=== PATIENT | male | born 1975 | race Caucasian/White ===

== ENCOUNTER → 2019-09-04 14:30 | Outpatient (BNVA) | payer SELFPAY | PROVIDERS: Family Provider Family Medicine; PCP Family Medicine; Visit Provider Family Medicine | DX: I10 Essential (primary) hypertension (principal); E78.2 Mixed hyperlipidemia; G43.009 Migraine without aura, not intractable, without status migrainosus; J30.2 Other seasonal allergic rhinitis; F17.229 Nicotine dependence, chewing tobacco, with unspecified nicotine-induced disorders | CPT/HCPCS: 80053 ==

== ENCOUNTER → 2019-09-17 14:55 | Outpatient (BNVA) | payer MEDICAID, SELFPAY | PROVIDERS: Family Provider Family Medicine; PCP Family Medicine; Visit Provider Nurse Practitioner Psychiatric/Mental Health | DX: F15.21 Other stimulant dependence, in remission (principal); F10.21 Alcohol dependence, in remission; F60.2 Antisocial personality disorder; F39 Unspecified mood [affective] disorder | CPT/HCPCS: 99214 ==

== ENCOUNTER 2019-12-05 17:17 | Inpatient (IN) | payer MEDICAID, SELFPAY ==
[2019-12-05 17:27] VITALS: BP 102/71; PULSE 120; RESP 19; TEMP 36.9; O2SAT 97; BMI 27.3
--- NOTE | 2019-12-05 17:31 | CTR_ITS ---
PROCEDURE INFORMATION: Exam: CT Head Without Contrast Exam date and time: 12/05/2019 5:43 PM Age: 44 years old Clinical indication: Other: Seizure TECHNIQUE: Imaging protocol: Computed tomography of the head without contrast. Axial, coronal and sagittal reformatted images were created and reviewed. Total DLP: 865.66 mGy-cm Radiation optimization: All CT scans at this facility use at least one of these dose optimization techniques: automated exposure control; mA and/or kV adjustment per patient size (includes targeted exams where dose is matched to clinical indication); or iterative reconstruction. COMPARISON: No relevant prior studies available. FINDINGS: Brain: No CT evidence of acute intracranial hemorrhage or acute territorial infarction. No significant mass effect or midline shift. Basal cisterns patent. Ventricles: Prominence of the cortical sulci, cisterns and ventricular system, consistent with cerebral and cerebellar volume loss. Bones/joints: No acute osseous abnormality. Sinuses: Minimal ethmoid mucosal thickening. Mastoid air cells: Grossly unremarkable. Soft tissues: Grossly unremarkable. CT/CT head wo con* [id number] IMPRESSION: 1[address] No CT evidence of acute intracranial pathology. 2. Additional findings, as above. Radiation Dose CTDIVOL = (mGy): DLP = 865.66 (mGy-cm)
--- NOTE | 2019-12-05 17:32 | W.ED.PSYCH ---
HPI - Psych General: Chief Complaint: Psychiatric Symptoms Stated Complaint: mhe Time Seen by Provider: 12/05/19 17:28 Source: patient Mode of arrival: ambulatory History of Present Illness: HPI Narrative: 44-year-old male who has a history of bipolar and schizophrenia also history of substance abuse. Patient states that he recently relapsed on methamphetamine and has been very paranoid. He also thinks he may have had a seizure recently. Patient is under a 96-hour hold and brought here by police. complaint: suicidal ideation Associated symptoms: Reports depression Review of Systems Const: Denies: fever, chills, body aches or change in appetite Eyes: Denies: blurry vision or eye discomfort ENMT: Denies: throat pain or dental pain Card: Denies: chest pain Resp: Denies: shortness of breath GI: Denies: abdominal pain, nausea, vomiting or diarrhea : Denies: painful urination Musc: Denies: neck pain or back pain Skin/Breast: Denies: rash Neuro: Denies: headache Psych: Reports: depression Michael/Lymph: Denies: easy bruising All/Imm: Denies: hives PFSH ED PFSH: Medical History Benign essential HTN Bipolar disorder Hyperlipidemia Schizophrenia Seasonal allergies Surgical History No pertinent past surgical history Family History Other Diabetes Stroke Social History Smoking and tobacco status: never smoked Quit status (tobacco): not considering quitting Second hand smoke exposure: No Alcohol intake: former Physical Exam Const: COMMON NORMALS: no apparent distress, oriented x3 and healthy appearing HENMT: COMMON NORMALS: normocephalic and head/scalp atraumatic HEAD & SCALP: normocephalic and atraumatic Eye: COMMON NORMALS: PERRL and EOMs intact bilaterally PUPIL: Yes PERRL Neck/C-Spine: COMMON NORMALS: full ROM and supple Chest: COMMONS NORMALS: inspection of chest normal and palpation of chest normal Resp: COMMON NORMALS: normal respiratory effort, no retractions, no use of accessory muscles and clear to auscultation bilaterally AUSCULTATION: clear to auscultation bilaterally Cardio: COMMON NORMALS: regular rate, regular rhythm and no murmurs RATE: regular rate RHYTHM: regular rhythm GI: COMMON NORMALS: normal to inspection, nondistended, normoactive bowel sounds, soft to palpation, non-tender and no masses PALPATION: Yes soft Extremity: COMMON NORMALS: normal to inspection and full ROM Neuro: COMMON NORMALS: oriented x3, moves all extremities and no focal motor deficits Psych: COMMON NORMALS: cooperative ATTITUDE: Yes paranoid ACTIVITY/MOTOR BEHAVIOR: Yes fidgeting THOUGHT PROCESS: disorganized Skin: COMMON NORMALS: no rashes or lesions noted and no wounds GENERAL SKIN EXAM: no rashes or lesions noted MDM - Psych MDM Narrative: Medical decision making narrative: Patient presents here with suicidal ideation along with methamphetamine abuse. I spoke to Dr. Pugh and patient is medically cleared will admit to the psychiatric unit. Lab Data: Labs: Lab Results 12/05/19 12/05/19 Range/Units 17:44 17:44 WBC 11.7 H (4.0-10.0) 10^3/ uL RBC 5.43 H (4.1-5.3) 10^6/u L Hgb 16.9 H (11.7-16.6) g/dL Hct 51.1 (42.0-52.0) % MCV 94.1 H (80-94) fL MCH 31.1 (28.0-34.0) pg MCHC 33.1 (30.0-36.0) g/dL RDW 11.9 L (12.1-15.1) % Plt Count 567 H (130-400) 10^3/c mm MPV 9.7 (7.4-10.4) fL Neut % (Auto) 71.6 % Lymph % (Auto) 14.6 % [place] % (Auto) 12.5 % Eos % (Auto) 0.6 % Baso % (Auto) 0.3 % Neut # (Auto) 8.4 H (1.8-7.7) 10^3/u L Lymph # (Auto) 1.7 (0.8-4.8) 10^3/u L [place] # (Auto) 1.5 H (0.2-0.9) 10^3/u L Eos # (Auto) 0.1 (0.0-0.8) 10^3/u L Baso # (Auto) 0.0 (0.0-0.1) 10^3/u L Nucleated RBC % (a uto) 0 % Nucleated RBCs # 0.0 /100WBC Sodium 135 L (136-145) mmol/L Potassium 4.0 (3.5-5.1) mmol/L Chloride 93 L (98-107) mmol/L Carbon Dioxide 27 (22-29) mmol/L Anion Gap 19.0 (5-19) BUN 27 H (6-20) mg/dL Creatinine 1.6 H (0.7-1.2) mg/dL GFR Calculation 47.0 L (90-130) mL/min Glucose 102 (65-115) mg/dL Calculated Osmolal ity 277 L (285-295) mOsm/k g Calcium 10.0 (8.5-10.5) mg/dL Total Bilirubin 0.4 (0.15-1.2) mg/dL AST 18 (0-40) U/L ALT 13 (0-41) U/L Alkaline Phosphata se 85 (40-130) IU/L Total Protein 7.8 (6.6-8.7) g/dL Albumin 4.9 (3.5-5.2) g/dL Globulin 2.9 (1.3-4.6) g/dL Salicylates < 0.3 L (3-10) mg/dL Acetaminophen < 5.0 L (10-30) ug/mL Valproic Acid 2.8 L (50-100) mcg/mL Ethyl Alcohol < 10 (0-10) mg/dL Discharge Plan Discharge Prescriptions: No Action lisinopril 20 mg tablet 20 mg PO DAILY RF: 0 divalproex [Depakote] 500 mg tablet,delayed release (DR/EC) 2,000 mg PO .at bedtime RF: 0 amlodipine 2.5 mg tablet 2.5 mg PO DAILY RF: 0 atorvastatin 20 mg tablet 20 mg PO DAILY RF: 0 Tylenol 325 mg Tablet 325 mg PO QID PRN (Reason: Pain) RF: 0 Coding Level of Care Code ED Nuclear Instructor for Chg Fwd Exam Comprehensive
[2019-12-05 17:56] LABS: Basophils % 0.3 %; Eosinophils # 0.1 10^3/uL (0.0-0.8); Eosinophils % 0.6 %; Hematocrit 51.1 % (42.0-52.0); Hemoglobin 16.9 g/dL (11.7-16.6); Lymphocytes # 1.7 10^3/uL (0.8-4.8); Lymphocytes % 14.6 %; Mean Corpuscular HGB Conc 33.1 g/dL (30.0-36.0); Mean Corpuscular Hemoglobin 31.1 pg (28.0-34.0); Mean Corpuscular Volume 94.1 fL (80-94); Mean Platelet Volume 9.7 fL (7.4-10.4); Monocytes # 1.5 10^3/uL (0.2-0.9); Monocytes % 12.5 %; Neutrophils # 8.4 10^3/uL (1.8-7.7); Neutrophils % 71.6 %; Nucleated Red Blood Cells % 0 %; Platelet Count 567 10^3/cmm (130-400); Red Blood Count 5.43 10^6/uL (4.1-5.3); Red Cell Distribution Width 11.9 % (12.1-15.1); White Blood Count 11.7 10^3/uL (4.0-10.0)
[2019-12-05 18:11] LABS: Acetaminophen < 5.0 ug/mL (10-30); Alanine Aminotransferase 13 U/L (0-41); Albumin Level 4.9 g/dL (3.5-5.2); Alcohol Level < 10 mg/dL (0-10); Alkaline Phosphatase 85 IU/L (40-130); Aspartate Amino Transferase 18 U/L (0-40); Blood Urea Nitrogen 27 mg/dL (6-20); Carbon Dioxide 27 mmol/L (22-29); Chloride 93 mmol/L (98-107); Globulin 2.9 g/dL (1.3-4.6); Glucose 102 mg/dL (65-115); Osmolality Calculated 277 mOsm/kg (285-295); Salicylate < 0.3 mg/dL (3-10); Sodium 135 mmol/L (136-145); Total Bilirubin 0.4 mg/dL (0.15-1.2); Total Protein 7.8 g/dL (6.6-8.7); Valproic Acid Level 2.8 mcg/mL (50-100)
[2019-12-05 20:03] VITALS: BP 100/64; PULSE 101; RESP 16; O2SAT 99
[2019-12-05 20:34] VITALS: BP 109/76; PULSE 107; RESP 18; TEMP 36.5; O2SAT 100
[2019-12-05] MEDS: atorvastatin 40 mg Tablet 20 MG PO (21:17)
[2019-12-05] MEDS: trazodone 50 mg Tablet PO (21:18)
[2019-12-05] MEDS: divalproex DR 500 mg Tablet 2000 MG PO (21:18)
[2019-12-05 22:00] VITALS: BP 109/76; PULSE 107; RESP 18; TEMP 36.5; O2SAT 100
[2019-12-05 22:07] LABS: Amphetamines Screen Urine Positive (Negative); Barbiturates Screen Urine Negative (Negative); Benzodiazepines Screen Urine Negative (Negative); Cocaine Screen Urine Negative (Negative); Opiate Screen Urine Negative (Negative); PCP Screen Urine Negative (Negative); THC Screen Urine Negative (Negative)
--- NOTE | 2019-12-06 01:03 | PC.NURSE ---
PRN Trazodone given to pt per pt request
[2019-12-06 06:00] VITALS: BP 100/65; PULSE 96; RESP 16; TEMP 36.8; O2SAT 98
[2019-12-06] MEDS: hydroCHLOROthiazide 25 mg Tablet PO (09:08)
[2019-12-06] MEDS: amlodipine 5 mg Tablet 2.5 MG PO (09:08)
[2019-12-06] MEDS: lisinopril 20 mg Tablet PO (09:08)
[2019-12-06 13:19] VITALS: BP 84/45; PULSE 93; RESP 18; TEMP 37.2; O2SAT 96
--- NOTE | 2019-12-06 13:21 | P.HP_ITS ---
Providers/Chief Complaint Admitting Physician: Christos Pugh MD Primary Care Provider: Paula Rolon DO Chief Complaint: mhe HPI NPU History of Present Illness Walt Madsen is a 44 year old male who presents today reporting it has been a crazy few months. He got out of custodial last April 2019, and he got himself connected with [facility]. He reports that he was doing fairly well and then about three months ago he started having some slip ups. His doctor at [facility] told him that if he tested positive for methamphetamine that they would stop gi ving him his medication, so he started going to [facility]. He reports that he was doing well taking his medication but he has had maybe three slip ups, of three or four days, in the past three months, and he started really getting out of sorts with suicidal thoughts and things of that nature, recently. He reports that he was last here in 2013, and shortly after that is when he went to custodial for five years for burglary and other assorted issues. In that visit he had been to replaced by [facility] right before he came to the neuropsychiatric unit and was afraid to go back to penitentiary, so he ended up taking an overdose of pills. That was his last suicide attempt and he has had two in his life. He reports since he got out, in April 2019, he has been staying at a friends. He has had his SSI returned, and he had been getting things back on track, but then recently he has had some issues with relapse. He reports that he has been having passive wish, auditory hallucinations, and paranoia. He reports he was arrested about a week ago. And also there was some possible seizure or stoke, which is unclear. He reports that he has done best over the past years when he was on Invega injection. He also mentioned the possibility of Adderall as he had been on it when he was younger. We discussed the risks, benefits, and alternatives of restarting the Invega oral, followed by the Invega injection, and getting things stabilized, and he understood and agreed to proceed as is documented in this note. PSYCHIATRIC HISTORY: As above. He reports he has had about six psychiatric hospitalizations, or maybe several more, maybe as many as ten to twelve since he was 17 or 18 years old. He has been on different medications, but over the twenty plus years he has been in several times. SUBSTANCE ABUSE HISTORY: He reports he chews about a can of tobacco a day but does not smoke, he reports he last drank alcohol about six years ago, he does not use marijuana or cocaine, he does use methamphetamine and has used opiates. He reports he has had two to three drug rehabilitations. He has had a couple of DUIs, the last one may have been in 2004. FAMILY HISTORY: He denies any history of mental health issues, addiction, or lethality in his family. DEVELOPMENTAL HISTORY: He denies any issues with his mom?s or delivery of him. He reports he learned how to walk and talk and met all developmental milestones on time. He reports when he went to school, there was no speech therapy, learning support, emotional support, or special education classes. PSYCHOSOCIAL HISTORY: He reports that his mother and father were together when he was born and when he was about 15 years old. They had him and a younger brother together. His mom had no other children; his dad had a couple step kids, a couple of adopted kids, and then a half-sister. He reports that his childhood was tough at times, because he was poor, be he denies any emotional, physical, or sexual abuse. He reports the highest grade he went to was the ninth grade, and he got his GED in 1991. He endorses being a heterosexual, with his longest relationship being a couple of years. He was once, not sure if he is , but he has not seen the person for many, many, many years. He reports he has a 20 year old daughter that he sees a little bit, but he was never to her mother. He denies any history. He endorses being a [employer]. The longest job he has had, he said, was ninety days. He reports he lives in a trailer on a friend?s property. LEGAL HISTORY: He reports that he has been to penitentiary multiple times, not actually sure how many. The longest time he was behind bars was the five years he spent in custodial that ended in April 2019. Per his last [facility] IP eval: History of Present Illness Date of Service: May 03, 2014 Reason for Consultation: Suicide attempt by overdose Consulting Service and Doctor: Jacinto Gunn DO HPI: Patient was admitted to the ICU following an overdose on 60 pills of tramadol. He stated that he had to present himself to the replaced by [facility] around 11 AM today, but was afraid to go back to custodial, so he decided to overdose on pills. States he has been charged with stealing. He has history of schizophrenia, and has been hearing voices for a long time. States he mostly heard his grandmother's voice talking to him. Sometimes the voices are mumbled. He has a history of meth use since age 15. He uses drugs intravenously and last used about 3 days ago. Currently endorses depressed mood, anhedonia, psychomotor retardation. Review of Psychiatric Systems: Negative, except as above. Allergies: Coded Allergies: AMOXICILLIN (Verified Allergy, Mild, 06/27/08) PENICILLINS (Verified Allergy, Unknown, 05/03/14) Active Meds: Current Hospital Medications: Medications (Trade) Dose Ordered Sig/Mendoza Route PRN Reason Start Time Stop Time Status Last Admin Dose Admin Ondansetron HCl (Zofran Inj) 4 mg Q6H PRN IV FOR NAUSEA AND VOMITING 05/02/14 23:45 Promethazine HCl (Phenergan Inj) 12.5 mg Q6H PRN IV FOR NAUSEA 05/02/14 23:45 Naloxone HCl (Narcan) 0.4 mg Q1-2H PRN IV 05/02/14 23:45 Pneumococcal Polyvalent Vaccine (Pneumovax Vaccine) 0.5 ml O ONCE IM 05/03/14 10:00 05/03/14 10:01 Home Meds: Per outpatient records: Valium 2 mg at bedtime when necessary, inVega Sustenna 156 mg IM every 3 weeks, Vistaril 25 mg twice a day, doxepin 25 mg at bedtime. Past Medical History Past Medical/Social History: PAST PSYCHIATRIC HISTORY:Previous psychiatric admissions: Yes, here. Previous suicide attempts: Try to kill himself with a gun about 20 years ago. Follows up at [facility] for outpatient care. SUBSTANCE ABUSE HISTORY: Illicit drug use, as mentioned above. SOCIAL HISTORY: Employed: No. Is reapplying for disability. Marital status: D ivorced. Has a 19-year-old daughter. DEVELOPMENTAL HISTORY: History of Physical, Emotional and Sexual abuse: No. LEGAL HISTORY: Charges for stealing. FAMILY PSYCHIATRIC HISTORY: None reported. PAST MEDICAL HISTORY: Hypertension, GERD. Meds NPU Home Medications Medication Instructions Recorded Confirmed Last Taken Type divalproex 500 mg tablet,delayed 2,000 mg PO .at bedtime tab 09/04/19 12/05/19 12/04/19 History release acetaminophen [Tylenol] 325 mg PO QID PRN 12/05/19 12/05/19 12/03/19 History amlodipine 2.5 mg PO DAILY 12/05/19 12/05/19 12/05/19 History atorvastatin 20 mg PO DAILY 12/05/19 12/05/19 12/04/19 History lisinopril-hydrochlorothiazide 1 tab PO DAILY 12/05/19 12/05/19 12/05/19 History Allergies Allergy/AdvReac Type Severity Reaction Status Date / Time Penicillins Allergy unknown Verified 09/04/19 14:08 PFS NPU PFSH: Medical History Benign essential HTN Bipolar disorder Hyperlipidemia Schizophrenia Seasonal allergies Surgical History No pertinent past surgical history Family History Other Diabetes Stroke Social History Smoking and tobacco status: never smoked Quit status (tobacco): not considering quitting Second hand smoke exposure: No Alcohol intake: former Mental Status Exam MSE Comments: This is an overweight, white male, with adequate dress, grooming, and eye contact. No abnormal movements. Cooperative with exam in no acute distress. Speech was decreased rate and volume with kind of a stutter. Mood described as pretty good; affect odd. Thought process, organized. Thought content: patient denied any suicidal or homicidal ideation, there were no delus ions noted, but he endorsed paranoia and some auditory hallucinations. Attention and concentration appeared intact, and memory was mostly reliable, but none were formally tested. He is alert and oriented times three. Insight and judgment are fair. Vitals/I&O/Wt Last Vital Signs Temp 99.0 F 12/06/19 13:19 Pulse 93 12/06/19 13:19 Resp 18 12/06/19 13:19 BP 84/45 12/06/19 13:19 Pulse Ox 96 12/06/19 13:19 Weight last 48 hrs Weight 79.379 kg Data NPU : 12/05/19 17:44 12/05/19 17:44 A&P Assessment and plan (1) Bipolar 1 disorder: This is a 44 year old, white male, with a history of methamphetamine addiction, depression, anxiety, and psychosis, and a question of schizophrenia, who presents with some suicidal thoughts and wanting to restart his medication. Restart Invega 6 mg po q daily. In the next twenty four to forty eight hours we will get him the first injection and consider discharge after we have him stable in a place for him to receive his next shot. Continue individual and milieu therapy. Continue q-15 minute checks for safety. Will work with social work to find a possible sober living facility at the highest level of treatment to which he is willing to commit. Status: Acute (2) Methamphetamine dependence: Status: Acute Involuntary Hold Information 96 Hour Hold: 96 Hour Involuntary Admission: Yes 96 Hour Hold Ending Date: 12/05/19 96 Hour Hold Ending Time: 21:13 Attestations NPU Medical Necessity Statement*: Inpatient hospitalization is medically necessary and the clinically appropriate intervention at this time. Patient will be in the hospital for over two midnights. We will monitor medications and adjust as indicated. Likely length of stay is three to five days. Coding Level of Care Code Acute Security Site Supervisor for Mimi Gastelum Diagnoses Bipolar 1 disorder F31.9 Methamphetamine dependence F15.20
[2019-12-06] MEDS: divalproex DR 500 mg Tablet 2000 MG PO (21:02)
[2019-12-06] MEDS: trazodone 50 mg Tablet PO (21:02)
[2019-12-06] MEDS: nicotine 2 mg Gum BUCCAL (21:03)
[2019-12-06] MEDS: paliperidone ER 6 mg Tablet PO (21:03)
[2019-12-06] MEDS: atorvastatin 40 mg Tablet 20 MG PO (21:03)
[2019-12-06 21:15] VITALS: BP 98/60; PULSE 88; RESP 17; TEMP 36.7; O2SAT 95
[2019-12-07 06:00] VITALS: BP 97/58; PULSE 87; RESP 16; TEMP 36.6; O2SAT 96
[2019-12-07] MEDS: amlodipine 5 mg Tablet 2.5 MG PO (09:18)
[2019-12-07] MEDS: hydroCHLOROthiazide 25 mg Tablet PO (09:18)
[2019-12-07] MEDS: paliperidone ER 6 mg Tablet PO (09:18)
[2019-12-07] MEDS: lisinopril 20 mg Tablet PO (09:18)
[2019-12-07] MEDS: nicotine 21 mg Patch 1 PATCH TRANSDERMA (13:06)
[2019-12-07 13:15] VITALS: BP 110/65; PULSE 105; RESP 18; TEMP 36.9; O2SAT 98
[2019-12-07] MEDS: acetaminophen 325 mg Tablet 650 MG PO (14:39)
--- NOTE | 2019-12-07 18:19 | PM.NPN ---
Subjective NPU Subjective: Interval history: Walt presented today reporting that he is feeling a slight bit better but is not sure what his next move is. During the day we did get news that he is accepted in [facility] and they are going to be able to take him on Tuesday. He was very excited about that news and the opportunity to really re-establish his sobriety and work on some things he needs to work on. He is tolerating the Invega well and we talked about the possibility of giving him his injection this weekend. Otherwise he denied any issues. Mental Status Exam MSE Comments: This is an overweight, white male, with adequate dress, grooming, and eye contact. No abnormal movements except for psychomotor retardation. Cooperative with exam in no acute distress. Speech was decreased rate and volume. Mood described as okay; affect slightly subdued. Thought process, organized. Thought content: patient denied any suicidal or homicidal ideation, there were no delusions reported or noted, patient denied any auditory or visual hallucinations. Attention, concentration, and memory appeared intact but were not formally tested. Alert and oriented times three. Insight and judgment are limited. Impulse control limited but improving. Vitals/I&O/Wt Last Vital Signs Temp 97.7 F 12/07/19 21:45 Pulse 109 H 12/07/19 21:45 Resp 17 12/07/19 21:45 BP 126/77 12/07/19 21:45 Pulse Ox 100 12/07/19 21:45 Data NPU : 12/05/19 17:44 12/05/19 17:44 A&P Additional A&P Information (1) Bipolar 1 disorder: This is a 44 year old, white male, with a history of methamphetamine addiction, depression, anxiety, and psychosis, and a question of schizophrenia, who presents with some suicidal thoughts and wanting to restart his medication. Continue current medication. Will give invega injection this weekend Continue individual and milieu therapy. Continue q-15 minute checks for safety. (2) Methamphetamine dependence: Involuntary Hold Information 96 Hour Hold: 96 Hour Involuntary Admission: Yes 96 Hour Hold Ending Date: 12/05/19 96 Hour Hold Ending Time: 21:13 Attestations NPU Medical Necessity Statement*: Inpatient hospitalization is medically necessary and the clinically appropriate intervention at this time. We will monitor medications and adjust as indicated. Likely length of stay is 2-4 days.Tentative discharge to [facility] on Tuesday. Coding Level of Care Code Acute Digital Archivist for Mimi Gastelum
[2019-12-07] MEDS: trazodone 50 mg Tablet PO (20:52)
[2019-12-07] MEDS: atorvastatin 40 mg Tablet 20 MG PO (20:52)
[2019-12-07] MEDS: divalproex DR 500 mg Tablet 2000 MG PO (20:52)
[2019-12-07 21:45] VITALS: BP 126/77; PULSE 109; RESP 17; TEMP 36.5; O2SAT 100
[2019-12-08 06:00] VITALS: BP 93/58; PULSE 76; RESP 18; TEMP 36.6; O2SAT 97
[2019-12-08] MEDS: lisinopril 20 mg Tablet PO (09:12)
[2019-12-08] MEDS: amlodipine 5 mg Tablet 2.5 MG PO (09:12)
[2019-12-08] MEDS: hydroCHLOROthiazide 25 mg Tablet PO (09:12)
[2019-12-08] MEDS: paliperidone ER 6 mg Tablet PO (09:12)
[2019-12-08 13:34] VITALS: BP 128/67; PULSE 105; RESP 19; TEMP 36.9; O2SAT 98
--- NOTE | 2019-12-08 20:33 | P.PN_ITS ---
Subjective NPU Subjective: Interval history: The patient presented today reporting that he is doing okay. He is excited about the prospect of being accepted most likely by the [facility]. Our understanding is that he will go there Tuesday. He reports he feels that the medication is helping. We discussed the risks, benefits and alternatives of initiating the injection, as he had success on it before, and he understood and agreed to proceed as is documented in this note. We discussed him having the injection prior to leaving and asked if he had a preference and his preference was to go ahead and get it over with today. We understood and we agreed to proceed as is documented in this note. Mental Status Exam MSE Comments: This is a well-nourished, well-developed, white male, with adequate dress, limited grooming, and eye contact. No abnormal movements except for psychomotor retardation. Cooperative with exam in no acute distress. Speech was decreased rate and volume. Mood described as a little better; affect still odd. Thought process, organized. Thought content: patient denied any suicidal or homicidal ideation, there were no delusions reported or noted, patient denied any auditory or visual hallucinations. Attention, concentration, and memory appeared intact but were not formally tested. Alert and oriented times three. Insight and judgment are limited but improving. Vitals/I&O/Wt Last Vital Signs Temp 98.4 F 12/08/19 13:34 Pulse 105 H 12/08/19 13:34 Resp 19 H 12/08/19 13:34 BP 128/67 12/08/19 13:34 Pulse Ox 98 12/08/19 13:34 Data NPU : 12/05/19 17:44 12/05/19 17:44 A&P Additional A&P Information (1) Bipolar 1 disorder: This is a 44 year old, white male, with a history of methamphetamine addic tion, depression, anxiety, and psychosis, and a question of schizophrenia, who presents with some suicidal thoughts and wanting to restart his medication. Continue current medication. Will give invega injection today Continue individual and milieu therapy. Continue q-15 minute checks for safety. (2) Methamphetamine dependence: Involuntary Hold Information 96 Hour Hold: 96 Hour Involuntary Admission: Yes 96 Hour Hold Ending Date: 12/05/19 96 Hour Hold Ending Time: 21:13 Attestations NPU Medical Necessity Statement*: Inpatient hospitalization is medically necessary and the clinically appropriate intervention at this time. We will monitor medications and adjust as indicated. Likely length of stay is 1-3 days.Tentative discharge to [facility] on Tuesday. Coding Level of Care Code Acute Import/Export Analyst for Mimi Gastelum
[2019-12-08] MEDS: atorvastatin 40 mg Tablet 20 MG PO (20:39)
[2019-12-08] MEDS: divalproex DR 500 mg Tablet 2000 MG PO (20:39)
[2019-12-08] MEDS: paliperidone palmitate 234 mg Syringe IM (20:39)
[2019-12-08] MEDS: trazodone 50 mg Tablet PO (20:40)
--- NOTE | 2019-12-08 21:15 | PC.NURSE ---
PRN Trazadone given to patient per request. Patient currently resting quietly in bed.
[2019-12-08 22:00] VITALS: BP 116/82; PULSE 100; RESP 22; TEMP 36.6; O2SAT 95
[2019-12-09 06:00] VITALS: BP 112/71; PULSE 71; RESP 20; TEMP 36.8; O2SAT 96
[2019-12-09] MEDS: hydroCHLOROthiazide 25 mg Tablet PO (08:38)
[2019-12-09] MEDS: lisinopril 20 mg Tablet PO (08:38)
[2019-12-09] MEDS: paliperidone ER 6 mg Tablet PO (08:38)
[2019-12-09] MEDS: amlodipine 5 mg Tablet 2.5 MG PO (08:38)
[2019-12-09 12:45] VITALS: BP 106/63; PULSE 80; RESP 17; TEMP 36.7; O2SAT 98
--- NOTE | 2019-12-09 13:39 | P.PN_ITS ---
Subjective NPU Subjective: Interval history: Walt presents today reporting that he is doing okay, that he received his injection without incident yesterday, and he is optimistic about going to the [facility] tomorrow. He denies any issues right now and is optimistic about the opportunity to get the assistance that he will get from the [facility] and to get his recovery effectively on track. Mental Status Exam MSE Comments: This is a well-nourished, well-developed, white male, with adequ ate dress, limited grooming, and adequate eye contact. No abnormal movements except for improving psychomotor retardation. Cooperative with exam in no acute distress. Speech was improved rate and volume. Mood described as better; affect congruent and less subdued. Thought process, organized. Thought content: patient denied any suicidal or homicidal ideation, there were no delusions reported or noted, patient denied any auditory or visual hallucinations. Attention, concentration, and memory appeared intact but were not formally tested. Alert and oriented times three. Insight and judgment are limited but improving. Vitals/I&O/Wt Last Vital Signs Temp 98.2 F 12/09/19 06:00 Pulse 71 12/09/19 06:00 Resp 20 H 12/09/19 06:00 BP 112/71 12/09/19 06:00 Pulse Ox 96 12/09/19 06:00 Weight last 48 hrs Weight 73.573 kg Data NPU : 12/05/19 17:44 12/05/19 17:44 A&P Additional A&P Information (1) Bipolar 1 disorder: This is a 44 year old, white male, with a history of methamphetamine add iction, depression, anxiety, and psychosis, and a question of schizophrenia, who presents with some suicidal thoughts and wanting to restart his medication. Continue current medication. Will give invega injection today Continue individual and milieu therapy. Continue q-15 minute checks for safety. (2) Methamphetamine dependence: Involuntary Hold Information 96 Hour Hold: 96 Hour Involuntary Admission: Yes 96 Hour Hold Ending Date: 12/05/19 96 Hour Hold Ending Time: 21:13 Attestations NPU Medical Necessity Statement*: Inpatient hospitalization is medically necessary and the clinically appropriate intervention at this time. We will monitor medications and adjust as indicated. Likely length of stay is 1-2 days.[facility]. Coding Level of Care Code Acute Building Pressure Washer for Chg Fwd
[2019-12-09] MEDS: divalproex DR 500 mg Tablet 2000 MG PO (21:13)
[2019-12-09] MEDS: atorvastatin 40 mg Tablet 20 MG PO (21:13)
[2019-12-09] MEDS: trazodone 50 mg Tablet PO (21:13)
[2019-12-09 21:30] VITALS: BP 102/64; PULSE 100; RESP 20; TEMP 37.2
--- NOTE | 2019-12-09 23:15 | PC.NURSE ---
Pt given scheduled lipitor, depakote and PRN trazodone at 2112.
[2019-12-10 06:00] VITALS: BP 99/64; PULSE 68; RESP 20; TEMP 37; O2SAT 96
[2019-12-10] MEDS: lisinopril 20 mg Tablet PO (08:56)
[2019-12-10] MEDS: amlodipine 5 mg Tablet 2.5 MG PO (08:56)
[2019-12-10] MEDS: hydroCHLOROthiazide 25 mg Tablet PO (08:56)
[2019-12-10] MEDS: paliperidone ER 6 mg Tablet PO (08:56)
[2019-12-10] MEDS: nicotine 2 mg Gum BUCCAL (11:54)
--- NOTE | 2019-12-10 12:09 | PM.NDC ---
Diagnoses at Discharge Discharge Diagnosis (1) Bipolar 1 disorder: Status: Acute (2) Methamphetamine dependence: Status: Acute Reason for Visit Reason for Visit: Reason For Visit: mhe Brief History: History of Present Illness Walt Madsen is a 44 year old male who presents today reporting it has been a crazy few months. He got out of [facility] last April 2019, and he got himself connected with [facility]. He reports that he was doing fairly well and then about three months ago he started having some slip ups. His doctor at [facility] told him that if he tested positive for methamphetamine that they would stop giving him his medication, so he started going to [facility]. He reports that he was doing well taking his medication but he has had maybe three slip ups, of three or four days, in the past three months, and he started really getting out of sorts with suicidal thoughts and things of that nature, recently. He reports that he was last here in 2013, and shortly after that is when he [facility] and other assorted issues. In that visit he had been to on [facility] right before he came to the neuropsychiatric unit and was afraid to go back to [facility], so he ended up taking an overdose of pills. That was his last suicide attempt and he has had two in his life. He reports since he got out, in April 2019, he has been staying at a friends. He has had his SSI returned, and he had been getting things back on track, but then recently he has had some issues with relapse. He reports that he has been having passive wish, auditory hallucinations, and paranoia. He reports he was arrested about a week ago. And also there was some possible seizure or stoke, which is unclear. He reports that he has done best over the past years when he was on Invega injection. He also mentioned the possibility of Adderall as he had been on it when he was younger. We discussed the risks, benefits, and alternatives of restarting the Invega oral, followed by the Invega injection, and getting things stabilized, and he understood and agreed to proceed as is documented in this note. PSYCHIATRIC HISTORY: As above. He reports he has had about six psychiatric hospitalizations, or maybe several more, maybe as many as ten to twelve since he was 17 or 18 years old. He has been on different medications, but over the twenty plus years he has been in several times. SUBSTANCE ABUSE HISTORY: He reports he chews about a can of tobacco a day but does not smoke, he reports he last drank alcohol about six years ago, he does not use marijuana or cocaine, he does use methamphetamine and has used opiates. He reports he has had two to three drug rehabilitations. He has had a couple of DUIs, the last one may have been in 2004. FAMILY HISTORY: He denies any history of mental health issues, addiction, or lethality in his family. DEVELOPMENTAL HISTORY: He denies any issues with his mom?s or delivery of him. He reports he learned how to walk and talk and met all developmental milestones on time. He reports when he went to school, there was no speech therapy, learning support, emotional support, or special education classes. PSYCHOSOCIAL HISTORY: He reports that his mother and father were together when he was born and when he was about 15 years old. They had him and a younger brother together. His mom had no other children; his dad had a couple step kids, a couple of adopted kids, and then a half-sister. He reports that his childhood was tough at times, because he was poor, be he denies any emotional, physical, or sexual abuse. He reports the highest grade he went to was the ninth grade, and he got his GED in 1991. He endorses being a heterosexual, with his longest relationship being a couple of years. He was once, not sure if he is , but he has not seen the person for many, many, many years. He reports he has a 20 year old daughter that he sees a little bit, but he was never to her mother. He denies any history. He endorses being a Gnosticism. The longest job he has had, he said, was ninety days. He reports he lives in a trailer on a friend?s property. LEGAL HISTORY: He reports that he has been to [facility] multiple times, not actually sure how many. The longest time he was behind bars was the five years he spent in [facility] that ended in April 2019. Per his last [facility] IP eval: History of Present Illness Date of Service: May 03, 2014 Reason for Consultation: Suicide attempt by overdose Consulting Service and Doctor: Jacnito Gunn DO HPI: Patient was admitted to the ICU following an overdose on 60 pills of tramadol. He stated that he had to present himself to the on [facility] around 11 AM today, but was afraid to go back to [facility], so he decided to overdose on pills. States he has been charged with stealing. He has history of schizophrenia, and has been hearing voices for a long time. States he mostly heard his grandmother's voice talking to him. Sometimes the voices are mumbled. He has a history of meth use since age 15. He uses drugs intravenously and last used about 3 days ago. Currently endorses depressed mood, anhedonia, psychomotor retardation. Review of Psychiatric Systems: Negative, except as above. Allergies: Coded Allergies: AMOXICILLIN (Verified Allergy, Mild, 06/27/08) PENICILLINS (Verified Allergy, Unknown, 05/03/14) Active Meds: Current Hospital Medications: Medications (Trade) Dose Ordered Sig/Mendoza Route PRN Reason Start Time Stop Time Status Last Admin Dose Admin Ondansetron HCl (Zofran Inj) 4 mg Q6H PRN IV FOR NAUSEA AND VOMITING 05/02/14 23:45 Promethazine HCl (Phenergan Inj) 12.5 mg Q6H PRN IV FOR NAUSEA 05/02/14 23:45 Naloxone HCl (Narcan) 0.4 mg Q1-2H PRN IV 05/02/14 23:45 Pneumococcal Polyvalent Vaccine (Pneumovax Vaccine) 0.5 ml O ONCE IM 05/03/14 10:00 05/03/14 10:01 Home Meds: Per outpatient records: Valium 2 mg at bedtime when necessary, inVega Sustenna 156 mg IM every 3 weeks, Vistaril 25 mg twice a day, doxepin 25 mg at bedtime. Past Medical History Past Medical/Social History: PAST PSYCHIATRIC HISTORY:Previous psychiatric admissions: Yes, here. Previous suicide attempts: Try to kill himself with a gun about 20 years ago. Follows up at [facility] for outpatient care. SUBSTANCE ABUSE HISTORY: Illicit drug use, as mentioned above. SOCIAL HISTORY: Employed: No. Is reapplying for disability. Marital status: . Has a 19-year-old daughter. DEVELOPMENTAL HISTORY: History of Physical, Emotional and Sexual abuse: No. LEGAL HISTORY: Charges for stealing. FAMILY PSYCHIATRIC HISTORY: None reported. PAST MEDICAL HISTORY: Hypertension, GERD. Hospital Course Hospital Course Walt presented to the emergency room on a 96-hour hold after recent relapse on methamphetamine and suicidal thoughts. He was admitted to the neuropsychiatric unit for definitive care for those concerns. Upon admission he identified that he had been off of his medication for several months and has been struggling to avoid a full on full-blown relapse on methamphetamine. He identified that Invega had been an effective medication and was restarted on that with a significant response. He was given the Invega Sustenna injection on 12/08/2019 without issue. He benefited greatly from the resources on the unit and was able to identify the [facility] as a resource for ongoing improvement. During the hospitalization, he had routine laboratory studies which were within normal limits except for a few outliers. Additionally he had general medical evaluation which was also within normal limits and revealed no new acute processes outside of intoxication and withdrawal. Discharge Summary At the time of discharge, he denied any lethality and was absent psychosis. Mood and anxiety were well managed and he endorsed a plan to avoid all drugs of abuse, and follow-up with the recommended post hospital services, including placement in the programming at [facility]. He was evaluated and deemed to be absent credible lethality and had received the maximum benefit from an inpatient hospitalization, so was discharged. Involuntary Hold Information 96 Hour Hold: 96 Hour Involuntary Admission: Yes 96 Hour Hold Ending Date: 12/05/19 96 Hour Hold Ending Time: 21:13 Mental Status Exam MSE Comments: This is a well-nourished, well-developed, white male, with adequate dress, limited grooming, and adequate eye contact. No abnormal movements except for improving psychomotor retardation. Cooperative with exam in no acute distress. Speech was improved rate and volume. Mood described as much better; affect congruent and less subdued. Thought process, organized. Thought content: patient denied any suicidal or homicidal ideation, there were no delusions reported or noted, patient denied any auditory or visual hallucinations. Attention, concentration, and memory appeared intact but were not formally tested. Alert and oriented times three. Insight and judgment are improving. Discharge Data Data Completed and Pending: Completed Studies During Hospitalization Category Date Time Status CT head wo con* [id number] Urgent Cat Scan 12/05/19 17:31 Completed Vitals: Last Vital Signs Temp 98.6 F 12/10/19 06:00 Pulse 68 12/10/19 06:00 Resp 20 H 12/10/19 06:00 BP 99/64 12/10/19 06:00 Pulse Ox 96 12/10/19 06:00 Discharge Plan Discharge Patient Disposition: Home, Self-Care Condition: Stable Prescriptions: New trazodone 50 mg Tablet 50 mg PO BEDTIME PRN (Reason: Sleep) 30 Days Qty: 30 RF: 1 lisinopril 20 mg Tablet 20 mg PO DAILY 30 Days Qty: 30 RF: 1 hydrochlorothiazide 25 mg Tablet 25 mg PO DAILY 30 Days Qty: 30 RF: 1 Invega Sustenna 156 mg/mL syringe 156 mg IM Q30D Qty: 1 RF: 1 Continued Tylenol 325 mg Tablet 325 mg PO QID PRN (Reason: Pain) RF: 0 atorvastatin 20 mg tablet 20 mg PO DAILY 30 Days Qty: 30 RF: 1 amlodipine 2.5 mg tablet 2.5 mg PO DAILY 30 Days Qty: 30 RF: 1 Depakote 500 mg tablet,delayed release (DR/EC) 2,000 mg PO .at bedtime 30 Days Qty: 120 RF: 1 Discontinued lisinopril-hydrochlorothiazide 20-25 mg Tablet 1 tab PO DAILY RF: 0 Discharge Orders: Discharge Order (Routine); Ordered 12/10/19 Ordered By: Christos Pugh Referrals: Winnie Pa APRN [Nurse Practitioner] - 12/17/19 8:30 am Discharge Diet: Regular Discharge Activity: Resume usual activity Patient Instructions: Lisinopril (By mouth), Hydrochlorothiazide (By mouth), Trazodone (By mouth), Paliperidone (Injection) Activity Restrictions/Additional Instructions: you will be going to the [facility] today at [address] [place] [address]. Discharge Date/Time: 12/10/19 13:06 Discharge Attestations NPU Time Spent in Discharge Care*: less than 30 min Specific Discharge Activities: Specific discharge activities: educating patient, discussing with case therapist/social workers/dc planners, documenting/other paperwork and evaluating patient/reviewing data Coding Level of Care Code Acute Atmospheric Drier Tender for [facility] Fwd Diagnoses Bipolar 1 disorder F31.9 Methamphetamine dependence F15.20
[2019-12-10 12:13] VITALS: BP 99/64; PULSE 68; RESP 20; TEMP 37; O2SAT 96
== END 2019-12-10 13:06 | disposition home or self-care (01) | DRG 885 ==
LOC: ER 17:28 → NP 18:59
PROVIDERS: Admitting Provider Psychiatry & Neurology Psychiatry; Emergency Provider Emergency Medicine; Family Provider Family Medicine; PCP Family Medicine; Visit Provider Psychiatry & Neurology Psychiatry
DX: F31.9 Bipolar disorder, unspecified (principal); F15.20 Other stimulant dependence, uncomplicated; F17.220 Nicotine dependence, chewing tobacco, uncomplicated
CPT/HCPCS: 12345; 36415; 70450; 80053; 80164; 80306; 80307; 85025; 96372; 99284

== ENCOUNTER 2019-12-05 17:17 | Emergency (ER) | payer MEDICAID, SELFPAY | END 2019-12-05 20:19 | disposition admitted as inpatient to this hospital (09) | LOC: ER 12-07 06:30 | PROVIDERS: Emergency Provider Emergency Medicine; Family Provider Family Medicine; PCP Family Medicine | DX: F31.9 Bipolar disorder, unspecified (principal); F20.9 Schizophrenia, unspecified; I10 Essential (primary) hypertension; E78.5 Hyperlipidemia, unspecified | CPT/HCPCS: 12345; 36415; 70450; 80053; 80164; 80307; 85025; 99284; 99285 ==

== ENCOUNTER → 2019-12-17 07:45 | Outpatient (BNVA) | payer MEDICAID, SELFPAY | PROVIDERS: Family Provider Family Medicine; PCP Family Medicine; Visit Provider Nurse Practitioner Psychiatric/Mental Health | DX: F31.9 Bipolar disorder, unspecified (principal); F15.21 Other stimulant dependence, in remission | CPT/HCPCS: 99213 ==

== ENCOUNTER 2019-12-27 09:36 | Outpatient (CLI) | payer MEDICAID, SELFPAY ==
--- NOTE | 2019-12-27 09:42 | CT_ITS ---
WS: [id number] CT HEAD TECHNIQUE: Noncontrast CT of the head obtained from the skullbase to the vertex. CLINICAL INFORMATION: LEFT SIDE WEAKNESS COMPARISON: December 05, 2019 DLP: 925.[address] scans at [facility] use at least one of these dose optimization techniques: automat ed exposure control; mA and/or kV adjustment per patient size (includes targeted exams where dose is matched to clinical indication); or iterative reconstruction. FINDINGS: No evidence of intracranial hemorrhage or mass effect. Ventricular system and basal cisterns are botello nt. No extra-axial fluid collections. No evidence of mass or mass effect. Normal mae-white different iation. Paranasal sinuses and mastoid air cells are well aerated. .Normal visualized soft tissues. CT/CT head wo con* [id number] IMPRESSION: 1. No evidence of intracranial hemorrhage or mass effect. 2. Normal mae-white differentiation. 3. No acute intracranial findings.
--- NOTE | 2019-12-27 09:42 | CT_ITS ---
WS: [id number] CTA NECK TECHNIQUE: Contrast enhanced CTA of the neck with coronal and sagittal reformatted images and maximum intensity projection (MIP) images. NASCET criteria utilized. CLINICAL INFORMATION: LEFT SIDE WEAKNESS COMPARISON: None. DLP: 895.[address] scans at [facility] use at least one of these dose optimization techniques: automat ed exposure control; mA and/or kV adjustment per patient size (includes targeted exams where dose is matched to clinical indication); or iterative reconstruction. FINDINGS: RIGHT: Right common carotid artery is patent. No significant right ICA stenosis. ICA is patent to the skull base. LEFT: Left common carotid artery is patent. No significant left ICA stenosis. Left ICA is patent to t he skull base. Codominant and patent vertebral arteries bilaterally. Proximal basilar artery is patent. Normal visua lized proximal platinum of Erickson. Mastoid air cells and paranasal sinuses are well aerated. Lung apices are well aerated. Multinodular left thyroid gland with dense calcified nodules measuring up to 1.3 x 1.2 CCM. This can be followed u p with ultrasound. No cervical lymphadenopathy. CT/CT angio neck [id number] IMPRESSION: 1. No significant ICA stenosis bilaterally. Both ICAs are patent to the skull base. 2. Codominant and patent vertebral arteries bilaterally. 3. Normal proximal intracranial platinum of Erickson 4. Multinodular left thyroid lobe with calcified nodules. This can be further evaluated with ultrasound. 5. Visualized paranasal sinuses and mastoid air cells are well aerated.
[2019-12-27] MEDS: iohexol 350 mg/mL 100 mL Btl IV (10:01)
== END 2019-12-27 09:37 | disposition home or self-care (01) ==
LOC: RADWPI 09:40
PROVIDERS: Family Provider Family Medicine; PCP Nurse Practitioner Family; Visit Provider Nurse Practitioner Family
DX: R53.1 Weakness (principal); E04.2 Nontoxic multinodular goiter
CPT/HCPCS: 70450; 70498; Q9967

== ENCOUNTER 2019-12-28 14:13 | Emergency (ER) | payer MEDICAID, SELFPAY ==
[2019-12-28 14:14] VITALS: BP 130/83; PULSE 101; RESP 18; TEMP 36.5; O2SAT 98; BMI 27.3
--- NOTE | 2019-12-28 14:22 | XRR_ITS ---
PROCEDURE INFORMATION: Exam: XR Chest, 1 View Exam date and time: 12/28/2019 3:24 PM Age: 44 years old Clinical indication: Chest pain; Type not specified TECHNIQUE: Imaging protocol: XR of the chest Views: 1 view. COMPARISON: CR Chest 1 [place] [id number] 05/02/2014 11:26 PM FINDINGS: Lungs: Probable small calcified granulomata are unchanged from the prior x-ray. No consolidation. Pleural space: Unremarkable. No pleural effusion. No pneumothorax. Heart/Mediastinum: Unremarkable. No cardiomegaly. Bones/joints: Unremarkable. XR/XR chest 1V portable [id number] IMPRESSION: No acute findings and no change from prior x-ray.
[2019-12-28 15:03] LABS: Basophils % 0.9 %; Eosinophils # 0.2 10^3/uL (0.0-0.8); Eosinophils % 5.2 %; Hematocrit 42.4 % (42.0-52.0); Hemoglobin 13.5 g/dL (11.7-16.6); Lymphocytes % 22.4 %; Mean Corpuscular HGB Conc 31.8 g/dL (30.0-36.0); Mean Corpuscular Hemoglobin 31.3 pg (28.0-34.0); Mean Corpuscular Volume 98.4 fL (80-94); Mean Platelet Volume 10.3 fL (7.4-10.4); Monocytes # 0.6 10^3/uL (0.2-0.9); Monocytes % 13.9 %; Neutrophils # 2.6 10^3/uL (1.8-7.7); Neutrophils % 56.5 %; Nucleated Red Blood Cells % 0 %; Platelet Count 170 10^3/cmm (130-400); Red Blood Count 4.31 10^6/uL (4.1-5.3); Red Cell Distribution Width 12.2 % (12.1-15.1); White Blood Count 4.6 10^3/uL (4.0-10.0)
[2019-12-28 15:13] VITALS: O2SAT 99
--- NOTE | 2019-12-28 15:16 | W.ED.CHESTPA ---
HPI - Chest Pain General: Chief Complaint: Chest Pain Stated Complaint: chest pain Time Seen by Provider: 12/28/19 14:58 History of Present Illness: HPI narrative: 44-year-old male presents to the emergency room with complaint of left-sided facial numbness that began today said left neck and left arm pain for the last several days. 6 weeks ago he had a seizure he had a work-up including CT that was done within the last couple of days he had still not heard the results on. He does note that he can make the L neck pain worse by turning his head to the right. He also reported some mild associated shortness of breath. He has noted a slightly worsens with exertion. Associated symptoms: Deny abdominal pain, dyspnea, fever(s), nausea or vomiting Review of Systems Const: Denies: fever(s), chills, body aches, change in appetite, fatigue or malaise ENMT: Denies: throat pain, ear or mastoid pain, nasal discharge or nasal congestion Card: Reports: chest pain and dyspnea on exertion; Denies: edema or orthopnea Resp: Denies: dyspnea, productive cough or non-productive cough GI: Denies: abdominal pain, nausea, vomiting, hematemesis, coffee ground emesis, diarrhea, constipation, bloating, hematochezia or melena : Denies: flank pain, dysuria, urinary frequency or urinary urgency Skin/Breast: Denies: rash or pruritus PFSH ED PFSH: Medical History Benign essential HTN Bipolar disorder Hyperlipidemia Methamphetamine use disorder, moderate, in early remission, dependence He denies methamphetamine cravings at this time. He is taking medications as noted below. He is currently residing in a [facility] house ([facility]) and reports a supportive environment/staff there. The salesperson household appliances dispenses his medications as directed. He does not want case management at this time. He sees a therapist at [facility] and is encouraged to follow-up with her as directed. Schizophrenia Seasonal allergies Surgical History No pertinent past surgical history Family History Other Diabetes Stroke Social History Smoking and tobacco status: never smoked Quit status (tobacco): not considering quitting Second hand smoke exposure: No Alcohol intake: former Physical Exam Const: COMMON NORMALS: no acute distress GENERAL APPEARANCE: cooperative and comfortable ORIENTATION/CONSCIOUSNESS: Yes awake, Yes oriented to person, Yes oriented to place and Yes oriented to time HENMT: COMMON NORMALS: normocephalic, atraumatic, hearing grossly normal bilaterally, external ears normal, EAC's normal, Normal nasal mucous membranes and turbinates present, moist oral mucous membranes and oropharynx normal; TM's not normal bilaterally HEAD & SCALP: normocephalic and atraumatic NOSE: Normal nasal mucous membranes and turbinates present EXTERNAL EAR: Yes external ears normal EXTERNAL AUDITORY CANAL: EAC's normal TYMPANIC MEMBRANE: TM(s) not normal bilaterally Eye: COMMON NORMALS: Equal, round and reactive pupils present, EOMs intact bilaterally, conjunctivae normal and no scleral icterus CONJUNCTIVA: Yes conjunctivae normal PUPIL: Yes Equal, round and reactive pupils present Neck/C-Spine: COMMON NORMALS: full ROM, no lymphadenopathy, supple and no JVD Lymph: LYMPHATIC: no lymphadenopathy noted and no lymphedema noted Resp: COMMON NORMALS: normal respiratory effort, No retractions, No use of accessory muscles and clear to auscultation bilaterally AUSCULTATION: clear to auscultation bilaterally Cardio: COMMON NORMALS: no JVD, regular rate, regular rhythm and No murmurs present (Cardio) RATE: regular rate RHYTHM: regular rhythm GI: COMMON NORMALS: Soft to palpation and No hepatosplenomegaly present AUSCULTATION: Yes normoactive bowel sounds PALPATION: Yes Soft to palpation, No Tenderness to palpation present (GI), No Guarding due to palpation present (GI) and Yes No hepatosplenomegaly present Extremity: COMMON NORMALS: normal to inspection, capillary refill normal, no clubbing, cyanosis or edema, no calf tenderness and no pedal edema Neuro: SENSORIUM/ORIENTATION: Yes oriented to person, Yes oriented to place and Yes oriented to time Skin: COMMON NORMALS: no rashes or lesions noted GENERAL SKIN EXAM: no rashes or lesions noted Course Vital Signs: Vital signs: Vital Signs Temperature 97.7 F 12/28/19 14:14 Pulse Rate 90 12/28/19 17:52 Respiratory Rate 15 12/28/19 17:52 Blood Pressure 129/90 12/28/19 17:52 Pulse Oximetry 97 12/28/19 17:52 MDM - Chest Pain MDM Narrative: Medical decision making narrative: Opponent is negative pain is reproducible with palpation and movement of the head. We will go ahead and discharge him home put him on diclofenac and cyclobenzaprine we will set him up for an outpatient stress test Lab Data: Labs: Lab Results 12/28/19 12/28/19 12/28/19 Range/Units 14:33 14:33 14:33 WBC 4.6 (4.0-10.0) 10^3/ uL RBC 4.31 (4.1-5.3) 10^6/u L Hgb 13.5 (11.7-16.6) g/dL Hct 42.4 (42.0-52.0) % MCV 98.4 H (80-94) fL MCH 31.3 (28.0-34.0) pg MCHC 31.8 (30.0-36.0) g/dL RDW 12.2 (12.1-15.1) % Plt Count 170 (130-400) 10^3/c mm MPV 10.3 (7.4-10.4) fL Neut % (Auto) 56.5 % Lymph % (Auto) 22.4 % Curry % (Auto) 13.9 % Eos % (Auto) 5.2 % Baso % (Auto) 0.9 % Neut # (Auto) 2.6 (1.8-7.7) 10^3/u L Lymph # (Auto) 1.0 (0.8-4.8) 10^3/u L Curry # (Auto) 0.6 (0.2-0.9) 10^3/u L Eos # (Auto) 0.2 (0.0-0.8) 10^3/u L Baso # (Auto) 0.0 (0.0-0.1) 10^3/u L Nucleated RBC % (a uto) 0 % Nucleated RBCs # 0.0 /100WBC Sodium 136 (136-145) mmol/L Potassium 4.1 (3.5-5.1) mmol/L Chloride 97 L (98-107) mmol/L Carbon Dioxide 29 (22-29) mmol/L Anion Gap 14.1 (5-19) BUN 6 (6-20) mg/dL Creatinine 0.8 (0.7-1.2) mg/dL GFR Calculation 104.5 (90-130) mL/min Glucose 88 (65-115) mg/dL Calculated Osmolal ity 277 L (285-295) mOsm/k g Calcium 9.7 (8.5-10.5) mg/dL Total Bilirubin 0.2 (0.15-1.2) mg/dL AST 19 (0-40) U/L ALT 19 (0-41) U/L Alkaline Phosphata se 42 (40-130) IU/L Troponin T Baselin e 6 (0-15) ng/mL Troponin T 120 Min [place] (0-15) ng/mL Delta Troponin T (0-10) ABS# Total Protein 6.3 L (6.6-8.7) g/dL Albumin 4.1 (3.5-5.2) g/dL Globulin 2.2 (1.3-4.6) g/dL // Range/Units 16:27 WBC (4.0-10.0) 10^3/ uL RBC (4.1-5.3) 10^6/u L Hgb (11.7-16.6) g/dL Hct (42.0-52.0) % MCV (80-94) fL MCH (28.0-34.0) pg MCHC (30.0-36.0) g/dL RDW (12.1-15.1) % Plt Count (130-400) 10^3/c mm MPV (7.4-10.4) fL Neut % (Auto) % Lymph % (Auto) % Curry % (Auto) % Eos % (Auto) % Baso % (Auto) % Neut # (Auto) (1.8-7.7) 10^3/u L Lymph # (Auto) (0.8-4.8) 10^3/u L Curry # (Auto) (0.2-0.9) 10^3/u L Eos # (Auto) (0.0-0.8) 10^3/u L Baso # (Auto) (0.0-0.1) 10^3/u L Nucleated RBC % (a uto) % Nucleated RBCs # /100WBC Sodium (136-145) mmol/L Potassium (3.5-5.1) mmol/L Chloride (98-107) mmol/L Carbon Dioxide (22-29) mmol/L Anion Gap (5-19) BUN (6-20) mg/dL Creatinine (0.7-1.2) mg/dL GFR Calculation (90-130) mL/min Glucose (65-115) mg/dL Calculated Osmolal ity (285-295) mOsm/k g Calcium (8.5-10.5) mg/dL Total Bilirubin (0.15-1.2) mg/dL AST (0-40) U/L ALT (0-41) U/L Alkaline Phosphata se (40-130) IU/L Troponin T Baselin e (0-15) ng/mL Troponin T 120 Min [place] 6.00 (0-15) ng/mL Delta Troponin T 0 (0-10) ABS# Total Protein (6.6-8.7) g/dL Albumin (3.5-5.2) g/dL Globulin (1.3-4.6) g/dL Discharge Plan Discharge Patient Disposition: Home, Self-Care Clinical Impression: Atypical chest pain, Cervicalgia Condition: Stable Prescriptions: New diclofenac sodium 75 mg tablet,delayed release (DR/EC) 75 mg PO Q12H PRN (Reason: pain) Qty: 20 RF: 0 cyclobenzaprine 5 mg tablet 5 mg PO TID PRN (Reason: muscle spasm) Qty: 30 RF: 0 No Action Depakote 500 mg tablet,delayed release (DR/EC) 2,000 mg PO .at bedtime 30 Days Qty: 120 RF: 1 mirtazapine [Remeron] 15 mg tablet 15 mg PO .qhs Qty: 30 RF: 0 Tylenol 325 mg Tablet 325 mg PO QID PRN (Reason: Pain) RF: 0 lisinopril 20 mg Tablet 20 mg PO DAILY 30 Days Qty: 30 RF: 1 hydrochlorothiazide 25 mg Tablet 25 mg PO DAILY 30 Days Qty: 30 RF: 1 atorvastatin 20 mg tablet 20 mg PO DAILY 30 Days Qty: 30 RF: 1 amlodipine 2.5 mg tablet 2.5 mg PO DAILY 30 Days Qty: 30 RF: 1 Invega Sustenna 156 mg/mL syringe 156 mg IM Q30D Qty: 1 RF: 1 Discharge Orders: Discharge Order (Routine); Ordered 12/28/19 Ordered By: Arpan Nair Referrals: Azalia Huddleston [Primary Care Provider] - Discharge Diet: Advance as tolerated Discharge Activity: Increase activity as tolerated Activity Restrictions/Additional Instructions: Case management will call with an appointment for a stress test. Discharge Date/Time: 12/28/19 17:52 Coding Level of Care Code ED Director Of Billing for Chg Fwd Exam Comprehensive NIH stroke score NIHSS Level Of Consciousness - 1a: 0 Level Of Consciousness Questions - 1b: Both Correct Level Of Consciousness Commands - 1c: Both Correct Best Gaze - 2: Normal Visual Mendiola - 3: No Visual Loss Facial Palsy - 4: Normal Motor Arm Right - 5: No Drift Motor Arm Left - 5: No Drift Motor Leg Right - 6: No Drift Motor Leg Left - 6: No Drift Limb Ataxia - 7: Absent Sensory - 8: Normal Best Language - 9: No Aphasia Dysarthia - 10: Normal Extinction And Inattention - 11: 0 Score Total Score: 0
[2019-12-28 15:24] LABS: Alanine Aminotransferase 19 U/L (0-41); Albumin Level 4.1 g/dL (3.5-5.2); Alkaline Phosphatase 42 IU/L (40-130); Anion Gap 14.1 (5-19); Aspartate Amino Transferase 19 U/L (0-40); Blood Urea Nitrogen 6 mg/dL (6-20); Calcium 9.7 mg/dL (8.5-10.5); Carbon Dioxide 29 mmol/L (22-29); Chloride 97 mmol/L (98-107); Globulin 2.2 g/dL (1.3-4.6); Glomerular Filtration Rate 104.5 mL/min (90-130); Glucose 88 mg/dL (65-115); Osmolality Calculated 277 mOsm/kg (285-295); Potassium 4.1 mmol/L (3.5-5.1); Sodium 136 mmol/L (136-145); Total Bilirubin 0.2 mg/dL (0.15-1.2); Total Protein 6.3 g/dL (6.6-8.7)
[2019-12-28 15:28] LABS: Troponin(5th) Baseline 6 ng/mL (0-15)
--- NOTE | 2019-12-28 16:12 | CTR_ITS ---
PROCEDURE INFORMATION: Exam: CT Angiography Chest With Contrast Exam date and time: 12/28/2019 5:35 PM Age: 44 years old Clinical indication: Left-sided chest pain; Patient HX: C/O L sided cp w L sided numbness; Additional info: Tachycardia, chest pain, dyspnea TECHNIQUE: Imaging protocol: Computed tomographic angiography of the chest with intravenous contrast. 3D rendering: MIP and/or 3D reconstructed images were created by the technologist. Radiation optimization: All CT scans at this facility use at least one of these dose optimization techniques: automated exposure control; mA and/or kV adjustment per patient size (includes targeted exams where dose is matched to clinical indication); or iterative reconstruction. Contrast material: OMNI 350; Contrast volume: 95 ml; Contrast route: 20G; COMPARISON: CR XR chest 1V portable [id number] 12/28/2019 3:33 PM RADIATION DOSE METRICS: Total DLP: 524.58 mGy-cm FINDINGS: Pulmonary arteries: No evidence of pulmonary emboli. Aorta: No evidence of thoracic aortic aneurysm or dissection. Thyroid: There are calcified nodules in the left lobe of the thyroid. Largest measures 11 mm. Lungs: There is a calcified granuloma in the right lower lobe. No consolidation. No ground-glass opacities. Pleural space: There are minimal bilateral pleural effusions. Heart: Unremarkable. No cardiomegaly. No pericardial effusion. Lymph nodes: There are several small subcentimeter mediastinal lymph nodes. No grossly enlarged lymph nodes. Spleen: There is borderline splenomegaly, 13 cm. Bones/joints: There are mild degenerative changes of the thoracic spine. No acute fracture. Soft tissues: Unremarkable. CT/CT angio chest PE protcl [id number] IMPRESSION: 1. No pulmonary emboli. 2. Minimal bilateral pleural effusions. 3. Old granulomatous disease. No acute pulmonary disease. COMMENTS: Consistent with the [employer] [employer]'s Incidental Findings Committee white paper (J Am Tong Radiol 2015): In patients aged 35 years and older with an incidental thyroid nodule equal to or greater than 1.[address], MRI or extrathyroidal US, further evaluation with dedicated thyroid US is recommended for patients with normal life expectancy and without comorbidities. For smaller nodules without suspicious features, no further evaluation or follow up is recommended. Radiation Dose CTDIVOL = (mGy): DLP = 524.58 (mGy-cm)
[2019-12-28 16:29] VITALS: BP 121/69; PULSE 89; RESP 20; O2SAT 99
[2019-12-28 17:19] LABS: Troponin 5 2HR Delta 0 ABS# (0-10)
--- NOTE | 2019-12-28 17:36 | PC.NURSE ---
pt to CT by stretcher with tech
[2019-12-28] MEDS: iohexol 350 mg/mL 100 mL Btl IV (17:41)
[2019-12-28 17:45] VITALS: BP 129/90; PULSE 91; RESP 15; O2SAT 100
[2019-12-28 17:52] VITALS: BP 129/90; PULSE 90; RESP 15; O2SAT 97
--- NOTE | 2019-12-28 20:22 | ECG_ITS ---
Measurements Intervals [place] Rate: 86 P: 145 ND: 113 QRS: 134 QRSD: 94 T: 115 QT: 339 QTc: 406 SINUS RHYTHM WITH SHORT ND INTERVAL LIMB LEAD REVERSAL No previous ECG available for comparison Electronically Signed On 12-30-2019 9:53:02 CDT by Shari Espinoza M.D. [email or web address]
--- NOTE | 2019-12-31 14:30 | DCPLANNER ---
beverage manager had message to schedule an out patient stress test for patient. beverage manager called and spoke with patient to confirm that patient still wanted to have test ordered and who patient sees for primary care. Patient stated that he does want to have the test ordered and that he sees [employer] [facility] MANAGER CONSULTANT, Azalia Huddleston. Case bre had ordered signed and faxed to centralized scheduling. beverage manager will call for appointment information.
--- NOTE | 2020-01-11 13:36 | DCPLANNER ---
Patient has a follow up appointment for a stress test scheduled for Wednesday, January 22, 2020 at 12:15.
--- NOTE | 2020-01-11 13:38 | DCPLANNER ---
Patient has a follow up appointment scheduled for Wednesday, January 22, 2020 at 12:15 for a stress test.
--- NOTE | 2020-02-08 13:49 | DCPLANNER ---
Patient had a stress test scheduled for 01.22.20, patient did not attend the appointment.
== END 2019-12-28 17:52 | disposition home or self-care (01) ==
PROVIDERS: Physician Assistant; Emergency Provider Family Medicine; PCP Nurse Practitioner Family
DX: R07.89 Other chest pain (principal); M54.2 Cervicalgia; I10 Essential (primary) hypertension; E78.5 Hyperlipidemia, unspecified
CPT/HCPCS: 12345; 36415; 71045; 71275; 80053; 84484; 85025; 93005; 99283; 99284; Q9967

== ENCOUNTER → 2020-01-14 08:32 | Outpatient (BNVA) | payer MEDICAID, SELFPAY | PROVIDERS: PCP Nurse Practitioner Family; Visit Provider Nurse Practitioner Psychiatric/Mental Health | DX: Z51.81 Encounter for therapeutic drug level monitoring (principal); Z79.899 Other long term (current) drug therapy | CPT/HCPCS: 99212 ==

== ENCOUNTER → 2020-01-15 08:40 | Outpatient (BNVA) | payer MEDICAID, SELFPAY | PROVIDERS: PCP Nurse Practitioner Family; Visit Provider Nurse Practitioner Psychiatric/Mental Health | DX: Z51.81 Encounter for therapeutic drug level monitoring (principal) | CPT/HCPCS: 80164 ==

== ENCOUNTER 2020-01-21 14:19 | Emergency (ER) | payer MEDICAID, SELFPAY | END 2020-01-21 16:30 | disposition admitted as inpatient to this hospital (09) | LOC: ER 01-24 00:45 | PROVIDERS: Emergency Provider Physician Assistant; PCP Nurse Practitioner Family | DX: R45.851 Suicidal ideations (principal); F19.10 Other psychoactive substance abuse, uncomplicated; I10 Essential (primary) hypertension; E78.5 Hyperlipidemia, unspecified; F17.210 Nicotine dependence, cigarettes, uncomplicated | CPT/HCPCS: 12345; 36415; 80053; 80164; 80306; 80307; 85025; 99284; 99285 ==

== ENCOUNTER 2020-01-21 14:19 | Inpatient (IN) | payer MEDICAID, SELFPAY ==
[2020-01-21 14:23] VITALS: BP 120/77; PULSE 123; RESP 16; TEMP 36.5; O2SAT 95; BMI 27.3
--- NOTE | 2020-01-21 14:42 | W.ED.PSYCH ---
HPI - Psych General: Chief Complaint: Psychiatric Symptoms Stated Complaint: SI Time Seen by Provider: 01/21/20 14:33 Source: patient Mode of arrival: ambulatory Limitations: no limitations History of Present Illness: HPI Narrative: Patient is a 44-year-old male with a history of schizophrenia and bipolar here for complaints of suicidal ideations. Patient tells me he has chronically suffered from polysubstance abuse. He tells me he recently had approximately 2 months of sobriety but recently relapsed on methamphetamines, marijuana, and alcohol. He states his recent relapse has made him feel worthless and suicidal. He does not have a specific plan. He does have a previous attempt in 2014 via medication overdose. He reports auditory hallucinations that are chronic with his schizophrenia although states they are fairly controlled with Invega injections. Patient is not homicidal. MD complaint: suicidal ideation Onset (ago): day(s) Duration: constant History of same: Yes Relieving factors: none Exacerbating factors: none Context: recent alcohol abuse and recent drug abuse Associated symptoms: Reports auditory hallucinations, depression and suicidal ideation Treatments prior to arrival: none Review of Systems Const: Denies: fever(s) or chills Card: Denies: chest pain, palpitations, lightheadedness or syncope Resp: Denies: dyspnea GI: Denies: abdominal pain, nausea, vomiting or diarrhea Skin/Breast: Denies: rash Neuro: Denies: headache(s) Psych: Reports: depression, auditory hallucinations and suicidal ideation [facility] PFSH: Medical History (Updated 01/21/20 @ 15:35 by LOVE Ellis) Benign essential HTN Bipolar disorder Hyperlipidemia Methamphetamine use disorder, moderate, in early remission, dependence He denies methamphetamine cravings at this time. He is taking medications as noted below. He is currently residing in a senior living house ([facility]) and reports a supportive environment/staff there. The [facility]keeper hospital dispenses his medications as directed. He does not want case management at this time. He sees a therapist at [facility] and is encouraged to follow-up with her as directed. Schizophrenia Seasonal allergies Surgical History No pertinent past surgical history Family History Other Diabetes Stroke Social History (Updated 01/14/20 @ 15:02 by Yulia Burdick LPN) Smoking and tobacco status: light tobacco smoker smokeless tobacco Smokeless tobacco user: chewing tobacco Smokeless tobacco details: 1 can per day Quit status (tobacco): not considering quitting Second hand smoke exposure: No Alcohol intake: former Physical Exam Const: COMMON NORMALS: no acute distress, patient oriented x3, alert and well nourished GENERAL APPEARANCE: cooperative and well kempt Resp: COMMON NORMALS: normal respiratory effort and clear to auscultation bilaterally AUSCULTATION: clear to auscultation bilaterally Cardio: COMMON NORMALS: regular rate and regular rhythm RATE: regular rate RHYTHM: regular rhythm Neuro: COMMON NORMALS: patient oriented x3 SENSORIUM/ORIENTATION: Yes alert Psych: COMMON NORMALS: mental status grossly normal, Normal thought process present, cooperative, normal affect, speech normal, activity/motor behavior normal and denies homicidal ideation APPEARANCE: Yes grossly normal and Yes well kempt ATTITUDE: Yes calm ACTIVITY/MOTOR BEHAVIOR: Yes appropriate eye contact and No psychomotor agitation SPEECH: Yes normal speech MOOD & AFFECT: Yes euthymic mood THOUGHT PROCESS: Normal thought process present THOUGHT CONTENT: Yes Suicidality present ATTENTION/CONCENTRATION: Yes attention grossly intact and Yes concentration grossly intact MEMORY/COGNITION: Yes memory grossly intact and Yes cognition grossly intact INSIGHT: Good insight present (Psych) JUDGEMENT: Good judgement present (Psych) MDM - Psych Lab Data: Labs: Lab Results 01/21/20 01/21/20 01/21/20 Range/Units 14:33 14:50 14:50 WBC 6.2 (4.0-10.0) 10^3/ uL RBC 4.74 (4.1-5.3) 10^6/u L Hgb 14.9 (11.7-16.6) g/dL Hct 45.5 (42.0-52.0) % MCV 96.0 H (80-94) fL MCH 31.4 (28.0-34.0) pg MCHC 32.7 (30.0-36.0) g/dL RDW 12.2 (12.1-15.1) % Plt Count 248 (130-400) 10^3/c mm MPV 9.8 (7.4-10.4) fL Neut % (Auto) 72.2 % Lymph % (Auto) 15.2 % [place] % (Auto) 9.7 % Eos % (Auto) 2.1 % Baso % (Auto) 0.5 % Neut # (Auto) 4.5 (1.8-7.7) 10^3/u L Lymph # (Auto) 0.9 (0.8-4.8) 10^3/u L [place] # (Auto) 0.6 (0.2-0.9) 10^3/u L Eos # (Auto) 0.1 (0.0-0.8) 10^3/u L Baso # (Auto) 0.0 (0.0-0.1) 10^3/u L Nucleated RBC % (a uto) 0 % Nucleated RBCs # 0.0 /100WBC Sodium 135 L (136-145) mmol/L Potassium 4.1 (3.5-5.1) mmol/L Chloride 99 (98-107) mmol/L Carbon Dioxide 27 (22-29) mmol/L Anion Gap 13.1 (5-19) BUN 12 (6-20) mg/dL Creatinine 1.0 (0.7-1.2) mg/dL GFR Calculation 80.8 L (90-130) mL/min Glucose 111 (65-115) mg/dL Calculated Osmolal ity 277 L (285-295) mOsm/k g Calcium 9.0 (8.5-10.5) mg/dL Total Bilirubin 0.5 (0.15-1.2) mg/dL AST 19 (0-40) U/L ALT 16 (0-41) U/L Alkaline Phosphata se 63 (40-130) IU/L Total Protein 6.7 (6.6-8.7) g/dL Albumin 4.6 (3.5-5.2) g/dL Globulin 2.1 (1.3-4.6) g/dL Salicylates < 0.3 L (3-10) mg/dL Urine Opiates Scre en Negative (Negative) ng/mL Acetaminophen < 5.0 L (10-30) ug/mL Ur Barbiturates Sc reen Negative (Negative) ng/mL Valproic Acid 14.0 L (50-100) mcg/mL Ur Phencyclidine S crn Negative (Negative) ng/mL Ur Amphetamines Sc reen Positive H (Negative) ng/mL U Benzodiazepines Scrn Negative (Negative) ng/mL Urine Cocaine Scre en Negative (Negative) ng/mL U Marijuana (THC) Screen Positive H (Negative) ng/mL Ethyl Alcohol < 10 (0-10) mg/dL Discharge Plan Discharge Patient Disposition: Admitted As Inpatient Clinical Impression: Suicidal ideation, Polysubstance abuse Condition: Stable Referrals: Azalia Huddleston FNP [Primary Care Provider] - Coding Level of Care Code ED Database Administrator for Chg Fwd Exam Expanded Problem Focused
[2020-01-21 15:00] LABS: Basophils % 0.5 %; Eosinophils # 0.1 10^3/uL (0.0-0.8); Eosinophils % 2.1 %; Hematocrit 45.5 % (42.0-52.0); Hemoglobin 14.9 g/dL (11.7-16.6); Lymphocytes # 0.9 10^3/uL (0.8-4.8); Lymphocytes % 15.2 %; Mean Corpuscular HGB Conc 32.7 g/dL (30.0-36.0); Mean Corpuscular Hemoglobin 31.4 pg (28.0-34.0); Mean Platelet Volume 9.8 fL (7.4-10.4); Monocytes # 0.6 10^3/uL (0.2-0.9); Monocytes % 9.7 %; Neutrophils # 4.5 10^3/uL (1.8-7.7); Neutrophils % 72.2 %; Nucleated Red Blood Cells % 0 %; Platelet Count 248 10^3/cmm (130-400); Red Blood Count 4.74 10^6/uL (4.1-5.3); Red Cell Distribution Width 12.2 % (12.1-15.1); White Blood Count 6.2 10^3/uL (4.0-10.0)
[2020-01-21 15:14] LABS: Alanine Aminotransferase 16 U/L (0-41); Albumin Level 4.6 g/dL (3.5-5.2); Alkaline Phosphatase 63 IU/L (40-130); Anion Gap 13.1 (5-19); Aspartate Amino Transferase 19 U/L (0-40); Blood Urea Nitrogen 12 mg/dL (6-20); Carbon Dioxide 27 mmol/L (22-29); Chloride 99 mmol/L (98-107); Globulin 2.1 g/dL (1.3-4.6); Glomerular Filtration Rate 80.8 mL/min (90-130); Glucose 111 mg/dL (65-115); Osmolality Calculated 277 mOsm/kg (285-295); Potassium 4.1 mmol/L (3.5-5.1); Sodium 135 mmol/L (136-145); Total Bilirubin 0.5 mg/dL (0.15-1.2); Total Protein 6.7 g/dL (6.6-8.7)
[2020-01-21 15:15] LABS: Acetaminophen < 5.0 ug/mL (10-30); Alcohol Level < 10 mg/dL (0-10); Salicylate < 0.3 mg/dL (3-10)
[2020-01-21 15:52] LABS: Amphetamines Screen Urine Positive (Negative); Barbiturates Screen Urine Negative (Negative); Benzodiazepines Screen Urine Negative (Negative); Cocaine Screen Urine Negative (Negative); Opiate Screen Urine Negative (Negative); PCP Screen Urine Negative (Negative); THC Screen Urine Positive (Negative)
[2020-01-21 16:25] VITALS: BP 120/77; PULSE 96; RESP 16; O2SAT 98
[2020-01-21 16:30] VITALS: BP 124/85; PULSE 107; RESP 20; TEMP 36.9; O2SAT 100
[2020-01-21 21:21] VITALS: BP 111/66; PULSE 83; RESP 17; TEMP 36.5; O2SAT 97
[2020-01-21] MEDS: trazodone 50 mg Tablet PO (21:50)
[2020-01-21] MEDS: divalproex DR 500 mg Tablet 2000 MG PO (21:50)
[2020-01-21] MEDS: mirtazapine 15 mg Tablet PO (21:50)
[2020-01-22 06:00] VITALS: BP 113/78; PULSE 78; RESP 16; TEMP 36.5; O2SAT 95
[2020-01-22] MEDS: hydroCHLOROthiazide 25 mg Tablet PO (09:43)
[2020-01-22] MEDS: amlodipine 5 mg Tablet 2.5 MG PO (09:44)
[2020-01-22] MEDS: atorvastatin 40 mg Tablet 20 MG PO (09:44)
[2020-01-22] MEDS: lisinopril 20 mg Tablet PO (09:44)
[2020-01-22 14:00] VITALS: BP 91/57; PULSE 98; RESP 20; TEMP 36.6; O2SAT 95
--- NOTE | 2020-01-22 14:14 | P.HP_ITS ---
Providers/Chief Complaint Admitting Physician: Cesario Gomez MD Primary Care Provider: TIFFANY Almanza Chief Complaint: SI HPI NPU History of Present Illness Chief complaint: I have tried everything. I just cannot stay clean. I need to get out of this area. Walt Madsen is a 44 year old male with a long history of polysubstance abuse who was just released from this unit 6 weeks ago. He has been living in a [facility]p house where he has much of his life supervised. He had done well up until about 3 days ago when he again began using marijuana and methamphetamine. At the same time, he had stopped his Depakote. He realized again that he was heading down a path of destruction. He decided to come to the emergency room for early intervention. At the time of interview, he is free of suicidal and homicidal ideation. He is free of auditory and visual hallucinations. He is receiving Invega Sustenna injections on the first of every month. He has been compliant with that. He reports no side effects. He is requesting assistance in relocating. He states that he is not interested in going to rehab. He has been to at least 6 different rehab programs and they were of no benefit. However he also admits that he has not been to rehab in over 6 years. Emergency room physician note: HPI Narrative: Patient is a 44-year-old male with a history of schizophrenia and bipolar here for complaints of suicidal ideations. Patient tells me he has chronically suffered from polysubstance abuse. He tells me he recently had approximately 2 months of sobriety but recently relapsed on methamphetamines, marijuana, and alcohol. He states his recent relapse has made him feel worthless and suicidal. He does not have a specific plan. He does have a previous attempt in 2014 via medication overdose. He reports auditory hallucinations that are chronic with his schizophrenia although states they are fairly controlled with Invega injections. Patient is not homicidal. He denies methamphetamine cravings at this time. He is taking medications as noted below. He is currently residing in a [facility]p house ([facility]) and reports a supportive environment/staff there. The warehouse shift supervisor dispenses his medications as directed. He does not want case management at this time. He sees a therapist at [facility] and is encouraged to follow-up with her as directed. Laboratory Tests 01/15/20 01/21/20 01/21/20 08:50 14:33 14:50 Urine Opiates Screen Negative Ur Barbiturates Screen Negative Valproic Acid 109.3 H 14.0 L Ur Phencyclidine Scrn Negative Ur Amphetamines Screen Positive H U Benzodiazepines Scrn Negative Urine Cocaine Screen Negative Ethyl Alcohol < 10 Prior psychiatric history. Historic notes from his admission on 05 December 2019: History of Present Illness Walt Madsen is a 44 year old male who presents today reporting it has been a crazy few months. He got out of detention last April 2019, and he got himself connected with [facility]. He reports that he was doing fairly well and then about three months ago he started having some slip ups. His doctor at [facility] told him that if he tested positive for methamphetamine that they would stop giving him his medication, so he started going to [facility]. He reports that he was doing well taking his medication but he has had maybe three slip ups, of three or four days, in the past three months, and he started really getting out of sorts with suicidal thoughts and things of that nature, recently. He reports that he was last here in 2013, and shortly after that is when he went to detention for five years for burglary and other assorted issues. In that visit he had been to [facility] senior living right before he came to the neuropsychiatric unit and was afraid to go back to senior living, so he ended up taking an overdose of pills. That was his last suicide attempt and he has had two in his life. He reports since he got out, in April 2019, he has been staying at a friends. He has had his SSI returned, and he had been getting things back on track, but then recently he has had some issues with relapse. He reports that he has been having passive wish, auditory hallucinations, and paranoia. He reports he was arrested about a week ago. And also there was some possible seizure or stoke, which is unclear. He reports that he has done best over the past years when he was on Invega injection. He also mentioned the possibility of Adderall as he had been on it when he was younger. We discussed the risks, benefits, and alternatives of restarting the Invega oral, followed by the Invega injection, and getting things stabilized, and he understood and agreed to proceed as is documented in this note. PSYCHIATRIC HISTORY: As above. He reports he has had about six psychiatric hospitalizations, or maybe several more, maybe as many as ten to twelve since he was 17 or 18 years old. He has been on different medications, but over the twenty plus years he has been in several times. Walt presented to the emergency room on a 96-hour hold after recent relapse on methamphetamine and suicidal thoughts. He was admitted to the neuropsychiatric unit for definitive care for those concerns. Upon admission he identified that he had been off of his medication for several months and has been struggling to avoid a full on full-blown relapse on methamphetamine. He identified that Invega had been an effective medication and was restarted on that with a significant response. He was given the Invega Sustenna injection on 12/08/2019 without issue. He benefited greatly from the resources on the unit and [facility]. During the hospitalization, he had routine laboratory studies which were within normal limits except for a few outliers. Additionally he had general medical evaluation which was also within normal limits and revealed no new acute processes outside of intoxication and withdrawal. Discharge Summary At the time of discharge, he denied any lethality and was absent psychosis. Mood and anxiety were well managed and he endorsed a plan to avoid all drugs of abuse, and follow-up with the recommended post hospital services, including placement in the programming at [facility]. He was evaluated and deemed to be absent credible lethality and had received the maximum benefit from an inpatient hospitalization, so was discharged. trazodone 50 mg Tablet 50 mg PO BEDTIME PRN (Reason: Sleep) 30 Days Qty: 30 RF: 1 lisinopril 20 mg Tablet 20 mg PO DAILY 30 Days Qty: 30 RF: 1 hydrochlorothiazide 25 mg Tablet 25 mg PO DAILY 30 Days Qty: 30 RF: 1 Invega Sustenna 156 mg/mL syringe 156 mg IM Q30D Qty: 1 RF: 1 Tylenol 325 mg Tablet 325 mg PO QID PRN (Reason: Pain) RF: 0 atorvastatin 20 mg tablet 20 mg PO DAILY 30 Days Qty: 30 RF: 1 amlodipine 2.5 mg tablet 2.5 mg PO DAILY 30 Days Qty: 30 RF: 1 Depakote 500 mg tablet,delayed release (DR/EC) 2,000 mg PO .at bedtime 30 Days Qty: 120 RF: 1 Meds NPU Home Medications Medication Instructions Recorded Confirmed Last Taken Type acetaminophen [Tylenol] 325 mg PO QID PRN 12/05/19 01/21/20 01/21/20 History amlodipine 2.5 mg PO DAILY 30 Days #30 tab 12/10/19 01/21/20 01/21/20 Rx atorvastatin 20 mg PO DAILY 30 Days #30 tab 12/10/19 01/21/20 01/21/20 Rx hydrochlorothiazide 25 mg PO DAILY 30 Days #30 tab 12/10/19 01/21/20 01/21/20 Rx lisinopril 20 mg PO DAILY 30 Days #30 tab 12/10/19 01/21/20 01/21/20 Rx divalproex 500 mg tablet,delayed 2,000 mg PO .at bedtime 30 Days 12/18/19 01/21/20 01/20/20 Rx release #120 tab cyclobenzaprine 5 mg PO TID PRN #30 tab 12/28/19 01/21/20 Unknown Rx diclofenac sodium 75 mg PO Q12H PRN #20 tab 12/28/19 01/21/20 Unknown Rx mirtazapine 15 mg tablet 15 mg PO .qhs #30 tab 01/14/20 01/21/20 01/20/20 Rx paliperidone palmitate 156 mg/mL 156 mg IM Q30D #1 ml 01/14/20 01/21/20 01/14/20 Rx intramuscular syringe aspirin 325 mg PO PRN PRN 01/21/20 01/21/20 01/21/20 History multivitamin [Multiple Vitamins] 1 tab PO DAILY 01/21/20 01/21/20 01/19/20 History Allergies Allergy/AdvReac Type Severity Reaction Status Date / Time Penicillins Allergy unknown Verified 01/21/20 14:28 PFS NPU PFS: Medical History (Updated 01/21/20 @ 15:35 by LOVE Ellis) Benign essential HTN Bipolar disorder Hyperlipidemia Methamphetamine use disorder, moderate, in early remission, dependence He denies methamphetamine cravings at this time. He is taking medications as noted below. He is currently residing in a [facility]p house ([facility]) and reports a supportive environment/staff there. The warehouse shift supervisor dispenses his medications as directed. He does not want case management at this time. He sees a therapist at [facility] and is encouraged to follow- up with her as directed. Schizophrenia Seasonal allergies Surgical History No pertinent past surgical history Family History Other Diabetes Stroke Social History (Updated 01/22/20 @ 14:28 by Cesario Gomez MD) Smoking and tobacco status: light tobacco smoker smokeless tobacco Smokeless tobacco user: chewing tobacco Smokeless tobacco details: 1 can per day Quit status (tobacco): not considering quitting Second hand smoke exposure: No Alcohol intake: former Additional social history: SUBSTANCE ABUSE HISTORY: He reports he chews about a can of tobacco a day but does not smoke, he reports he last drank alcohol about six years ago, he does not use marijuana or cocaine, he does use methamphetamine and has used opiates. He reports he has had two to three drug rehabilitations. He has had a couple of DUIs, the last one may have been in 2004. FAMILY HISTORY: He denies any history of mental health issues, addiction, or lethality in his family. DEVELOPMENTAL HISTORY: He denies any issues with his mom?s or delivery of him. He reports he learned how to walk and talk and met all developmental milestones on time. He reports when he went to school, there was no speech therapy, learning support, emotional support, or special education classes. PSYCHOSOCIAL HISTORY: He reports that his mother and father were together when he was born and when he was about 15 years old. They had him and a younger brother together. His mom had no other children; his dad had a couple step kids, a couple of adopted kids, and then a half-sister. He reports that his childhood was tough at times, because he was poor, be he denies any emotional, physical, or sexual abuse. He reports the highest grade he went to was the ninth grade, and he got his GED in 1991. He endorses being a heterosexual, with his longest relationship being a couple of years. He was once, not sure if he is , but he has not seen the person for many, many, many years. He reports he has a 20 year old daughter that he sees a little bit, but he was never to her mother. He denies any history. He endorses being a [employer]. The longest job he has had, he said, was ninety days. He reports he lives in a trailer on a friend?s property. LEGAL HISTORY: He reports that he has been to senior living multiple times, not actually sure how many. The longest time he was behind bars was the five years he spent in detention that ended in April 2019. Mental Status Exam MSE Comments: Mental Status Exam: The patient is an alert interpersonally engaged male appearing approximately his stated age. Eye contact is good. He confirms that his mentation is slightly slow owing to the fact that he has a resolving amphetamine intoxication. He is believed to be a reliable informant to the best of his ability as information provided is internally consistent and consistent with that in the chart. Appearance: hygiene is fair; no gross neurological deficits., gait is unremarkable; AIMS=0 Speech: Speech is of normal rate and rhythm and easily understood. Thought processes: Thought processes are abstract. Judgment is adequate for safety. Associations: intact Psychotic processes: There is no indication of guarding or paranoia. There is no attention to the internal stimuli. Auditory and visual hallucinations are denied. Judgment: Insight is fair. Problem solving skills are adequate for safety. Orientation: The patient is oriented to person, place time and situation. Memory: no deficits noted in immediate, intermediate, or remote spheres. Attention: The patient is alert and interpersonally engaged. Language: Verbalizations are coherent. Fund of knowledge: Fund of knowledge is adequate. Affect/Mood: Affect is consistent with a depressed mood. He denies suicidal ideation Affective range is appropriate. Psychosis: perception unimpaired except through cognitive distortion; reality testing intact. Vitals/I&O/Wt Last Vital Signs Temp 98 F 01/22/20 14:00 Pulse 98 01/22/20 14:00 Resp 20 H 01/22/20 14:00 BP 91/57 01/22/20 14:00 Pulse Ox 95 01/22/20 14:00 Weight last 48 hrs Weight 79.379 kg Data NPU : 01/21/20 14:50 01/21/20 14:50 A&P Assessment and plan (1) Polysubstance abuse: Status: Acute (2) Methamphetamine dependence: Status: Acute Additional A&P Information Assessment: The plan at this point is to stabilize from his amphetamine intoxication. We will continue the medications which he was taking and with which she had been compliant at the time of his last discharge. Opportunities for rehab or changes in geographic location will be explored. Treatment plan: Due to the psychiatric conditions and treatment listed in the Assessment and Plan - the patient requires continued hospitalization. Will provide a safe and therapeutic environment for patient.. Will continue inpatient treatment to allow for medication adjustment and monitoring. Will continue q15 min safety checks. Hospital day #2 :The plan at this point is to stabilize from his amphetamine intoxication. We will continue the medications which he was taking and with which she had been compliant at the time of his last discharge. Opportunities for rehab or changes in geographic location will be explored. Continue: trazodone 50 mg Tablet PO BEDTIME PRN (Reason: Sleep) lisinopril 20 mg Tablet PO DAILY hydrochlorothiazide 25 mg PO DAILY Invega Sustenna 156 mg IM Q30D atorvastatin 20 mg tablet DAILY amlodipine 2.5 mg PO DAILY Depakote 500 mg tablet,delayed release (DR/EC) 1500 mg PO .at bedtime Will continue current medications and monitor for medication side effects. Monitor patient's mood, sleep, appetite, and behavior closely. Encourage patient to participate in individual and group therapeutic sessions on the maloney. Estimated length of stay 5 days The expected benefits and potential side effects of patient's psychiatric medications were discussed with the patient. The patient understands and consents to treatment.CRITERIA FOR DISCHARGE: stable on medications and no longer an im Involuntary Hold Information 96 Hour Hold: 96 Hour Involuntary Admission: No 96 Hour Hold Ending Date: 12/05/19 96 Hour Hold Ending Time: 21:13 Attestations NPU Medical Necessity Statement*: Patient will remain in the hospital another 2-4 nights for assessment of medication efficacy and tolerability. Coding Level of Care Code Acute Fiber Worker for Mimi Gastelum Diagnoses Polysubstance abuse F19.10 Methamphetamine dependence F15.20
[2020-01-22] MEDS: nicotine 2 mg Gum BUCCAL (16:09)
[2020-01-22 20:57] VITALS: BP 133/86; PULSE 108; RESP 18; TEMP 36.9; O2SAT 94
[2020-01-22] MEDS: mirtazapine 15 mg Tablet PO (21:14)
[2020-01-22] MEDS: divalproex DR 500 mg Tablet 2000 MG PO (21:14)
[2020-01-23 06:00] VITALS: BP 116/76; PULSE 74; RESP 16; TEMP 37.1; O2SAT 96
[2020-01-23] MEDS: atorvastatin 40 mg Tablet 20 MG PO (09:04)
[2020-01-23] MEDS: amlodipine 5 mg Tablet 2.5 MG PO (09:05)
[2020-01-23] MEDS: hydroCHLOROthiazide 25 mg Tablet PO (09:05)
[2020-01-23] MEDS: lisinopril 20 mg Tablet PO (09:05)
[2020-01-23 14:00] VITALS: BP 125/68; PULSE 90; RESP 18; TEMP 37.1; O2SAT 95
[2020-01-23] MEDS: acetaminophen 325 mg Tablet 650 MG PO (15:18)
[2020-01-23] MEDS: hyDROXYzine 25 mg Capsule 50 MG PO (15:18)
--- NOTE | 2020-01-23 15:19 | PC.NURSE ---
PRN VISTARIL 50 MG GIVEN PO PER PT C/O STATED ANXIETY. WILL CONT TO MONITOR
--- NOTE | 2020-01-23 16:31 | PC.RESP ---
SMOKING CESSATION INFORMATION SENT TO PATIENT.
[2020-01-23] MEDS: naltrexone hcl 50 mg Tablet PO (16:52)
[2020-01-23] MEDS: nicotine 2 mg Gum BUCCAL (16:52)
--- NOTE | 2020-01-23 18:29 | P.PN_ITS ---
Subjective NPU Subjective: Interval history: Patient reports that he has established a follow-up plan where he is going to go live with a relative and will engage in rehabilitation services through [facility]. Though this contradicts his report that he felt that he needs to leave the area in order to remain clean and sober, he has full confidence in his ability to do this at this time. He c ontinues to complain of some signs of methamphetamine withdrawal but is much better and hopes to leave tomorrow. Mental Status Exam MSE Comments: Mental Status Exam: The patient is an alert interpersonally engaged male appearing approximately his stated age. Eye contact is good. He is believed to be a reliable informant to the best of his ability as information provided is internally consistent and consistent with that in the chart. Appearance: hygiene is fair; no gross neurological deficits., gait is unremarkable; AIMS=0 Speech: Speech is of normal rate and rhythm and easily understood. Thought processes: Thought processes are abstract. Judgment is adequate for safety. Associations: intact Psychotic processes: There is no indication of guarding or paranoia. There is no attention to the internal stimuli. Auditory and visual hallucinations are denied. Judgment: Insight is fair. Problem solving skills are adequate for safety. Orientation: The patient is oriented to person, place time and situation. Memory: no deficits noted in immediate, intermediate, or remote spheres. Attention: The patient is alert and interpersonally engaged. Language: Verbalizations are coherent. Fund of knowledge: Fund of knowledge is adequate. Affect/Mood: Affect is consistent with a euthymic mood. He denies suicidal ideation Affective range is appropriate. Psychosis: perception unimpaired except through cognitive distortion; reality testing intact. Cognition: Patient Appearance: Appropriate Level of Consciousness: Awake, Alert, Appropriate and Follows Commands Patient Cognition Impaired: No Ability to Follow Directions: Excellent Patient Orientation (long list): Person, Place, Name and Birthday Comprehension Ability: No Impairment Hallucination Type: None Delusion Description: Not Present and Paranoid Ideation Thought Process: Appropriate Affect: Affect Description: Calm Depressive Symptoms: Increased Anxiety Behavior: Patient Behavior: Appropriate Speech Pattern: Clear Vitals/I&O/Wt Last Vital Signs Temp 98.8 F 01/23/20 14:00 Pulse 90 01/23/20 14:00 Resp 18 01/23/20 14:00 BP 125/68 01/23/20 14:00 Pulse Ox 95 01/23/20 14:00 Data NPU : 01/21/20 14:50 01/21/20 14:50 A&P Assessment and plan (1) Polysubstance abuse: Status: Chronic (2) Methamphetamine dependence: Patient in the process of completing his methamphetamine withdrawal protocol Status: Acute Additional A&P Information Assessment: The plan at this point is to stabilize from his amphetamine intoxication. We will continue the medications which he was taking and with which she had been compliant at the time of his last discharge. Opportunities for rehab or changes in geographic location will be explored. Treatment plan: Due to the psychiatric conditions and treatment listed in the Assessment and Plan - the patient requires continued hospitalization. Will provide a safe and therapeutic environment for patient.. Will continue inpatient treatment to allow for medication adjustment and monitoring. Will continue q15 min safety checks. Hospital day #2 :The plan at this point is to stabilize from his amphetamine intoxication. We will continue the medications which he was taking and with which she had been compliant at the time of his last discharge. Opportunities for rehab or changes in geographic location will be explored. Continue: trazodone 50 mg Tablet PO BEDTIME PRN (Reason: Sleep) lisinopril 20 mg Tablet PO DAILY hydrochlorothiazide 25 mg PO DAILY Invega Sustenna 156 mg IM Q30D atorvastatin 20 mg tablet DAILY amlodipine 2.5 mg PO DAILY Depakote 500 mg tablet,delayed release (DR/EC) 1500 mg PO .at bedtime Hospital day #3: As stated above, the patient has established his own follow-up plan and even though it contradicts his intent to leave this area, he feels that he will have a great chance of regaining his state of being sober and clean while living with family and attending [facility] services. He states that he usually does not have a problem over the first month but that it is as the 30-da y point where he has a tendency to relapse. We discussed potential interventions. He has never had a trial on naltrexone. He agreed to a trial and it was initiated today. Will continue current medications and monitor for medication side effects. Monitor patient's mood, sleep, appetite, and behavior closely. Encourage patient to participate in individual and group therapeutic sessions on the maloney. Estimated length of stay 5 days The expected benefits and potential side effects of patient's psychiatric medications were discussed with the patient. The patient understands and consents to treatment.CRITERIA FOR DISCHARGE: stable on medications and no longer an im Involuntary Hold Information 96 Hour Hold: 96 Hour Involuntary Admission: No 96 Hour Hold Ending Date: 12/05/19 96 Hour Hold Ending Time: 21:13 Attestations NPU Medical Necessity Statement*: Patient will remain in the hospital another 2-4 nights for assessment of medication efficacy and tolerability. Coding Level of Care Code Acute Electronics Research Engineer for Mimi Gastelum Diagnoses Polysubstance abuse F19.10 Methamphetamine dependence F15.20
[2020-01-23] MEDS: divalproex DR 500 mg Tablet 1500 MG PO (21:55)
[2020-01-23] MEDS: mirtazapine 15 mg Tablet PO (21:55)
[2020-01-23 22:00] VITALS: BP 105/66; PULSE 81; RESP 14; TEMP 37; O2SAT 97
[2020-01-24 06:00] VITALS: BP 139/81; PULSE 90; RESP 17; TEMP 36.6; O2SAT 99
[2020-01-24] MEDS: lisinopril 20 mg Tablet PO (08:04)
[2020-01-24] MEDS: naltrexone hcl 50 mg Tablet PO (08:04)
[2020-01-24] MEDS: nicotine 2 mg Gum BUCCAL ×2 (08:05→09:28)
[2020-01-24] MEDS: amlodipine 5 mg Tablet 2.5 MG PO (08:05)
[2020-01-24] MEDS: atorvastatin 40 mg Tablet 20 MG PO (08:05)
[2020-01-24] MEDS: hydroCHLOROthiazide 25 mg Tablet PO (08:05)
[2020-01-24] MEDS: cyclobenzaprine 10 mg Tablet 5 MG PO (08:06)
--- NOTE | 2020-01-24 08:07 | PC.NURSE ---
PRN FLEXERIL GIVEN PO PER PT C/O SPASMS WILL CONT TO MONITOR
--- NOTE | 2020-01-24 08:22 | P.DS_ITS ---
Diagnoses at Discharge Discharge Diagnosis (1) Polysubstance abuse: Status: Chronic (2) Methamphetamine dependence: Status: Resolved Reason for Visit Reason for Visit: SI Brief History: f complaint: I have tried everything. I just cannot stay clean. I need to get out of this area. Walt Madsen is a 44 year old male with a long history of polysubstance abuse who was just released from this unit 6 weeks ago. He has been living in a long term house where he has much of his life supervised. He had done well up until about 3 days ago when he again began using marijuana and methamphetamine. At the same time, he had stopped his Depakote. He realized again that he was heading down a path of destruction. He decided to come to the emergency room for early intervention. At the time of interview, he is free of suicidal and homicidal ideation. He is free of auditory and visual hallucinations. He is receiving Invega Sustenna injections on the first of every month. He has been compliant with that. He reports no side effects. He is requesting assistance in relocating. He states that he is not interested in going to rehab. He has been to at least 6 different rehab programs and they were of no benefit. However he also admits that he has not been to rehab in over 6 years. Emergency room physician note: HPI Narrative: Patient is a 44-year-old male with a history of schizophrenia and bipolar here for complaints of suicidal ideations. Patient tells me he has chronically suffered from polysubstance abuse. He tells me he recently had approximately 2 months of sobriety but recently relapsed on methamphetamines, marijuana, and alcohol. He states his recent relapse has made him feel worthless and suicidal. He does not have a specific plan. He does have a previous attempt in 2014 via medication overdose. He reports auditory hallucinations that are chronic with his schizophrenia although states they are fairly controlled with Invega injections. Patient is not homicidal. He denies methamphetamine cravings at this time. He is taking medications as noted below. He is currently residing in a long term house ([facility]) and reports a supportive environment/staff there. The warehouse puller dispenses his medications as directed. He does not want case management at this time. He sees a therapist at [facility] and is encouraged to follow-up with her as directed. Hospital Course Hospital Course The patient was admitted to the adult psychiatric unit and sidra provided individual and group therapies as part of the adult psychiatric unit protocol. He had access to 24-hour nursing care from trained nursing staff. He was provided a social work assessment. His psychiatric evaluation produced the following treatment plan. Assessment: The plan at this point is to stabilize from his amphetamine intoxication. We will continue the medications which he was taking and with which she had been compliant at the time of his last discharge. Opportunities for rehab or changes in geographic location will be explored. Treatment plan: Due to the psychiatric conditions and treatment listed in the Assessment and Plan - the patient requires continued hospitalization. Will provide a safe and therapeutic environment for patient.. Will continue inpatient treatment to allow for medication adjustment and monitoring. Will continue q15 min safety checks. Hospital day #2 :The plan at this point is to stabilize from his amphetamine intoxication. We will continue the medications which he was taking and with which she had been compliant at the time of his last discharge. Opportunities for rehab or changes in geographic location will be explored. Continue: trazodone 50 mg Tablet PO BEDTIME PRN (Reason: Sleep) lisinopril 20 mg Tablet PO DAILY hydrochlorothiazide 25 mg PO DAILY Invega Sustenna 156 mg IM Q30D atorvastatin 20 mg tablet DAILY amlodipine 2.5 mg PO DAILY Depakote 500 mg tablet,delayed release (DR/EC) 1500 mg PO .at bedtime By hospital day #3, he had established a different discharge plan where he would be returning to live with family members participate in the [facility] rehabilitation program. He was free of signs and symptoms of methamphetamine withdrawal. He did well overnight and was discharged on hospital day #4. Involuntary Hold Information 96 Hour Hold: 96 Hour Involuntary Admission: No 96 Hour Hold Ending Date: 12/05/19 96 Hour Hold Ending Time: 21:13 Mental Status Exam MSE Comments: Mental Status Exam: The patient is an alert interpersonally engaged male appearing approximately his stated age. Eye contact is good. He is believed to be a reliable informant to the best of his ability as information provided is internally consistent and consistent with that in the chart. Appearance: hygiene is fair; no gross neurological deficits., gait is unremarkable; AIMS=0 Speech: Speech is of normal rate and rhythm and easily understood. Thought processes: Thought processes are abstract. Judgment is adequate for safety. Associations: intact Psychotic processes: There is no indication of guarding or paranoia. There is no attention to the internal stimuli. Auditory and visual hallucinations are denied. Judgment: Insight is fair. Problem solving skills are adequate for safety. Orientation: The patient is oriented to person, place time and situation. Memory: no deficits noted in immediate, intermediate, or remote spheres. Attention: The patient is alert and interpersonally engaged. Language: Verbalizations are coherent. Fund of knowledge: Fund of knowledge is adequate. Affect/Mood: Affect is consistent with a euthymic mood. He denies suicidal ideation Affective range is appropriate. Psychosis: perception unimpaired except through cognitive distortion; reality testing intact. Cognition: Patient Appearance: Appropriate Level of Consciousness: Awake, Alert, Appropriate and Follows Commands Patient Cognition Impaired: No Ability to Follow Directions: Excellent Patient Orientation (long list): Person, Place, Name and Birthday Comprehension Ability: No Impairment Hallucination Type: None Delusion Description: Not Present and Paranoid Ideation Thought Process: Appropriate Affect: Affect Description: Calm Depressive Symptoms: Increased Anxiety Behavior: Patient Behavior: Appropriate Speech Pattern: Clear Discharge Data Vitals: Last Vital Signs Temp 97.8 F 01/24/20 06:00 Pulse 90 01/24/20 06:00 Resp 17 01/24/20 06:00 BP 139/81 01/24/20 06:00 Pulse Ox 99 01/24/20 06:00 Discharge Plan Discharge Patient Disposition: Home, Self-Care Condition: Stable Prescriptions: Continued mirtazapine [Remeron] 15 mg tablet 15 mg PO .qhs Qty: 30 RF: 1 Invega Sustenna 156 mg/mL syringe 156 mg IM Q30D Qty: 1 RF: 5 Depakote 500 mg tablet,delayed release (DR/EC) 2,000 mg PO .at bedtime 30 Days Qty: 120 RF: 1 acetaminophen [Tylenol] 325 mg Tablet 325 mg PO QID PRN (Reason: Pain) RF: 0 lisinopril 20 mg Tablet 20 mg PO DAILY 30 Days Qty: 30 RF: 1 hydrochlorothiazide 25 mg Tablet 25 mg PO DAILY 30 Days Qty: 30 RF: 1 atorvastatin 20 mg tablet 20 mg PO DAILY 30 Days Qty: 30 RF: 1 amlodipine 2.5 mg tablet 2.5 mg PO DAILY 30 Days Qty: 30 RF: 1 diclofenac sodium 75 mg tablet,delayed release (DR/EC) 75 mg PO Q12H PRN (Reason: pain) Qty: 20 RF: 0 cyclobenzaprine 5 mg tablet 5 mg PO TID PRN (Reason: muscle spasm) Qty: 30 RF: 0 Discontinued multivitamin [Multiple Vitamins] Tablet 1 tab PO DAILY RF: 0 aspirin 325 mg Tablet 325 mg PO PRN PRN (Reason: Pain) RF: 0 Discharge Orders: Discharge Order (Routine); Ordered 01/24/20 Ordered By: Cesario Gomez Referrals: Azalia Huddleston FNP [Primary Care Provider] - Discharge Attestations NPU Time Spent in Discharge Care*: greater than 30 min Coding Level of Care Code Acute Hemodialysis Patient Care Specialist for g Fwd Diagnoses Polysubstance abuse F19.10 Methamphetamine dependence F15.20
[2020-01-24 08:41] VITALS: BP 139/81; PULSE 90; RESP 17; TEMP 36.6; O2SAT 99
--- NOTE | 2020-01-24 09:42 | PC.NURSE ---
PT. NOTE: PHYSICIAN WROTE SEPERATE RX FOR NALTRAXONE 50MG TO BE TAKEN PO DAILY, #30, W/5 REFILLS. SCRIPT GIVEN TO PATIENT AT DISCHARGE.
== END 2020-01-24 10:05 | disposition home or self-care (01) | DRG 897 ==
LOC: ER 15:35 → NP 16:13
PROVIDERS: Physician Assistant; Admitting Provider Psychiatry & Neurology Psychiatry; PCP Nurse Practitioner Family; Visit Provider Psychiatry & Neurology Psychiatry
DX: F15.229 Other stimulant dependence with intoxication, unspecified (principal); F12.10 Cannabis abuse, uncomplicated; F25.0 Schizoaffective disorder, bipolar type; F10.21 Alcohol dependence, in remission; I10 Essential (primary) hypertension; F17.220 Nicotine dependence, chewing tobacco, uncomplicated
CPT/HCPCS: 12345; 36415; 80053; 80164; 80306; 80307; 85025; 99284

== ENCOUNTER → 2020-02-11 07:51 | Outpatient (BNVA) | payer MEDICAID, SELFPAY | PROVIDERS: PCP Nurse Practitioner Family; Visit Provider Nurse Practitioner Psychiatric/Mental Health | DX: F31.9 Bipolar disorder, unspecified (principal); F19.10 Other psychoactive substance abuse, uncomplicated | CPT/HCPCS: 80164; 99213 ==

== ENCOUNTER → 2020-03-10 07:48 | Outpatient (BNVA) | payer MEDICAID, SELFPAY | PROVIDERS: PCP Nurse Practitioner Family; Visit Provider Nurse Practitioner Psychiatric/Mental Health | DX: F31.9 Bipolar disorder, unspecified (principal); F19.10 Other psychoactive substance abuse, uncomplicated | CPT/HCPCS: 96372; 99213 ==

== ENCOUNTER 2020-03-25 14:43 | Emergency (ER) | payer MEDICAID, SELFPAY ==
[2020-03-25] VITALS (7 sets, daily range): BP systolic 96–134; BP diastolic 67–92; PULSE 88–99; RESP 15–18; TEMP 36.4; O2SAT 98–100; BMI 29.7
--- NOTE | 2020-03-25 15:08 | W.ED.ABDPA2 ---
Documented by User: LOVE Sequeira 03/26/20 10:54 HPI - Abdominal Pain General: Chief Complaint: Abdominal Pain Stated Complaint: abd pain, diarrhea Time Seen by Provider: 03/25/20 15:04 History of Present Illness: HPI narrative: Patient is a 45-year-old male comes to the ED with right lower quadrant abdominal pain. Patient says pain started this morning. He endorses having decreased appetite and a little diarrhea. Denies fever, nausea, vomiting, shortness of breath, constipation, blood in the stool, dysuria or hematuria. Denies any previous surgical history, such as cholecystectomy or appendectomy. Associated Symptoms: Denies chills, constipation, diarrhea, dysuria, fever(s), hematochezia, hematuria, nausea and vomiting Review of Systems Const: Reports: change in appetite (decreased appetite); Denies: fever(s), chills or fatigue Eyes: Denies: change in vision or eye discomfort ENMT: Denies: throat pain, odynophagia, nasal discharge or nasal congestion Card: Denies: chest pain, palpitations, edema, swelling of feet/ankles, dyspnea on exertion or orthopnea Resp: Denies: dyspnea, productive cough or non-productive cough GI: Reports: abdominal pain (RLQ); Denies: nausea, vomiting, diarrhea, constipation or hematochezia : Denies: flank pain, difficulty urinating, dysuria or hematuria Musc: Denies: neck pain, back pain or extremity swelling Skin/Breast: Denies: rash or new lesions Neuro: Denies: headache(s), numbness in extremities or weakness in extremities PFSH ED PFSH: Medical History Benign essential HTN Bipolar disorder Hyperlipidemia Methamphetamine use disorder, moderate, in early remission, dependence He denies methamphetamine cravings at this time. He is taking medications as noted below. He is currently residing in a jail house ([facility]) and reports a supportive environment/staff there. The warehouse processor dispenses his medications as directed. He does not want case management at this time. He sees a therapist at [facility] and is encouraged to follow-up with her as directed. Schizophrenia Seasonal allergies Surgical History No pertinent past surgical history Family History Other Diabetes Stroke Social History Smoking and tobacco status: current every day smoker smokeless tobacco Smokeless tobacco user: chewing tobacco Smokeless tobacco details: 1 can per day Quit status (tobacco): not considering quitting Second hand smoke exposure: Yes Alcohol intake: former Substance/Drug Use: current Substance/Drug use frequency: Special occassions/opportunity only Substance/Drug use type: Amphetamines and Methamphetamine Additional social history: SUBSTANCE ABUSE HISTORY: He reports he chews about a can of tobacco a day but does not smoke, he reports he last drank alcohol about six years ago, he does not use marijuana or cocaine, he does use methamphetamine and has used opiates. He reports he has had two to three drug rehabilitations. He has had a couple of DUIs, the last one may have been in 2004. FAMILY HISTORY: He denies any history of mental health issues, addiction, or lethality in his family. DEVELOPMENTAL HISTORY: He denies any issues with his mom?s or delivery of him. He reports he learned how to walk and talk and met all developmental milestones on time. He reports when he went to school, there was no speech therapy, learning support, emotional support, or special education classes. PSYCHOSOCIAL HISTORY: He reports that his mother and father were together when he was born and when he was about 15 years old. They had him and a younger brother together. His mom had no other children; his dad had a couple step kids, a couple of adopted kids, and then a half-sister. He reports that his childhood was tough at times, because he was poor, be he denies any emotional, physical, or sexual abuse. He reports the highest grade he went to was the ninth grade, and he got his GED in 1991. He endorses being a heterosexual, with his longest relationship being a couple of years. He was once, not sure if he is , but he has not seen the person for many, many, many years. He reports he has a 20 year old daughter that he sees a little bit, but he was never to her mother. He denies any history. He endorses being a [employer]. The longest job he has had, he said, was ninety days. He reports he lives in a trailer on a friend?s property. LEGAL HISTORY: He reports that he has been to custodial multiple times, not actually sure how many. The longest time he was behind bars was the five years he spent in [facility] that ended in April 2019. Physical Exam Const: COMMON NORMALS: no acute distress, patient oriented x3, healthy appearing and alert GENERAL APPEARANCE: cooperative and comfortable HENMT: COMMON NORMALS: normocephalic HEAD & SCALP: normocephalic MOUTH: Normal oral and palatal mucosa present THROAT: posterior oropharynx normal and uvula midline Eye: COMMON NORMALS: Equal, round and reactive pupils present PUPIL: Yes Equal, round and reactive pupils present Neck/C-Spine: COMMON NORMALS: supple GENERAL: Yes normal visual inspection Resp: COMMON NORMALS: normal respiratory effort, No retractions, No use of accessory muscles and clear to auscultation bilaterally AUSCULTATION: clear to auscultation bilaterally Cardio: COMMON NORMALS: regular rate, regular rhythm, S1 normal heart sound present, S2 normal heart sound present, No gallops present (Cardio), No clicks present (Cardio), No murmurs present (Cardio) and Peripheral pulses 2+ throughout RATE: regular rate RHYTHM: regular rhythm HEART SOUNDS: S1 normal heart sound present and S2 normal heart sound present PERIPHERAL PULSES: Peripheral pulses 2+ throughout GI: COMMON NORMALS: Normal to inspection, nondistended, normoactive bowel sounds present, Soft to palpation and no masses PALPATION: Yes Soft to palpation and Yes Tenderness to palpation present (GI) Details: RLQ (positive mcburney's point. ) : COMMON NORMALS: Yes no CVA tenderness BLADDER/KIDNEY EXAM: Yes no CVA tenderness Back/Pelvis: COMMON NORMALS: no CVA tenderness Extremity: COMMON NORMALS: normal to inspection and no pedal edema Neuro: COMMON NORMALS: patient oriented x3 SENSORIUM/ORIENTATION: Yes alert GAIT: Yes Normal gait present Skin: COMMON NORMALS: no rashes or lesions noted GENERAL SKIN EXAM: no rashes or lesions noted and dry skin Course Vital Signs: Vital signs: Vital Signs Temperature 97.5 F L 03/25/20 14:55 Pulse Rate 88 03/25/20 18:42 Respiratory Rate 18 03/25/20 18:42 Blood Pressure 106/67 03/25/20 18:42 Pulse Oximetry 98 03/25/20 18:42 MDM - Abdominal Pain Lab Data: Attestation: I reviewed the patient's lab results. Labs: Lab Results 03/25/20 03/25/20 03/25/20 Range/Units 15:16 15:16 18:00 WBC 7.6 (4.0-10.0) 10^3/ uL RBC 4.57 (4.1-5.3) 10^6/u L Hgb 14.8 (11.7-16.6) g/dL Hct 44.5 (42.0-52.0) % MCV 97.4 H (80-94) fL MCH 32.4 (28.0-34.0) pg MCHC 33.3 (30.0-36.0) g/dL RDW 11.8 L (12.1-15.1) % Plt Count 276 (130-400) 10^3/c mm MPV 9.5 (7.4-10.4) fL Neut % (Auto) 82.0 % Lymph % (Auto) 9.8 % [place] % (Auto) 6.6 % Eos % (Auto) 0.9 % Baso % (Auto) 0.3 % Neut # (Auto) 6.25 (1.8-7.7) 10^3/u L Lymph # (Auto) 0.8 (0.8-4.8) 10^3/u L [place] # (Auto) 0.5 (0.2-0.9) 10^3/u L Eos # (Auto) 0.1 (0.0-0.8) 10^3/u L Baso # (Auto) 0.0 (0.0-0.1) 10^3/u L Nucleated RBC % (a uto) 0 % Nucleated RBCs # 0.0 /100WBC Sodium 142 (136-145) mmol/L Potassium 3.9 (3.5-5.1) mmol/L Chloride 104 (98-107) mmol/L Carbon Dioxide 26 (22-29) mmol/L Anion Gap 15.9 (5-19) BUN 8 (6-20) mg/dL Creatinine 1.1 (0.7-1.2) mg/dL GFR Calculation 72.1 L (90-130) mL/min Glucose 118 H (65-115) mg/dL Calculated Osmolal ity 291 (285-295) mOsm/k g Calcium 9.6 (8.5-10.5) mg/dL Total Bilirubin 0.3 (0.15-1.2) mg/dL AST 15 (0-40) U/L ALT 10 (0-41) U/L Alkaline Phosphata se 86 (40-130) IU/L Total Protein 6.8 (6.6-8.7) g/dL Albumin 4.6 (3.5-5.2) g/dL Globulin 2.2 (1.3-4.6) g/dL Lipase 22 (13-60) U/L Urine Color Yellow (Yellow) Urine Appearance Clear (CLEAR) Urine pH 6 (5-7) Ur Specific Gravit y 1.020 (1.005-1.030) Urine Protein Neg (Negative) Urine Glucose (UA) Norm (Normal) Urine Ketones 1+ H (Negative) Urine Blood Neg (Negative) Urine Nitrate Negative (Negative) Urine Bilirubin Neg (NEGATIVE) Urine Urobilinogen Norm (Negative) mg/dL Ur Leukocyte Nara ase Trace H (Negative) Urine RBC 0-4 H (0-2) /hpf Urine WBC 25-40 H (0-5) /hpf Ur Squamous Epith Cells 0-4 H (0-5) Amorphous Sediment Not Reportable Urine Bacteria 2+ H (NONE) Urine Mucus 1+ Urine Sperm 2+ Discharge Plan Discharge Patient Disposition: Home Clinical Impression: Colitis Condition: Stable Prescriptions: New Flagyl 500 mg tablet 500 mg PO BID 7 Days Qty: 14 RF: 0 Tylenol-Codeine #3 300-30 mg tablet 1 tab PO Q6H PRN (Reason: pain) Qty: 10 RF: 0 Cipro 500 mg tablet 500 mg PO Q12H Qty: 14 RF: 0 No Action Invega Sustenna 156 mg/mL syringe 156 mg IM Q30D Qty: 1 RF: 5 mirtazapine [Remeron] 15 mg tablet 15 mg PO .qhs Qty: 30 RF: 2 divalproex [Depakote ER] 500 mg tablet extended release 24 hr 1,500 mg PO DAILY Qty: 90 RF: 2 lisinopril-hydrochlorothiazide 20-25 mg tablet 1 tab PO DAILY RF: 0 atorvastatin 20 mg tablet 20 mg PO DAILY 30 Days Qty: 30 RF: 1 amlodipine 2.5 mg tablet 2.5 mg PO DAILY 30 Days Qty: 30 RF: 1 diclofenac sodium 75 mg tablet,delayed release (DR/EC) 75 mg PO Q12H PRN (Reason: pain) Qty: 20 RF: 0 cyclobenzaprine 5 mg tablet 5 mg PO TID PRN (Reason: muscle spasm) Qty: 30 RF: 0 Discharge Orders: Discharge Order (Routine); Ordered 03/25/20 Ordered By: Trinity Hankins Referrals: Azalia Huddleston FNP [Primary Care Provider] - Patient Instructions: Infectious Colitis (ED) Activity Restrictions/Additional Instructions: Please followup with primary care in 3-5 days for re-evaluation. You may return to the emergency department sooner for worsening abdominal pain, repetitive episodes of vomiting, not being able to hold down your medications, fevers greater than 100.4, or any other concerns you may have. Discharge Date/Time: 03/25/20 18:44 Sign Out Sign Out Data: Patient Sign Out occurred on 03/25/20 at 17:09. Patient's care was discussed, and care was transferred from to LOEV Ellis. Coding Level of Care Code ED Handbell Choir Director for Chg Fwd Exam Comprehensive Documented by User: LOVE Ellis 03/25/20 18:49 HPI - Abdominal Pain General: Chief Complaint: Abdominal Pain Stated Complaint: abd pain, diarrhea Time Seen by Provider: 03/25/20 15:04 [facility] ED PFS: Medical History Benign essential HTN Bipolar disorder Hyperlipidemia Methamphetamine use disorder, moderate, in early remission, dependence He denies methamphetamine cravings at this time. He is taking medications as noted below. He is currently residing in a jail house ([facility]) and reports a supportive environment/staff there. The warehouse processor dispenses his medications as directed. He does not want case management at this time. He sees a therapist at [facility] and is encouraged to follow-up with her as directed. Schizophrenia Seasonal allergies Surgical History No pertinent past surgical history Family History Other Diabetes Stroke Social History Smoking and tobacco status: current every day smoker smokeless tobacco Smokeless tobacco user: chewing tobacco Smokeless tobacco details: 1 can per day Quit status (tobacco): not considering quitting Second hand smoke exposure: Yes Alcohol intake: former Substance/Drug Use: current Substance/Drug use frequency: Special occassions/opportunity only Substance/Drug use type: Amphetamines and Methamphetamine Additional social history: SUBSTANCE ABUSE HISTORY: He reports he chews about a can of tobacco a day but does not smoke, he reports he last drank alcohol about six years ago, he does not use marijuana or cocaine, he does use methamphetamine and has used opiates. He reports he has had two to three drug rehabilitations. He has had a couple of DUIs, the last one may have been in 2004. FAMILY HISTORY: He denies any history of mental health issues, addiction, or lethality in his family. DEVELOPMENTAL HISTORY: He denies any issues with his mom?s or delivery of him. He reports he learned how to walk and talk and met all developmental milestones on time. He reports when he went to school, there was no speech therapy, learning support, emotional support, or special education classes. PSYCHOSOCIAL HISTORY: He reports that his mother and father were together when he was born and when he was about 15 years old. They had him and a younger brother together. His mom had no other children; his dad had a couple step kids, a couple of adopted kids, and then a half-sister. He reports that his childhood was tough at times, because he was poor, be he denies any emotional, physical, or sexual abuse. He reports the highest grade he went to was the ninth grade, and he got his GED in 1991. He endorses being a heterosexual, with his longest relationship being a couple of years. He was once, not sure if he is , but he has not seen the person for many, many, many years. He reports he has a 20 year old daughter that he sees a little bit, but he was never to her mother. He denies any history. He endorses being a [employer]. The longest job he has had, he said, was ninety days. He reports he lives in a trailer on a friend?s property. LEGAL HISTORY: He reports that he has been to custodial multiple times, not actually sure how many. The longest time he was behind bars was the five [facility] he spent in [facility] that ended in April 2019. Course Vital Signs: Vital signs: Vital Signs Temperature 97.5 F L 03/25/20 14:55 Pulse Rate 88 03/25/20 18:42 Respiratory Rate 18 03/25/20 18:42 Blood Pressure 106/67 03/25/20 18:42 Pulse Oximetry 98 03/25/20 18:42 MDM - Abdominal Pain MDM Narrative: Medical decision making narrative: Patient is a 45-year-old male who presents to ED today with complaints of right lower abdominal pain that began today. He is not having any nausea, vomiting, changes in bowel movements. He has not been running fevers. Patient's labs at this time are non-concerning. Urine does show some WBCs and bacteria. He is not complaining of dysuria, itching, or penile discharge. Reports no concern for STDs. CT scan showing colitis of his ascending, transverse, and descending colon. Vitals stable. He will be placed on Cipro and Flagyl and recommend he follow-up with his PCP in 3 to 5 days for re-evaluation. Return to ED precautions given. Lab Data: Labs: Lab Results 03/25/20 03/25/20 03/25/20 Range/Units 15:16 15:16 18:00 WBC 7.6 (4.0-10.0) 10^3/ uL RBC 4.57 (4.1-5.3) 10^6/u L Hgb 14.8 (11.7-16.6) g/dL Hct 44.5 (42.0-52.0) % MCV 97.4 H (80-94) fL MCH 32.4 (28.0-34.0) pg MCHC 33.3 (30.0-36.0) g/dL RDW 11.8 L (12.1-15.1) % Plt Count 276 (130-400) 10^3/c mm MPV 9.5 (7.4-10.4) fL Neut % (Auto) 82.0 % Lymph % (Auto) 9.8 % [place] % (Auto) 6.6 % Eos % (Auto) 0.9 % Baso % (Auto) 0.3 % Neut # (Auto) 6.25 (1.8-7.7) 10^3/u L Lymph # (Auto) 0.8 (0.8-4.8) 10^3/u L [place] # (Auto) 0.5 (0.2-0.9) 10^3/u L Eos # (Auto) 0.1 (0.0-0.8) 10^3/u L Baso # (Auto) 0.0 (0.0-0.1) 10^3/u L Nucleated RBC % (a uto) 0 % Nucleated RBCs # 0.0 /100WBC Sodium 142 (136-145) mmol/L Potassium 3.9 (3.5-5.1) mmol/L Chloride 104 (98-107) mmol/L Carbon Dioxide 26 (22-29) mmol/L Anion Gap 15.9 (5-19) BUN 8 (6-20) mg/dL Creatinine 1.1 (0.7-1.2) mg/dL GFR Calculation 72.1 L (90-130) mL/min Glucose 118 H (65-115) mg/dL Calculated Osmolal ity 291 (285-295) mOsm/k g Calcium 9.6 (8.5-10.5) mg/dL Total Bilirubin 0.3 (0.15-1.2) mg/dL AST 15 (0-40) U/L ALT 10 (0-41) U/L Alkaline Phosphata se 86 (40-130) IU/L Total Protein 6.8 (6.6-8.7) g/dL Albumin 4.6 (3.5-5.2) g/dL Globulin 2.2 (1.3-4.6) g/dL Lipase 22 (13-60) U/L Urine Color Yellow (Yellow) Urine Appearance Clear (CLEAR) Urine pH 6 (5-7) Ur Specific Gravit y 1.020 (1.005-1.030) Urine Protein Neg (Negative) Urine Glucose (UA) Norm (Normal) Urine Ketones 1+ H (Negative) Urine Blood Neg (Negative) Urine Nitrate Negative (Negative) Urine Bilirubin Neg (NEGATIVE) Urine Urobilinogen Norm (Negative) mg/dL Ur Leukocyte Nara ase Trace H (Negative) Urine RBC 0-4 H (0-2) /hpf Urine WBC 25-40 H (0-5) /hpf Ur Squamous Epith Cells 0-4 H (0-5) Amorphous Sediment Not Reportable Urine Bacteria 2+ H (NONE) Urine Mucus 1+ Urine Sperm 2+ Imaging Data ^: CT Abd/Pel: Radiologist's impression: [address] [address] [address] Scan Report Signed Patient: Walt Madsen Unit #: [id number] : [id number] Age/Sex: 45 / M ADM Date: 03/25/20 Loc: ER Room/Bed: Attending Dr: Ordering Provider/Ordering MD: Eris Cuellar Date of Service: 03/25/20 Procedure(s): CT abdomen pelvis w con* [id number] Accession Number(s): [id number] Report Number: [id number] PROCEDURE INFORMATION: Exam: CT Abdomen And Pelvis With Contrast Exam date and time: 03/25/2020 5:36 PM Age: 45 years old Clinical indication: Nausea; Abdominal pain; Additional info: Rlq pain TECHNIQUE: Imaging protocol: Computed tomography of the abdomen and pelvis with intravenous contrast. Radiation optimization: All CT scans at this facility use at least one of these dose optimization techniques: automated exposure control; mA and/or kV adjustment per patient size (includes targeted exams where dose is matched to clinical indication); or iterative reconstruction. Contrast material: OMNI 300; Contrast volume: 95 ml; Contrast route: INTRAVENOUS (IV); COMPARISON: CT abdomen pelvis w con* [id number] 12/19/2013 3:18 PM RADIATION DOSE METRICS: Total DLP (mGy-cm): 871.41 FINDINGS: Lungs: There is subpleural atelectasis of the dependent portions of the lungs. Calcified granulomas are noted in the lung bases. Mediastinal space: A small hiatal hernia is present. Liver: There is a diffuse decrease in hepatic parenchymal density, consistent with fatty infiltration. Gallbladder and bile ducts: Normal. No calcified stones. No ductal dilation. Pancreas: Normal. No ductal dilation. Spleen: Normal. No splenomegaly. Adrenals: Normal. No mass. Kidneys and ureters: There is no evidence of hydronephrosis. There is no evidence of renal calcifications. Stomach and bowel: Moderate diverticulosis is present in the distal colon. There is wall thickening with haziness of the fat involving the ascending, transverse and descending colon compatible with colitis. Less prominent changes are noted in the sigmoid colon. There is no evidence of intestinal perforation or obstruction. Appendix: A normal appendix is identified. Intraperitoneal space: Unremarkable. No free air. No significant fluid collection. Vasculature: There are numerous benign phleboliths in the pelvis. Lymph nodes: Unremarkable.No enlarged lymph nodes. Bladder: There is nonspecific bladder wall thickening. This may be related to incomplete distention. Reproductive: The prostate demonstrates mild nonspecific enlargement. The seminal vesicles are normal. Bones/joints: Unremarkable. No acute fracture. Soft tissues: There is a fat-containing umbilical hernia. CT/CT abdomen pelvis w con* [id number] IMPRESSION: There is wall thickening with haziness of the fat involving the ascending, transverse and descending colon compatible with colitis. Less prominent changes are noted in the sigmoid colon. No abscess or free air. Radiation Dose CTDIVOL = (mGy): DLP = 871.41 (mGy-cm) Dictated By: Joy Harvey Signed By: Joy Harvey Signed Date/Time: 03/25/201820 DD/ 19 Discharge Plan Discharge Patient Disposition: Home Clinical Impression: Colitis Condition: Stable Prescriptions: New Flagyl 500 mg tablet 500 mg PO BID 7 Days Qty: 14 RF: 0 Tylenol-Codeine #3 300-30 mg tablet 1 tab PO Q6H PRN (Reason: pain) Qty: 10 RF: 0 Cipro 500 mg tablet 500 mg PO Q12H Qty: 14 RF: 0 No Action Invega Sustenna 156 mg/mL syringe 156 mg IM Q30D Qty: 1 RF: 5 mirtazapine [Remeron] 15 mg tablet 15 mg PO .qhs Qty: 30 RF: 2 divalproex [Depakote ER] 500 mg tablet extended release 24 hr 1,500 mg PO DAILY Qty: 90 RF: 2 lisinopril-hydrochlorothiazide 20-25 mg tablet 1 tab PO DAILY RF: 0 atorvastatin 20 mg tablet 20 mg PO DAILY 30 Days Qty: 30 RF: 1 amlodipine 2.5 mg tablet 2.5 mg PO DAILY 30 Days Qty: 30 RF: 1 diclofenac sodium 75 mg tablet,delayed release (DR/EC) 75 mg PO Q12H PRN (Reason: pain) Qty: 20 RF: 0 cyclobenzaprine 5 mg tablet 5 mg PO TID PRN (Reason: muscle spasm) Qty: 30 RF: 0 Discharge Orders: Discharge Order (Routine); Ordered 03/25/20 Ordered By: Trinity Hankins Referrals: Azalia Huddleston FNP [Primary Care Provider] - Patient Instructions: Infectious Colitis (ED) Activity Restrictions/Additional Instructions: Please followup with primary care in 3-5 days for re-evaluation. You may return to the emergency department sooner for worsening abdominal pain, repetitive episodes of vomiting, not being able to hold down your medications, fevers greater than 100.4, or any other concerns you may have. Discharge Date/Time: 03/25/20 18:44 Sign Out Sign Out Data: Patient Sign Out occurred on 03/25/20 at 17:09. Patient's care was discussed, and care was transferred from to LOVE Ellis. Coding Level of Care Code ED Handbell Choir Director for Mimi Fwd Exam Comprehensive
[2020-03-25] MEDS: sodium chloride 0.9% 1,000 ML 999 ML IV (15:22)
[2020-03-25 15:23] LABS: Basophils % 0.3 %; Eosinophils # 0.1 10^3/uL (0.0-0.8); Eosinophils % 0.9 %; Hematocrit 44.5 % (42.0-52.0); Hemoglobin 14.8 g/dL (11.7-16.6); Lymphocytes # 0.8 10^3/uL (0.8-4.8); Lymphocytes % 9.8 %; Mean Corpuscular HGB Conc 33.3 g/dL (30.0-36.0); Mean Corpuscular Hemoglobin 32.4 pg (28.0-34.0); Mean Corpuscular Volume 97.4 fL (80-94); Mean Platelet Volume 9.5 fL (7.4-10.4); Monocytes # 0.5 10^3/uL (0.2-0.9); Monocytes % 6.6 %; Neutrophils # 6.25 10^3/uL (1.8-7.7); Nucleated Red Blood Cells % 0 %; Platelet Count 276 10^3/cmm (130-400); Red Blood Count 4.57 10^6/uL (4.1-5.3); Red Cell Distribution Width 11.8 % (12.1-15.1); White Blood Count 7.6 10^3/uL (4.0-10.0)
--- NOTE | 2020-03-25 15:36 | CTR_ITS ---
PROCEDURE INFORMATION: Exam: CT Abdomen And Pelvis With Contrast Exam date and time: 03/25/2020 5:36 PM Age: 45 years old Clinical indication: Nausea; Abdominal pain; Additional info: Rlq pain TECHNIQUE: Imaging protocol: Computed tomography of the abdomen and pelvis with intravenous contrast. Radiation optimization: All CT scans at this facility use at least one of these dose optimization techniques: automated exposure control; mA and/or kV adjustment per patient size (includes targeted exams where dose is matched to clinical indication); or iterative reconstruction. Contrast material: OMNI 300; Contrast volume: 95 ml; Contrast route: INTRAVENOUS (IV); COMPARISON: CT abdomen pelvis w con* [id number] 12/19/2013 3:18 PM RADIATION DOSE METRICS: Total DLP (mGy-cm): 871.41 FINDINGS: Lungs: There is subpleural atelectasis of the dependent portions of the lungs. Calcified granulomas are noted in the lung bases. Mediastinal space: A small hiatal hernia is present. Liver: There is a diffuse decrease in hepatic parenchymal density, consistent with fatty infiltration. Gallbladder and bile ducts: Normal. No calcified stones. No ductal dilation. Pancreas: Normal. No ductal dilation. Spleen: Normal. No splenomegaly. Adrenals: Normal. No mass. Kidneys and ureters: There is no evidence of hydronephrosis. There is no evidence of renal calcifications. Stomach and bowel: Moderate diverticulosis is present in the distal colon. There is wall thickening with haziness of the fat involving the ascending, transverse and descending colon compatible with colitis. Less prominent changes are noted in the sigmoid colon. There is no evidence of intestinal perforation or obstruction. Appendix: A normal appendix is identified. Intraperitoneal space: Unremarkable. No free air. No significant fluid collection. Vasculature: There are numerous benign phleboliths in the pelvis. Lymph nodes: Unremarkable.No enlarged lymph nodes. Bladder: There is nonspecific bladder wall thickening. This may be related to incomplete distention. Reproductive: The prostate demonstrates mild nonspecific enlargement. The seminal vesicles are normal. Bones/joints: Unremarkable. No acute fracture. Soft tissues: There is a fat-containing umbilical hernia. CT/CT abdomen pelvis w con* [id number] IMPRESSION: There is wall thickening with haziness of the fat involving the ascending, transverse and descending colon compatible with colitis. Less prominent changes are noted in the sigmoid colon. No abscess or free air. Radiation Dose CTDIVOL = (mGy): DLP = 871.41 (mGy-cm)
[2020-03-25 15:44] LABS: Alanine Aminotransferase 10 U/L (0-41); Albumin Level 4.6 g/dL (3.5-5.2); Alkaline Phosphatase 86 IU/L (40-130); Chloride 104 mmol/L (98-107); Potassium 3.9 mmol/L (3.5-5.1); Sodium 142 mmol/L (136-145)
[2020-03-25 15:58] LABS: Anion Gap 15.9 (5-19); Aspartate Amino Transferase 15 U/L (0-40); Blood Urea Nitrogen 8 mg/dL (6-20); Calcium 9.6 mg/dL (8.5-10.5); Carbon Dioxide 26 mmol/L (22-29); Globulin 2.2 g/dL (1.3-4.6); Glomerular Filtration Rate 72.1 mL/min (90-130); Glucose 118 mg/dL (65-115); Lipase 22 U/L (13-60); Osmolality Calculated 291 mOsm/kg (285-295); Total Bilirubin 0.3 mg/dL (0.15-1.2); Total Protein 6.8 g/dL (6.6-8.7)
[2020-03-25] MEDS: ondansetron 2 mg/ML SDV 2 mL 4 MG IVP (16:17)
[2020-03-25] MEDS: morphine 4 mg/mL SDV 1 mL 2 MG IVP (16:18)
[2020-03-25] MEDS: iohexol 300 mg/mL 100 mL Btl IV (17:42)
[2020-03-25 18:18] LABS: Bilirubin Urine Neg (NEGATIVE); Blood Urine Neg (Negative); Glucose Urine UA Norm (Normal); Ketones Urine 1+ (Negative); Leukocyte Esterase Urine Trace (Negative); Nitrate Urine Negative (Negative); Protein Urine Neg (Negative); Urine Appearance Clear (CLEAR); Urine Color Yellow (Yellow); Urobilinogen Urine Norm (Negative); pH Urine 6 (5-7)
[2020-03-25 18:23] LABS: Bacteria Urine 2+; Mucus Urine 1+; RBC Urine 0-4 /hpf (0-2); Sperm Urine 2+; Squamous Epithelial Cell Urine 0-4 (0-5); WBC Urine 25-40 /hpf (0-5)
[2020-03-25 18:24] LABS: Add Urine Culture? Yes
== END 2020-03-25 18:44 | disposition home or self-care (01) ==
PROVIDERS: Physician Assistant; Emergency Provider Physician Assistant; PCP Nurse Practitioner Family
DX: K52.9 Noninfective gastroenteritis and colitis, unspecified (principal); I10 Essential (primary) hypertension; E78.5 Hyperlipidemia, unspecified; F17.220 Nicotine dependence, chewing tobacco, uncomplicated
CPT/HCPCS: 12345; 36415; 74177; 80053; 81001; 83690; 85025; 87040; 87086; 96361; 96374; 96375; 99283; 99284; J2270; J2405; J7030; Q9967

== ENCOUNTER → 2020-04-07 08:06 | Outpatient (BNVA) | payer MEDICAID, SELFPAY | PROVIDERS: PCP Nurse Practitioner Family; Visit Provider Nurse Practitioner Psychiatric/Mental Health | DX: F31.9 Bipolar disorder, unspecified (principal); F15.21 Other stimulant dependence, in remission | CPT/HCPCS: 96372; 99212 ==

== ENCOUNTER 2020-05-03 11:35 | Emergency (ER) | payer MEDICAID, SELFPAY ==
[2020-05-03 11:43] VITALS: BP 128/95; PULSE 103; RESP 18; TEMP 36.4; O2SAT 98; BMI 29.0
--- NOTE | 2020-05-03 11:51 | CTR_ITS ---
PROCEDURE INFORMATION: Exam: CT Abdomen And Pelvis With Contrast Exam date and time: 05/03/2020 12:33 PM Age: 45 years old Clinical indication: Abdominal pain; Generalized; Patient HX: C/O abd pain TECHNIQUE: Imaging protocol: Computed tomography of the abdomen and pelvis with intravenous contrast. Radiation optimization: All CT scans at this facility use at least one of these dose optimization techniques: automated exposure control; mA and/or kV adjustment per patient size (includes targeted exams where dose is matched to clinical indication); or iterative reconstruction. Contrast material: OMNI 300; Contrast volume: 95 ml; Contrast route: INTRAVENOUS (IV); COMPARISON: CT abdomen pelvis w con* [id number] 03/25/2020 5:36 PM RADIATION DOSE METRICS: Total DLP (mGy-cm): 770.43 FINDINGS: Lungs: Interstitial prominence and chronic granulomatous disease. Liver: No focal hepatic mass. Gallbladder and bile ducts: Cholelithiasis. No biliary ductal dilatation. Pancreas: No pancreatic mass or ductal dilatation. Spleen: Spleen upper limits of normal in size. Adrenals: Unremarkable adrenals. Kidneys and ureters: Normal renal morphology. No hydronephrosis. Stomach and bowel: Questionable wall thickening in the nondistended stomach. Mild small bowel dilatation without a transition zone. Copious stool in the dilated colon, in a pattern of constipation. Diverticula, without pericolonic inflammation. Appendix: No acute appendicitis. Intraperitonal space: No significant free fluid. Vasculature: Normal caliber of the abdominal aorta. Lymph nodes: No pathologically enlarged lymph nodes. Bladder: Anterior bladder wall thickening. Reproductive: Unremarkable as visualized. Bones/joints: Schmorl's nodes, vertebral endplate irregularity, disc bulging, and mild degenerative change. Soft tissues: Small fat containing inguinal hernia. CT/CT abdomen pelvis w con* [id number] IMPRESSION: 1. Cholelithiasis. 2. Anterior bladder wall thickening. 3. Copious stool in the dilated colon, in a pattern of constipation. 4. Additional findings as described above. Radiation Dose CTDIVOL = (mGy): DLP = 770.43 (mGy-cm)
--- NOTE | 2020-05-03 11:53 | W.ED.ABDPA2 ---
HPI - Abdominal Pain General: Chief Complaint: Abdominal Pain Stated Complaint: ABD PAIN/SHAKY/HAND NUMBNESS/SOB Time Seen by Provider: 05/03/20 11:43 Source: patient Mode of arrival: ambulatory Limitations: no limitations History of Present Illness: HPI narrative: Mr. Gardner is a very nice 45-year-old male who comes in complaining of lower abdominal pain that began last night. States the pain began about 8 PM and feels like when he has had colitis in the past. He denies any diarrhea or blood in his stools. He states he has had some black stools at times. He states his last bowel movement was last night at 9 PM and his symptoms briefly got better but then returned and have been steady since. He has associated nausea but has not vomited. He is not noticed any fever and has not been chilled. He does not report any dysuria, urinary frequency or urgency. He is unaware of anything that makes his symptoms better or worse. Patient does state that he feels shaky and tingly but admits to continued meth use and has had a problem with that for quite some time. He is scheduled to go to an outpatient rehab facility but he has to wait until an opening is available. Denies any chest pain or shortness of breath. His only complaint at this time is primarily lower abdominal pain. Associated Symptoms: Reports nausea; Denies chills, coffee ground emesis, constipation, GI cramping, diarrhea, dysuria, fever(s), heartburn, hematochezia, hematuria, hematemesis, melena, syncope and vomiting Review of Systems Const: Denies: fever(s), chills, body aches, fatigue, malaise or diaphoresis Eyes: Denies: change in vision, blurry vision, photophobia, eye discomfort, eye discharge, eye redness or yellow eyes ENMT: Denies: throat pain, odynophagia, hoarseness, swelling of lips/tongue, ear or mastoid pain, ear discharge, change in hearing or nasal discharge Card: Denies: chest pain, palpitations, irregular heart rhythm, edema, lightheadedness, syncope, pre-syncope, dyspnea on exertion or orthopnea Resp: Denies: dyspnea, productive cough, non-productive cough, wheezing, hemoptysis or chest congestion GI: Reports: abdominal pain and nausea; Denies: vomiting, hematemesis, coffee ground emesis, heartburn, diarrhea, constipation, GI cramping, hematochezia or melena : Denies: flank pain, dysuria, urinary frequency, urinary urgency or hematuria Musc: Denies: neck pain, back pain, extremity pain, extremity swelling, joint pain, joint swelling, joint redness, joint warmth or joint stiffness Skin/Breast: Denies: rash, pruritus, erythema, skin pain or skin tenderness Neuro: Denies: headache(s), numbness in extremities, weakness in extremities, sensory changes, lack of coordination, difficulty walking, dizziness, vertigo, confusion, Slurred speech present or seizure-like activity Michael/Lymph: Denies: easy bruising, easy bleeding, petechiae, purpura or enlarged lymph nodes All/Imm: Denies: urticaria, throat swelling, tongue swelling, facial swelling or acute wheezing PFSH ED PFSH: Medical History Benign essential HTN Bipolar disorder Hyperlipidemia Methamphetamine use disorder, moderate, in early remission, dependence Schizophrenia Seasonal allergies Surgical History No pertinent past surgical history Family History Other Diabetes Stroke Social History Smoking and tobacco status: current every day smoker smokeless tobacco Smokeless tobacco user: chewing tobacco Smokeless tobacco details: 1 can per day Quit status (tobacco): not considering quitting Second hand smoke exposure: Yes Alcohol intake: former Additional social history: SUBSTANCE ABUSE HISTORY: He reports he chews about a can of tobacco a day but does not smoke, he reports he last drank alcohol about six years ago, he does not use marijuana or cocaine, he does use methamphetamine and has used opiates. He reports he has had two to three drug rehabilitations. He has had a couple of DUIs, the last one may have been in 2004. FAMILY HISTORY: He denies any history of mental health issues, addiction, or lethality in his family. DEVELOPMENTAL HISTORY: He denies any issues with his mom?s or delivery of him. He reports he learned how to walk and talk and met all developmental milestones on time. He reports when he went to school, there was no speech therapy, learning support, emotional support, or special education classes. PSYCHOSOCIAL HISTORY: He reports that his mother and father were together when he was born and when he was about 15 years old. They had him and a younger brother together. His mom had no other children; his dad had a couple step kids, a couple of adopted kids, and then a half-sister. He reports that his childhood was tough at times, because he was poor, be he denies any emotional, physical, or sexual abuse. He reports the highest grade he went to was the ninth grade, and he got his GED in 1991. He endorses being a heterosexual, with his longest relationship being a couple of years. He was once, not sure if he is , but he has not seen the person for many, many, many years. He reports he has a 20 year old daughter that he sees a little bit, but he was never to her mother. He denies any history. He endorses being a [employer]. The longest job he has had, he said, was ninety days. He reports he lives in a trailer on a friend?s property. LEGAL HISTORY: He reports that he has been to half-way multiple times, not actually sure how many. The longest time he was behind bars was the five years he spent in group home that ended in April 2019. Physical Exam Const: COMMON NORMALS: no acute distress, patient oriented x3, no limitations and alert GENERAL APPEARANCE: cooperative HENMT: COMMON NORMALS: normocephalic, atraumatic, external ears normal, EAC's normal and Normal external nose present HEAD & SCALP: normal to inspection, normocephalic and atraumatic FACE & SINUS: normal facial exam and face symmetric NOSE: Normal external nose present and Normal nares present EXTERNAL EAR: Yes external ears normal EXTERNAL AUDITORY CANAL: EAC's normal MOUTH: Normal oral and palatal mucosa present, lip normal and tongue normal Eye: COMMON NORMALS: Equal, round and reactive pupils present and conjunctivae normal GENERAL EYE: appearance normal, both eyes and all related structures ALIGNMENT: Yes alignment normal PERIORBITAL: periorbital findings normal EYELID: eyelids normal CONJUNCTIVA: Yes conjunctivae normal SCLERA: sclerae normal PUPIL: Yes Equal, round and reactive pupils present Neck/C-Spine: COMMON NORMALS: full ROM, no lymphadenopathy, supple, no meningeal signs and no JVD GENERAL: Yes normal visual inspection and Yes trachea midline Chest: COMMONS NORMALS: normal inspection of the chest and normal palpation of entire chest wall Resp: COMMON NORMALS: normal respiratory effort, No retractions, No use of accessory muscles and clear to auscultation bilaterally EFFORT & INSPECTION: Yes able to speak in complete sentences and Yes symmetric chest movement AUSCULTATION: clear to auscultation bilaterally, no crackles, no rales, no rhonchi and no wheezes Cardio: COMMON NORMALS: no JVD, regular rate, regular rhythm, S1 normal heart sound present and S2 normal heart sound present RATE: regular rate RHYTHM: regular rhythm HEART SOUNDS: S1 normal heart sound present, S2 normal heart sound present, no click, no gallops, no murmurs and no rubs GI: COMMON NORMALS: Soft to palpation and No hepatosplenomegaly present PALPATION: Yes Soft to palpation, Yes Tenderness to palpation present (GI) (Bilateral lower quadrants without rebound or guarding.), No Guarding due to palpation present (GI), No Rigid due to palpation, Yes No hepatosplenomegaly present, No Hernia present, No Palpable mass present and No Pulsatile mass present : COMMON NORMALS: Yes no CVA tenderness BLADDER/KIDNEY EXAM: Yes no CVA tenderness Back/Pelvis: COMMON NORMALS: no CVA tenderness, thoracic and lumbar spine normal to inspection, no thoracic nor lumbar tenderness and thoraco-lumbar ROM normal Extremity: COMMON NORMALS: normal to inspection, full ROM, capillary refill normal, no joint enlargement, no clubbing, cyanosis or edema and no calf tenderness Neuro: COMMON NORMALS: patient oriented x3, CN's II-XII intact bilaterally, moves all extremities, no focal motor deficits and no sensory deficits noted SENSORIUM/ORIENTATION: Yes alert MENINGEAL SIGNS: Yes no meningeal signs SPEECH: speech normal Psych: COMMON NORMALS: mental status grossly normal, Normal thought process present, cooperative, normal affect, speech normal and activity/motor behavior normal SPEECH: Yes normal speech THOUGHT PROCESS: Normal thought process present Skin: COMMON NORMALS: no rashes or lesions noted, turgor normal, no jaundice, no petechiae and no mottling GENERAL SKIN EXAM: no rashes or lesions noted and turgor normal Course Vital Signs: Vital signs: Vital Signs Temperature 97.6 F 05/03/20 11:43 Pulse Rate 98 09/19/20 14:57 Respiratory Rate 20 H 05/03/20 14:57 Blood Pressure 135/89 05/03/20 14:57 Pulse Oximetry 94 05/03/20 14:57 MDM - Abdominal Pain MDM Narrative: Medical decision making narrative: Mr. Gardner is a nice 45-year-old male who comes in complaining of abdominal pain. There is no sign of colitis, appendicitis, bowel obstruction or acute inflammatory or infectious cause seen by CT. There was a suggestion of anterior bladder wall thickening but the patient does not have a UTI. We will discharge the patient home with Bentyl for bowel spasms. He agrees to return should symptoms change or worsen but at this time he is feeling better and he is ready for discharge. Lab Data: Attestation: I reviewed the patient's lab results. Labs: Lab Results 05/03/20 05/03/20 05/03/20 Range/Units 12:09 12:09 12:09 WBC 10.3 H (4.0-10.0) 10^3/ uL RBC 4.93 (4.1-5.3) 10^6/u L Hgb 15.3 (11.7-16.6) g/dL Hct 45.3 (42.0-52.0) % MCV 91.9 (80-94) fL MCH 31.0 (28.0-34.0) pg MCHC 33.8 (30.0-36.0) g/dL RDW 11.4 L (12.1-15.1) % Plt Count 323 (130-400) 10^3/c mm MPV 9.4 (7.4-10.4) fL Neut % (Auto) 78.7 % Lymph % (Auto) 10.8 % [place] % (Auto) 8.4 % Eos % (Auto) 1.2 % Baso % (Auto) 0.4 % Neut # (Auto) 8.08 H (1.8-7.7) 10^3/u L Lymph # (Auto) 1.1 (0.8-4.8) 10^3/u L [place] # (Auto) 0.9 (0.2-0.9) 10^3/u L Eos # (Auto) 0.1 (0.0-0.8) 10^3/u L Baso # (Auto) 0.0 (0.0-0.1) 10^3/u L Nucleated RBC % (a uto) 0 % Nucleated RBCs # 0.0 /100WBC Sodium 132 L (136-145) mmol/L Potassium 3.8 (3.5-5.1) mmol/L Chloride 94 L (98-107) mmol/L Carbon Dioxide 24 (22-29) mmol/L Anion Gap 17.8 (5-19) BUN 7 (6-20) mg/dL Creatinine 0.9 (0.7-1.2) mg/dL GFR Calculation 90.8 (90-130) mL/min Glucose 105 (65-115) mg/dL Calculated Osmolal ity 272 L (285-295) mOsm/k g Calcium 9.6 (8.5-10.5) mg/dL Total Bilirubin 0.3 (0.15-1.2) mg/dL AST 13 (0-40) U/L ALT 14 (0-41) U/L Alkaline Phosphata se 64 (40-130) IU/L Total Protein 6.6 (6.6-8.7) g/dL Albumin 4.2 (3.5-5.2) g/dL Globulin 2.4 (1.3-4.6) g/dL Lipase 17 (13-60) U/L Urine Color (Yellow) Urine Appearance (CLEAR) Urine pH (5-7) Ur Specific Gravit y (1.005-1.030) Urine Protein (Negative) Urine Glucose (UA) (Normal) Urine Ketones (Negative) Urine Blood (Negative) Urine Nitrate (Negative) Urine Bilirubin (Negative) Urine Urobilinogen (Negative) mg/dL Ur Leukocyte Nara ase (Negative) Urine Opiates Scre en (Negative) ng/mL Ur Barbiturates Sc reen (Negative) ng/mL Ur Phencyclidine S crn (Negative) ng/mL Ur Amphetamines Sc reen (Negative) ng/mL U Benzodiazepines Scrn (Negative) ng/mL Urine Cocaine Scre en (Negative) ng/mL U Marijuana (THC) Screen (Negative) ng/mL H. pylori IgG Anti body Negative (Negative) 05/03/20 05/03/20 Range/Units 12:58 12:58 WBC (4.0-10.0) 10^3/ uL RBC (4.1-5.3) 10^6/u L Hgb (11.7-16.6) g/dL Hct (42.0-52.0) % MCV (80-94) fL MCH (28.0-34.0) pg MCHC (30.0-36.0) g/dL RDW (12.1-15.1) % Plt Count (130-400) 10^3/c mm MPV (7.4-10.4) fL Neut % (Auto) % Lymph % (Auto) % [place] % (Auto) % Eos % (Auto) % Baso % (Auto) % Neut # (Auto) (1.8-7.7) 10^3/u L Lymph # (Auto) (0.8-4.8) 10^3/u L [place] # (Auto) (0.2-0.9) 10^3/u L Eos # (Auto) (0.0-0.8) 10^3/u L Baso # (Auto) (0.0-0.1) 10^3/u L Nucleated RBC % (a uto) % Nucleated RBCs # /100WBC Sodium (136-145) mmol/L Potassium (3.5-5.1) mmol/L Chloride (98-107) mmol/L Carbon Dioxide (22-29) mmol/L Anion Gap (5-19) BUN (6-20) mg/dL Creatinine (0.7-1.2) mg/dL GFR Calculation (90-130) mL/min Glucose (65-115) mg/dL Calculated Osmolal ity (285-295) mOsm/k g Calcium (8.5-10.5) mg/dL Total Bilirubin (0.15-1.2) mg/dL AST (0-40) U/L ALT (0-41) U/L Alkaline Phosphata se (40-130) IU/L Total Protein (6.6-8.7) g/dL Albumin (3.5-5.2) g/dL Globulin (1.3-4.6) g/dL Lipase (13-60) U/L Urine Color Dark yellow (Yellow) Urine Appearance Clear (CLEAR) Urine pH 7 (5-7) Ur Specific Gravit y 1.020 (1.005-1.030) Urine Protein Neg (Negative) Urine Glucose (UA) Norm (Normal) Urine Ketones 1+ H (Negative) Urine Blood Neg (Negative) Urine Nitrate Negative (Negative) Urine Bilirubin Neg (Negative) Urine Urobilinogen Norm (Negative) mg/dL Ur Leukocyte Nara ase Negative (Negative) Urine Opiates Scre en Negative (Negative) ng/mL Ur Barbiturates Sc reen Negative (Negative) ng/mL Ur Phencyclidine S crn Negative (Negative) ng/mL Ur Amphetamines Sc reen Positive H (Negative) ng/mL U Benzodiazepines Scrn Negative (Negative) ng/mL Urine Cocaine Scre en Negative (Negative) ng/mL U Marijuana (THC) Screen Negative (Negative) ng/mL H. pylori IgG Anti body (Negative) Imaging Data ^: CT Abd/Pel: Radiologist's impression: [place] [address] CT Scan Report Signed Patient: Walt Madsen Unit #: [id number] : 1975 Age/Sex: 45 / M ADM Date: 05/03/20 Loc: ER Room/Bed: Attending Dr: Ordering Provider/Ordering MD: Melody Baker DO Date of Service: 05/03/20 Procedure(s): CT abdomen pelvis w con* [id number] Accession Number(s): [id number] Report Number: [id number] PROCEDURE INFORMATION: Exam: CT Abdomen And Pelvis With Contrast Exam date and time: 05/03/2020 12:33 PM Age: 45 years old Clinical indication: Abdominal pain; Generalized; Patient HX: C/O abd pain TECHNIQUE: Imaging protocol: Computed tomography of the abdomen and pelvis with intravenous contrast. Radiation optimization: All CT scans at this facility use at least one of these dose optimization techniques: automated exposure control; mA and/or kV adjustment per patient size (includes targeted exams where dose is matched to clinical indication); or iterative reconstruction. Contrast material: OMNI 300; Contrast volume: 95 ml; Contrast route: INTRAVENOUS (IV); COMPARISON: CT abdomen pelvis w con* [id number] 03/25/2020 5:36 PM RADIATION DOSE METRICS: Total DLP (mGy-cm): 770.43 FINDINGS: Lungs: Interstitial prominence and chronic granulomatous disease. Liver: No focal hepatic mass. Gallbladder and bile ducts: Cholelithiasis. No biliary ductal dilatation. Pancreas: No pancreatic mass or ductal dilatation. Spleen: Spleen upper limits of normal in size. Adrenals: Unremarkable adrenals. Kidneys and ureters: Normal renal morphology. No hydronephrosis. Stomach and bowel: Questionable wall thickening in the nondistended stomach. Mild small bowel dilatation without a transition zone. Copious stool in the dilated colon, in a pattern of constipation. Diverticula, without pericolonic inflammation. Appendix: No acute appendicitis. Intraperitonal space: No significant free fluid. Vasculature: Normal caliber of the abdominal aorta. Lymph nodes: No pathologically enlarged lymph nodes. Bladder: Anterior bladder wall thickening. Reproductive: Unremarkable as visualized. Bones/joints: Schmorl's nodes, vertebral endplate irregularity, disc bulging, and mild degenerative change. Soft tissues: Small fat containing inguinal hernia. CT/CT abdomen pelvis w con* [id number] IMPRESSION: 1. Cholelithiasis. 2. Anterior bladder wall thickening. 3. Copious stool in the dilated colon, in a pattern of constipation. 4. Additional findings as described above. Radiation Dose CTDIVOL = (mGy): DLP = 770.43 (mGy-cm) Dictated By: London Castillo MD Signed By: London Castillo MD Signed Date/Time: 05/03/201316 DD/ 14 Discharge Plan Discharge Patient Disposition: Home Clinical Impression: Abdominal pain Qualifiers: Abdominal location: generalized Qualified Code(s): R10.84 - Generalized abdominal pain Condition: Stable Prescriptions: New dicyclomine 20 mg tablet 20 mg PO QID 5 Days Qty: 20 RF: 0 No Action Invega Sustenna 156 mg/mL syringe 156 mg IM Q30D Qty: 1 RF: 5 lisinopril-hydrochlorothiazide 20-25 mg tablet 1 tab PO BEDTIME RF: 0 atorvastatin 20 mg tablet 20 mg PO BEDTIME RF: 0 amlodipine 2.5 mg tablet 5 mg PO DAILY RF: 0 Depakote ER 500 mg tablet extended release 24 hr 1,500 mg PO BEDTIME RF: 0 Remeron 15 mg tablet 15 mg PO BEDTIME RF: 0 Discharge Orders: Discharge Order (Routine); Ordered 05/03/20 Ordered By: Meoldy Hurtado: Azalia Huddleston FNP [Primary Care Provider] - 1-3 days Discharge Diet: Advance as tolerated Discharge Activity: Resume usual activity Patient Instructions: Abdominal Pain (ED) Activity Restrictions/Additional Instructions: Please return to the ER immediately for any of the signs or symptoms listed on your discharge instruction sheets, worsening/changing of your symptoms, you are not getting better as quickly as expected, or for ANY other cause or concerns. Return to the ER for increased pain, fever, vomiting, or for any other cause for concern. Discharge Date/Time: 05/03/20 15:00 Coding Level of Care Code ED Electronic Plotting System Operator for Chg Fwd Exam Comprehensive
[2020-05-03] MEDS: ondansetron 2 mg/ML SDV 2 mL 4 MG IVP ×2 (12:21→13:38)
[2020-05-03 12:22] VITALS: RESP 18
[2020-05-03] MEDS: morphine 4 mg/mL SDV 1 mL IVP ×2 (12:22→13:37)
[2020-05-03] MEDS: sodium chloride 0.9% 1,000 ML 999 ML IV (12:22)
[2020-05-03 12:23] LABS: Basophils % 0.4 %; Eosinophils # 0.1 10^3/uL (0.0-0.8); Eosinophils % 1.2 %; Hematocrit 45.3 % (42.0-52.0); Hemoglobin 15.3 g/dL (11.7-16.6); Lymphocytes # 1.1 10^3/uL (0.8-4.8); Lymphocytes % 10.8 %; Mean Corpuscular HGB Conc 33.8 g/dL (30.0-36.0); Mean Corpuscular Volume 91.9 fL (80-94); Mean Platelet Volume 9.4 fL (7.4-10.4); Monocytes # 0.9 10^3/uL (0.2-0.9); Monocytes % 8.4 %; Neutrophils # 8.08 10^3/uL (1.8-7.7); Neutrophils % 78.7 %; Nucleated Red Blood Cells % 0 %; Platelet Count 323 10^3/cmm (130-400); Red Blood Count 4.93 10^6/uL (4.1-5.3); Red Cell Distribution Width 11.4 % (12.1-15.1); White Blood Count 10.3 10^3/uL (4.0-10.0)
[2020-05-03] MEDS: iohexol 300 mg/mL 100 mL Btl IV (12:42)
[2020-05-03 12:53] LABS: H. Pylori IgG Antibody Negative (Negative)
[2020-05-03 13:04] LABS: Alanine Aminotransferase 14 U/L (0-41); Albumin Level 4.2 g/dL (3.5-5.2); Alkaline Phosphatase 64 IU/L (40-130); Aspartate Amino Transferase 13 U/L (0-40); Blood Urea Nitrogen 7 mg/dL (6-20); Calcium 9.6 mg/dL (8.5-10.5); Carbon Dioxide 24 mmol/L (22-29); Chloride 94 mmol/L (98-107); Globulin 2.4 g/dL (1.3-4.6); Glomerular Filtration Rate 90.8 mL/min (90-130); Glucose 105 mg/dL (65-115); Lipase 17 U/L (13-60); Osmolality Calculated 272 mOsm/kg (285-295); Sodium 132 mmol/L (136-145); Total Bilirubin 0.3 mg/dL (0.15-1.2); Total Protein 6.6 g/dL (6.6-8.7)
[2020-05-03 13:13] LABS: Anion Gap 17.8 (5-19); Potassium 3.8 mmol/L (3.5-5.1)
[2020-05-03 13:37] VITALS: RESP 18; O2SAT 98
[2020-05-03 13:43] LABS: Add Urine Microscopic? NO
[2020-05-03 14:22] LABS: Glucose Urine UA Norm (Normal); Protein Urine Neg (Negative); Urine Appearance Clear (CLEAR); Urine Color Dark Yellow (Yellow); pH Urine 7 (5-7)
[2020-05-03 14:23] LABS: Bilirubin Urine Neg (Negative); Blood Urine Neg (Negative); Ketones Urine 1+ (Negative); Leukocyte Esterase Urine Negative (Negative); Nitrate Urine Negative (Negative); Urobilinogen Urine Norm (Negative)
[2020-05-03 14:30] LABS: Amphetamines Screen Urine Positive (Negative); Barbiturates Screen Urine Negative (Negative); Benzodiazepines Screen Urine Negative (Negative); Cocaine Screen Urine Negative (Negative); Opiate Screen Urine Negative (Negative); PCP Screen Urine Negative (Negative); THC Screen Urine Negative (Negative)
[2020-05-03 14:57] VITALS: BP 135/89; PULSE 98; RESP 20; O2SAT 94
--- NOTE | 2020-05-03 14:59 | PC.NURSE ---
PT STATES THAT THE MORPHINE DID NOT HELP VERY WELL WITH HIS PAIN. PT ALSO ADMITS TO DOING 1/2 GRAM OF METH DRIVER/MERCHANDISER TO ER.
== END 2020-05-03 15:00 | disposition home or self-care (01) ==
PROVIDERS: Emergency Provider Emergency Medicine; PCP Nurse Practitioner Family
DX: R10.84 Generalized abdominal pain (principal); I10 Essential (primary) hypertension; E78.5 Hyperlipidemia, unspecified; F17.220 Nicotine dependence, chewing tobacco, uncomplicated
CPT/HCPCS: 12345; 36415; 74177; 80053; 80306; 81003; 83690; 85025; 86677; 96365; 96374; 96375; 99282; 99284; J2270; J2405; J7030; Q9967

== ENCOUNTER → 2020-05-05 08:03 | Outpatient (BNVA) | payer MEDICAID, SELFPAY | PROVIDERS: PCP Nurse Practitioner Family; Visit Provider Nurse Practitioner Psychiatric/Mental Health | DX: F31.9 Bipolar disorder, unspecified (principal); F19.10 Other psychoactive substance abuse, uncomplicated | CPT/HCPCS: 99212 ==

== ENCOUNTER → 2020-06-02 08:27 | Outpatient (BNVA) | payer MEDICAID, SELFPAY | PROVIDERS: PCP Nurse Practitioner Family; Visit Provider Nurse Practitioner Psychiatric/Mental Health | DX: F31.9 Bipolar disorder, unspecified (principal); F19.10 Other psychoactive substance abuse, uncomplicated; I10 Essential (primary) hypertension | CPT/HCPCS: 96372; 99212 ==

== ENCOUNTER → 2020-06-30 09:12 | Outpatient (BNVA) | payer MEDICAID, SELFPAY | PROVIDERS: PCP Nurse Practitioner Family; Visit Provider Nurse Practitioner Psychiatric/Mental Health | DX: F31.9 Bipolar disorder, unspecified (principal); F19.10 Other psychoactive substance abuse, uncomplicated; I10 Essential (primary) hypertension; F43.12 Post-traumatic stress disorder, chronic | CPT/HCPCS: 96372; 99212 ==

== ENCOUNTER → 2020-07-28 10:00 | Outpatient (BNVA) | payer MEDICAID, SELFPAY | PROVIDERS: PCP Nurse Practitioner Family; Visit Provider Nurse Practitioner Psychiatric/Mental Health | DX: F31.9 Bipolar disorder, unspecified (principal); Z51.81 Encounter for therapeutic drug level monitoring; F15.20 Other stimulant dependence, uncomplicated | CPT/HCPCS: 80164; 96372; 99213 ==

== ENCOUNTER 2020-08-05 15:30 | Inpatient (IN) | payer MEDICAID, SELFPAY ==
[2020-08-05 15:56] VITALS: BP 122/87; PULSE 117; RESP 16; TEMP 36.5; O2SAT 97; BMI 32.8
--- NOTE | 2020-08-05 16:22 | ED_ITS ---
HPI - Psych General: Chief Complaint: Psychiatric Symptoms Stated Complaint: SI Time Seen by Provider: 08/05/20 16:17 History of Present Illness: HPI Narrative: 45-year-old male presents emergency room complaining of being depressed having suicidal ideation for the last 2 days. He reports recently having stopped using methamphetamine on his own he feels like his other medications are not working at as well at this point. He also reports having aggressive thoughts towards others but is not actually felt particularly homicidal. MD complaint: suicidal ideation Onset (ago): day(s) (2) Duration: constant History of same: Yes Relieving factors: medication Exacerbating factors: none Context: recent drug abuse (Meth user, states he quit 3 weeks ago) Associated psychiatric symptoms: suicidal ideation and homicidal ideation Associated symptoms: Reports depression, homicidal ideation and suicidal ideation; Deny auditory hallucinations, visual hallucinations, delusions or racing thoughts Treatments prior to arrival: none If self harm: admits thoughts of self harm Review of Systems Const: Denies: fever(s), chills, body aches, change in appetite, fatigue or malaise ENMT: Denies: throat pain, ear or mastoid pain, nasal discharge or nasal congestion Card: Denies: chest pain, edema, dyspnea on exertion or orthopnea Resp: Denies: dyspnea, productive cough or non-productive cough GI: Denies: abdominal pain, nausea, vomiting, hematemesis, coffee ground emesis, diarrhea, constipation, bloating, hematochezia or melena : Denies: flank pain, dysuria, urinary frequency or urinary urgency Skin/Breast: Denies: rash or pruritus Psych: Reports: depression, suicidal ideation and homicidal ideation; Denies: visual hallucinations or auditory hallucinations PFSH ED PFSH: Medical History Benign essential HTN Bipolar disorder Hyperlipidemia Methamphetamine dependence, episodic Methamphetamine dependence, episodic Methamphetamine use disorder, moderate, in early remission, dependence Schizophrenia Seasonal allergies Surgical History No pertinent past surgical history Family History Other Diabetes Stroke Social History Smoking and tobacco status: current every day smoker smokeless tobacco Smokeless tobacco user: chewing tobacco Smokeless tobacco details: 1 can every 3 days Quit status (tobacco): not considering quitting Second hand smoke exposure: Yes Alcohol intake: former Substance/Drug Use: former Date of last use: 2019 Additional social history: SUBSTANCE ABUSE HISTORY: He reports he chews about a can of tobacco a day but does not smoke, he reports he last drank alcohol about six years ago, he does not use marijuana or cocaine, he does use methamphetamine and has used opiates. He reports he has had two to three drug rehabilitations. He has had a couple of DUIs, the last one may have been in 2004. FAMILY HISTORY: He denies any history of mental health issues, addiction, or lethality in his family. DEVELOPMENTAL HISTORY: He denies any issues with his mom?s or delivery of him. He reports he learned how to walk and talk and met all developmental milestones on time. He reports when he went to school, there was no speech therapy, learning support, emotional support, or special education classes. PSYCHOSOCIAL HISTORY: He reports that his mother and father were together when he was born and when he was about 15 years old. They had him and a younger brother together. His mom had no other children; his dad had a couple step kids, a couple of adopted kids, and then a half-sister. He reports that his childhood was tough at times, because he was poor, be he de nies any emotional, physical, or sexual abuse. He reports the highest grade he went to was the ninth grade, and he got his GED in 1991. He endorses being a heterosexual, with his longest relationship being a couple of years. He was once, not sure if he is , but he has not seen the person for many, many, many years. He reports he has a 20 year old daughter that he sees a little bit, but he was never to her mother. He denies any history. He endorses being a [employer]. The longest job he has had, he said, was ninety days. He reports he lives in a trailer on a friend?s property. LEGAL HISTORY: He reports that he has been to [facility] multiple times, not actually sure how many. The longest time he was behind bars was the five years he spent in skilled nursing that ended in April 2019. Physical Exam Const: COMMON NORMALS: no acute distress GENERAL APPEARANCE: cooperative and comfortable ORIENTATION/CONSCIOUSNESS: Yes awake, Yes oriented to person, Yes oriented to place and Yes oriented to time HENMT: COMMON NORMALS: normocephalic, atraumatic and hearing grossly normal bilaterally HEAD & SCALP: normocephalic and atraumatic Neck/C-Spine: COMMON NORMALS: no JVD Resp: COMMON NORMALS: normal respiratory effort, No retractions, No use of accessory muscles and clear to auscultation bilaterally AUSCULTATION: clear to auscultation bilaterally Cardio: COMMON NORMALS: no JVD, regular rate, regular rhythm and No murmurs present (Cardio) RATE: regular rate RHYTHM: regular rhythm GI: COMMON NORMALS: Soft to palpation and No hepatosplenomegaly present AUSCULTATION: Yes normoactive bowel sounds PALPATION: Yes Soft to palpation, No Tenderness to palpation present (GI), No Guarding due to palpation present (GI) and Yes No hepatosplenomegaly present Extremity: COMMON NORMALS: normal to inspection, capillary refill normal, no clubbing, cyanosis or edema, no calf tenderness and no pedal edema Neuro: SENSORIUM/ORIENTATION: Yes oriented to person, Yes oriented to place and Yes oriented to time Psych: THOUGHT CONTENT: No delusions Skin: COMMON NORMALS: no rashes or lesions noted GENERAL SKIN EXAM: no rashes or lesions noted MDM - Psych MDM Narrative: Medical decision making narrative: Patient maintains acute suicidal ideation. His methamphetamine screen is positive rest of labs are unremarkable I discussed with Dr. Pugh he will accept the patient to psychiatric floor orders have been written Lab Data: Labs: Lab Results 08/05/20 08/05/20 08/05/20 Range/Units 16:45 16:45 17:00 WBC 5.0 (4.0-10.0) 10^3/ uL RBC 4.55 (4.1-5.3) 10^6/u L Hgb 14.5 (11.7-16.6) g/dL Hct 43.5 (42.0-52.0) % MCV 95.6 H (80-94) fL MCH 31.9 (28.0-34.0) pg MCHC 33.3 (30.0-36.0) g/dL RDW 11.8 L (12.1-15.1) % Plt Count 247 (130-400) 10^3/c mm MPV 9.6 (7.4-10.4) fL Neut % (Auto) 61.2 % Lymph % (Auto) 20.6 % [place] % (Auto) 14.8 % Eos % (Auto) 2.0 % Baso % (Auto) 0.6 % Neut # (Auto) 3.07 (1.8-7.7) 10^3/u L Lymph # (Auto) 1.0 (0.8-4.8) 10^3/u L [place] # (Auto) 0.7 (0.2-0.9) 10^3/u L Eos # (Auto) 0.1 (0.0-0.8) 10^3/u L Baso # (Auto) 0.0 (0.0-0.1) 10^3/u L Nucleated RBC % (a uto) 0 % Nucleated RBCs # 0.0 /100WBC Sodium (136-145) mmol/L Potassium (3.5-5.1) mmol/L Chloride (98-107) mmol/L Carbon Dioxide (22-29) mmol/L Anion Gap (5-19) BUN (6-20) mg/dL Creatinine (0.7-1.2) mg/dL GFR Calculation (90-130) mL/min Glucose (65-115) mg/dL Calculated Osmolal ity (285-295) mOsm/k g Calcium (8.5-10.5) mg/dL Total Bilirubin (0.15-1.2) mg/dL AST (0-40) U/L ALT (0-41) U/L Alkaline Phosphata se (40-130) IU/L Total Protein (6.6-8.7) g/dL Albumin (3.5-5.2) g/dL Globulin (1.3-4.6) g/dL Urine Color Yellow (Yellow) Urine Appearance Clear (CLEAR) Urine pH 7 (5-7) Ur Specific Gravit y 1.015 (1.005-1.030) Urine Protein Neg (Negative) Urine Glucose (UA) Norm (Normal) Urine Ketones 1+ H (Negative) Urine Blood Trace H (Negative) Urine Nitrate Negative (Negative) Urine Bilirubin Neg (Negative) Urine Urobilinogen Norm (Negative) mg/dL Ur Leukocyte Nara ase Negative (Negative) Urine RBC 5-10 H (0-2) /hpf Urine WBC None (0-5) /hpf Ur Squamous Epith Cells None (0-5) /hpf Amorphous Sediment Not Reportable Urine Bacteria Trace (NONE) /hpf Salicylates (3-10) mg/dL Urine Opiates Scre en Negative (Negative) ng/mL Acetaminophen (10-30) ug/mL Ur Barbiturates Sc reen Negative (Negative) ng/mL Ur Phencyclidine S crn Negative (Negative) ng/mL Ur Amphetamines Sc reen Positive H (Negative) ng/mL U Benzodiazepines Scrn Negative (Negative) ng/mL Urine Cocaine Scre en Negative (Negative) ng/mL U Marijuana (THC) Screen Negative (Negative) ng/mL Ethyl Alcohol (0-10) mg/dL 08/05/20 Range/Units 17:00 WBC (4.0-10.0) 10^3/ uL RBC (4.1-5.3) 10^6/u L Hgb (11.7-16.6) g/dL Hct (42.0-52.0) % MCV (80-94) fL MCH (28.0-34.0) pg MCHC (30.0-36.0) g/dL RDW (12.1-15.1) % Plt Count (130-400) 10^3/c mm MPV (7.4-10.4) fL Neut % (Auto) % Lymph % (Auto) % [place] % (Auto) % Eos % (Auto) % Baso % (Auto) % Neut # (Auto) (1.8-7.7) 10^3/u L Lymph # (Auto) (0.8-4.8) 10^3/u L [place] # (Auto) (0.2-0.9) 10^3/u L Eos # (Auto) (0.0-0.8) 10^3/u L Baso # (Auto) (0.0-0.1) 10^3/u L Nucleated RBC % (a uto) % Nucleated RBCs # /100WBC Sodium 140 (136-145) mmol/L Potassium 3.9 (3.5-5.1) mmol/L Chloride 100 (98-107) mmol/L Carbon Dioxide 28 (22-29) mmol/L Anion Gap 15.9 (5-19) BUN 10 (6-20) mg/dL Creatinine 0.8 (0.7-1.2) mg/dL GFR Calculation 104.1 (90-130) mL/min Glucose 96 (65-115) mg/dL Calculated Osmolal ity 289 (285-295) mOsm/k g Calcium 9.2 (8.5-10.5) mg/dL Total Bilirubin 0.2 (0.15-1.2) mg/dL AST 11 (0-40) U/L ALT 10 (0-41) U/L Alkaline Phosphata se 69 (40-130) IU/L Total Protein 6.4 L (6.6-8.7) g/dL Albumin 4.1 (3.5-5.2) g/dL Globulin 2.3 (1.3-4.6) g/dL Urine Color (Yellow) Urine Appearance (CLEAR) Urine pH (5-7) Ur Specific Gravit y (1.005-1.030) Urine Protein (Negative) Urine Glucose (UA) (Normal) Urine Ketones (Negative) Urine Blood (Negative) Urine Nitrate (Negative) Urine Bilirubin (Negative) Urine Urobilinogen (Negative) mg/dL Ur Leukocyte Nara ase (Negative) Urine RBC (0-2) /hpf Urine WBC (0-5) /hpf Ur Squamous Epith Cells (0-5) /hpf Amorphous Sediment Urine Bacteria (NONE) /hpf Salicylates < 0.3 L (3-10) mg/dL Urine Opiates Scre en (Negative) ng/mL Acetaminophen < 5.0 L (10-30) ug/mL Ur Barbiturates Sc reen (Negative) ng/mL Ur Phencyclidine S crn (Negative) ng/mL Ur Amphetamines Sc reen (Negative) ng/mL U Benzodiazepines Scrn (Negative) ng/mL Urine Cocaine Scre en (Negative) ng/mL U Marijuana (THC) Screen (Negative) ng/mL Ethyl Alcohol < 10 (0-10) mg/dL Discharge Plan Discharge Admit Provider: Christos Pugh Clinical Impression: Suicidal ideation, Methamphetamine dependence, episodic, Benign essential HTN Condition: Stable Coding Level of Care Code ED [employer] for [employer] Fwd Exam Comprehensive
[2020-08-05 16:59] LABS: Add Urine Microscopic? YES; Bilirubin Urine Neg (Negative); Blood Urine Trace (Negative); Glucose Urine UA Norm (Normal); Ketones Urine 1+ (Negative); Leukocyte Esterase Urine Negative (Negative); Nitrate Urine Negative (Negative); Protein Urine Neg (Negative); Specific Gravity, Urine 1.015 (1.005-1.030); Urine Appearance Clear (CLEAR); Urine Color Yellow (Yellow); Urobilinogen Urine Norm (Negative); pH Urine 7 (5-7)
[2020-08-05 17:03] LABS: Add Urine Culture? No; Amphetamines Screen Urine Positive (Negative); Bacteria Urine TRACE /hpf; Barbiturates Screen Urine Negative (Negative); Benzodiazepines Screen Urine Negative (Negative); Cocaine Screen Urine Negative (Negative); Opiate Screen Urine Negative (Negative); PCP Screen Urine Negative (Negative); THC Screen Urine Negative (Negative)
[2020-08-05 17:11] LABS: Basophils % 0.6 %; Eosinophils # 0.1 10^3/uL (0.0-0.8); Hematocrit 43.5 % (42.0-52.0); Hemoglobin 14.5 g/dL (11.7-16.6); Lymphocytes % 20.6 %; Mean Corpuscular HGB Conc 33.3 g/dL (30.0-36.0); Mean Corpuscular Hemoglobin 31.9 pg (28.0-34.0); Mean Corpuscular Volume 95.6 fL (80-94); Mean Platelet Volume 9.6 fL (7.4-10.4); Monocytes # 0.7 10^3/uL (0.2-0.9); Monocytes % 14.8 %; Neutrophils # 3.07 10^3/uL (1.8-7.7); Neutrophils % 61.2 %; Nucleated Red Blood Cells % 0 %; Platelet Count 247 10^3/cmm (130-400); Red Blood Count 4.55 10^6/uL (4.1-5.3); Red Cell Distribution Width 11.8 % (12.1-15.1)
[2020-08-05 17:37] LABS: Alanine Aminotransferase 10 U/L (0-41); Albumin Level 4.1 g/dL (3.5-5.2); Alkaline Phosphatase 69 IU/L (40-130); Anion Gap 15.9 (5-19); Aspartate Amino Transferase 11 U/L (0-40); Blood Urea Nitrogen 10 mg/dL (6-20); Calcium 9.2 mg/dL (8.5-10.5); Carbon Dioxide 28 mmol/L (22-29); Chloride 100 mmol/L (98-107); Globulin 2.3 g/dL (1.3-4.6); Glomerular Filtration Rate 104.1 mL/min (90-130); Glucose 96 mg/dL (65-115); Osmolality Calculated 289 mOsm/kg (285-295); Potassium 3.9 mmol/L (3.5-5.1); Sodium 140 mmol/L (136-145); Total Bilirubin 0.2 mg/dL (0.15-1.2); Total Protein 6.4 g/dL (6.6-8.7)
[2020-08-05 17:43] LABS: Acetaminophen < 5.0 ug/mL (10-30); Alcohol Level < 10 mg/dL (0-10); Salicylate < 0.3 mg/dL (3-10)
[2020-08-05 18:45] VITALS: BP 133/89; PULSE 112; RESP 20; TEMP 36.8; O2SAT 97
[2020-08-05 18:53] VITALS: BP 120/86; PULSE 105; RESP 18; O2SAT 97
[2020-08-05 19:12] VITALS: BP 120/86; PULSE 111; RESP 17; TEMP 36.8; O2SAT 98
[2020-08-05 19:32] VITALS: PULSE 111; RESP 17; O2SAT 98
[2020-08-05] MEDS: atorvastatin 40 mg Tablet 20 MG PO (21:00)
[2020-08-05] MEDS: divalproex ER 500 mg Tablet (24H) 1500 MG PO (21:01)
[2020-08-05] MEDS: mirtazapine 15 mg Tablet PO (21:01)
[2020-08-05] MEDS: lisinopril 20 mg Tablet PO (21:02)
[2020-08-05] MEDS: amlodipine 5 mg Tablet PO (21:02)
[2020-08-05] MEDS: pantoprazole DR 40 mg Tablet PO (21:02)
[2020-08-05] MEDS: docusate sodium 100 mg Capsule PO (21:02)
[2020-08-05] MEDS: hydroCHLOROthiazide 25 mg Tablet PO (21:03)
[2020-08-05] MEDS: benztropine 1 mg Tablet PO (21:07)
[2020-08-05 22:00] VITALS: BP 121/69; PULSE 123; RESP 18; TEMP 36.8; O2SAT 98
[2020-08-06] VITALS (8 sets, daily range): BP systolic 114–128; BP diastolic 71–83; PULSE 71–114; RESP 18–24; TEMP 36.3–36.7; O2SAT 95–98
--- NOTE | 2020-08-06 02:40 | PC.NURSE ---
PM ASSESSMENT PT REPORTS DEPRESSION INCREASE D/T OF A FRIEND. PT REPORTS NEEDING TO QUIT USING METH BECAUSE THE HE HAS USED IT OVER 30 YEARS AND IT IS RESPONSIBLE FOR HIS FRIENDS . pT REPORTS AH- HIS GRANDMOTHER IS TALKING TO HIM AND IT IS MAKING HIM INCREASINGLY AGGRESSIVE BECAUSE IT WILL NOT STOP. PT NEEDS HELP WITH MED ADJUSTMENT AND COPING SKILLS. PT IS SOMEWHAT ANXIOUS ON ADMIT, CALMED DOWN THRU THE EVENING, AND IS RESTING IN HIS BED. HE HAS SLEPT WELL THIS EVENING. wILL CONTINUE TO MONITOR THIS PT.
[2020-08-06] MEDS: nicotine 21 mg Patch 1 PATCH TRANSDERMA (11:46)
[2020-08-06] MEDS: albuterol 8 gm MDI 2 PUFF INHALATION (12:44)
--- NOTE | 2020-08-06 15:45 | PM.NHP ---
Providers/Chief Complaint Admitting Physician: Christos Pugh MD Primary Care Provider: TIFFANY Almanza Chief Complaint: wants npu HPI NPU History of Present Illness Walt Madsen is a 45 year old male who presented to emergency department with the following report: Chief Complaint: Psychiatric Symptoms Stated Complaint: SI Time Seen by Provider: 08/05/20 16:17 History of Present Illness: HPI Narrative: 45-year-old male presents emergency room complaining of being depressed having suicidal ideation for the last 2 days. He reports recently having stopped using methamphetamine on his own he feels like his other medications are not working at as well at this point. He also reports having aggressive thoughts towards others but is not actually felt particularly homicidal. complaint: suicidal ideation Onset (ago): day(s) (2) Duration: constant History of same: Yes Relieving factors: medication Exacerbating factors: none Context: recent drug abuse (Meth user, states he quit 3 weeks ago) Associated psychiatric symptoms: suicidal ideation and homicidal ideation Associated symptoms: Reports depression, homicidal ideation and suicidal ideation; Deny auditory hallucinations, visual hallucinations, delusions or racing thoughts Treatments prior to arrival: none If self harm: admits thoughts of self harm. He was admitted to the neuropsychiatric unit for definitive treatment of those issues. However on the unit he identified that the drug use was problematic but the biggest deal was not having his medications be as effective as they need to be. There was a pill level taken but it was not a trough. We repeated that and found him on the lower level of normal. Additionally we identified that his Invega injection was 156 mg q. monthly. We discussed the risk benefits alternatives of increasing the Depakote and the Invega injection and adding an oral dose of Invega for the next month until its time for his injection and he understood and agreed to proceed as is documented in this note. He is a voluntary patient and he was reporting that he did not want to stick around and have any extended stay related us he feels that those changes will be sufficient in getting him back on board. He work with the social work team to be able to connect to necessary services and we discussed the possibly discharge in the morning if he continues with his current stability. We reviewed his last note from 01/22/2020 as he denies any substantive changes in his history. An excerpt of that note is included below. This is his third hospitalization this year. Per his 01/22/2020 [facility] inpatient psychiatric eval: History of Present Illness Chief complaint: I have tried everything. I just cannot stay clean. I need to get out of this area. Walt Madsen is a 44 year old male with a long history of polysubstance abuse who was just released from this unit 6 weeks ago. He has been living in a nursing home house where he has much of his life supervised. He had done well up until about 3 days ago when he again began using marijuana and methamphetamine. At the same time, he had stopped his Depakote. He realized again that he was heading down a path of destruction. He decided to come to the emergency room for early intervention. At the time of interview, he is free of suicidal and homicidal ideation. He is free of auditory and visual hallucinations. He is receiving Invega Sustenna injections on the first of every month. He has been compliant with that. He reports no side effects. He is requesting assistance in relocating. He states that he is not interested in going to rehab. He has been to at least 6 different rehab programs and they were of no benefit. However he also admits that he has not been to rehab in over 6 years. Emergency room physician note: HPI Narrative: Patient is a 44-year-old male with a history of schizophrenia and bipolar here for complaints of suicidal ideations. Patient tells me he has chronically suffered from polysubstance abuse. He tells me he recently had approximately 2 months of sobriety but recently relapsed on methamphetamines, marijuana, and alcohol. He states his recent relapse has made him feel worthless and suicidal. He does not have a specific plan. He does have a previous attempt in 2014 via medication overdose. He reports auditory hallucinations that are chronic with his schizophrenia although states they are fairly controlled with Invega injections. Patient is not homicidal. He denies methamphetamine cravings at this time. He is taking medications as noted below. He is currently residing in a nursing home house ([facility]) and reports a supportive environment/staff there. The packing house supervisor dispenses his medications as directed. He does not want case management at this time. He sees a therapist at [facility] and is encouraged to follow-up with her as directed. Laboratory Tests 01/15/20 01/21/20 01/21/20 08:50 14:33 14:50 Urine Opiates Screen Negative Ur Barbiturates Screen Negative Valproic Acid 109.3 H 14.0 L Ur Phencyclidine Scrn Negative Ur Amphetamines Screen Positive H U Benzodiazepines Scrn Negative Urine Cocaine Screen Negative Ethyl Alcohol < 10 Prior psychiatric history. Historic notes from his admission on 05 December 2019: History of Present Illness Walt Madsen is a 44 year old male who presents today reporting it has been a crazy few months. He got out of intermediate last April 2019, and he got himself connected with [facility]. He reports that he was doing fairly well and then about three months ago he started having some slip ups. His doctor at [facility] told him that if he tested positive for methamphetamine that they would stop giving him his medication, so he started going to [facility]. He reports that he was doing well taking his medication but he has had maybe three slip ups, of three or four days, in the past three months, and he started really getting out of sorts with suicidal thoughts and things of that nature, recently. 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 In that visit he had been to [facility] senior care right before he came to the neuropsychiatric unit and was afraid to go back to senior care, so he ended up taking an overdose of pills. That was his last suicide attempt and he has had two in his life. He reports since he got out, in April 2019, he has been staying at a friends. He has had his SSI returned, and he had been getting things back on track, but then recently he has had some issues with relapse. He reports that he has been having passive wish, auditory hallucinations, and paranoia. He reports he was arrested about a week ago. And also there was some possible seizure or stoke, which is unclear. He reports that he has done best over the past years when he was on Invega injection. He also mentioned the possibility of Adderall as he had been on it when he was younger. We discussed the risks, benefits, and alternatives of restarting the Invega oral, followed by the Invega injection, and getting things stabilized, and he understood and agreed to proceed as is documented in this note. PSYCHIATRIC HISTORY: As above. He reports he has had about six psychiatric hospitalizations, or maybe several more, maybe as many as ten to twelve since he was 17 or 18 years old. He has been on different medications, but over the twenty plus years he has been in several times. Walt presented to the emergency room on a 96-hour hold after recent relapse on methamphetamine and suicidal thoughts. He was admitted to the neuropsychiatric unit for definitive care for those concerns. Upon admission he identified that he had been off of his medication for several months and has been struggling to avoid a full on full-blown relapse on methamphetamine. He identified that Invega had been an effective medication and was restarted on that with a significant response. He was given the Invega Sustenna injection on 12/08/2019 without issue. He benefited greatly from the resources on the unit and was able to identify the [facility] as a resource for ongoing improvement. During the hospitalization, he had routine laboratory studies which were within normal limits except for a few outliers. Additionally he had general medical evaluation which was also within normal limits and revealed no new acute processes outside of intoxication and withdrawal. Discharge Summary At the time of discharge, he denied any lethality and was absent psychosis. Mood and anxiety were well managed and he endorsed a plan to avoid all drugs of abuse, and follow-up with the recommended post hospital services, including placement in the programming at [facility]. He was evaluated and deemed to be absent credible lethality and had received the maximum benefit from an inpatient hospitalization, so was discharged. trazodone 50 mg Tablet 50 mg PO BEDTIME PRN (Reason: Sleep) 30 Days Qty: 30 RF: 1 lisinopril 20 mg Tablet 20 mg PO DAILY 30 Days Qty: 30 RF: 1 hydrochlorothiazide 25 mg Tablet 25 mg PO DAILY 30 Days Qty: 30 RF: 1 Invega Sustenna 156 mg/mL syringe 156 mg IM Q30D Qty: 1 RF: 1 Tylenol 325 mg Tablet 325 mg PO QID PRN (Reason: Pain) RF: 0 atorvastatin 20 mg tablet 20 mg PO DAILY 30 Days Qty: 30 RF: 1 amlodipine 2.5 mg tablet 2.5 mg PO DAILY 30 Days Qty: 30 RF: 1 Depakote 500 mg tablet,delayed release (DR/EC) 2,000 mg PO .at bedtime 30 Days Qty: 120 RF: 1 Med NPU Home Medications Medication Instructions Recorded Confirmed Last Taken Type lisinopril-hydrochlorothiazide 1 tab PO DAILY@03/25/20 08/05/20 08/04/20 History atorvastatin 20 mg PO DAILY@05/03/20 08/05/20 08/04/20 History bisacodyl 5 mg tablet,delayed 5 mg PO PRN 06/02/20 08/05/20 Unknown History release docusate sodium 100 mg capsule 100 mg PO DAILY@06/02/20 08/05/20 08/04/20 History paliperidone palmitate 156 mg/mL 156 mg IM Q30D #1 ml 06/30/20 08/05/20 07/28/20 Rx intramuscular syringe albuterol sulfate 90 mcg/actuation 2 puff INHALATION Q6H PRN 07/28/20 08/05/20 Unknown History aerosol inhaler amlodipine 5 mg PO DAILY@08/05/20 08/05/20 08/04/20 History benztropine 1 mg PO DAILY@08/05/20 08/05/20 08/04/20 History divalproex [Depakote ER] 1,500 mg PO DAILY@08/05/20 08/05/20 08/04/20 History mirtazapine [Remeron] 15 mg PO DAILY@08/05/20 08/05/20 08/04/20 History omeprazole 20 mg PO DAILY@08/05/20 08/05/20 08/04/20 History Allergies Allergy/AdvReac Type Severity Reaction Status Date / Time Penicillins Allergy unknown Verified 08/05/20 17:08 PFSH NPU PFSH: Medical History Benign essential HTN Bipolar disorder Hyperlipidemia Methamphetamine dependence, episodic Methamphetamine dependence, episodic Methamphetamine use disorder, moderate, in early remission, dependence Schizophrenia Seasonal allergies Surgical History No pertinent past surgical history Family History Other Diabetes Stroke Social History Smoking and tobacco status: current every day smoker smokeless tobacco Smokeless tobacco user: chewing tobacco Smokeless tobacco details: 1 can every 3 days Quit status (tobacco): not considering quitting Second hand smoke exposure: Yes Alcohol intake: former Substance/Drug Use: former Date of last use: 2019 Additional social history: SUBSTANCE ABUSE HISTORY: He reports he chews about a can of tobacco a day but does not smoke, he reports he last drank alcohol about six years ago, he does not use marijuana or cocaine, he does use methamphetamine and has used opiates. He reports he has had two to three drug rehabilitations. He has had a couple of DUIs, the last one may have been in 2004. FAMILY HISTORY: He denies any history of mental health issues, addiction, or lethality in his family. DEVELOPMENTAL HISTORY: He denies any issues with his mom?s or delivery of him. He reports he learned how to walk and talk and met all developmental milestones on time. He reports when he went to school, there was no speech therapy, learning support, emotional support, or special education classes. PSYCHOSOCIAL HISTORY: He reports that his mother and father were together when he was born and when he was about 15 years old. They had him and a younger brother together. His mom had no other children; his dad had a couple step kids, a couple of adopted kids, and then a half-sister. He reports that his childhood was tough at times, because he was poor, be he denies any emotional, physical, or sexual abuse. He reports the highest grade he went to was the ninth grade, and he got his GED in 1991. He endorses being a heterosexual, with his longest relationship being a couple of years. He was once, not sure if he is , but he has not seen the person for many, many, many years. He reports he has a 20 year old daughter that he sees a little bit, but he was never to her mother. He denies any history. He endorses being a Baptism. The longest job he has had, he said, was ninety days. He reports he lives in a trailer on a friend?s property. LEGAL HISTORY: He reports that he has been to senior care multiple times, not actually sure how many. The longest time he was behind bars was the five years he spent in intermediate that ended in April 2019. Mental Status Exam MSE Comments: This is an obese white male with adequate dress grooming and eye contact. No abnormal movements. Cooperative with exam in no acute distress. Speech was normal rate and volume. Mood described as better, affect congruent. Thought process organized. Thought content: Patient denied suicidal or homicidal ideation, there were no delusions reported or noted, he denied any auditory or visual hallucinations. Attention and concentration were intact and memory appeared reliable but none were formally tested. He is alert and oriented x3. Insight and judgment appear fair. Vitals/I&O/Wt Last Vital Signs Temp 98.1 F 08/06/20 14:00 Pulse 71 08/06/20 14:00 Resp 18 08/06/20 14:00 BP 119/78 08/06/20 14:00 Pulse Ox 98 08/06/20 14:00 Weight last 48 hrs Weight 95.254 kg Data NPU : 08/05/20 17:00 08/05/20 17:00 A&P Assessment and plan (1) Suicidal ideation: Status: Acute (2) Methamphetamine dependence, episodic: Status: Chronic (3) Polysubstance abuse: Status: Chronic (4) Methamphetamine use disorder, moderate, in early remission, dependence: Status: Chronic (5) Bipolar 1 disorder: Status: Chronic (6) Seasonal allergies: Status: Acute (7) Nicotine dependence, chewing tobacco, with unspecified nicotine-induced disorders: Status: Acute (8) Hyperlipidemia: Status: Chronic Qualifiers: Hyperlipidemia type: mixed hyperlipidemia Qualified Code(s): E78.2 - Mixed hyperlipidemia (9) Benign essential HTN: Status: Chronic Additional A&P Information This is a 45-year-old white male who presents with fertilization in 2020 endorsing that his medications were not as effective as he needs them to be and he needed to be reconnected with services. 1. Continue current medication and we will increase Depakote to 2000 mg nightly of the ER formulation, add Invega 6 mg daily for 30 days and increase the Invega injection to 234 mg when is due next time. 2. Continue every 15 minute checks for safety. 3. Encourage individual, group and milieu therapy. 4. Encourage sober living treatment after discharge at the highest level of care to which he is willing to commit. 5. He is a voluntary patient and is interested in discharge tomorrow. He is absent credible lately so we will allow him to leave. Involuntary Hold Information 96 Hour Hold: 96 Hour Involuntary Admission: No 96 Hour Hold Ending Date: 12/05/19 96 Hour Hold Ending Time: 21:13 Attestations NPU Medical Necessity Statement*: Inpatient hospitalization is medically necessary and the clinically appropriate intervention at this time. We will monitor medications and make changes as indicated. He will be in the hospital over 2 midnights in total. Tentative plan for discharge tomorrow. Coding Level of Care Code Acute Relaster for [facility] Fwd Diagnoses Suicidal ideation R45.851 Methamphetamine dependence, episodic F15.20 Polysubstance abuse F19.10 Methamphetamine use disorder, moderate, in early remission, dependence F15.21 Bipolar 1 disorder F31.9 Seasonal allergies J30.2 Nicotine dependence, chewing tobacco, with unspecified nicotine-induced disorders F17.229 Hyperlipidemia E78.2 Hyperlipidemia type: mixed hyperlipidemia Benign essential HTN I10
--- NOTE | 2020-08-06 17:46 | PC.RESP ---
Smoking Cessation information sent to patient.
[2020-08-06] MEDS: amlodipine 5 mg Tablet PO (21:24)
[2020-08-06] MEDS: benztropine 1 mg Tablet PO (21:25)
[2020-08-06] MEDS: lisinopril 20 mg Tablet PO (21:25)
[2020-08-06] MEDS: hydroCHLOROthiazide 25 mg Tablet PO (21:25)
[2020-08-06] MEDS: pantoprazole DR 40 mg Tablet PO (21:25)
[2020-08-06] MEDS: mirtazapine 15 mg Tablet PO (21:25)
[2020-08-06] MEDS: docusate sodium 100 mg Capsule PO (21:25)
[2020-08-06] MEDS: atorvastatin 40 mg Tablet 20 MG PO (21:26)
[2020-08-06 21:56] LABS: Valproic Acid Level 64.2 ug/mL (50-100)
[2020-08-06] MEDS: divalproex ER 500 mg Tablet (24H) 2000 MG PO (22:36)
[2020-08-07 01:42] VITALS: PULSE 94; RESP 19; O2SAT 95
[2020-08-07 06:00] VITALS: BP 100/64; PULSE 86; RESP 18; TEMP 36.8; O2SAT 97
[2020-08-07] MEDS: paliperidone ER 6 mg Tablet PO (08:23)
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
[2020-08-07 09:42] VITALS: BP 100/64; PULSE 86; RESP 18; TEMP 36.8; O2SAT 97
== END 2020-08-07 10:06 | disposition home or self-care (01) | DRG 885 ==
LOC: ER 16:17 → NP 18:13
PROVIDERS: Admitting Provider Psychiatry & Neurology Psychiatry; Emergency Provider Family Medicine; PCP Nurse Practitioner Family; Visit Provider Psychiatry & Neurology Psychiatry
DX: F31.9 Bipolar disorder, unspecified (principal); R45.851 Suicidal ideations; F15.229 Other stimulant dependence with intoxication, unspecified; F17.228 Nicotine dependence, chewing tobacco, with other nicotine-induced disorders; E78.2 Mixed hyperlipidemia; I10 Essential (primary) hypertension; J30.2 Other seasonal allergic rhinitis; R45.850 Homicidal ideations; Z91.5 Personal history of self-harm
CPT/HCPCS: 12345; 36415; 80053; 80164; 80306; 80307; 81001; 85025; 94640; 99284; J3535

== ENCOUNTER → 2020-09-02 07:49 | Outpatient (BNVA) | payer MEDICAID, SELFPAY | PROVIDERS: PCP Nurse Practitioner Family; Visit Provider Nurse Practitioner Psychiatric/Mental Health | DX: F31.9 Bipolar disorder, unspecified (principal); Z51.81 Encounter for therapeutic drug level monitoring | CPT/HCPCS: 96372; 99213 ==

== ENCOUNTER → 2020-10-02 08:10 | Outpatient (BNVA) | payer MEDICAID, SELFPAY | PROVIDERS: PCP Nurse Practitioner Family; Visit Provider Nurse Practitioner Psychiatric/Mental Health | DX: F31.9 Bipolar disorder, unspecified (principal); Z51.81 Encounter for therapeutic drug level monitoring; F15.20 Other stimulant dependence, uncomplicated | CPT/HCPCS: 96372; 99213 ==

== ENCOUNTER 2020-10-19 05:15 | Emergency (ER) | payer MEDICAID, SELFPAY ==
[2020-10-19 05:21] VITALS: BP 108/88; PULSE 100; RESP 18; TEMP 36.8; O2SAT 98; BMI 34.4
--- NOTE | 2020-10-19 05:35 | CTR_ITS ---
PROCEDURE INFORMATION: Exam: CT Abdomen And Pelvis With Contrast Exam date and time: 10/19/2020 5:37 AM Age: 45 years old Clinical indication: Other: Diarrhea; Abdominal pain; Generalized; Additional info: Abd pain TECHNIQUE: Imaging protocol: Computed tomography of the abdomen and pelvis with contrast. Radiation optimization: All CT scans at this facility use at least one of these dose optimization techniques: automated exposure control; mA and/or kV adjustment per patient size (includes targeted exams where dose is matched to clinical indication); or iterative reconstruction. Contrast material: OMNI 300; Contrast volume: 95 ml; Contrast route: INTRAVENOUS (IV); COMPARISON: CT abdomen pelvis w con* [id number] 05/03/2020 12:36 PM RADIATION DOSE METRICS: Total DLP (mGy-cm): 1920.3 FINDINGS: Liver: Normal. No mass. Gallbladder and bile ducts: There is a faint ovoid intraluminal density seen within the gallbladder possibly representing a sludge ball. Pancreas: Normal. No ductal dilation. Spleen: Normal. No splenomegaly. Adrenal glands: Normal. No mass. Kidneys and ureters: Normal. No hydronephrosis. Stomach and bowel: There is some bowel wall thickening seen within the ascending, transverse, descending colon and proximal sigmoid colon and some haziness seen along the serosal margin the colon, findings that may represent mild colitis. Appendix: No evidence of appendicitis. Intraperitoneal space: Unremarkable. No free air. No significant fluid collection. Vasculature: Unremarkable. No abdominal aortic aneurysm. Lymph nodes: Unremarkable. No enlarged lymph nodes. Urinary bladder: Unremarkable as visualized. Reproductive: Unremarkable as visualized. Bones/joints: Unremarkable. No acute fracture. Soft tissues: Unremarkable. CT/CT abdomen pelvis w con* [id number] IMPRESSION: 1. There is diffuse bowel wall thickening seen within the ascending, transverse and descending colon with some subtle surrounding haziness seen adjacent to the serosal margin the colon, findings could represent mild inflammatory changes and colitis. 2. Probable faint sludge ball within the gallbladder. Radiation Dose CTDIVOL = (mGy): DLP = 1920.3 (mGy-cm)
--- NOTE | 2020-10-19 05:37 | W.ED.ABDPA2 ---
Documented by User: Remington Lopez DO 10/19/20 06:05 HPI - Abdominal Pain General: Chief Complaint: Abdominal Pain Stated Complaint: nausea/abd pain Time Seen by Provider: 10/19/20 05:28 History of Present Illness: HPI narrative: 45-year-old male with periumbilical abdominal pain that started 3 days ago. He notes he has had some blood in the stool, no clots. He says he has had watery stool at times. No vomiting. No fever. Says this happened once before 3 years ago or so. No belly surgery history. MD elicited complaint: abdominal pain Pertinent past history: other Onset (ago): day(s) (3) Pain Consistency: constant Location: Periumbilical Pain scale (0-10): 7 Quality: cramping and stabbing Radiation: none Migration to: no migration Exacerbating factors: movement Relieving factors: nothing Associated Symptoms: Reports change in bowel habits, change in stool character, diarrhea and nausea; Denies dysuria, fever(s) and vomiting Review of Systems Const: Denies: fever(s) Card: Denies: chest pain Resp: Denies: dyspnea, productive cough or non-productive cough GI: Reports: nausea, diarrhea, change in bowel habits and change in stool character; Denies: vomiting : Reports: difficulty starting urination; Denies: dysuria Neuro: Denies: headache(s) or weakness in extremities PFSH ED PFSH: Medical History Benign essential HTN Bipolar disorder Hyperlipidemia Methamphetamine dependence, episodic Methamphetamine dependence, episodic Methamphetamine use disorder, moderate, in early remission, dependence Schizophrenia Seasonal allergies Surgical History No pertinent past surgical history Family History Other Diabetes Stroke Social History (Updated 10/02/20 @ 14:46 by Yulia Burdick LPN) Smoking and tobacco status: current every day smoker smokeless tobacco Smokeless tobacco user: chewing tobacco Smokeless tobacco details: 1 can daily Quit status (tobacco): not considering quitting Second hand smoke exposure: Yes Alcohol intake: former Additional social history: SUBSTANCE ABUSE HISTORY: He reports he chews about a can of tobacco a day but does not smoke, he reports he last drank alcohol about six years ago, he does not use marijuana or cocaine, he does use methamphetamine and has used opiates. He reports he has had two to three drug rehabilitations. He has had a couple of DUIs, the last one may have been in 2004. FAMILY HISTORY: He denies any history of mental health issues, addiction, or lethality in his family. DEVELOPMENTAL HISTORY: He denies any issues with his mom?s or delivery of him. He reports he learned how to walk and talk and met all developmental milestones on time. He reports when he went to school, there was no speech therapy, learning support, emotional support, or special education classes. PSYCHOSOCIAL HISTORY: He reports that his mother and father were together when he was born and when he was about 15 years old. They had him and a younger brother together. His mom had no other children; his dad had a couple step kids, a couple of adopted kids, and then a half-sister. He reports that his childhood was tough at times, because he was poor, be he denies any emotional, physical, or sexual abuse. He reports the highest grade he went to was the ninth grade, and he got his GED in 1991. He endorses being a heterosexual, with his longest relationship being a couple of years. He was once, not sure if he is , but he has not seen the person for many, many, many years. He reports he has a 20 year old daughter that he sees a little bit, but he was never to her mother. He denies any history. He endorses being a Church. The longest job he has had, he said, was ninety days. He reports he lives in a trailer on a friend?s property. LEGAL HISTORY: He reports that he has been to correction multiple times, not actually sure how many. The longest time he was behind bars was the five years he spent in [facility] that ended in April 2019. Physical Exam Const: COMMON NORMALS: no acute distress and alert Chest: COMMONS NORMALS: normal inspection of the chest Resp: COMMON NORMALS: normal respiratory effort, No retractions, No use of accessory muscles and clear to auscultation bilaterally AUSCULTATION: clear to auscultation bilaterally Cardio: COMMON NORMALS: regular rate, regular rhythm and No murmurs present (Cardio) RATE: regular rate RHYTHM: regular rhythm GI: COMMON NORMALS: Normal to inspection, nondistended, normoactive bowel sounds present and Soft to palpation PALPATION: Yes Soft to palpation, Yes Tenderness to palpation present (GI) (Diffuse), Yes Guarding due to palpation present (GI) and Yes Rebound tenderness present Neuro: SENSORIUM/ORIENTATION: Yes alert Skin: COMMON NORMALS: no rashes or lesions noted GENERAL SKIN EXAM: no rashes or lesions noted Course Vital Signs: Vital signs: Vital Signs Temperature 98.2 F 10/19/20 05:21 Pulse Rate 93 10/19/20 06:08 Respiratory Rate 21 H 10/19/20 06:08 Blood Pressure 109/73 10/19/20 06:08 Pulse Oximetry 97 10/19/20 06:08 MDM - Abdominal Pain MDM Narrative: Medical decision making narrative: 45-year-old male with periumbilical pain, and some blood in the stool. His white blood cell count is 11.5. Other studies and CT are pending. He will be checked out to Dr. Sanches at shift change Lab Data: Labs: Lab Results 10/19/20 10/19/20 10/19/20 Range/Units 05:25 05:25 05:25 WBC 11.5 H (4.0-10.0) 10^3/ uL RBC 4.82 (4.1-5.3) 10^6/u L Hgb 15.1 (11.7-16.6) g/dL Hct 46.7 (42.0-52.0) % MCV 96.9 H (80-94) fL MCH 31.3 (28.0-34.0) pg MCHC 32.3 (30.0-36.0) g/dL RDW 11.7 L (12.1-15.1) % Plt Count 245 (130-400) 10^3/c mm MPV 9.7 (7.4-10.4) fL Neut % (Auto) 78.2 % Lymph % (Auto) 6.2 % Taliaferro % (Auto) 13.1 % Eos % (Auto) 1.3 % Baso % (Auto) 0.8 % Neut # (Auto) 8.98 H (1.8-7.7) 10^3/u L Lymph # (Auto) 0.7 L (0.8-4.8) 10^3/u L Taliaferro # (Auto) 1.5 H (0.2-0.9) 10^3/u L Eos # (Auto) 0.2 (0.0-0.8) 10^3/u L Baso # (Auto) 0.1 (0.0-0.1) 10^3/u L Nucleated RBC % (a uto) 0 % Nucleated RBCs # 0.0 /100WBC Sodium 134 L (136-145) mmol/L Potassium 3.8 (3.5-5.1) mmol/L Chloride 96 L (98-107) mmol/L Carbon Dioxide 26 (22-29) mmol/L Anion Gap 15.8 (5-19) BUN 11 (6-20) mg/dL Creatinine 0.9 (0.7-1.2) mg/dL GFR Calculation 90.8 (90-130) mL/min Glucose 107 (65-115) mg/dL Calculated Osmolal ity 278 L (285-295) mOsm/k g Lactate 1.5 (0.5-2.2) mmol/L Calcium 9.2 (8.5-10.5) mg/dL Total Bilirubin 0.3 (0.15-1.2) mg/dL AST 34 (0-40) U/L ALT 27 (0-41) U/L Alkaline Phosphata se 76 (40-130) IU/L C-Reactive Protein 48.4 H (0.0-4.9) mg/L Total Protein 7.2 (6.6-8.7) g/dL Albumin 4.1 (3.5-5.2) g/dL Globulin 3.1 (1.3-4.6) g/dL Lipase 15 (13-60) U/L Discharge Plan Discharge Patient Disposition: Home Clinical Impression: Colitis Condition: Stable Prescriptions: New Cipro 500 mg tablet 500 mg PO BID Qty: 14 RF: 0 Flagyl 500 mg tablet 500 mg PO Q8H 7 Days Qty: 21 RF: 0 [place] 5-325 mg tablet 1 tab PO Q6H PRN (Reason: pain) Qty: 14 RF: 0 ondansetron 4 mg tablet,disintegrating 4 mg PO Q6H PRN (Reason: nausea and vomiting) Qty: 14 RF: 0 No Action ascorbate calcium (vitamin C) 500 mg tablet 500 mg PO DAILY RF: 0 cholecalciferol (vitamin D3) 25 mcg (1,000 unit) capsule 25 mcg PO DAILY RF: 0 zinc 50 mg tablet 50 mg PO DAILY RF: 0 docusate sodium [Colace] 100 mg capsule 100 mg PO DAILY@19 RF: 0 bisacodyl [C-Lax Laxative (bisacodyl)] 5 mg tablet,delayed release (DR/EC) 5 mg PO PRN RF: 0 albuterol sulfate [Ventolin HFA] 90 mcg/actuation HFA aerosol inhaler 2 puff inhalation Q6H PRN (Reason: Shortness Of Breath) RF: 0 benztropine 1 mg tablet 1 mg PO DAILY@19 30 Days Qty: 30 RF: 2 divalproex 500 mg tablet extended release 24 hr 2,000 mg PO BEDTIME 30 Days Qty: 120 RF: 2 Remeron 15 mg tablet 15 mg PO DAILY@19 30 Days Qty: 30 RF: 2 Invega Sustenna 234 mg/1.5 mL syringe 234 mg IM Q30D Qty: 1.5 RF: 5 paliperidone 1.5 mg tablet extended release 24hr 1.5 mg PO DAILY PRN (Reason: agitation) Qty: 14 RF: 0 atorvastatin 20 mg tablet 20 mg PO DAILY@19 RF: 0 amlodipine 5 mg Tablet 5 mg PO DAILY@19 RF: 0 omeprazole 20 mg Capsule,Delayed Release(Dr/Ec) 20 mg PO DAILY@19 RF: 0 lisinopril-hydrochlorothiazide 20-25 mg tablet 1 tab PO DAILY@19 30 Days Qty: 30 RF: 1 Discharge Orders: Discharge ED (Routine); Ordered 10/19/20 Ordered By: Dwight Sanches Referrals: Azalia Huddleston FNP [Primary Care Provider] - 1-3 days Discharge Diet: Advance as tolerated Discharge Activity: Resume usual activity Coding Level of Care Code ED Track Worker for Chg Fwd Exam Detailed Documented by User: Dwight Sanches MD 10/19/20 06:38 HPI - Abdominal Pain General: Chief Complaint: Abdominal Pain Stated Complaint: nausea/abd pain Time Seen by Provider: 10/19/20 05:28 [facility] ED PFSH: Medical History Benign essential HTN Bipolar disorder Hyperlipidemia Methamphetamine dependence, episodic Methamphetamine dependence, episodic Methamphetamine use disorder, moderate, in early remission, dependence Schizophrenia Seasonal allergies Surgical History No pertinent past surgical history Family History Other Diabetes Stroke Social History (Updated 10/02/20 @ 14:46 by Yulia Burdick LPN) Smoking and tobacco status: current every day smoker smokeless tobacco Smokeless tobacco user: chewing tobacco Smokeless tobacco details: 1 can daily Quit status (tobacco): not considering quitting Second hand smoke exposure: Yes Alcohol intake: former Additional social history: SUBSTANCE ABUSE HISTORY: He reports he chews about a can of tobacco a day but does not smoke, he reports he last drank alcohol about six years ago, he does not use marijuana or cocaine, he does use methamphetamine and has used opiates. He reports he has had two to three drug rehabilitations. He has had a couple of DUIs, the last one may have been in 2004. FAMILY HISTORY: He denies any history of mental health issues, addiction, or lethality in his family. DEVELOPMENTAL HISTORY: He denies any issues with his mom?s or delivery of him. He reports he learned how to walk and talk and met all developmental milestones on time. He reports when he went to school, there was no speech therapy, learning support, emotional support, or special education classes. PSYCHOSOCIAL HISTORY: He reports that his mother and father were together when he was born and when he was about 15 years old. They had him and a younger brother together. His mom had no other children; his dad had a couple step kids, a couple of adopted kids, and then a half-sister. He reports that his childhood was tough at times, because he was poor, be he denies any emotional, physical, or sexual abuse. He reports the highest grade he went to was the ninth grade, and he got his GED in 1991. He endorses being a heterosexual, with his longest relationship being a couple of years. He was once, not sure if he is , but he has not seen the person for many, many, many years. He reports he has a 20 year old daughter that he sees a little bit, but he was never to her mother. He denies any history. He endorses being a Church. The longest job he has had, he said, was ninety days. He reports he lives in a trailer on a friend?s property. LEGAL HISTORY: He reports that he has been to correction multiple times, not actually sure how many. The longest time he was behind bars was the five years he spent in [facility] that ended in April 2019. Course Vital Signs: Vital signs: Vital Signs Temperature 98.2 F 10/19/20 05:21 Pulse Rate 93 10/19/20 06:08 Respiratory Rate 21 H 10/19/20 06:08 Blood Pressure 109/73 10/19/20 06:08 Pulse Oximetry 97 10/19/20 06:08 MDM - Abdominal Pain MDM Narrative: Medical decision making narrative: Walt presents here with abdominal pain. CT does show a colitis we will start him on Cipro and Flagyl. Informed him he needs to follow-up with his PCP and likely needs a colonoscopy in the future. He is well-appearing here and is stable for discharge. He is to return if worsening. Lab Data: Labs: Lab Results 10/19/20 10/19/20 10/19/20 Range/Units 05:25 05:25 05:25 WBC 11.5 H (4.0-10.0) 10^3/ uL RBC 4.82 (4.1-5.3) 10^6/u L Hgb 15.1 (11.7-16.6) g/dL Hct 46.7 (42.0-52.0) % MCV 96.9 H (80-94) fL MCH 31.3 (28.0-34.0) pg MCHC 32.3 (30.0-36.0) g/dL RDW 11.7 L (12.1-15.1) % Plt Count 245 (130-400) 10^3/c mm MPV 9.7 (7.4-10.4) fL Neut % (Auto) 78.2 % Lymph % (Auto) 6.2 % Taliaferro % (Auto) 13.1 % Eos % (Auto) 1.3 % Baso % (Auto) 0.8 % Neut # (Auto) 8.98 H (1.8-7.7) 10^3/u L Lymph # (Auto) 0.7 L (0.8-4.8) 10^3/u L Taliaferro # (Auto) 1.5 H (0.2-0.9) 10^3/u L Eos # (Auto) 0.2 (0.0-0.8) 10^3/u L Baso # (Auto) 0.1 (0.0-0.1) 10^3/u L Nucleated RBC % (a uto) 0 % Nucleated RBCs # 0.0 /100WBC Sodium 134 L (136-145) mmol/L Potassium 3.8 (3.5-5.1) mmol/L Chloride 96 L (98-107) mmol/L Carbon Dioxide 26 (22-29) mmol/L Anion Gap 15.8 (5-19) BUN 11 (6-20) mg/dL Creatinine 0.9 (0.7-1.2) mg/dL GFR Calculation 90.8 (90-130) mL/min Glucose 107 (65-115) mg/dL Calculated Osmolal ity 278 L (285-295) mOsm/k g Lactate 1.5 (0.5-2.2) mmol/L Calcium 9.2 (8.5-10.5) mg/dL Total Bilirubin 0.3 (0.15-1.2) mg/dL AST 34 (0-40) U/L ALT 27 (0-41) U/L Alkaline Phosphata se 76 (40-130) IU/L C-Reactive Protein 48.4 H (0.0-4.9) mg/L Total Protein 7.2 (6.6-8.7) g/dL Albumin 4.1 (3.5-5.2) g/dL Globulin 3.1 (1.3-4.6) g/dL Lipase 15 (13-60) U/L Imaging Data ^: CT Abd/Pel: Attestation: I personally reviewed and interpreted this imaging study as follows: Radiologist's impression: [id number] [address] [address] Scan Report Signed Patient: Walt Madsen Unit #: [id number] : 1975 Age/Sex: 45 / M ADM Date: 10/19/20 Loc: ER Room/Bed: Attending Dr: Ordering Provider/Ordering MD: Remington Lopez DO Date of Service: 10/19/20 Procedure(s): CT abdomen pelvis w con* [id number] Accession Number(s): [id number] Report Number: [id number] PROCEDURE INFORMATION: Exam: CT Abdomen And Pelvis With Contrast Exam date and time: 10/19/2020 5:37 AM Age: 45 years old Clinical indication: Other: Diarrhea; Abdominal pain; Generalized; Additional info: Abd pain TECHNIQUE: Imaging protocol: Computed tomography of the abdomen and pelvis with contrast. Radiation optimization: All CT scans at this facility use at least one of these dose optimization techniques: automated exposure control; mA and/or kV adjustment per patient size (includes targeted exams where dose is matched to clinical indication); or iterative reconstruction. Contrast material: OMNI 300; Contrast volume: 95 ml; Contrast route: INTRAVENOUS (IV); COMPARISON: CT abdomen pelvis w con* [id number] 05/03/2020 12:36 PM RADIATION DOSE METRICS: Total DLP (mGy-cm): 1920.3 FINDINGS: Liver: Normal. No mass. Gallbladder and bile ducts: There is a faint ovoid intraluminal density seen within the gallbladder possibly representing a sludge ball. Pancreas: Normal. No ductal dilation. Spleen: Normal. No splenomegaly. Adrenal glands: Normal. No mass. Kidneys and ureters: Normal. No hydronephrosis. Stomach and bowel: There is some bowel wall thickening seen within the ascending, transverse, descending colon and proximal sigmoid colon and some haziness seen along the serosal margin the colon, findings that may represent mild colitis. Appendix: No evidence of appendicitis. Intraperitoneal space: Unremarkable. No free air. No significant fluid collection. Vasculature: Unremarkable. No abdominal aortic aneurysm. Lymph nodes: Unremarkable. No enlarged lymph nodes. Urinary bladder: Unremarkable as visualized. Reproductive: Unremarkable as visualized. Bones/joints: Unremarkable. No acute fracture. Soft tissues: Unremarkable. CT/CT abdomen pelvis w con* [id number] IMPRESSION: 1. There is diffuse bowel wall thickening seen within the ascending, transverse and descending colon with some subtle surrounding haziness seen adjacent to the serosal margin the colon, findings could represent mild inflammatory changes and colitis. 2. Probable faint sludge ball within the gallbladder. Discharge Plan Discharge Patient Disposition: Home Clinical Impression: Colitis Condition: Stable Prescriptions: New Cipro 500 mg tablet 500 mg PO BID Qty: 14 RF: 0 Flagyl 500 mg tablet 500 mg PO Q8H 7 Days Qty: 21 RF: 0 [place] 5-325 mg tablet 1 tab PO Q6H PRN (Reason: pain) Qty: 14 RF: 0 ondansetron 4 mg tablet,disintegrating 4 mg PO Q6H PRN (Reason: nausea and vomiting) Qty: 14 RF: 0 No Action ascorbate calcium (vitamin C) 500 mg tablet 500 mg PO DAILY RF: 0 cholecalciferol (vitamin D3) 25 mcg (1,000 unit) capsule 25 mcg PO DAILY RF: 0 zinc 50 mg tablet 50 mg PO DAILY RF: 0 docusate sodium [Colace] 100 mg capsule 100 mg PO DAILY@19 RF: 0 bisacodyl [C-Lax Laxative (bisacodyl)] 5 mg tablet,delayed release (DR/EC) 5 mg PO PRN RF: 0 albuterol sulfate [Ventolin HFA] 90 mcg/actuation HFA aerosol inhaler 2 puff inhalation Q6H PRN (Reason: Shortness Of Breath) RF: 0 benztropine 1 mg tablet 1 mg PO DAILY@19 30 Days Qty: 30 RF: 2 divalproex 500 mg tablet extended release 24 hr 2,000 mg PO BEDTIME 30 Days Qty: 120 RF: 2 Remeron 15 mg tablet 15 mg PO DAILY@19 30 Days Qty: 30 RF: 2 Invega Sustenna 234 mg/1.5 mL syringe 234 mg IM Q30D Qty: 1.5 RF: 5 paliperidone 1.5 mg tablet extended release 24hr 1.5 mg PO DAILY PRN (Reason: agitation) Qty: 14 RF: 0 atorvastatin 20 mg tablet 20 mg PO DAILY@19 RF: 0 amlodipine 5 mg Tablet 5 mg PO DAILY@19 RF: 0 omeprazole 20 mg Capsule,Delayed Release(Dr/Ec) 20 mg PO DAILY@19 RF: 0 lisinopril-hydrochlorothiazide 20-25 mg tablet 1 tab PO DAILY@19 30 Days Qty: 30 RF: 1 Discharge Orders: Discharge ED (Routine); Ordered 10/19/20 Ordered By: Dwight Sanches Referrals: Azalia Huddleston FNP [Primary Care Provider] - 1-3 days Discharge Diet: Advance as tolerated Discharge Activity: Resume usual activity Coding Level of Care Code ED Track Worker for Chg Fwd Exam Detailed
[2020-10-19 05:38] LABS: Basophils # 0.1 10^3/uL (0.0-0.1); Basophils % 0.8 %; Eosinophils # 0.2 10^3/uL (0.0-0.8); Eosinophils % 1.3 %; Hematocrit 46.7 % (42.0-52.0); Hemoglobin 15.1 g/dL (11.7-16.6); Lymphocytes # 0.7 10^3/uL (0.8-4.8); Lymphocytes % 6.2 %; Mean Corpuscular HGB Conc 32.3 g/dL (30.0-36.0); Mean Corpuscular Hemoglobin 31.3 pg (28.0-34.0); Mean Corpuscular Volume 96.9 fL (80-94); Mean Platelet Volume 9.7 fL (7.4-10.4); Monocytes # 1.5 10^3/uL (0.2-0.9); Monocytes % 13.1 %; Neutrophils # 8.98 10^3/uL (1.8-7.7); Neutrophils % 78.2 %; Nucleated Red Blood Cells % 0 %; Platelet Count 245 10^3/cmm (130-400); Red Blood Count 4.82 10^6/uL (4.1-5.3); Red Cell Distribution Width 11.7 % (12.1-15.1); White Blood Count 11.5 10^3/uL (4.0-10.0)
[2020-10-19] MEDS: iohexol 300 mg/mL 100 mL Btl IV (05:54)
[2020-10-19 05:56] LABS: Lactate (Lactic Acid level) 1.5 mmol/L (0.5-2.2)
[2020-10-19] MEDS: sodium chloride 0.9% 1,000 ML 999 ML IV (06:06)
[2020-10-19] MEDS: ondansetron 2 mg/ML SDV 2 mL 4 MG IVP (06:06)
[2020-10-19 06:07] VITALS: RESP 18; O2SAT 96
[2020-10-19] MEDS: morphine 4 mg/mL SDV 1 mL IVP (06:07)
[2020-10-19 06:08] VITALS: BP 109/73; PULSE 93; RESP 21; O2SAT 97
[2020-10-19 06:24] LABS: Alanine Aminotransferase 27 U/L (0-41); Albumin Level 4.1 g/dL (3.5-5.2); Alkaline Phosphatase 76 IU/L (40-130); Aspartate Amino Transferase 34 U/L (0-40); Blood Urea Nitrogen 11 mg/dL (6-20); C Reactive Protein 48.4 mg/L (0.0-4.9); Calcium 9.2 mg/dL (8.5-10.5); Carbon Dioxide 26 mmol/L (22-29); Chloride 96 mmol/L (98-107); Globulin 3.1 g/dL (1.3-4.6); Glomerular Filtration Rate 90.8 mL/min (90-130); Glucose 107 mg/dL (65-115); Lipase 15 U/L (13-60); Osmolality Calculated 278 mOsm/kg (285-295); Sodium 134 mmol/L (136-145); Total Bilirubin 0.3 mg/dL (0.15-1.2); Total Protein 7.2 g/dL (6.6-8.7)
[2020-10-19 06:25] LABS: Anion Gap 15.8 (5-19); Potassium 3.8 mmol/L (3.5-5.1)
[2020-10-19 06:46] VITALS: BP 109/62; PULSE 103; RESP 16; O2SAT 97
== END 2020-10-19 06:53 | disposition home or self-care (01) ==
PROVIDERS: Emergency Medicine; Emergency Provider Emergency Medicine; PCP Nurse Practitioner Family
DX: K52.9 Noninfective gastroenteritis and colitis, unspecified (principal); I10 Essential (primary) hypertension; E78.5 Hyperlipidemia, unspecified; F17.220 Nicotine dependence, chewing tobacco, uncomplicated
CPT/HCPCS: 74177; 80053; 83605; 83690; 85025; 86140; 96361; 96374; 96375; 99283; J2270; J2405; J7030; Q9967

== ENCOUNTER → 2020-10-30 09:54 | Outpatient (BNVA) | payer MEDICAID, SELFPAY | PROVIDERS: PCP Nurse Practitioner Family; Visit Provider Nurse Practitioner Psychiatric/Mental Health | DX: F31.9 Bipolar disorder, unspecified (principal); Z51.81 Encounter for therapeutic drug level monitoring; F15.20 Other stimulant dependence, uncomplicated | CPT/HCPCS: 96372; 99213 ==

== ENCOUNTER → 2020-11-25 13:42 | Outpatient (BNVA) | payer MEDICAID, SELFPAY | PROVIDERS: PCP Nurse Practitioner Family; Visit Provider Nurse Practitioner Psychiatric/Mental Health | DX: F31.9 Bipolar disorder, unspecified (principal); Z51.81 Encounter for therapeutic drug level monitoring; F15.20 Other stimulant dependence, uncomplicated | CPT/HCPCS: 96372; 99213 ==

== ENCOUNTER → 2020-12-23 11:00 | Outpatient (BNVA) | payer MEDICAID, SELFPAY | PROVIDERS: PCP Nurse Practitioner Family; Visit Provider Nurse Practitioner Psychiatric/Mental Health | DX: F31.9 Bipolar disorder, unspecified (principal); Z51.81 Encounter for therapeutic drug level monitoring; F15.20 Other stimulant dependence, uncomplicated | CPT/HCPCS: 96372; 99213 ==

== ENCOUNTER → 2021-01-05 13:35 | Outpatient (BNVA) | payer MEDICAID, SELFPAY | PROVIDERS: PCP Nurse Practitioner Family; Visit Provider Nurse Practitioner Psychiatric/Mental Health | DX: F31.9 Bipolar disorder, unspecified (principal); Z79.899 Other long term (current) drug therapy; Z51.81 Encounter for therapeutic drug level monitoring | CPT/HCPCS: 80061; 80164; 83036 ==

== ENCOUNTER → 2021-01-22 08:10 | Outpatient (BNVA) | payer MEDICAID, SELFPAY | PROVIDERS: PCP Nurse Practitioner Family; Visit Provider Nurse Practitioner Psychiatric/Mental Health | DX: F31.9 Bipolar disorder, unspecified (principal); F15.20 Other stimulant dependence, uncomplicated; Z51.81 Encounter for therapeutic drug level monitoring | CPT/HCPCS: 80164; 96372; 99213 ==

== ENCOUNTER → 2021-02-19 09:13 | Outpatient (BNVA) | payer MEDICAID, SELFPAY ==
[2021-02-02 15:40] VITALS: BP 121/82; BMI 34.9
== END ==
PROVIDERS: PCP Nurse Practitioner Family; Visit Provider Nurse Practitioner Psychiatric/Mental Health
DX: F31.9 Bipolar disorder, unspecified (principal); F15.20 Other stimulant dependence, uncomplicated
CPT/HCPCS: 96372; 99213

== ENCOUNTER → 2021-03-23 08:45 | Outpatient (BNVA) | payer MEDICAID, SELFPAY ==
[2021-02-02 15:40] VITALS: BP 121/82; BMI 34.9
== END ==
PROVIDERS: PCP Nurse Practitioner Family; Visit Provider Nurse Practitioner Psychiatric/Mental Health
DX: F31.9 Bipolar disorder, unspecified (principal); F15.20 Other stimulant dependence, uncomplicated
CPT/HCPCS: 99214

== ENCOUNTER → 2021-04-21 08:38 | Outpatient (BNVA) | payer MEDICAID, SELFPAY ==
[2021-02-02 15:40] VITALS: BP 121/82; BMI 34.9
== END ==
PROVIDERS: PCP Nurse Practitioner Family; Visit Provider Nurse Practitioner Psychiatric/Mental Health
DX: F31.9 Bipolar disorder, unspecified (principal); F15.20 Other stimulant dependence, uncomplicated
CPT/HCPCS: 96372; 99214

== ENCOUNTER → 2021-04-27 09:34 | Outpatient (BNVA) | payer MEDICAID, SELFPAY ==
[2021-02-02 15:40] VITALS: BP 121/82; BMI 34.9
== END ==
PROVIDERS: PCP Nurse Practitioner Family; Visit Provider Counselor Mental Health
DX: F31.9 Bipolar disorder, unspecified (principal)
CPT/HCPCS: 90834

== ENCOUNTER → 2021-06-16 08:35 | Outpatient (BNVA) | payer MEDICAID, SELFPAY ==
[2021-02-02 15:40] VITALS: BP 121/82; BMI 34.9
== END ==
PROVIDERS: PCP Nurse Practitioner Family; Visit Provider Nurse Practitioner Psychiatric/Mental Health
DX: F31.9 Bipolar disorder, unspecified (principal); F15.20 Other stimulant dependence, uncomplicated
CPT/HCPCS: 96372; 99213

== ENCOUNTER → 2021-07-14 08:52 | Outpatient (BNVA) | payer MEDICAID, SELFPAY ==
[2021-02-02 15:40] VITALS: BP 121/82; BMI 34.9
== END ==
PROVIDERS: PCP Nurse Practitioner Family; Visit Provider Nurse Practitioner Psychiatric/Mental Health
DX: F31.9 Bipolar disorder, unspecified (principal); Z79.899 Other long term (current) drug therapy; Z51.81 Encounter for therapeutic drug level monitoring; F15.20 Other stimulant dependence, uncomplicated
CPT/HCPCS: 96372; 99214

== ENCOUNTER 2021-08-03 06:25 | Outpatient (CLI) | payer MEDICAID, SELFPAY ==
[2021-02-02 15:40] VITALS: BP 121/82; BMI 34.9
--- NOTE | 2021-08-03 | USCV_ITS ---
Walt Madsen Age: 46 Gender: M : 1975 Exam Date: 08/03/2021 07:11 Ordering Phys: Azalia Huddleston INSPECTOR [employer] INSPECTOR [employer]LECTRONICS Technologist: SHANNEN [place] [facility] [place]: SOB on extertion BP: / HR: 98 Rhythm: Sinus Technical Quality: Adequate MEASUREMENTS (Male / Female) Normal Values 2D ECHO LV Diastolic Diameter PLAX 4.5 cm 4.2 - 5.9 / 3.9 - 5.3 cm LV Systolic Diameter PLAX 2.9 cm IVS Diastolic Thickness 0.9 cm 0.6 - 1.0 / 0.6 - 0.9 cm IVS Systolic Thickness 1.6 cm LVPW Diastolic Thickness 1.2 cm 0.6 - 1.0 / 0.6 - 0.9 cm LVPW Systolic Thickness 1.5 cm LVOT Diameter 2.1 cm LV Ejection Fraction 2D Teich 63.5 % LV Ejection Fraction MOD 2C 64.9 % LV Ejection Fraction 2C AL 64.3 % LA Diameter 3.0 cm LA Width 3.4 cm LA Height 4.3 cm RA Width 2.9 cm RA Height 3.7 cm Aorta at Sinotubular Diameter 2.7 cm M-MODE Aortic Annulus Diameter 2.8 cm LA Ao Ratio MM 1.0 MV E Point Septal Separation 0.3 cm DOPPLER AV Peak Velocity 104.0 cm/s LVOT Peak Velocity 108.0 cm/s AV Area Cont Eq vti 3.1 cm squared AV Area Cont Eq pk 3.5 cm squared MV Peak Velocity 72.0 cm/s MV Area PHT 5.0 cm squared Mitral E to A Ratio 1.1 MV E' Velocity 40.5 cm/s Mitral E to MV E' Ratio 8.4 Mitral E to LV E' Lateral Ratio 8.9 Mitral E to LV E' Septal Ratio 8.1 TR Peak Velocity 197.0 cm/s TR Peak Gradient 15.5 mmHg Right Atrial Pressure 5.0 mmHg Pulmonary Artery Systolic Pressu 20.5 mmHg PV Peak Velocity 85.0 cm/s RV Acceleration Time 0.1 s RV Ejection Time 0.3 s RV AcT/ET 0.3 FINDINGS Left Ventricle Normal left ventricular size, systolic function and wall thickness, with no regional wall motion abnormalities. Left ventricular ejection fraction is estimated at 55-60%. Normal diastolic function. Right Ventricle Normal right ventricular size and systolic function. RVSP could not be calculated due to incomplete tricuspid regurgitation velocity profile. Right Atrium Normal right atrial size. Right atrial pressure estimated at 3 mmHg. Left Atrium Normal left atrial size. Mitral Valve Structurally normal mitral valve. No mitral valve stenosis. No mitral valve regurgitation. Aortic Valve Structurally normal trileaflet aortic valve. No aortic valve stenosis. No aortic valve regurgitation. Tricuspid Valve Structurally normal tricuspid valve. Trace tricuspid valve regurgitation. Pulmonic Valve Structurally normal pulmonic valve. No pulmonary valve stenosis. Trace pulmonary valve regurgitation. Pericardium No pericardial effusion. Aorta Normal size aortic root and proximal ascending aorta. Normal- sized inferior vena cava with greater than 50% respiratory variation. CONCLUSIONS 1. Normal left ventricular size, systolic function and wall thickness, with no regional wall motion abnormalities. Left ventricular ejection fraction is estimated at 55-60 %. Normal diastolic function. 2. Normal right ventricular size and systolic function. 3. No significant valvular abnormality. 4. Right atrial pressure estimated at 3 mmHg. 5. No prior similar studies to compare. Shari Espinoza MD (Electronically Signed) Final Date: 05 August 2021 11:48 S
== END 2021-08-03 06:26 | disposition home or self-care (01) ==
LOC: RAD 06:28
PROVIDERS: PCP Nurse Practitioner Family; Visit Provider Nurse Practitioner Family
DX: R06.02 Shortness of breath (principal)
CPT/HCPCS: 93306

== ENCOUNTER → 2021-08-11 07:43 | Outpatient (BNVA) | payer MEDICAID, SELFPAY ==
[2021-02-02 15:40] VITALS: BP 121/82; BMI 34.9
== END ==
PROVIDERS: PCP Nurse Practitioner Family; Visit Provider Nurse Practitioner Psychiatric/Mental Health
DX: F31.9 Bipolar disorder, unspecified (principal); Z51.81 Encounter for therapeutic drug level monitoring; Z79.899 Other long term (current) drug therapy; F15.20 Other stimulant dependence, uncomplicated
CPT/HCPCS: 80053; 80164; 85025; 96372; 99214

== ENCOUNTER → 2021-09-08 09:00 | Outpatient (BNVA) | payer MEDICAID, SELFPAY ==
[2021-02-02 15:40] VITALS: BP 121/82; BMI 34.9
== END ==
PROVIDERS: PCP Nurse Practitioner Family; Visit Provider Nurse Practitioner Psychiatric/Mental Health
DX: F31.9 Bipolar disorder, unspecified (principal); F15.20 Other stimulant dependence, uncomplicated
CPT/HCPCS: 99213

== ENCOUNTER → 2021-10-06 08:23 | Outpatient (BNVA) | payer MEDICAID, OTHER, SELFPAY ==
[2021-02-02 15:40] VITALS: BP 121/82; BMI 34.9
== END ==
PROVIDERS: PCP Nurse Practitioner Family; Visit Provider Nurse Practitioner Psychiatric/Mental Health
DX: F15.20 Other stimulant dependence, uncomplicated (principal); F31.9 Bipolar disorder, unspecified
CPT/HCPCS: 96372; 99213

== ENCOUNTER → 2021-11-03 12:40 | Outpatient (BNVA) | payer MEDICAID, OTHER, SELFPAY ==
[2021-02-02 15:40] VITALS: BP 121/82; BMI 34.9
== END ==
PROVIDERS: PCP Nurse Practitioner Family; Visit Provider Nurse Practitioner Psychiatric/Mental Health
DX: F15.20 Other stimulant dependence, uncomplicated (principal); F31.9 Bipolar disorder, unspecified
CPT/HCPCS: 99213

== ENCOUNTER → 2021-12-03 10:42 | Outpatient (BNVA) | payer MEDICAID, SELFPAY ==
[2021-02-02 15:40] VITALS: BP 121/82; BMI 34.9
== END ==
PROVIDERS: PCP Nurse Practitioner Family; Visit Provider Nurse Practitioner Psychiatric/Mental Health
DX: Z79.899 Other long term (current) drug therapy (principal); F15.20 Other stimulant dependence, uncomplicated; F31.9 Bipolar disorder, unspecified
CPT/HCPCS: 96372; 99213

== ENCOUNTER → 2021-12-31 08:17 | Outpatient (BNVA) | payer MEDICAID, SELFPAY ==
[2021-02-02 15:40] VITALS: BP 121/82; BMI 34.9
== END ==
PROVIDERS: PCP Nurse Practitioner Family; Visit Provider Nurse Practitioner
DX: F31.9 Bipolar disorder, unspecified (principal); F17.229 Nicotine dependence, chewing tobacco, with unspecified nicotine-induced disorders; F15.20 Other stimulant dependence, uncomplicated
CPT/HCPCS: 96372; 99214

== ENCOUNTER → 2022-01-20 13:38 | Outpatient (BNVA) | payer MEDICAID, SELFPAY ==
[2021-02-02 15:40] VITALS: BP 121/82; BMI 34.9
== END ==
PROVIDERS: PCP Nurse Practitioner Family; Visit Provider Surgery
DX: K80.20 Calculus of gallbladder without cholecystitis without obstruction (principal); F15.20 Other stimulant dependence, uncomplicated
CPT/HCPCS: 99203

== ENCOUNTER → 2022-01-28 13:33 | Outpatient (BNVA) | payer MEDICAID, SELFPAY ==
[2021-02-02 15:40] VITALS: BP 121/82; BMI 34.9
== END ==
PROVIDERS: PCP Nurse Practitioner Family; Visit Provider Nurse Practitioner Psychiatric/Mental Health
DX: F31.9 Bipolar disorder, unspecified (principal); F17.229 Nicotine dependence, chewing tobacco, with unspecified nicotine-induced disorders; F15.20 Other stimulant dependence, uncomplicated; Z79.899 Other long term (current) drug therapy; G24.09 Other drug induced dystonia; T50.905A Adverse effect of unspecified drugs, medicaments and biological substances, initial encounter
CPT/HCPCS: 99215

== ENCOUNTER 2022-03-06 20:45 | Emergency (ER) | payer MEDICAID, SELFPAY ==
[2021-02-02 15:40] VITALS: BP 121/82; BMI 34.9
[2022-03-06 20:52] VITALS: BP 142/91; PULSE 112; RESP 20; TEMP 36.6; O2SAT 97; BMI 38.0
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
[2022-03-06] MEDS: HYDROcodone-acetaminophen 7.5-325 mg Tablet 1 TAB PO (21:22)
[2022-03-06 22:47] VITALS: PULSE 100; RESP 18; O2SAT 98
[2022-03-06] MEDS: acetaminophen 500 mg Tablet 1000 MG PO (22:47)
== END 2022-03-06 22:48 | disposition home or self-care (01) ==
PROVIDERS: Emergency Provider Emergency Medicine; PCP Nurse Practitioner Family
DX: S13.4XXA Sprain of ligaments of cervical spine, initial encounter (principal); I10 Essential (primary) hypertension; E78.5 Hyperlipidemia, unspecified; F17.220 Nicotine dependence, chewing tobacco, uncomplicated; V49.40XA Driver injured in collision with unspecified motor vehicles in traffic accident, initial encounter
CPT/HCPCS: 72125; 72128; 72131; 99283

== ENCOUNTER → 2022-04-07 16:33 | Outpatient (BNVA) | payer MEDICAID, SELFPAY ==
[2022-03-29 16:30] VITALS: BP 133/96; BMI 37.3
== END ==
PROVIDERS: PCP Nurse Practitioner Family; Visit Provider Surgery
DX: K80.20 Calculus of gallbladder without cholecystitis without obstruction (principal); K76.0 Fatty (change of) liver, not elsewhere classified
CPT/HCPCS: 99212

== ENCOUNTER → 2022-04-15 10:08 | Outpatient (BNVA) | payer MEDICAID, SELFPAY ==
[2022-03-29 16:30] VITALS: BP 133/96; BMI 37.3
== END ==
PROVIDERS: PCP Nurse Practitioner Family; Visit Provider Nurse Practitioner Psychiatric/Mental Health
DX: F31.9 Bipolar disorder, unspecified (principal); Z79.899 Other long term (current) drug therapy; F17.229 Nicotine dependence, chewing tobacco, with unspecified nicotine-induced disorders; F15.20 Other stimulant dependence, uncomplicated; G24.09 Other drug induced dystonia; T50.905A Adverse effect of unspecified drugs, medicaments and biological substances, initial encounter
CPT/HCPCS: 80053

== ENCOUNTER 2022-05-04 11:40 | Emergency (ER) | payer MEDICAID, SELFPAY ==
[2022-03-29 16:30] VITALS: BP 133/96; BMI 37.3
[2022-05-04 11:47] VITALS: BMI 32.8
[2022-05-04 11:51] VITALS: BP 138/101; PULSE 113; RESP 18; TEMP 36.6; O2SAT 98
--- NOTE | 2022-05-04 11:53 | ECG_ITS ---
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 Measurements Intervals [place] Rate: 109 P: 21 NC: 112 QRS: 38 QRSD: 87 T: 56 QT: 318 QTc: 429 Interpretive Statements SINUS TACHYCARDIA WITH SHORT NC INTERVAL ABNORMAL RHYTHM ECG INTERPRETATION BASED ON A DEFAULT AGE OF 40 YEARS Compared to ECG 12/28/2019 16:49:34 Sinus rhythm no longer present Electronically Signed On 05-04-2022 20:42:14 CDT by Nano Mcintyre M.D. [id number]
--- NOTE | 2022-05-04 12:38 | XRR_ITS ---
PROCEDURE INFORMATION: Exam: XR Chest Exam date and time: 05/04/2022 12:48 PM Age: 47 years old Clinical indication: Pain; Angina pectoris; Additional info: Cp TECHNIQUE: Imaging protocol: Radiologic exam of the chest. Views: 1 view. COMPARISON: CR XR chest 2V* [id number] 12/11/2021 10:40 AM FINDINGS: Lungs: Unremarkable. No consolidation. Pleural spaces: Unremarkable. No pleural effusion. No pneumothorax. Heart/Mediastinum: Unremarkable. No cardiomegaly. Bones/joints: Unremarkable. XR/XR chest 1V portable [id number] IMPRESSION: No acute findings.
--- NOTE | 2022-05-04 12:40 | ED_ITS ---
HPI - Chest Pain General: Chief Complaint: Chest Pain Stated Complaint: Chest Pain-sent from [facility] [place] Time Seen by Provider: 05/04/22 12:30 Source: patient and family Mode of arrival: ambulatory Limitations: no limitations History of Present Illness: This patient presents to the emergency department because of concerns about chest pain. The patient apparently has been having continuous chest pain he states the last at least 4 to 5 days. He states is not affected by any activity to include deep breathing, exertion, rest etc. He states this seems to be in his left side of his chest without radiation. He denies any nausea vomiting shortness of breath or other constitutional complaints. Does have a history of hypertension and states has been faithful to those medications. He denies to smoking tobacco use but does chew tobacco. He denies alcohol use. Later on in the conversation he admitted to me that he was supposed to have his gallbladder removed yesterday but states that he relapsed with regards to his methamphetamine habit and was counseled on his surgery. His last use of methamphetamine which he states he takes via the IV route was on Tuesday. MD complaint: chest pain Pain location: substernal Pain radiation: none Quality: aching Relieving factors: nothing Exacerbating factors: nothing Associated symptoms: Deny abdominal pain, dyspnea, fever(s), nausea, palpitations, syncope or vomiting Risk Factors: Coronary artery disease risk factors: hypertension Review of Systems Const: Denies: fever(s) or chills Eyes: Denies: change in vision ENMT: Denies: odynophagia, mouth pain, dental pain or nasal congestion Card: Reports: chest pain; Denies: palpitations, syncope or pre-syncope Resp: Denies: dyspnea, productive cough or non-productive cough GI: Denies: abdominal pain, nausea, vomiting, diarrhea or constipation : Denies: flank pain, difficulty urinating, dysuria or urinary frequency Musc: Reports: extremity pain; Denies: neck pain, back pain, extremity swelling or joint pain Skin/Breast: Denies: rash, pruritus or erythema Neuro: Denies: headache(s), numbness in extremities or weakness in extremities Psych: Denies: suicidal ideation or homicidal ideation Endo: Reports: polydipsia Michael/Lymph: Denies: easy bruising or easy bleeding PFS ED PFSH: Medical History Benign essential HTN Bipolar disorder Bipolar I disorder, current or most recent episode manic, severe Colitis Hyperlipidemia Methamphetamine dependence, continuous Psychiatric care Psychiatric care Seasonal allergies Tardive dyskinesia Surgical History History of dental surgery Family History Other Diabetes Hyperlipidemia Lung disease Schizophrenia Stroke Social History Smoking and tobacco status: current every day smoker smokeless tobacco Smokeless tobacco user: chewing tobacco Smokeless tobacco details: 3-4 cans per week Quit status (tobacco): not considering quitting Second hand smoke exposure: Yes Alcohol intake: current Alcohol intake frequency: other Adopted: No Caregiver/support person: No Lives independently: Yes Housing: House Marital status: Marital status details: 2013 Number of children: 1 Number of grandchildren: 1 Highest education level completed: GED or Equivalent service: No Current occupational status: disabled Current occupational exposures/hazards: No Pets and animals: No History of recent travel: Yes ([place] to visit) Out of state: Yes Leisure activites: music and other Leisure activities details: [place] quite a bit Sexually active: No Current gender identity: Male Lianet/Pentecostalism: Mormonism Special lianet needs: No Agree to transfusion: Yes Financial difficulty paying for basics: Somewhat Hard Additional social history: SUBSTANCE ABUSE HISTORY: He reports he chews about a can of tobacco a day but does not smoke, he reports he last drank alcohol about six years ago, he does not use marijuana or cocaine, he does use methamphetamine and has used opiates. He reports he has had two to three drug rehabilitations. He has had a couple of DUIs, the last one may have been in 2004. FAMILY HISTORY: He denies any history of mental health issues, addiction, or lethality in his family. DEVELOPMENTAL HISTORY: He denies any issues with his mom?s or delivery of him. He reports he learned how to walk and talk and met all developmental milestones on time. He reports when he went to school, there was no speech therapy, learning support, emotional support, or special education classes. PSYCHOSOCIAL HISTORY: He reports that his mother and father were together when he was born and when he was about 15 years old. They had him and a younger brother together. His mom had no other children; his dad had a couple step kids, a couple of adopted kids, and then a half-sister. He reports that his childhood was tough at times, because he was poor, be he denies any emotional, physical, or sexual abuse. He reports the highest grade he went to was the ninth grade, and he got his GED in 1991. He endorses being a heterosexual, with his longest relationship being a couple of years. He was once, not sure if he is , but he has not seen the person for many, many, many years. He reports he has a 20 year old daughter that he sees a little bit, but he was never to her mother. He denies any history. He endorses being a Mormonism. The longest job he has had, he said, was ninety days. He reports he lives in a trailer on a friend?s property. LEGAL HISTORY: He reports that he has been to [facility] multiple times, not actually sure how many. The longest time he was behind bars was the five years he spent in shelter that ended in April 2019. Physical Exam Narrative: EXAM NARRATIVE: Patient makes good eye contact. His speech is fluent and normal in rate and content. Const: COMMON NORMALS: no acute distress and patient oriented x3 GENERAL APPEARANCE: cooperative HENMT: COMMON NORMALS: normocephalic, moist oral mucous membranes and oropharynx normal HEAD & SCALP: normocephalic Eye: COMMON NORMALS: Equal, round and reactive pupils present, EOMs intact bilaterally and conjunctivae normal CONJUNCTIVA: Yes conjunctivae normal PUPIL: Yes Equal, round and reactive pupils present Neck/C-Spine: COMMON NORMALS: full ROM, no JVD, Thyroid normal and No carotid bruits THYROID: Thyroid normal Chest: COMMONS NORMALS: normal inspection of the chest OTHER: He has tenderness predominantly on the left sternocostal junction. No skin rashes. No ecchymosis. No subcutaneous emphysema palpated. Resp: COMMON NORMALS: normal respiratory effort, No use of accessory muscles and clear to auscultation bilaterally EFFORT & INSPECTION: Yes able to speak in complete sentences AUSCULTATION: clear to auscultation bilaterally Cardio: COMMON NORMALS: no JVD, regular rate, regular rhythm, No murmurs present (Cardio) and Peripheral pulses 2+ throughout RATE: regular rate RHYTHM: regular rhythm PERIPHERAL PULSES: Peripheral pulses 2+ throughout GI: COMMON NORMALS: Normal to inspection, nondistended, normoactive bowel sounds present, Soft to palpation, non-tender and no masses PALPATION: Yes Soft to palpation : COMMON NORMALS: Yes no CVA tenderness BLADDER/KIDNEY EXAM: Yes no CVA tenderness Back/Pelvis: COMMON NORMALS: no CVA tenderness, thoracic and lumbar spine normal to inspection, no thoracic nor lumbar tenderness, thoraco-lumbar ROM normal and straight leg raise negative bilaterally Extremity: COMMON NORMALS: normal to inspection, full ROM, capillary refill normal, no joint enlargement, no calf tenderness and no pedal edema Neuro: COMMON NORMALS: patient oriented x3, moves all extremities, no focal motor deficits and no sensory deficits noted Psych: COMMON NORMALS: mental status grossly normal, Normal thought process present, speech normal, activity/motor behavior normal, denies hallucinations, denies homicidal ideation and denies suicidal ideation SPEECH: Yes normal speech THOUGHT PROCESS: Normal thought process present Skin: COMMON NORMALS: no rashes or lesions noted, no wounds and turgor normal GENERAL SKIN EXAM: no rashes or lesions noted and turgor normal Course Reevaluation(s): Reevaluation #1: Patient remains alert cooperative and symptom-free at this time. He is hungry. Vital signs are also reviewed and normal. No new or focal findings on reexamination. Discussed current findings and their implications with both he and his counselor who is present. Time: 15:07 Vital Signs: Vital signs: Vital Signs Temperature 97.9 F 05/04/22 11:51 Pulse Rate 98 05/04/22 14:34 Respiratory Rate 18 05/04/22 11:51 Blood Pressure 86/72 05/04/22 14:34 Pulse Oximetry 99 05/04/22 14:34 Oxygen Delivery Me thod 05/04/22 14:34 MDM - Chest Pain Medical Decision Making Patient referred from behavioral health because concerns about increased thirst as well as possible chest pain symptoms. Patient admitted freely that he had fallen off the wagon had not been using meth regularly for several days which coincided with his current symptoms. His clinical examination was unremarkable and his ancillary studies were reassuring given the duration of his symptoms he displayed a unremarkable serial EKGs, and negative troponin and otherwise no findings to suggest abnormal blood sugar or other etiologies of potential increased thirst etc. Much of his manifestations probably are that related to his methamphetamine use. No evidence today of any ongoing emergency medical conditions. I discussed all findings with the patient, encouraged him to return for any recurrent symptoms, admonished him to avoid use of methamphetamine. He acknowledged all her discussion. Medical Records I reviewed the patient's medical records. Lab Data I reviewed the patient's lab results. : 05/04/22 13:29 05/04/22 13:29 Radiology Impressions Chest X-Ray 05/04/22 12:38 IMPRESSION: No acute findings. Laboratory Results WBC 6.0 10^3/uL (4.0-10.0) 05/04/22 13: RBC 4.88 10^6/uL (4.1-5.3) 05/04/22 13: Hgb 15.0 g/dL (11.7-16.6) 05/04/22 13:29 Hct 46.4 % (42.0-52.0) 05/04/22 13:29 MCV 95.1 fl (80-94) H 05/04/22 13:29 MCH 30.7 pg (28.0-34.0) 05/04/22 13:29 MCHC 32.3 g/dL (30.0-36.0) 05/04/22 13:29 RDW 11.9 % (12.1-15.1) L 05/04/22 13:29 Plt Count 343 10^3/cmm (130-400) 05/04/22 13:29 MPV 9.7 fL (7.4-10.4) 05/04/22 13:29 Neut % (Auto) 69.0 % 05/04/22 13:29 Lymph % (Auto) 20.1 % 05/04/22 13:29 [place] % (Auto) 8.9 % 05/04/22 13:29 Eos % (Auto) 1.2 % 05/04/22 13:29 Baso % (Auto) 0.5 % 05/04/22 13:29 Neut # (Auto) 4.11 10^3/uL (1.8-7.7) 05/04/22 13:29 Lymph # (Auto) 1.2 10^3/uL (0.8-4.8) 05/04/22 13:29 [place] # (Auto) 0.5 10^3/uL (0.2-0.9) 05/04/22 13:29 Eos # (Auto) 0.1 10^3/uL (0.0-0.8) 05/04/22 13:29 Baso # (Auto) 0.0 10^3/uL (0.0-0.1) 05/04/22 13:29 Nucleated RBC % (auto) 0 % 05/04/22 13:29 Nucleated RBCs # 0.0 /100WBC 05/04/22 13:29 Sodium 130 mmol/L (136-145) L 05/04/22 13:29 Potassium 3.8 mmol/L (3.5-5.1) 05/04/22 13:29 Chloride 94 mmol/L (98-107) L 05/04/22 13:29 Carbon Dioxide 25 mmol/L (22-29) 05/04/22 13:29 Anion Gap 14.8 (5-19) 05/04/22 13:29 BUN 8 mg/dL (6-20) 05/04/22 13:29 Creatinine 1.0 mg/dL (0.7-1.2) 05/04/22 13:29 GFR Calculation 79.8 mL/min (90-130) L 05/04/22 13:29 Glucose 91 mg/dL (65-115) 05/04/22 13:29 Calculated Osmolality 268 mOsm/kg (285-295) L 05/04/22 13:29 Calcium 9.5 mg/dL (8.5-10.5) 05/04/22 13:29 Total Bilirubin 0.4 mg/dL (0.15-1.2) 05/04/22 13:29 AST 11 U/L (0-40) 05/04/22 13:29 ALT 12 U/L (0-41) 05/04/22 13:29 Alkaline Phosphatase 127 U/L (40-130) 05/04/22 13:29 Troponin T Baseline 8 ng/L (0-15) 05/04/22 13:29 Total Protein 6.3 g/dL (6.6-8.7) L 05/04/22 13:29 Albumin 4.1 g/dL (3.5-5.2) 05/04/22 13:29 Globulin 2.2 g/dL (1.3-4.6) 05/04/22 13:29 EKG Data EKG 1: I personally reviewed and interpreted this EKG as follows: Interpretation: Patient's resting EKG reveals ventricular rate of [address] interval, QRS duration, QTc. Normal axis. No acute ST-T wave changes noted. EKG 2: I personally reviewed and interpreted this EKG as follows: Interpretation: Repeat electrocardiogram this visit reveals a ventricular rate of [address], QRS, QTc interval. Normal axis. No acute ST-T wave changes. EKG is unchanged from prior tracing this visit. Discharge Plan Discharge Patient Disposition: Home Clinical Impression: Chest pain, Methamphetamine use Condition: Stable Prescriptions: No Action cholecalciferol (vitamin D3) 25 mcg (1,000 unit) capsule 25 mcg PO DAILY@19 calcium carbonate 400 mg calcium (1,000 mg) tablet,chewable 400 mg PO DAILY@19 docusate sodium [Colace] 100 mg capsule 100 mg PO DAILY@19 bisacodyl [C-Lax Laxative (bisacodyl)] 5 mg tablet,delayed release (DR/EC) 5 mg PO DAILY PRN (Reason: Constipation) albuterol sulfate [Ventolin HFA] 90 mcg/actuation HFA aerosol inhaler 2 puff inhalation Q6H PRN (Reason: Shortness Of Breath) cyclobenzaprine 10 mg tablet 10 mg PO TID PRN (Reason: Muscle Spasm) Austedo 6 mg tablet 6 mg PO BID Qty: 60 2RF mirtazapine [Remeron SolTab] 30 mg tablet,disintegrating 30 mg PO BEDTIME Qty: 30 3RF atorvastatin 20 mg tablet 20 mg PO DAILY@19 amlodipine 5 mg Tablet 5 mg PO DAILY@19 lisinopril-hydrochlorothiazide 20-25 mg tablet 1 tab PO DAILY@19 30 Days Qty: 30 1RF spironolactone 25 mg tablet 25 mg PO DAILY@19 levothyroxine 25 mcg tablet 25 mcg PO DAILY@19 omeprazole 20 mg capsule,delayed release(DR/EC) 20 mg PO DAILY@19 loratadine 10 mg tablet 10 mg PO DAILY@19 Geodon 80 mg capsule 80 mg PO DAILY@19 Rx Instructions: 500 calories haloperidol 5 mg tablet 2.5 - 5 mg PO BID PRN (Reason: severe anxiety/agitation) cyproheptadine 4 mg tablet 4 mg PO BEDTIME@19 divalproex 500 mg tablet extended release 24 hr 1,000 mg PO DAILY@19 Discharge Orders: Discharge ED (Routine); Ordered 05/04/22 Ordered By: Naveen Santiago Referrals: Azalia Huddleston FNP [Primary Care Provider] - Discharge Diet: Usual diet Discharge Activity: Resume usual activity Patient Instructions: Opioid Safety, Pain Management Activity Restrictions/Additional Instructions: Continue all your usual medications. Do not use methamphetamine or any other illegal drugs. If you develop any sustained chest pain, other concerns at any time return to this or the nearest emergency department. Otherwise follow-up with her usual mental health and family physician for routine care. Coding Level of Care Code ED Inspecting And Testing Lead Hand for Mimi Gastelum Exam Comprehensive
[2022-05-04 13:39] LABS: Basophils % 0.5 %; Eosinophils # 0.1 10^3/uL (0.0-0.8); Eosinophils % 1.2 %; Hematocrit 46.4 % (42.0-52.0); Lymphocytes # 1.2 10^3/uL (0.8-4.8); Lymphocytes % 20.1 %; Mean Corpuscular HGB Conc 32.3 g/dL (30.0-36.0); Mean Corpuscular Hemoglobin 30.7 pg (28.0-34.0); Mean Corpuscular Volume 95.1 fl (80-94); Mean Platelet Volume 9.7 fL (7.4-10.4); Monocytes # 0.5 10^3/uL (0.2-0.9); Monocytes % 8.9 %; Neutrophils # 4.11 10^3/uL (1.8-7.7); Nucleated Red Blood Cells % 0 %; Platelet Count 343 10^3/cmm (130-400); Red Blood Count 4.88 10^6/uL (4.1-5.3); Red Cell Distribution Width 11.9 % (12.1-15.1)
[2022-05-04] MEDS: aspirin 81 mg Chew Tablet 324 MG PO (13:41)
[2022-05-04] MEDS: sodium chloride 0.9% 1,000 ML 999 ML IV (13:57)
[2022-05-04 13:58] LABS: Alanine Aminotransferase 12 U/L (0-41); Albumin Level 4.1 g/dL (3.5-5.2); Alkaline Phosphatase 127 U/L (40-130); Anion Gap 14.8 (5-19); Aspartate Amino Transferase 11 U/L (0-40); Blood Urea Nitrogen 8 mg/dL (6-20); Calcium 9.5 mg/dL (8.5-10.5); Carbon Dioxide 25 mmol/L (22-29); Chloride 94 mmol/L (98-107); Globulin 2.2 g/dL (1.3-4.6); Glomerular Filtration Rate 79.8 mL/min (90-130); Glucose 91 mg/dL (65-115); Osmolality Calculated 268 mOsm/kg (285-295); Potassium 3.8 mmol/L (3.5-5.1); Sodium 130 mmol/L (136-145); Total Bilirubin 0.4 mg/dL (0.15-1.2); Total Protein 6.3 g/dL (6.6-8.7)
[2022-05-04 14:01] LABS: Troponin(5th) Baseline 8 ng/L (0-15)
[2022-05-04 14:02] VITALS: BP 119/71; PULSE 94; O2SAT 97
--- NOTE | 2022-05-04 14:20 | PC.PHAR ---
pt states he takes care of his own medications-rx written 04/16/22 for divalproex er 500mg qpm pt states he takes 1000mg qd@19 rx filled 03/25/22 30d/s for 500mg bid-notes are made in the pharmacy comments
[2022-05-04 14:34] VITALS: BP 86/72; PULSE 98; O2SAT 99
--- NOTE | 2022-05-04 14:51 | ECG_ITS ---
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 Measurements Intervals [place] Rate: 95 P: 50 NE: 121 QRS: 65 QRSD: 98 T: 50 QT: 366 QTc: 460 Interpretive Statements SINUS RHYTHM Compared to ECG 05/04/2022 11:53:54 Sinus tachycardia no longer present Short NE interval no longer present Electronically Signed On 05-04-2022 20:49:58 CDT by Nano Mcintyre M.D. [id number]
[2022-05-04 15:24] LABS: Troponin 5 2HR 7.77 ng/L (0-15)
[2022-05-04 15:30] LABS: Troponin 5 2HR Delta -0.23 ABS# (0-10)
[2022-05-04 19:07] LABS: Glucose Point of Care 115 mg/dL (70-110)
== END 2022-05-04 15:26 | disposition home or self-care (01) ==
PROVIDERS: Emergency Provider Emergency Medicine; PCP Nurse Practitioner Family
DX: R07.9 Chest pain, unspecified (principal); I10 Essential (primary) hypertension; E78.5 Hyperlipidemia, unspecified; F15.90 Other stimulant use, unspecified, uncomplicated; F17.220 Nicotine dependence, chewing tobacco, uncomplicated
CPT/HCPCS: 36415; 36416; 71045; 80053; 82962; 84484; 85025; 93005; 96360; 99285; J7030

== ENCOUNTER 2023-02-23 15:49 | Emergency (ER) | payer MEDICAID, SELFPAY ==
[2022-03-29 16:30] VITALS: BP 133/96; BMI 37.3
--- NOTE | 2023-02-23 15:59 | ECG_ITS ---
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 Measurements Intervals [place] Rate: 110 P: 47 AL: 148 QRS: 70 QRSD: 100 T: 61 QT: 321 QTc: 434 Interpretive Statements SINUS TACHYCARDIA ABNORMAL RHYTHM ECG Compared to ECG 05/04/2022 14:51:19 Sinus rhythm no longer present Electronically Signed On 02-23-2023 17:00:59 CDT by Nano Mcintyre M.D. [id number]
[2023-02-23 16:00] VITALS: BP 159/117; PULSE 109; RESP 24; O2SAT 100; BMI 26.6
[2023-02-23 16:01] LABS: Glucose Point of Care 114 mg/dL (70-110)
--- NOTE | 2023-02-23 16:01 | CTR_ITS ---
PROCEDURE INFORMATION: Exam: CT Head Without Contrast Exam date and time: 02/23/2023 4:26 PM Age: 47 years old Clinical indication: Altered mental status/memory loss; Additional info: AMS, tremor, closed head injury TECHNIQUE: Imaging protocol: Computed tomography of the head without contrast. Radiation optimization: All CT scans at this facility use at least one of these dose optimization techniques: automated exposure control; mA and/or kV adjustment per patient size (includes targeted exams where dose is matched to clinical indication); or iterative reconstruction. REPORTING DATA: Count of CT and Cardiac NM exams in prior 12 months: This patient has received 3 known CTs and 0 known cardiac nuclear medicine studies in the 12 months prior to the current study. COMPARISON: CT head wo con* [id number] 12/27/2019 9:54 AM RADIATION DOSE METRICS: Total DLP (mGy-cm): 1207.14 FINDINGS: Brain: No acute intracranial hemorrhage, cerebral edema, or midline shift. Cerebral ventricles: No hydrocephalus. Paranasal sinuses: There is no acute sinusitis. Mastoid air cells: Visualized mastoid air cells are well aerated. Orbital cavities: The visualized orbits appear unremarkable. Bones/joints: No acute fracture. Soft tissues: Unremarkable. CT/CT head wo con* [id number] IMPRESSION: No acute intracranial abnormality.
--- NOTE | 2023-02-23 16:04 | W.ED.GENADLT ---
Documented by User: Arpan Nair DO 02/28/23 06:39 HPI - General Adult General: Chief complaint: Chest Pain Stated complaint: Chest pain, Not able speak, possible seizures Time Seen by Provider: 02/23/23 16:00 Source: patient Mode of arrival: ambulatory History of Present Illness: 39-year-old male presents emergency room having difficult time speaking. He has very irregular continuous movements of his mouth and protruding this time does not appear to be like a tardive dyskinesia. With distraction we will stop when we ask him to simply close his mouth and bite down at his teeth he is able to stop it but then states he feels like he cannot breathe. He has no trauma. This began suddenly today he has not previously had these episodes in the past. He is also complaining of some mild chest discomfort. Reports this is been going on for couple hours and seems to be getting worse. Onset (ago): hour(s) Relieving factors: none Exacerbating factors: none Associated symptoms: Reports chest pain and headache(s); Deny confusion, cough, diaphoresis, decreased appetite, dyspnea, fevers/chills, malaise, nausea, rash, palpitations, seizures, short of breath, syncope, vomiting or weakness Treatments prior to arrival: none Review of Systems Const: Denies: fever(s), chills, malaise or diaphoresis Card: Reports: chest pain; Denies: palpitations, irregular heart rhythm, edema or syncope Resp: Denies: dyspnea GI: Denies: abdominal pain, nausea or vomiting : Denies: flank pain, dysuria, urinary frequency or urinary urgency Skin/Breast: Denies: rash Neuro: Reports: headache(s), frequent falls and dizziness; Denies: confusion Psych: Reports: anxiety PFSH ED PFSH: Medical History Benign essential HTN Bipolar I disorder, current or most recent episode manic, severe Colitis Hyperlipidemia Methamphetamine dependence, continuous Psychiatric care Psychiatric care Seasonal allergies Tardive dyskinesia Surgical History History of dental surgery Family History Other Diabetes Hyperlipidemia Lung disease Schizophrenia Stroke Social History Smoking and tobacco status: current every day smoker smokeless tobacco Smokeless tobacco user: chewing tobacco Smokeless tobacco details: 3-4 cans per week Quit status (tobacco): not considering quitting Second hand smoke exposure: Yes Alcohol intake: current Alcohol intake frequency: other Substance/Drug Use: current Substance/Drug use frequency: daily Adopted: No Caregiver/support person: No Lives independently: Yes Housing: House Marital status: Marital status details: 2013 Number of children: 1 Number of grandchildren: 1 Highest education level completed: GED or Equivalent service: No Current occupational status: disabled Current occupational exposures/hazards: No Pets and animals: No Leisure activites: music and other Leisure activities details: hamilton quite a bit Sexually active: No Do you think of yourself as: Straight/Heterosexual Current gender identity: Male Lianet/Taoist: Nondenominational Special lianet needs: No Agree to transfusion: Yes Financial difficulty paying for basics: Somewhat Hard Additional social history: SUBSTANCE ABUSE HISTORY: He reports he chews about a can of tobacco a day but does not smoke, he reports he last drank alcohol about six years ago, he does not use marijuana or cocaine, he does use methamphetamine and has used opiates. He reports he has had two to three drug rehabilitations. He has had a couple of DUIs, the last one may have been in 2004. FAMILY HISTORY: He denies any history of mental health issues, addiction, or lethality in his family. DEVELOPMENTAL HISTORY: He denies any issues with his mom?s or delivery of him. He reports he learned how to walk and talk and met all developmental milestones on time. He reports when he went to school, there was no speech therapy, learning support, emotional support, or special education classes. PSYCHOSOCIAL HISTORY: He reports that his mother and father were together when he was born and when he was about 15 years old. They had him and a younger brother together. His mom had no other children; his dad had a couple step kids, a couple of adopted kids, and then a half-sister. He reports that his childhood was tough at times, because he was poor, be he denies any emotional, physical, or sexual abuse. He reports the highest grade he went to was the ninth grade, and he got his GED in 1991. He endorses being a heterosexual, with his longest relationship being a couple of years. He was once, not sure if he is , but he has not seen the person for many, many, many years. He reports he has a 20 year old daughter that he sees a little bit, but he was never to her mother. He denies any history. He endorses being a Nondenominational. The longest job he has had, he said, was ninety days. He reports he lives in a trailer on a friend?s property. LEGAL HISTORY: He reports that he has been to group home multiple times, not actually sure how many. The longest time he was behind bars was the five years he spent in long-term that ended in April 2019. Physical Exam Const: GENERAL APPEARANCE: cooperative and comfortable ORIENTATION/CONSCIOUSNESS: Yes awake, Yes oriented to person, Yes oriented to place and Yes oriented to time HENMT: COMMON NORMALS: normocephalic, atraumatic and hearing grossly normal bilaterally HEAD & SCALP: normocephalic and atraumatic Resp: COMMON NORMALS: normal respiratory effort, No retractions, No use of accessory muscles and clear to auscultation bilaterally AUSCULTATION: clear to auscultation bilaterally Cardio: COMMON NORMALS: regular rate, regular rhythm and No murmurs present (Cardio) RATE: regular rate RHYTHM: regular rhythm GI: COMMON NORMALS: Soft to palpation and No hepatosplenomegaly present AUSCULTATION: Yes normoactive bowel sounds PALPATION: Yes Soft to palpation, No Tenderness to palpation present (GI), No Guarding due to palpation present (GI) and Yes No hepatosplenomegaly present Extremity: COMMON NORMALS: normal to inspection, capillary refill normal, no clubbing, cyanosis or edema, no calf tenderness and no pedal edema Neuro: SENSORIUM/ORIENTATION: Yes oriented to person, Yes oriented to place and Yes oriented to time OTHER: Patient having continuous movement of his jaw protruding his tongue works as genre and tongue rhythmic like manner but varies in oscillations. He is able to stop the movements on command when asked him to close his mouth he can do so but he will grit his teeth. When asked him to continue to breathing while keeping his mouth close he has difficulty with this. He refers some pain in the back of his head. There is no actual seizure-like activity noted. No focal neurologic deficits are noted cranial nerves II to XII are otherwise intact. Skin: COMMON NORMALS: no rashes or lesions noted GENERAL SKIN EXAM: no rashes or lesions noted Course Vital Signs: Vital signs: Vital Signs Pulse Rate 91 02/23/23 19:33 Respiratory Rate 14 02/23/23 19:33 Blood Pressure 134/90 02/23/23 19:33 Pulse Oximetry 95 02/23/23 19:33 Oxygen Delivery Me thod Room Air 02/23/23 19:00 MDM - General Adult Medical Decision Making Care signed out to Dr. Sanches at change of shift. See final notes for diagnosis and disposition. Patient presents for tardive dyskinesia he had presented with slurred speech he does have a history of tardive dyskinesia. He is much improved after Ativan his symptoms resolved he has no signs of stroke his head CT is normal he had some chest pain troponin EKG are normal no signs of acute coronary syndrome or dissection. He is to follow-up with PCP and return if worsening. Lab Data 02/23/23 16:13 02/23/23 17:[address] 02/23/23 16:01 IMPRESSION: No acute intracranial abnormality. Laboratory Results WBC 6.0 10^3/uL (4.0-10.0) 02/23/23 16:13 RBC 5.17 10^6/uL (4.1-5.3) 02/23/23 16:13 Hgb 14.9 g/dL (11.7-16.6) 02/23/23 16:13 Hct 48.3 % (42.0-52.0) 02/23/23 16:13 MCV 93.4 fl (80-94) 02/23/23 16:13 MCH 28.8 pg (28.0-34.0) 02/23/23 16:13 MCHC 30.8 g/dL (30.0-36.0) 02/23/23 16:13 RDW 12.8 % (12.1-15.1) 02/23/23 16:13 Plt Count 339 10^3/cmm (130-400) 02/23/23 16:13 MPV 9.1 fL (7.4-10.4) 02/23/23 16:13 Neut % (Auto) 51.1 % 02/23/23 16:13 Lymph % (Auto) 38.7 % 02/23/23 16:13 [place] % (Auto) 8.2 % 02/23/23 16:13 Eos % (Auto) 1.3 % 02/23/23 16:13 Baso % (Auto) 0.7 % 02/23/23 16:13 Neut # (Auto) 3.05 10^3/uL (1.8-7.7) 02/23/23 16:13 Lymph # (Auto) 2.3 10^3/uL (0.8-4.8) 02/23/23 16:13 [place] # (Auto) 0.5 10^3/uL (0.2-0.9) 02/23/23 16:13 Eos # (Auto) 0.1 10^3/uL (0.0-0.8) 02/23/23 16:13 Baso # (Auto) 0.0 10^3/uL (0.0-0.1) 02/23/23 16:13 Nucleated RBC % (auto) 0 % 02/23/23 16:13 Nucleated RBCs # 0.0 /100WBC 02/23/23 16:13 Sodium 141 mmol/L (136-145) 02/23/23 17:59 Potassium 4.0 mmol/L (3.5-5.1) 02/23/23 17:59 Chloride 108 mmol/L (98-107) H 02/23/23 17:59 Carbon Dioxide 23 mmol/L (22-29) 02/23/23 17:59 Anion Gap 14.0 (5-19) 02/23/23 17:59 BUN 8 mg/dL (6-20) 02/23/23 17:59 Creatinine 1.0 mg/dL (0.7-1.2) 02/23/23 17:59 GFR Calculation 79.8 mL/min (90-130) L 02/23/23 17:59 Glucose 95 mg/dL (65-115) 02/23/23 17:59 POC Glucose 114 mg/dL (70-110) H 02/23/23 15:58 Calculated Osmolality 290 mOsm/kg (285-295) 02/23/23 17:59 Calcium 8.7 mg/dL (8.5-10.5) 02/23/23 17:59 Total Bilirubin 0.5 mg/dL (0.15-1.2) 02/23/23 17:59 AST 11 U/L (0-40) 02/23/23 17:59 ALT 12 U/L (0-41) 02/23/23 17:59 Alkaline Phosphatase 105 U/L (40-130) 02/23/23 17:59 Creatine Kinase 34 U/L (39-308) L 02/23/23 17:59 Troponin T Baseline 6 ng/L (0-15) 02/23/23 17:59 Total Protein 6.3 g/dL (6.6-8.7) L 02/23/23 17:59 Albumin 3.9 g/dL (3.5-5.2) 02/23/23 17:59 Globulin 2.4 g/dL (1.3-4.6) 02/23/23 17:59 Discharge Plan Discharge Patient Disposition: Home Clinical Impression: Tardive dyskinesia, Chest pain Condition: Stable Prescriptions: No Action cholecalciferol (vitamin D3) 25 mcg (1,000 unit) capsule 25 mcg PO DAILY@19 calcium carbonate 400 mg calcium (1,000 mg) tablet,chewable 400 mg PO DAILY@19 docusate sodium [Colace] 100 mg capsule 100 mg PO DAILY@19 bisacodyl [C-Lax Laxative (bisacodyl)] 5 mg tablet,delayed release (DR/EC) 5 mg PO DAILY PRN (Reason: Constipation) albuterol sulfate [Ventolin HFA] 90 mcg/actuation HFA aerosol inhaler 2 puff inhalation Q6H PRN (Reason: Shortness Of Breath) cyclobenzaprine 10 mg tablet 10 mg PO TID PRN (Reason: Muscle Spasm) cyproheptadine 4 mg tablet 4 mg PO BEDTIME Qty: 30 3RF Rx Instructions: Take one tablet at bedtime Ingrezza 40 mg capsule 40 mg PO .morning Qty: 30 6RF Rx Instructions: Take one capsule every morning naloxone [Narcan] 4 mg/actuation spray,non-aerosol 4 mg intranasal Q2M PRN (Reason: opioid overdose) Qty: 4 3RF Rx Instructions: 1 dose into ONE nostril alternate nostrils w each dose until help arrives mirtazapine [Remeron SolTab] 45 mg tablet,disintegrating 45 mg PO BEDTIME Qty: 30 6RF Rx Instructions: Take one tablet at bedtime ziprasidone HCl [Geodon] 40 mg capsule 40 mg PO .evening Qty: 30 3RF Rx Instructions: Take one capsule in evening with 500 calorie meal topiramate [Topamax] 25 mg tablet 25 mg PO BID Qty: 60 2RF Rx Instructions: Take one tablet twice per day atorvastatin 20 mg tablet 20 mg PO DAILY@19 amlodipine 5 mg Tablet 5 mg PO DAILY@19 lisinopril-hydrochlorothiazide 20-25 mg tablet 1 tab PO DAILY@19 30 Days Qty: 30 1RF spironolactone 25 mg tablet 25 mg PO DAILY@19 levothyroxine 25 mcg tablet 25 mcg PO DAILY@19 omeprazole 20 mg capsule,delayed release(DR/EC) 20 mg PO DAILY@19 loratadine 10 mg tablet 10 mg PO DAILY@ Discharge Orders: Discharge ED (Routine); Ordered 02/23/23 Ordered By: Dwight Sanches Referrals: Silvia Arevalo [Primary Care Provider] - Discharge Diet: Advance as tolerated Discharge Activity: Resume usual activity Patient Instructions: Chest Pain (ED), Tardive Dyskinesia Coding Level of Care Code ED Geophysical Prospecting Surveyor for Chg Fwd Documented by User: Dwight Sanches MD 02/23/23 19:21 HPI - General Adult General: Chief complaint: Chest Pain Stated complaint: Chest pain, Not able speak, possible seizures Time Seen by Provider: 02/23/23 16:00 History of Present Illness: p PFSH ED PFSH: Medical History Benign essential HTN Bipolar I disorder, current or most recent episode manic, severe Colitis Hyperlipidemia Methamphetamine dependence, continuous Psychiatric care Psychiatric care Seasonal allergies Tardive dyskinesia Surgical History History of dental surgery Family History Other Diabetes Hyperlipidemia Lung disease Schizophrenia Stroke Social History Smoking and tobacco status: current every day smoker smokeless tobacco Smokeless tobacco user: chewing tobacco Smokeless tobacco details: 3-4 cans per week Quit status (tobacco): not considering quitting Second hand smoke exposure: Yes Alcohol intake: current Alcohol intake frequency: other Substance/Drug Use: current Substance/Drug use frequency: daily Adopted: No Caregiver/support person: No Lives independently: Yes Housing: House Marital status: Marital status details: 2013 Number of children: 1 Number of grandchildren: 1 Highest education level completed: GED or Equivalent service: No Current occupational status: disabled Current occupational exposures/hazards: No Pets and animals: No Leisure activites: music and other Leisure activities details: hamilton quite a bit Sexually active: No Do you think of yourself as: Straight/Heterosexual Current gender identity: Male Lianet/Taoist: Nondenominational Special lianet needs: No Agree to transfusion: Yes Financial difficulty paying for basics: Somewhat Hard Additional social history: SUBSTANCE ABUSE HISTORY: He reports he chews about a can of tobacco a day but does not smoke, he reports he last drank alcohol about six years ago, he does not use marijuana or cocaine, he does use methamphetamine and has used opiates. He reports he has had two to three drug rehabilitations. He has had a couple of DUIs, the last one may have been in 2004. FAMILY HISTORY: He denies any history of mental health issues, addiction, or lethality in his family. DEVELOPMENTAL HISTORY: He denies any issues with his mom?s or delivery of him. He reports he learned how to walk and talk and met all developmental milestones on time. He reports when he went to school, there was no speech therapy, learning support, emotional support, or special education classes. PSYCHOSOCIAL HISTORY: He reports that his mother and father were together when he was born and when he was about 15 years old. They had him and a younger brother together. His mom had no other children; his dad had a couple step kids, a couple of adopted kids, and then a half-sister. He reports that his childhood was tough at times, because he was poor, be he denies any emotional, physical, or sexual abuse. He reports the highest grade he went to was the ninth grade, and he got his GED in 1991. He endorses being a heterosexual, with his longest relationship being a couple of years. He was once, not sure if he is , but he has not seen the person for many, many, many years. He reports he has a 20 year old daughter that he sees a little bit, but he was never to her mother. He denies any history. He endorses being a Nondenominational. The longest job he has had, he said, was ninety days. He reports he lives in a trailer on a friend?s property. LEGAL HISTORY: He reports that he has been to group home multiple times, not actually sure how many. The longest time he was behind bars was the five years he spent in long-term that ended in April 2019. Course Vital Signs: Vital signs: Vital Signs Pulse Rate 91 02/23/23 19:33 Respiratory Rate 14 02/23/23 19:33 Blood Pressure 134/90 02/23/23 19:33 Pulse Oximetry 95 02/23/23 19:33 Oxygen Delivery Me thod Room Air 02/23/23 19:00 MDM - General Adult Medical Decision Making Patient presents for tardive dyskinesia he had presented with slurred speech he does have a history of tardive dyskinesia. He is much improved after Ativan his symptoms resolved he has no signs of stroke his head CT is normal he had some chest pain troponin EKG are normal no signs of acute coronary syndrome or dissection. He is to follow-up with PCP and return if worsening. Lab Data 02/23/23 16:13 02/23/23 17:[address] 02/23/23 16:01 IMPRESSION: No acute intracranial abnormality. Laboratory Results WBC 6.0 10^3/uL (4.0-10.0) 02/23/23 16:13 RBC 5.17 10^6/uL (4.1-5.3) 02/23/23 16:13 Hgb 14.9 g/dL (11.7-16.6) 02/23/23 16:13 Hct 48.3 % (42.0-52.0) 02/23/23 16:13 MCV 93.4 fl (80-94) 02/23/23 16:13 MCH 28.8 pg (28.0-34.0) 02/23/23 16:13 MCHC 30.8 g/dL (30.0-36.0) 02/23/23 16:13 RDW 12.8 % (12.1-15.1) 02/23/23 16:13 Plt Count 339 10^3/cmm (130-400) 02/23/23 16:13 MPV 9.1 fL (7.4-10.4) 02/23/23 16:13 Neut % (Auto) 51.1 % 02/23/23 16:13 Lymph % (Auto) 38.7 % 02/23/23 16:13 [place] % (Auto) 8.2 % 02/23/23 16:13 Eos % (Auto) 1.3 % 02/23/23 16:13 Baso % (Auto) 0.7 % 02/23/23 16:13 Neut # (Auto) 3.05 10^3/uL (1.8-7.7) 02/23/23 16:13 Lymph # (Auto) 2.3 10^3/uL (0.8-4.8) 02/23/23 16:13 [place] # (Auto) 0.5 10^3/uL (0.2-0.9) 02/23/23 16:13 Eos # (Auto) 0.1 10^3/uL (0.0-0.8) 02/23/23 16:13 Baso # (Auto) 0.0 10^3/uL (0.0-0.1) 02/23/23 16:13 Nucleated RBC % (auto) 0 % 02/23/23 16:13 Nucleated RBCs # 0.0 /100WBC 02/23/23 16:13 Sodium 141 mmol/L (136-145) 02/23/23 17:59 Potassium 4.0 mmol/L (3.5-5.1) 02/23/23 17:59 Chloride 108 mmol/L (98-107) H 02/23/23 17:59 Carbon Dioxide 23 mmol/L (22-29) 02/23/23 17:59 Anion Gap 14.0 (5-19) 02/23/23 17:59 BUN 8 mg/dL (6-20) 02/23/23 17:59 Creatinine 1.0 mg/dL (0.7-1.2) 02/23/23 17:59 GFR Calculation 79.8 mL/min (90-130) L 02/23/23 17:59 Glucose 95 mg/dL (65-115) 02/23/23 17:59 POC Glucose 114 mg/dL (70-110) H 02/23/23 15:58 Calculated Osmolality 290 mOsm/kg (285-295) 02/23/23 17:59 Calcium 8.7 mg/dL (8.5-10.5) 02/23/23 17:59 Total Bilirubin 0.5 mg/dL (0.15-1.2) 02/23/23 17:59 AST 11 U/L (0-40) 02/23/23 17:59 ALT 12 U/L (0-41) 02/23/23 17:59 Alkaline Phosphatase 105 U/L (40-130) 02/23/23 17:59 Creatine Kinase 34 U/L (39-308) L 02/23/23 17:59 Troponin T Baseline 6 ng/L (0-15) 02/23/23 17:59 Total Protein 6.3 g/dL (6.6-8.7) L 02/23/23 17:59 Albumin 3.9 g/dL (3.5-5.2) 02/23/23 17:59 Globulin 2.4 g/dL (1.3-4.6) 02/23/23 17:59 Discharge Plan Discharge Patient Disposition: Home Clinical Impression: Tardive dyskinesia, Chest pain Condition: Stable Prescriptions: No Action cholecalciferol (vitamin D3) 25 mcg (1,000 unit) capsule 25 mcg PO DAILY@19 calcium carbonate 400 mg calcium (1,000 mg) tablet,chewable 400 mg PO DAILY@19 docusate sodium [Colace] 100 mg capsule 100 mg PO DAILY@19 bisacodyl [C-Lax Laxative (bisacodyl)] 5 mg tablet,delayed release (DR/EC) 5 mg PO DAILY PRN (Reason: Constipation) albuterol sulfate [Ventolin HFA] 90 mcg/actuation HFA aerosol inhaler 2 puff inhalation Q6H PRN (Reason: Shortness Of Breath) cyclobenzaprine 10 mg tablet 10 mg PO TID PRN (Reason: Muscle Spasm) cyproheptadine 4 mg tablet 4 mg PO BEDTIME Qty: 30 3RF Rx Instructions: Take one tablet at bedtime Ingrezza 40 mg capsule 40 mg PO .morning Qty: 30 6RF Rx Instructions: Take one capsule every morning naloxone [Narcan] 4 mg/actuation spray,non-aerosol 4 mg intranasal Q2M PRN (Reason: opioid overdose) Qty: 4 3RF Rx Instructions: 1 dose into ONE nostril alternate nostrils w each dose until help arrives mirtazapine [Remeron SolTab] 45 mg tablet,disintegrating 45 mg PO BEDTIME Qty: 30 6RF Rx Instructions: Take one tablet at bedtime ziprasidone HCl [Geodon] 40 mg capsule 40 mg PO .evening Qty: 30 3RF Rx Instructions: Take one capsule in evening with 500 calorie meal topiramate [Topamax] 25 mg tablet 25 mg PO BID Qty: 60 2RF Rx Instructions: Take one tablet twice per day atorvastatin 20 mg tablet 20 mg PO DAILY@19 amlodipine 5 mg Tablet 5 mg PO DAILY@19 lisinopril-hydrochlorothiazide 20-25 mg tablet 1 tab PO DAILY@19 30 Days Qty: 30 1RF spironolactone 25 mg tablet 25 mg PO DAILY@19 levothyroxine 25 mcg tablet 25 mcg PO DAILY@19 omeprazole 20 mg capsule,delayed release(DR/EC) 20 mg PO DAILY@19 loratadine 10 mg tablet 10 mg PO DAILY@19 Discharge Orders: Discharge ED (Routine); Ordered 02/23/23 Ordered By: Dwight Sanches Referrals: Silvia Arevalo [Primary Care Provider] - Discharge Diet: Advance as tolerated Discharge Activity: Resume usual activity Patient Instructions: Chest Pain (ED), Tardive Dyskinesia Coding Level of Care Code ED Geophysical Prospecting Surveyor for Mimi Gastelum
[2023-02-23 16:21] LABS: Basophils % 0.7 %; Eosinophils # 0.1 10^3/uL (0.0-0.8); Eosinophils % 1.3 %; Hematocrit 48.3 % (42.0-52.0); Hemoglobin 14.9 g/dL (11.7-16.6); Lymphocytes # 2.3 10^3/uL (0.8-4.8); Lymphocytes % 38.7 %; Mean Corpuscular HGB Conc 30.8 g/dL (30.0-36.0); Mean Corpuscular Hemoglobin 28.8 pg (28.0-34.0); Mean Corpuscular Volume 93.4 fl (80-94); Mean Platelet Volume 9.1 fL (7.4-10.4); Monocytes # 0.5 10^3/uL (0.2-0.9); Monocytes % 8.2 %; Neutrophils # 3.05 10^3/uL (1.8-7.7); Neutrophils % 51.1 %; Nucleated Red Blood Cells % 0 %; Platelet Count 339 10^3/cmm (130-400); Red Blood Count 5.17 10^6/uL (4.1-5.3); Red Cell Distribution Width 12.8 % (12.1-15.1)
[2023-02-23] MEDS: LORazepam 2 mg/mL INJ 1 mL IVP (16:25)
--- NOTE | 2023-02-23 18:04 | ECG_ITS ---
[facility] Test Date: 2023-02-23 Pat Name: Walt Madsen Department: Room: Gender: Male Family Practice Physician: : 1975 Requested By: Arpan Bah Order Number: [id number] MD: Armando Powell M.D. Measurements Intervals [place] Rate: 86 P: 42 MA: 140 QRS: 55 QRSD: 107 T: 43 QT: 364 QTc: 437 Interpretive Statements SINUS RHYTHM Compared to ECG 02/23/2023 16:00:53 Sinus tachycardia no longer present Electronically Signed On 02-24-2023 14:52:29 CDT by Armando Powell M.D. [email or web address]
[2023-02-23 18:36] LABS: Troponin(5th) Baseline 6 ng/L (0-15)
[2023-02-23 18:48] LABS: Alanine Aminotransferase 12 U/L (0-41); Albumin Level 3.9 g/dL (3.5-5.2); Alkaline Phosphatase 105 U/L (40-130); Aspartate Amino Transferase 11 U/L (0-40); Blood Urea Nitrogen 8 mg/dL (6-20); Calcium 8.7 mg/dL (8.5-10.5); Carbon Dioxide 23 mmol/L (22-29); Chloride 108 mmol/L (98-107); Creatine Phosphokinase 34 U/L (39-308); Globulin 2.4 g/dL (1.3-4.6); Glomerular Filtration Rate 79.8 mL/min (90-130); Glucose 95 mg/dL (65-115); Osmolality Calculated 290 mOsm/kg (285-295); Sodium 141 mmol/L (136-145); Total Bilirubin 0.5 mg/dL (0.15-1.2); Total Protein 6.3 g/dL (6.6-8.7)
[2023-02-23 19:00] VITALS: BP 129/85; PULSE 78; RESP 15; O2SAT 95
[2023-02-23 19:33] VITALS: BP 134/90; PULSE 91; RESP 14; O2SAT 95
== END 2023-02-23 19:35 | disposition home or self-care (01) ==
PROVIDERS: Family Medicine; Emergency Provider Emergency Medicine; PCP Registered Nurse
DX: G24.01 Drug induced subacute dyskinesia (principal); R07.9 Chest pain, unspecified; R51.9 Headache, unspecified; I10 Essential (primary) hypertension; E78.5 Hyperlipidemia, unspecified; F17.220 Nicotine dependence, chewing tobacco, uncomplicated; Z79.899 Other long term (current) drug therapy
CPT/HCPCS: 36415; 36416; 70450; 80053; 82550; 82962; 84484; 85025; 93005; 96374; 99285; J2060

== ENCOUNTER 2023-03-02 12:11 | Emergency (ER) | payer MEDICAID, SELFPAY ==
[2022-03-29 16:30] VITALS: BP 133/96; BMI 37.3
[2023-03-02 12:15] VITALS: BP 151/91; PULSE 99; RESP 16; TEMP 36.9; O2SAT 100; BMI 27.2
--- NOTE | 2023-03-02 12:18 | W.ED.PSYCHS ---
HPI - Psych General: Chief Complaint: Psychiatric Symptoms Stated Complaint: sent by [facility] [place] Time Seen by Provider: 03/02/23 12:18 History of Present Illness: Mr. Gardner is a 47-year-old gentleman with history of psychiatric history presenting the emergency department for evaluation. He has not been taking his medications for approximately 7 months and last used amphetamines approximately 1 week ago. He presented to his PCP and request medication refill however was referred to crisis stabilization who could not see him today. He denies suicidal or homicidal ideation. He denies hallucinations. He is endorses good sleep and appetite. Denies self-harm or injuries. He does endorse headaches and issues with speech at times though per review has a history of tardive dyskinesia which may explain symptoms. Overall course of symptoms has persisted. No other specific changes in health, exacerbating, or alleviating factors identified. History of same: Yes Context: not taking psychiatric medications Review of Systems General: Reports: 10 or more systems reviewed and unremarkable except in HPI and below PFSH ED PFSH: Medical History Benign essential HTN Bipolar I disorder, current or most recent episode manic, severe Colitis Hyperlipidemia Methamphetamine dependence, continuous Psychiatric care Psychiatric care Seasonal allergies Tardive dyskinesia Surgical History History of dental surgery Family History Other Diabetes Hyperlipidemia Lung disease Schizophrenia Stroke Social History Smoking and tobacco status: current every day smoker smokeless tobacco Smokeless tobacco user: chewing tobacco Smokeless tobacco details: 3-4 cans per week Quit status (tobacco): not considering quitting Second hand smoke exposure: Yes Alcohol intake: current Alcohol intake frequency: other Substance/Drug Use: current Substance/Drug use frequency: daily Adopted: No Caregiver/support person: No Lives independently: Yes Housing: House Marital status: Marital status details: 2013 Number of children: 1 Number of grandchildren: 1 Highest education level completed: GED or Equivalent service: No Current occupational status: disabled Current occupational exposures/hazards: No Pets and animals: No Leisure activites: music and other Leisure activities details: hamilton quite a bit Sexually active: No Do you think of yourself as: Straight/Heterosexual Current gender identity: Male Lianet/Alevism: Latter Day Special lianet needs: No Agree to transfusion: Yes Financial difficulty paying for basics: Somewhat Hard Additional social history: SUBSTANCE ABUSE HISTORY: He reports he chews about a can of tobacco a day but does not smoke, he reports he last drank alcohol about six years ago, he does not use marijuana or cocaine, he does use methamphetamine and has used opiates. He reports he has had two to three drug rehabilitations. He has had a couple of DUIs, the last one may have been in 2004. FAMILY HISTORY: He denies any history of mental health issues, addiction, or lethality in his family. DEVELOPMENTAL HISTORY: He denies any issues with his mom?s or delivery of him. He reports he learned how to walk and talk and met all developmental milestones on time. He reports when he went to school, there was no speech therapy, learning support, emotional support, or special education classes. PSYCHOSOCIAL HISTORY: He reports that his mother and father were together when he was born and when he was about 15 years old. They had him and a younger brother together. His mom had no other children; his dad had a couple step kids, a couple of adopted kids, and then a half-sister. He reports that his childhood was tough at times, because he was poor, be he denies any emotional, physical, or sexual abuse. He reports the highest grade he went to was the ninth grade, and he got his GED in 1991. He endorses being a heterosexual, with his longest relationship being a couple of years. He was once, not sure if he is , but he has not seen the person for many, many, many years. He reports he has a 20 year old daughter that he sees a little bit, but he was never to her mother. He denies any history. He endorses being a Latter Day. The longest job he has had, he said, was ninety days. He reports he lives in a trailer on a friend?s property. LEGAL HISTORY: He reports that he has been to senior care multiple times, not actually sure how many. The longest time he was behind bars was the five years he spent in [facility] that ended in April 2019. Physical Exam Const: COMMON NORMALS: alert GENERAL APPEARANCE: cooperative and well developed HENMT: COMMON NORMALS: normocephalic and atraumatic HEAD & SCALP: normocephalic and atraumatic Eye: COMMON NORMALS: conjunctivae normal CONJUNCTIVA: Yes conjunctivae normal SCLERA: sclerae normal Neck/C-Spine: COMMON NORMALS: supple GENERAL: Yes trachea midline Resp: COMMON NORMALS: clear to auscultation bilaterally EFFORT & INSPECTION: Yes able to speak in complete sentences AUSCULTATION: clear to auscultation bilaterally Cardio: COMMON NORMALS: regular rate and regular rhythm RATE: regular rate RHYTHM: regular rhythm GI: COMMON NORMALS: Soft to palpation PALPATION: Yes Soft to palpation and No Tenderness to palpation present (GI) Extremity: GENERAL: Yes normal exam except as noted and No edema Neuro: COMMON NORMALS: moves all extremities SENSORIUM/ORIENTATION: Yes alert and No Orientation impaired Psych: COMMON NORMALS: mental status grossly normal, Normal thought process present, cooperative, denies hallucinations, denies homicidal ideation and denies suicidal ideation THOUGHT PROCESS: Normal thought process present OTHER: Evidence of tardive dyskinesia Course Vital Signs: Vital signs: Vital Signs Temperature 98.4 F 03/02/23 12:15 Pulse Rate 82 03/02/23 13:27 Respiratory Rate 18 03/02/23 13:27 Blood Pressure 139/88 03/02/23 13:27 Pulse Oximetry 100 03/02/23 12:51 Oxygen Delivery Me thod Room Air 03/02/23 12:51 MDM - Psych Medical Decision Making 48-year-old gentleman with history of psychiatric illness presenting to the emergency department for need of medications. Patient is calm and cooperative. No evidence of clinical intoxication. He denies adamantly suicidal or homicidal ideation. Recent laboratory studies reviewed and I do not feel that patient requires repeat at this time. Head CT reviewed. Patient does not wish to have inpatient management for further evaluation. I will refill some of his medications. Need for outpatient follow-up discussed and patient verbalizes understanding. The results of ED evaluation were discussed with the patient including prescriptions and/or symptomatic cares (if applicable) including appropriate and responsible use, followup plan, and return precautions. The patient verbalized understanding and felt safe for discharge. Medical Records I reviewed the patient's medical records. Lab Data I reviewed the patient's lab results. Discharge Plan Discharge Patient Disposition: Home Clinical Impression: Encounter for psychiatric assessment, Tardive dyskinesia, Encounter for medication refill Condition: Stable Prescriptions: Continued atorvastatin 20 mg tablet 20 mg PO DAILY@19 Qty: 30 0RF Topamax 25 mg tablet 25 mg PO BID Qty: 60 0RF Rx Instructions: Take one tablet twice per day levothyroxine 25 mcg tablet 25 mcg PO DAILY@19 Qty: 30 0RF Geodon 40 mg capsule 40 mg PO .evening Qty: 30 0RF Rx Instructions: Take one capsule in evening with 500 calorie meal albuterol sulfate 90 mcg/actuation HFA aerosol inhaler 2 puff inhalation Q6H PRN (Reason: Shortness Of Breath) Qty: 8.5 0RF Ingrezza 40 mg capsule 40 mg PO .morning Qty: 30 0RF Rx Instructions: Take one capsule every morning No Action cholecalciferol (vitamin D3) 25 mcg (1,000 unit) capsule 25 mcg PO DAILY@19 calcium carbonate 400 mg calcium (1,000 mg) tablet,chewable 400 mg PO DAILY@19 docusate sodium [Colace] 100 mg capsule 100 mg PO DAILY@19 bisacodyl [C-Lax Laxative (bisacodyl)] 5 mg tablet,delayed release (DR/EC) 5 mg PO DAILY PRN (Reason: Constipation) topiramate 25 mg tablet 25 mg PO BID lisinopril 10 mg tablet 10 mg PO DAILY albuterol sulfate [Ventolin HFA] 90 mcg/actuation HFA aerosol inhaler 1 inh inhalation QID cyclobenzaprine 10 mg tablet 10 mg PO TID PRN (Reason: Muscle Spasm) cyproheptadine 4 mg tablet 4 mg PO BEDTIME Qty: 30 3RF Rx Instructions: Take one tablet at bedtime naloxone [Narcan] 4 mg/actuation spray,non-aerosol 4 mg intranasal Q2M PRN (Reason: opioid overdose) Qty: 4 3RF Rx Instructions: 1 dose into ONE nostril alternate nostrils w each dose until help arrives mirtazapine [Remeron SolTab] 45 mg tablet,disintegrating 45 mg PO BEDTIME Qty: 30 6RF Rx Instructions: Take one tablet at bedtime amlodipine 5 mg Tablet 5 mg PO DAILY@19 lisinopril-hydrochlorothiazide 20-25 mg tablet 1 tab PO DAILY@19 30 Days Qty: 30 1RF spironolactone 25 mg tablet 25 mg PO DAILY@19 omeprazole 20 mg capsule,delayed release(DR/EC) 20 mg PO DAILY@19 loratadine 10 mg tablet 10 mg PO DAILY@19 Discharge Orders: Discharge ED (Routine); Ordered 03/02/23 Ordered By: Dony Villanueva Referrals: Azalia Huddleston FNP [Primary Care Provider] - Discharge Diet: Usual diet Discharge Activity: Increase activity as tolerated Patient Instructions: Acute Headache (ED), Methamphetamine Use Disorder (ED), Tardive Dyskinesia Activity Restrictions/Additional Instructions: Thank you for visiting the emergency department. You were seen and evaluated for psychiatric assessment with need for medication refill. I will refill some of your medications however ultimately this requires outpatient management. Use caution and watch for potential side effects given that you have not been taking your medications. Additionally there is a prescription for lisinopril for your blood pressure already at the pharmacy. I would start with the lisinopril and follow-up with your primary care provider regarding additional medications or increasing the dose. I do not want to restart you on multiple blood pressure medications at once due to risk of low blood pressure. [facility] [phone] If you or someone you care for is experiencing a psychiatric emergency, please call the crisis hotline ([facility]) 24-hours a day, 7 days a week at [phone]. The crisis stabilization center on the south side of the hospital campus is open from 11 AM to 9 PM daily. Return to the emergency department for anything that you are concerned about and feel needs emergency department evaluation. Coding Level of Care Code ED Marketing Technology Coordinator for Mimi Gastelum
[2023-03-02] MEDS: diphenhydrAMINE 25 mg Capsule PO (12:45)
[2023-03-02] MEDS: acetaminophen 500 mg Tablet 1000 MG PO (12:45)
[2023-03-02] MEDS: metoclopramide 10 mg Tablet 5 MG PO (12:46)
--- NOTE | 2023-03-02 12:48 | PC.PHAR ---
PT STATES HE HASN'T TAKEN MEDS FOR AT LEAST 7 MONTHS- ASKED DR AMOR WHAT HE WOULD LIKE ME TO DO HE SAID TO LEAVE MEDS IN SYSTEM AND PUT UNKNOWN FOR LAST TAKEN- PHARMACY CONFIRMED PT HASN'T FILLED FOR A LONG TIME
[2023-03-02 12:51] VITALS: BP 151/91; PULSE 99; RESP 16; O2SAT 100
[2023-03-02 13:27] VITALS: BP 139/88; PULSE 82; RESP 18
== END 2023-03-02 13:27 | disposition home or self-care (01) ==
PROVIDERS: Emergency Provider Emergency Medicine; PCP Nurse Practitioner Family
DX: Z76.0 Encounter for issue of repeat prescription (principal); G24.01 Drug induced subacute dyskinesia; F17.220 Nicotine dependence, chewing tobacco, uncomplicated; I10 Essential (primary) hypertension; E78.5 Hyperlipidemia, unspecified
CPT/HCPCS: 99283; J8597

== ENCOUNTER 2023-03-04 19:48 | Emergency (ER) | payer MEDICAID, SELFPAY ==
[2022-03-29 16:30] VITALS: BP 133/96; BMI 37.3
[2023-03-04 20:04] VITALS: BP 149/93; PULSE 91; RESP 18; TEMP 36.4; O2SAT 100; BMI 27.2
== END 2023-03-04 21:26 | disposition left against medical advice (07) ==
LOC: ER 20:04
PROVIDERS: Emergency Provider Family Medicine; PCP Nurse Practitioner Family
DX: Z53.21 Procedure and treatment not carried out due to patient leaving prior to being seen by health care provider (principal)

== ENCOUNTER 2023-03-29 22:03 | Observation (INO) | payer MEDICAID, SELFPAY ==
[2022-03-29 16:30] VITALS: BP 133/96; BMI 37.3
[2023-03-29 22:10] VITALS: BP 132/104; PULSE 86; RESP 23; TEMP 36.5; O2SAT 100; BMI 27.3
--- NOTE | 2023-03-29 22:31 | ECG_ITS ---
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 Measurements Intervals [place] Rate: 82 P: 57 CO: 134 QRS: 71 QRSD: 106 T: 53 QT: 370 QTc: 434 Interpretive Statements SINUS RHYTHM Compared to ECG 02/23/2023 18:21:23 No significant changes Electronically Signed On 03-30-2023 14:42:35 CDT by Armando Powell M.D. [email or web address] Healthcareeast [id number]
--- NOTE | 2023-03-29 22:36 | CTR_ITS ---
PROCEDURE INFORMATION: Exam: CT Head Without Contrast Exam date and time: 03/29/2023 10:47 PM Age: 48 years old Clinical indication: Condition or disease; Convulsions or seizures; Additional info: Seizure TECHNIQUE: Imaging protocol: Computed tomography of the head without contrast. Radiation optimization: All CT scans at this facility use at least one of these dose optimization techniques: automated exposure control; mA and/or kV adjustment per patient size (includes targeted exams where dose is matched to clinical indication); or iterative reconstruction. REPORTING DATA: Count of CT and Cardiac NM exams in prior 12 months: This patient has received [address] and 0 known cardiac nuclear medicine studies in the 12 months prior to the current study. COMPARISON: CT head wo con* [id number] 02/23/2023 4:26 PM RADIATION DOSE METRICS: Total DLP (mGy-cm): 1002.42 FINDINGS: Brain: No evidence of acute intracranial hemorrhage. Suspected mild edema in the centrum semiovale, left more than right. No acute intra- or extra axial fluid collections are identified. The basal cisterns are patent. No mass effect or midline shift is seen. The mae-white matter differentiation is normal. Periventricular hypoattenuation are nonspecific but likely the sequela of chronic small vessel ischemic disease. Cerebral ventricles: There is mild cerebral volume loss and mild ex vacuo dilation of the ventricles. Mild prominence of the subarachnoid spaces. Paranasal sinuses: The paranasal sinuses appear grossly clear. Mastoid air cells: The mastoid air cells appear grossly clear. Orbital cavities: The patient is status post cataract extraction. Bones/joints: No acute calvarial fracture is identified. Soft tissues: No soft tissue abnormalities identified. Vasculature: There are atherosclerotic calcifications of the carotid siphons and the V4 segments of the vertebral arteries. CT/CT head wo con* [id number] IMPRESSION: 1. Mild edema in the left centrum semiovale. MRI of the brain is recommended for further evaluation, if clinically warranted. 2. Otherwise, no evidence of acute intracranial hemorrhage, mass effect, or midline shift
[2023-03-29 22:46] LABS: Basophils % 0.6 %; Eosinophils # 0.1 10^3/uL (0.0-0.8); Eosinophils % 1.4 %; Hematocrit 42.8 % (42.0-52.0); Lymphocytes # 2.3 10^3/uL (0.8-4.8); Lymphocytes % 36.3 %; Mean Corpuscular HGB Conc 32.7 g/dL (30.0-36.0); Mean Corpuscular Hemoglobin 29.5 pg (28.0-34.0); Mean Corpuscular Volume 90.1 fl (80-94); Mean Platelet Volume 9.1 fL (7.4-10.4); Monocytes # 0.5 10^3/uL (0.2-0.9); Monocytes % 8.1 %; Neutrophils # 3.37 10^3/uL (1.8-7.7); Neutrophils % 53.4 %; Nucleated Red Blood Cells % 0 %; Platelet Count 327 10^3/cmm (130-400); Red Blood Count 4.75 10^6/uL (4.1-5.3); Red Cell Distribution Width 13.1 % (12.1-15.1); White Blood Count 6.3 10^3/uL (4.0-10.0)
[2023-03-29 23:06] LABS: Lactic Sepsis W/Reflex 1.3 mmol/L (0.5-2.2)
[2023-03-29 23:07] LABS: Alanine Aminotransferase 14 U/L (0-41); Albumin Level 4.2 g/dL (3.5-5.2); Alkaline Phosphatase 107 U/L (40-130); Anion Gap 16.5 (5-19); Aspartate Amino Transferase 15 U/L (0-40); Blood Urea Nitrogen 13 mg/dL (6-20); Carbon Dioxide 20 mmol/L (22-29); Chloride 106 mmol/L (98-107); Globulin 2.4 g/dL (1.3-4.6); Glomerular Filtration Rate 102.7 mL/min (90-130); Glucose 81 mg/dL (65-115); Magnesium 1.8 mg/dL (1.7-2.3); Osmolality Calculated 287 mOsm/kg (285-295); Potassium 3.5 mmol/L (3.5-5.1); Sodium 139 mmol/L (136-145); Total Bilirubin 0.4 mg/dL (0.15-1.2); Total Protein 6.6 g/dL (6.6-8.7)
[2023-03-29 23:09] LABS: Alcohol Level < 10 mg/dL (0-10)
[2023-03-29 23:15] LABS: Glucose Point of Care 72 mg/dL (70-110)
[2023-03-29 23:17] VITALS: BP 100/73; PULSE 73; RESP 16; O2SAT 92
[2023-03-29 23:23] LABS: Amphetamines Screen Urine Positive (Negative); Barbiturates Screen Urine Negative (Negative); Benzodiazepines Screen Urine Negative (Negative); Cocaine Screen Urine Negative (Negative); Opiate Screen Urine Negative (Negative); PCP Screen Urine Negative (Negative); THC Screen Urine Negative (Negative)
[2023-03-30] VITALS (12 sets, daily range): BP systolic 104–129; BP diastolic 60–86; PULSE 65–88; RESP 14–18; TEMP 36.4–37.1; O2SAT 98–100
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
[2023-03-30] MEDS: dexamethasone 10 mg/mL INJ IVP (00:12)
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
[2023-03-30 01:17] LABS: Thyroid Stimulating Hormone 1.77 uIU/mL (0.27-4.20)
--- NOTE | 2023-03-30 01:40 | PC.NURSE ---
This nurse was completing the admission assessment with the pt while the GEOGRAPHIC INFORMATION SYSTEMS ANALYST got the pt's vital. Pt asked to put jacket on, GEOGRAPHIC INFORMATION SYSTEMS ANALYST stated we could bring extra blankets and adjust room temperature for comfort. Pt stated That's fine, but if I stay cold tonight then I'm walking out of here. This nurse continued with assessment. Pt resting in bed with current needs met at this time.
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
[2023-03-30] MEDS: levETIRAcetam 500 mg Tablet PO ×2 (08:45→17:45)
[2023-03-30] MEDS: topiramate 25 mg Tablet 50 MG PO ×2 (08:45→17:44)
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
[2023-03-30] MEDS: acetaminophen 325 mg Tablet 650 MG PO ×2 (10:59→19:06)
[2023-03-30] MEDS: magnesium sulfate premix 2 GM/50 ML PIGGYBACK IV (11:02)
--- NOTE | 2023-03-30 20:45 | P.PN_ITS ---
Subjective Subjective: He is having mild headache this morning. No nausea or vomiting. No vision changes. No additional seizures so far. He reports that he has been cutting down on how much methamphetamine he has been consuming. He declines that rehabilitation would be helpful for him. He reports that he has not followed up with behavioral health care in a while [place] about 6 months probably, states that he has mostly been taking his medications but has missed some of them, has been resuming them recently. Is supposed to have follow-up at [facility] clinic coming up. Vitals/I&O/Wt Last Vital Signs Temp 98.7 F 03/30/23 19:50 Pulse 86 03/30/23 19:50 Resp 18 03/30/23 19:50 BP 108/67 03/30/23 19:50 Pulse Ox 100 03/30/23 19:50 O2 Del Method Room Air 03/30/23 01:27 03/30/23 03/30/23 03/30/23 06:59 14:59 22:59 Intake Total 230 / 230 410 / 410 240 / 650 Output Total 700 / 700 Balance 230 / 230 -290 / -290 240 / -50 Weight last 48 hrs Weight 79.379 kg Physical Exam Const: COMMON NORMALS: patient oriented x3 and alert GENERAL APPEARANCE: cooperative ORIENTATION/CONSCIOUSNESS: Yes awake HENMT: COMMON NORMALS: oropharynx normal Neck/C-Spine: COMMON NORMALS: no JVD Resp: COMMON NORMALS: normal respiratory effort and clear to auscultation bilaterally AUSCULTATION: clear to auscultation bilaterally Cardio: COMMON NORMALS: no JVD, regular rhythm, S1 normal heart sound present, S2 normal heart sound present and No murmurs present (Cardio) RHYTHM: regular rhythm HEART SOUNDS: S1 normal heart sound present and S2 normal heart sound present GI: COMMON NORMALS: Normal to inspection, nondistended, normoactive bowel sounds present, Soft to palpation and non-tender PALPATION: Yes Soft to palpation Extremity: COMMON NORMALS: no joint enlargement and no pedal edema Neuro: COMMON NORMALS: patient oriented x3 and moves all extremities SENSORIUM/ORIENTATION: Yes alert Skin: COMMON NORMALS: no rashes or lesions noted GENERAL SKIN EXAM: no rashes or lesions noted Data 03/29/23 22:37 03/29/23 22:37 A&P Assessment and plan (1) Seizure-like activity: Neurology consultation reviewed, appreciate, continue Junito Ramachandran. Pending assessment by MRI, staff has been having difficulty reaching his public guardian to obtain approval. Seizure precautions Telemetry Noted normal TSH noted unremarkable CBC, chemistry. Follow-up labs. Check magnesium. Noted positive UDS for amphetamines. Discussed with case management. (2) Abnormal CT of brain: Pending additional assessment by MRI head. Noted neurology consultation. Reinforced with him again avoidance of Methamphetamine use. (3) Methamphetamine dependence, continuous: Continue to encourage cessation. He does not feel that rehabilitation would be helpful for him. He states has been cutting way down. discussed with case management. Plan Bipolar disorder: Has fallen out a follow-up with [facility], he is supposed to be reestablishing with them. Has missed some medications, states has been restarting his medicines. discussed with psychiatry on requested consultation. Multiple other medical problems as outlined in past medical history: Resumed home medications Psychiatry additionally updated on considerations of assisted placement by patient's public guardian. Full code SCDs for DVT prophylaxis, with consideration of pharmacological DVT prophylaxis after MRI results are known Attestations Medical Necessity Statement*: He requires continued hospitalization for further assessment of multiple seizure episodes, optimization of control and additional diagnostic measures. Diagnoses Seizure-like activity R56.[address] of brain R90.89 Methamphetamine dependence, continuous F15.20
[2023-03-30] MEDS: cyclobenzaprine 10 mg Tablet PO (21:13)
[2023-03-30] MEDS: mirtazapine 30 mg Tablet 45 MG PO (21:13)
[2023-03-31] VITALS (12 sets, daily range): BP systolic 99–118; BP diastolic 58–72; PULSE 56–80; RESP 15–18; TEMP 36.4–37.1; O2SAT 96–100
[2023-03-31 05:07] LABS: Basophils % 0.5 %; Eosinophils % 0.7 %; Hematocrit 45.6 % (42.0-52.0); Hemoglobin 14.9 g/dL (11.7-16.6); Lymphocytes # 1.9 10^3/uL (0.8-4.8); Lymphocytes % 30.8 %; Mean Corpuscular HGB Conc 32.7 g/dL (30.0-36.0); Mean Corpuscular Hemoglobin 29.2 pg (28.0-34.0); Mean Corpuscular Volume 89.4 fl (80-94); Mean Platelet Volume 9.4 fL (7.4-10.4); Monocytes # 0.5 10^3/uL (0.2-0.9); Monocytes % 7.3 %; Neutrophils # 3.71 10^3/uL (1.8-7.7); Neutrophils % 60.5 %; Nucleated Red Blood Cells % 0 %; Platelet Count 316 10^3/cmm (130-400); Red Cell Distribution Width 13.2 % (12.1-15.1); White Blood Count 6.1 10^3/uL (4.0-10.0)
[2023-03-31 05:22] LABS: Alanine Aminotransferase 15 U/L (0-41); Alkaline Phosphatase 108 U/L (40-130); Anion Gap 14.8 (5-19); Aspartate Amino Transferase 12 U/L (0-40); Blood Urea Nitrogen 9 mg/dL (6-20); Calcium 8.8 mg/dL (8.5-10.5); Carbon Dioxide 20 mmol/L (22-29); Chloride 112 mmol/L (98-107); Globulin 2.6 g/dL (1.3-4.6); Glomerular Filtration Rate 102.7 mL/min (90-130); Glucose 104 mg/dL (65-115); Magnesium 2.1 mg/dL (1.7-2.3); Osmolality Calculated 295 mOsm/kg (285-295); Potassium 3.8 mmol/L (3.5-5.1); Sodium 143 mmol/L (136-145); Total Bilirubin 0.2 mg/dL (0.15-1.2); Total Protein 6.6 g/dL (6.6-8.7)
--- NOTE | 2023-03-31 08:00 | MR_ITS ---
WS: [id number] MRI HEAD WITH CONTRAST TECHNIQUE: Sagittal T1, T2 axial, T2 axial FLAIR, axial susceptibility weighted imaging, axial diffus ion weighted images, and coronal T2 images were obtained. Pre and post-T1 axial and post T1 coronal i mages. ADC and FSPGR images. CLINICAL INFORMATION: abnormal CT COMPARISON: CT head 03/29/2023 FINDINGS: Previously described suspected edema in the left centrum semiovale is not seen on today's MRI and lik jack due to beam hardening artifact. No restricted diffusion to suggest acute ischemia. No suspicious intracranial signal normalities. Normal mae-white differentiation. Normal posterior fossa. Normal va scular flow voids at the skull base. No extra-axial fluid collections. No evidence of mass or mass ef fect. No hemosiderin on susceptibility-weighted images. Normal optic chiasm and pituitary infundibulum. Temporal lobes and hippocampal formations are normal in appearance. No signal abnormalities in the mesial temporal lobes. Normal posterior nasopharynx and parapharyngeal fat. No abnormal gadolinium enhancement. Normal dural venous sinuses. IMPRESSION: 1. No evidence of restricted diffusion to suggest acute ischemia. 2. No suspicious signal abnormalities in the centrum semiovale to correspond to the CT findings. 3. No suspicious intracranial signal normalities. 4. No abnormal intracranial enhancement. 5. No hemosiderin on susceptibility weighted images.
[2023-03-31] MEDS: gadobenate dimeglumine 20 mL vial IV (08:34)
[2023-03-31] MEDS: topiramate 25 mg Tablet 50 MG PO ×2 (08:45→17:58)
[2023-03-31] MEDS: levETIRAcetam 500 mg Tablet PO ×2 (08:45→17:58)
--- NOTE | 2023-03-31 10:31 | PC.CHAP ---
Pastoral Care Encounter/Spiritual Assessment Type of Contact [] Declined shredding machine operator visit [] Patient/Family/Request visit [] Outpatient visit [x] Follow-up visit [] Physician referral [] Code/Alert [x] Routine visit [] Staff referral [] Actively dying [] Patient sleeping [] Family support [] [] Out of room [] Palliative care [] [x] Receiving care in room [] Pre-surgical visit [] Trauma [] Long length of stay [] ICU visit [] Other: Relational/Emotional Strength [] Patient feels connected with others/family/visitors/staff [] Distress [] Loneliness/isolation [] Abandonment Spirituality of Patient [] Person of Lianet [] Attends Restorationism of their Lianet [] Believes in Prayer [] Reads Bible or Hoahaoism materials [] There are Spiritual issues to be addressed Spooling Operator Interventions [] Prayer [] Active listening [] Non-anxious presence [] Spiritual/emotional support [] Crisis/trauma care [] Spiritual counseling [] Bereavement support [] Provided bereavement packet [] Provided Bible/devotional materials [] Provided toy/stuffed animal, coloring book to patient or family member [] Provided Communion [] Anointing/[place] [] Salvation [] Completed spiritual assessment [] Other: Impact on Illness or Injury [] Angry [] Fearful [] Anxious [] Often cries [] Exhaustion [] Unable to work [] Unable to attend mandaen [] Unable to walk/stand [] Unable to read [] Unable to drive [] Unable to eat/drink [] Unable to sleep [] Unable to be with family [] Patient intubated [] Other: Summary Follow-up visit /asleep Time spent with patient 5 mins
[2023-03-31] MEDS: pantoprazole DR 40 mg Tablet PO (17:58)
[2023-03-31] MEDS: spironolactone 25 mg Tablet PO (17:58)
[2023-03-31] MEDS: levothyroxine 25 mcg Tablet PO (17:58)
[2023-03-31] MEDS: docusate sodium 100 mg Capsule PO (17:58)
[2023-03-31] MEDS: atorvastatin 40 mg Tablet PO (17:58)
--- NOTE | 2023-03-31 18:21 | PC.NURSE ---
Patient has slept most of the day today. Has not stated or shown any signs of SI. Currently resting in bed.
--- NOTE | 2023-03-31 19:06 | W.PM.NPUPNS ---
Subjective NPU Subjective: Patient presented today unchanged. Reports of any suicidal thinking denied. He reports that he is open to the recommendations of the treatment team and denied any psychiatric symptoms and continued to deny a desire for sober living treatment and reports a plan to continue his slow but methodical discontinuation of methamphetamine. Mental Status Exam MSE Comments: This is an overweight white male in hospital gown with limited grooming and eye contact. No abnormal movements except psychomotor retardation. Cooperative with exam in no acute distress. Speech was normal rate and volume. Mood described as okay, affect congruent. Thought process organized. Thought content: Patient denied suicidal or homicidal ideation, there were no delusions reported or noted, he denied any auditory or visual hallucinations. Attention and concentration were intact and memory appeared unreliable but none were formally tested. He is alert and oriented x3. Insight and judgment appear fair. impulse control appears limited. Vitals/I&O/Wt Last Vital Signs Temp 98.1 F 03/31/23 15:51 Pulse 74 03/31/23 15:51 Resp 18 03/31/23 15:51 BP 113/72 03/31/23 15:51 Pulse Ox 97 03/31/23 15:51 O2 Del Method Room Air 03/31/23 15:51 03/31/23 03/31/23 03/31/23 06:59 14:59 22:59 Intake Total 480 / 1610 480 / 480 480 / 960 Output Total 300 / 300 Balance 480 / 910 180 / 180 480 / 660 Weight last 48 hrs Weight 79.379 kg Data NPU 03/31/23 04:46 03/31/23 04:46 A&P Assessment and plan (1) Seizure-like activity: (2) Bipolar I disorder, current or most recent episode manic, severe: (3) Methamphetamine dependence, continuous: (4) Nicotine dependence, chewing tobacco, with unspecified nicotine-induced disorders: Plan This is a 48 year old, white male, with a history of methamphetamine addiction, depression, anxiety, and psychosis, and a question of schizophrenia, who presents with reported seizure activity being evaluated reporting being off his medication but not interested in psychiatric care. ? 1. Continue current medication. 2. Continue individual and milieu therapy.? 3. Continue q-15 minute checks for safety.? 4. No need for acute psychiatric follow up noted. Reports of a concern for lethality was not substantiated nor was there any proof of recency of the statements if they have and occurred. Can discharge when medically stable Involuntary Hold Information 96 Hour Hold: 96 Hour Involuntary Admission: No 96 Hour Hold Ending Date: 12/05/19 96 Hour Hold Ending Time: 21:13 Attestations NPU Medical Necessity Statement*: N/A. Please see primary team note for medical necessity. Coding Level of Care Code Acute Code for Chg Fwd Diagnoses Seizure-like activity R56.9 Bipolar I disorder, current or most recent episode manic, severe F31.13 Methamphetamine dependence, continuous F15.20 Nicotine dependence, chewing tobacco, with unspecified nicotine-induced disorders F17.229
[2023-03-31] MEDS: cyclobenzaprine 10 mg Tablet PO (19:25)
[2023-03-31] MEDS: mirtazapine 30 mg Tablet 45 MG PO (20:41)
[2023-04-01] VITALS: BP 109/68; PULSE 63; RESP 16; TEMP 36.5; O2SAT 96
--- NOTE | 2023-04-01 00:40 | P.PN_ITS ---
Subjective Subjective: Undergoing dialysis he does not turn around to speak with me today, but states that he is okay, denies pain or discomfort, states headache has resolved. Has spoken with psychiatry. Vitals/I&O/Wt Last Vital Signs Temp 97.7 F 04/01/23 00:00 Pulse 63 04/01/23 00:00 Resp 16 04/01/23 00:00 BP 109/68 04/01/23 00:00 Pulse Ox 96 04/01/23 00:00 O2 Del Method Room Air 04/01/23 00:00 03/31/23 03/31/23 04/01/23 14:59 22:59 06:59 Intake Total 480 / 480 720 / 1200 Output Total 300 / 300 Balance 180 / 180 720 / 900 Physical Exam Const: COMMON NORMALS: patient oriented x3 ORIENTATION/CONSCIOUSNESS: Yes awake HENMT: COMMON NORMALS: oropharynx normal Neck/C-Spine: COMMON NORMALS: no JVD Resp: COMMON NORMALS: normal respiratory effort and clear to auscultation bilaterally AUSCULTATION: clear to auscultation bilaterally Cardio: COMMON NORMALS: no JVD, regular rhythm, S1 normal heart sound present, S2 normal heart sound present and No murmurs present (Cardio) RHYTHM: regular rhythm HEART SOUNDS: S1 normal heart sound present and S2 normal heart sound present GI: COMMON NORMALS: Normal to inspection, nondistended, normoactive bowel sounds present, Soft to palpation and non-tender PALPATION: Yes Soft to palpation Extremity: COMMON NORMALS: no joint enlargement and no pedal edema Neuro: COMMON NORMALS: patient oriented x3 and moves all extremities Skin: COMMON NORMALS: no rashes or lesions noted GENERAL SKIN EXAM: no rashes or lesions noted Data 03/31/23 04:46 03/31/23 04:46 A&P Assessment and plan (1) Seizure-like activity: Underwent MRI today, results noted, unremarkable. No recurrent seizure episodes. Continue antiepileptics. Neurology consultation reviewed, appreciate, continue Junito Ramachandran. Pending assessment by MRI, staff has been having difficulty reaching his public guardian to obtain approval. Seizure precautions Telemetry Otherwise afebrile, no suggestion of infection. WBC normal. Neutrophils normal. Electrolytes unremarkable today again, sodium 143, anion gap 14.8. Noted still possible mild acidosis bicarb 20. Magnesium noted 2.1. Discussed with discharge planning. (2) Abnormal CT of brain: Pending additional assessment by MRI head. Noted neurology consultation. Reinforced with him again avoidance of Methamphetamine use. (3) Methamphetamine dependence, continuous: Continue to encourage cessation. He does not feel that rehabilitation would be helpful for him. He states has been cutting way down. discussed with case management, as per discussion with patient's guardian arrangements for placement to [facility] [facility]. Plan Bipolar disorder: Pending further recommendations from psychiatry. Initially some consideration of possible suicidal ideation reports, however, confirmed with his nurse from yesterday has had no suicidal ideation. Has fallen out a follow-up with [facility] [place], he is supposed to be reestablishing with them. Has missed some medications, states has been restarting his medicines. discussed with psychiatry on requested consultation. Multiple other medical problems as outlined in past medical history: Resumed home medications Psychiatry additionally updated on considerations of [facility] [facility] placement by patient's public guardian. Full code SCDs for DVT prophylaxis, with consideration of pharmacological DVT prophylaxis after MRI results are known Attestations Medical Necessity Statement*: Continue admission for assessment management following multiple seizure-like episodes, assessment of bipolar disorder with lost to follow-up, resumption of medications, discharge planning and arrangements. Diagnoses Seizure-like activity R56.[address] of brain R90.89 Methamphetamine dependence, continuous F15.20
[2023-04-01 04:07] VITALS: BP 111/64; PULSE 63; RESP 15; TEMP 36.6; O2SAT 97
[2023-04-01 05:28] VITALS: PULSE 63
[2023-04-01 07:24] VITALS: BP 112/76; PULSE 66; RESP 16; TEMP 36.6; O2SAT 99
[2023-04-01 08:00] VITALS: PULSE 70; RESP 6; O2SAT 94
--- NOTE | 2023-04-01 09:04 | PC.CHAP ---
Pastoral Care Encounter/Spiritual Assessment Type of Contact [] Declined software quality assurance engineer visit [] Patient/Family/Request visit [] Outpatient visit [] Follow-up visit [] Physician referral [] Code/Alert [x] Routine visit [] Staff referral [] Actively dying [] Patient sleeping [x] Family support [] [] Out of room [] Palliative care [] [] Receiving care in room [] Pre-surgical visit [] Trauma [] Long length of stay [] ICU visit [] Other: Relational/Emotional Strength [x] Patient feels connected with others/family/visitors/staff [] Distress [] Loneliness/isolation [] Abandonment Spirituality of Patient [x] Person of Lianet [] Attends Sabianism of their Lianet [x] Believes in Prayer [] Reads Bible or Sabianist materials [] There are Spiritual issues to be addressed Secondary Set Up Man Interventions [x] Prayer [] Active listening [] Non-anxious presence [x] Spiritual/emotional support [] Crisis/trauma care [] Spiritual counseling [] Bereavement support [] Provided bereavement packet [] Provided Bible/devotional materials [] Provided toy/stuffed animal, coloring book to patient or family member [] Provided Communion [] Anointing/Independence [] Salvation [x] Completed spiritual assessment [] Other: Impact on Illness or Injury [] Angry [] Fearful [] Anxious [] Often cries [] Exhaustion [] Unable to work [] Unable to attend advent [] Unable to walk/stand [] Unable to read [] Unable to drive [] Unable to eat/drink [] Unable to sleep [] Unable to be with family [] Patient intubated [] Other: Summary Time spent with patient 5 min
[2023-04-01] MEDS: levETIRAcetam 500 mg Tablet PO (09:05)
[2023-04-01] MEDS: topiramate 25 mg Tablet 50 MG PO (09:05)
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
== END 2023-04-01 12:05 | disposition home or self-care (01) ==
LOC: ER 03-30 00:16 → MEDSURG 03-30 00:58
PROVIDERS: Admitting Provider Internal Medicine; Emergency Provider Family Medicine; PCP Nurse Practitioner Family; Visit Provider Internal Medicine
DX: G40.909 Epilepsy, unspecified, not intractable, without status epilepticus (principal); F31.4 Bipolar disorder, current episode depressed, severe, without psychotic features; F15.20 Other stimulant dependence, uncomplicated; R93.0 Abnormal findings on diagnostic imaging of skull and head, not elsewhere classified; I10 Essential (primary) hypertension; E78.5 Hyperlipidemia, unspecified; E03.9 Hypothyroidism, unspecified; F17.220 Nicotine dependence, chewing tobacco, uncomplicated; Z79.899 Other long term (current) drug therapy; Z88.0 Allergy status to penicillin
CPT/HCPCS: 36415; 36416; 70450; 70553; 80053; 80306; 80307; 82962; 83605; 83735; 84443; 85025; 93005; 96365; 96367; 96375; 99285; A9577; G0378; J1100; J1953; J3475

== ENCOUNTER 2023-04-04 23:27 | Emergency (ER) | payer MEDICAID, SELFPAY ==
[2022-03-29 16:30] VITALS: BP 133/96; BMI 37.3
[2023-04-04 23:31] VITALS: BP 102/70; PULSE 87; RESP 18; TEMP 36.9; O2SAT 95; BMI 27.3
[2023-04-04 23:54] VITALS: BP 108/74; PULSE 84; RESP 16; O2SAT 94
[2023-04-05] MEDS: LORazepam 2 mg/mL INJ 1 mL 1 MG IVP (00:11)
--- NOTE | 2023-04-05 00:22 | ED_ITS ---
HPI - Seizure General: Chief Complaint: Seizure Stated Complaint: seizures Time Seen by Provider: 04/04/23 23:52 Source: patient and EMS Mode of arrival: EMS Limitations: no limitations History of Present Illness: HPI Narrative: 48-year-old male states he had 3-4 seizures today. He states his seizures are silent . He states he had been admitted here last week he did have an MRI of his head that was normal he is started on Keppra. He denies any headache he has no other complaints this time he is awake and alert he had no known postictal. No head injury. Seizure History: Yes Place: Home Associated symptoms: Deny chest pain, chills or fever(s) Review of Systems Const: Denies: fever(s), chills, body aches or change in appetite ENMT: Denies: throat pain or dental pain Card: Denies: chest pain Resp: Denies: dyspnea GI: Denies: abdominal pain, nausea, vomiting or diarrhea Musc: Denies: neck pain or back pain Skin/Breast: Denies: rash Neuro: Reports: seizure-like activity; Denies: headache(s) PFSH ED PFSH: Medical History Benign essential HTN Bipolar I disorder, current or most recent episode manic, severe Colitis GERD (gastroesophageal reflux disease) Hyperlipidemia Hypertension Hypothyroidism Methamphetamine dependence, continuous Psychiatric care Psychiatric care Seasonal allergies Tardive dyskinesia Surgical History History of dental surgery Family History Other Diabetes Hyperlipidemia Lung disease Schizophrenia Stroke Social History Smoking and tobacco status: current every day smoker smokeless tobacco Smokeless tobacco user: chewing tobacco Smokeless tobacco details: 3-4 cans per week Quit status (tobacco): not considering quitting Second hand smoke exposure: Yes Alcohol intake: current Alcohol intake frequency: other Substance/Drug Use: current Substance/Drug use frequency: daily Adopted: No Caregiver/support person: No Lives independently: Yes Housing: House Marital status: Marital status details: 2013 Number of children: 1 Number of grandchildren: 1 Highest education level completed: GED or Equivalent service: No Current occupational status: disabled Current occupational exposures/hazards: No Pets and animals: No Leisure activites: music and other Leisure activities details: hamilton quite a bit Sexually active: No Do you think of yourself as: Straight/Heterosexual Current gender identity: Male Lianet/Jew: Taoism Special lianet needs: No Agree to transfusion: Yes Financial difficulty paying for basics: Somewhat Hard Additional social history: SUBSTANCE ABUSE HISTORY: He reports he chews about a can of tobacco a day but does not smoke, he reports he last drank alcohol about six years ago, he does not use marijuana or cocaine, he does use methamphetamine and has used opiates. He reports he has had two to three drug rehabilitations. He has had a couple of DUIs, the last one may have been in 2004. FAMILY HISTORY: He denies any history of mental health issues, addiction, or lethality in his family. DEVELOPMENTAL HISTORY: He denies any issues with his mom?s or delivery of him. He reports he learned how to walk and talk and met all developmental milestones on time. He re ports when he went to school, there was no speech therapy, learning support, emotional support, or special education classes. PSYCHOSOCIAL HISTORY: He reports that his mother and father were together when he was born and when he was about 15 years old. They had him and a younger brother together. His mom had no other children; his dad had a couple step kids, a couple of adopted kids, and then a half-sister. He reports that his childhood was tough at times, because he was poor, be he denies any emotional, physical, or sexual abuse. He reports the highest grade he went to was the ninth grade, and he got his GED in 1991. He endorses being a heterosexual, with his longest relationship being a couple of years. He was once, not sure if he is , but he has not seen the person for many, many, many years. He reports he has a 20 year old daughter that he sees a little bit, but he was never to her mother. He denies any history. He endorses being a Taoism. The longest job he has had, he said, was ninety days. He reports he lives in a trailer on a friend?s property. LEGAL HISTORY: He reports that he has been to nursing home multiple times, not actually sure how many. The longest time he was behind bars was the five years he spent in correction that ended in April 2019. Physical Exam Const: COMMON NORMALS: no acute distress, patient oriented x3 and healthy appearing HENMT: COMMON NORMALS: normocephalic and atraumatic HEAD & SCALP: normocephalic and atraumatic Eye: COMMON NORMALS: Equal, round and reactive pupils present PUPIL: Yes Equal, round and reactive pupils present Neck/C-Spine: COMMON NORMALS: full ROM and supple Chest: COMMONS NORMALS: normal inspection of the chest Resp: COMMON NORMALS: normal respiratory effort Cardio: COMMON NORMALS: regular rate, regular rhythm and No murmurs present (Cardio) RATE: regular rate RHYTHM: regular rhythm GI: COMMON NORMALS: Normal to inspection, nondistended, normoactive bowel sounds present, Soft to palpation, non-tender and no masses PALPATION: Yes Soft to palpation Extremity: COMMON NORMALS: normal to inspection and full ROM Neuro: COMMON NORMALS: patient oriented x3, moves all extremities and no focal motor deficits Psych: COMMON NORMALS: mental status grossly normal, Normal thought process present and cooperative THOUGHT PROCESS: Normal thought process present Skin: COMMON NORMALS: no rashes or lesions noted and no wounds GENERAL SKIN EXAM: no rashes or lesions noted Course Vital Signs: Vital signs: Vital Signs Temperature 98.5 F 04/04/23 23:31 Pulse Rate 84 04/04/23 23:54 Respiratory Rate 16 04/04/23 23:54 Blood Pressure 108/74 04/04/23 23:54 Pulse Oximetry 94 04/04/23 23:54 Oxygen Delivery Me thod Room Air 04/04/23 23:54 Discharge Plan Discharge Condition: Stable Prescriptions: No Action cholecalciferol (vitamin D3) 25 mcg (1,000 unit) capsule 25 mcg PO DAILY@19 calcium carbonate 400 mg calcium (1,000 mg) tablet,chewable 400 mg PO DAILY@19 docusate sodium [Colace] 100 mg capsule 100 mg PO DAILY@19 bisacodyl [C-Lax Laxative (bisacodyl)] 5 mg tablet,delayed release (DR/EC) 5 mg PO DAILY PRN (Reason: Constipation) lisinopril 10 mg tablet 10 mg PO DAILY cyclobenzaprine 10 mg tablet 10 mg PO TID PRN (Reason: Muscle Spasm) cyproheptadine 4 mg tablet 4 mg PO BEDTIME Qty: 30 3RF Rx Instructions: Take one tablet at bedtime mirtazapine [Remeron SolTab] 45 mg tablet,disintegrating 45 mg PO BEDTIME Qty: 30 6RF amlodipine 5 mg Tablet 5 mg PO DAILY@19 spironolactone 25 mg tablet 25 mg PO DAILY@19 omeprazole 20 mg capsule,delayed release(DR/EC) 20 mg PO DAILY@19 loratadine 10 mg tablet 10 mg PO DAILY@19 atorvastatin 20 mg tablet 20 mg PO DAILY@19 Qty: 30 0RF levothyroxine 25 mcg tablet 25 mcg PO DAILY@19 Qty: 30 0RF ziprasidone HCl [Geodon] 40 mg capsule 40 mg PO .evening Qty: 30 0RF Rx Instructions: Take one capsule in evening with 500 calorie meal albuterol sulfate 90 mcg/actuation HFA aerosol inhaler 2 puff inhalation Q6H PRN (Reason: Shortness Of Breath) Qty: 8.5 0RF Ingrezza 40 mg capsule 40 mg PO .morning Qty: 30 0RF Rx Instructions: Take one capsule every morning acetaminophen 500 mg Tablet 1,000 mg PO Q6H PRN (Reason: Pain) meloxicam 7.5 mg tablet 7.5 mg PO DAILY levetiracetam 500 mg Tablet 500 mg PO BID Qty: 180 0RF topiramate 25 mg Tablet 50 mg PO BID Qty: 360 0RF Referrals: Azalia Huddleston FNP [Primary Care Provider] - Coding Level of Care Code ED Lead Java Developer Architect for Mimi Gastelum
[2023-04-05 00:54] VITALS: BP 117/82; PULSE 81; RESP 18; O2SAT 96
[2023-04-05 01:01] LABS: Basophils % 0.5 %; Eosinophils # 0.2 10^3/uL (0.0-0.8); Eosinophils % 2.3 %; Hematocrit 39.7 % (42.0-52.0); Hemoglobin 13.3 g/dL (11.7-16.6); Mean Corpuscular HGB Conc 33.5 g/dL (30.0-36.0); Mean Corpuscular Hemoglobin 29.6 pg (28.0-34.0); Mean Corpuscular Volume 88.4 fl (80-94); Mean Platelet Volume 9.5 fL (7.4-10.4); Monocytes # 0.5 10^3/uL (0.2-0.9); Monocytes % 6.9 %; Neutrophils # 5.03 10^3/uL (1.8-7.7); Neutrophils % 64.2 %; Nucleated Red Blood Cells % 0 %; Platelet Count 318 10^3/cmm (130-400); Red Blood Count 4.49 10^6/uL (4.1-5.3); Red Cell Distribution Width 12.9 % (12.1-15.1); White Blood Count 7.8 10^3/uL (4.0-10.0)
[2023-04-05 01:04] VITALS: BP 102/67; PULSE 79; RESP 18; O2SAT 97
[2023-04-05 01:15] LABS: Sodium 137 mmol/L (136-145)
[2023-04-05 01:34] LABS: Anion Gap 14.5 (5-19); Blood Urea Nitrogen 13 mg/dL (6-20); Calcium 8.8 mg/dL (8.5-10.5); Carbon Dioxide 20 mmol/L (22-29); Chloride 106 mmol/L (98-107); Glomerular Filtration Rate 102.7 mL/min (90-130); Glucose 103 mg/dL (65-115); Osmolality Calculated 284 mOsm/kg (285-295); Potassium 3.5 mmol/L (3.5-5.1)
[2023-04-05 02:38] VITALS: BP 103/69; PULSE 80; RESP 20; O2SAT 96
== END 2023-04-05 02:40 | disposition home or self-care (01) ==
PROVIDERS: Emergency Provider Emergency Medicine; PCP Nurse Practitioner Family
DX: R56.9 Unspecified convulsions (principal)
CPT/HCPCS: 80048; 85025; 96374; 99284; J2060

== ENCOUNTER 2023-04-06 17:27 | Emergency (ER) | payer MEDICAID, SELFPAY ==
[2022-03-29 16:30] VITALS: BP 133/96; BMI 37.3
[2023-04-06 17:50] VITALS: BP 122/78; PULSE 78; TEMP 36.4; O2SAT 97; BMI 24.7
--- NOTE | 2023-04-06 18:02 | W.ED.PSYCHS ---
Documented by User: Yung Cooper DO 04/06/23 20:17 HPI - Psych General: Chief Complaint: Psychiatric Symptoms Stated Complaint: si Time Seen by Provider: 04/06/23 17:46 History of Present Illness: Presents to the ER with complaints of suicidal and homicidal ideation. Patient states he has been going through a lot lately and is tired of people screwed him over. Patient has been admitted here for psych issues before. States I will shoot myself or somebody else if I have to. Patient's mother states that he has been increasingly more agitated although he is calm and cooperative at this time. Review of Systems General: Reports: 10 or more systems reviewed and unremarkable except in HPI and below PFSH ED PFSH: Medical History Benign essential HTN Bipolar I disorder, current or most recent episode manic, severe Colitis GERD (gastroesophageal reflux disease) Hyperlipidemia Hypertension Hypothyroidism Methamphetamine dependence, continuous Psychiatric care Psychiatric care Seasonal allergies Tardive dyskinesia Surgical History History of dental surgery Family History Other Diabetes Hyperlipidemia Lung disease Schizophrenia Stroke Social History Smoking and tobacco status: current every day smoker smokeless tobacco Smokeless tobacco user: chewing tobacco Smokeless tobacco details: 3-4 cans per week Quit status (tobacco): not considering quitting Second hand smoke exposure: Yes Alcohol intake: current Alcohol intake frequency: other Substance/Drug Use: current Substance/Drug use frequency: daily Adopted: No Caregiver/support person: No Lives independently: Yes Housing: House Marital status: Marital status details: 2013 Number of children: 1 Number of grandchildren: 1 Highest education level completed: GED or Equivalent service: No Current occupational status: disabled Current occupational exposures/hazards: No Pets and animals: No Leisure activites: music and other Leisure activities details: hamilton quite a bit Sexually active: No Do you think of yourself as: Straight/Heterosexual Current gender identity: Male Lianet/Restorationist: Faith Special lianet needs: No Agree to transfusion: Yes Financial difficulty paying for basics: Somewhat Hard Additional social history: SUBSTANCE ABUSE HISTORY: He reports he chews about a can of tobacco a day but does not smoke, he reports he last drank alcohol about six years ago, he does not use marijuana or cocaine, he does use methamphetamine and has used opiates. He reports he has had two to three drug rehabilitations. He has had a couple of DUIs, the last one may have been in 2004. FAMILY HISTORY: He denies any history of mental health issues, addiction, or lethality in his family. DEVELOPMENTAL HISTORY: He denies any issues with his mom?s or delivery of him. He reports he learned how to walk and talk and met all developmental milestones on time. He reports when he went to school, there was no speech therapy, learning support, emotional support, or special education classes. PSYCHOSOCIAL HISTORY: He reports that his mother and father were together when he was born and when he was about 15 years old. They had him and a younger brother together. His mom had no other children; his dad had a couple step kids, a couple of adopted kids, and then a half-sister. He reports that his childhood was tough at times, because he was poor, be he denies any emotional, physical, or sexual abuse. He reports the highest grade he went to was the ninth grade, and he got his GED in 1991. He endorses being a heterosexual, with his longest relationship being a couple of years. He was once, not sure if he is , but he has not seen the person for many, many, many years. He reports he has a 20 year old daughter that he sees a little bit, but he was never to her mother. He denies any history. He endorses being a Faith. The longest job he has had, he said, was ninety days. He reports he lives in a trailer on a friend?s property. LEGAL HISTORY: He reports that he has been to [facility] multiple times, not actually sure how many. The longest time he was behind bars was the five years he spent in senior care that ended in April 2019. Physical Exam Const: COMMON NORMALS: no acute distress, average body habitus, patient oriented x3, no limitations, healthy appearing, alert and well nourished HENMT: COMMON NORMALS: normocephalic, atraumatic, hearing grossly normal bilaterally, external ears normal, Normal external nose present and moist oral mucous membranes HEAD & SCALP: normocephalic and atraumatic NOSE: Normal external nose present EXTERNAL EAR: Yes external ears normal Neck/C-Spine: COMMON NORMALS: full ROM, no lymphadenopathy, supple, no meningeal signs, no JVD and Thyroid normal THYROID: Thyroid normal Lymph: LYMPHATIC: no lymphadenopathy noted Chest: COMMONS NORMALS: normal inspection of the chest and normal palpation of entire chest wall Resp: COMMON NORMALS: normal respiratory effort, No retractions, No use of accessory muscles and clear to auscultation bilaterally AUSCULTATION: clear to auscultation bilaterally Cardio: COMMON NORMALS: no JVD, regular rate, regular rhythm, S1 normal heart sound present, S2 normal heart sound present, No gallops present (Cardio), No clicks present (Cardio), No murmurs present (Cardio) and No rub (Cardio) RATE: regular rate RHYTHM: regular rhythm HEART SOUNDS: S1 normal heart sound present and S2 normal heart sound present GI: COMMON NORMALS: Normal to inspection, nondistended, normoactive bowel sounds present, Soft to palpation, non-tender, No hepatosplenomegaly present and no masses PALPATION: Yes Soft to palpation and Yes No hepatosplenomegaly present : COMMON NORMALS: Yes no CVA tenderness BLADDER/KIDNEY EXAM: Yes no CVA tenderness Back/Pelvis: COMMON NORMALS: no CVA tenderness Neuro: COMMON NORMALS: patient oriented x3 SENSORIUM/ORIENTATION: Yes alert MENINGEAL SIGNS: Yes no meningeal signs Course Vital Signs: Vital signs: Vital Signs Temperature 97.6 F 04/06/23 17:50 Pulse Rate 76 04/07/23 09:55 Respiratory Rate 15 04/07/23 09:55 Blood Pressure 108/70 04/07/23 09:55 Pulse Oximetry 98 04/07/23 09:55 Oxygen Delivery Me thod Room Air 04/06/23 20:05 MDM - Psych Medical Decision Making Presents to the ER with suicidal and homicidal ideation. Physical exam was performed lab work was obtained pending lab work patient will mated to nPU Differential Diagnosis Likely suicidal ideation; Unlikely acute psychosis, chronic schizophrenia, bipolar disorder, depression, drug-induced psychotic disorder or acute anxiety Medical Records I reviewed the patient's medical records. Lab Data I reviewed the patient's lab results. 04/06/23 19:52 04/06/23 19:52 Radiology Impressions Chest X-Ray 04/06/23 18:19 IMPRESSION: No acute findings. Laboratory Results WBC 6.26 10^3/uL (3.29-11.43) 04/06/23 19:52 RBC 5.07 10^6/uL (3.85-5.65) 04/06/23 19:52 Hgb 14.80 g/dL (11.27-16.99) 04/06/23 19:52 Hct 45.6 % (37-53) 04/06/23 19:52 MCV 89.9 fl (82-101) 04/06/23 19:52 MCH 29.2 pg (27-33) 04/06/23 19:52 MCHC 32.5 g/dL (30-55) 04/06/23 19:52 RDW 13.1 % (12.1-15.1) 04/06/23 19:52 Plt Count 317 10^3/cmm (157-399) 04/06/23 19:52 MPV 9.6 fL (7.4-10.4) 04/06/23 19:52 Neut % (Auto) 57.4 % 04/06/23 19:52 Lymph % (Auto) 33.7 % 04/06/23 19:52 [place] % (Auto) 5.8 % 04/06/23 19:52 Eos % (Auto) 2.4 % 04/06/23 19:52 Baso % (Auto) 0.5 % 04/06/23 19:52 Neut # (Auto) 3.60 10^3/uL (1.8-7.7) 04/06/23 19:52 Lymph # (Auto) 2.1 10^3/uL (0.8-4.8) 04/06/23 19:52 [place] # (Auto) 0.4 10^3/uL (0.2-0.9) 04/06/23 19:52 Eos # (Auto) 0.2 10^3/uL (0.0-0.8) 04/06/23 19:52 Baso # (Auto) 0.0 10^3/uL (0.0-0.1) 04/06/23 19:52 Nucleated RBC % (auto) 0 % 04/06/23 19:52 Nucleated RBCs # 0.0 /100WBC 04/06/23 19:52 Sodium 140 mmol/L (136-145) 04/06/23 19:52 Potassium 3.6 mmol/L (3.5-5.1) 04/06/23 19:52 Chloride 107 mmol/L (98-107) 04/06/23 19:52 Carbon Dioxide 23 mmol/L (22-29) 04/06/23 19:52 Anion Gap 13.6 (5-19) 04/06/23 19:52 BUN 10 mg/dL (6-20) 04/06/23 19:52 Creatinine 1.0 mg/dL (0.7-1.2) 04/06/23 19:52 GFR Calculation 79.4 mL/min (90-130) L 04/06/23 19:52 Glucose 90 mg/dL (65-115) 04/06/23 19:52 Calculated Osmolality 289 mOsm/kg (285-295) 04/06/23 19:52 Calcium 8.8 mg/dL (8.5-10.5) 04/06/23 19:52 Total Bilirubin 0.2 mg/dL (0.15-1.2) 04/06/23 19:52 AST 12 U/L (0-40) 04/06/23 19:52 ALT 15 U/L (0-41) 04/06/23 19:52 Alkaline Phosphatase 114 U/L (40-130) 04/06/23 19:52 Total Protein 6.7 g/dL (6.6-8.7) 04/06/23 19:52 Albumin 4.2 g/dL (3.5-5.2) 04/06/23 19:52 Globulin 2.5 g/dL (1.3-4.6) 04/06/23 19:52 Urine Color Yellow (Yellow) 04/06/23 19:30 Urine Appearance Hazy (CLEAR) A 04/06/23 19:30 Urine pH 7 (5-7) 04/06/23 19:30 Ur Specific [place] 1.010 (1.005-1.030) 04/06/23 19:30 Urine Protein Neg (Negative) 04/06/23 19:30 Urine Glucose (UA) Norm (Normal) 04/06/23 19:30 Urine Ketones Negative (Negative) 04/06/23 19:30 Urine Blood Neg (Negative) 04/06/23 19:30 Urine Nitrate Negative (Negative) 04/06/23 19:30 Urine Bilirubin Neg (Negative) 04/06/23 19:30 Urine Urobilinogen Norm mg/dL (Negative) 04/06/23 19:30 Ur Leukocyte Esterase Negative (Negative) 04/06/23 19:30 Urine RBC 0-4 /hpf (0-2) H 04/06/23 19:30 Urine WBC 0-4 /hpf (0-5) H 04/06/23 19:30 Ur Squamous Epith Cells 0-4 /hpf (0-5) H 04/06/23 19:30 Amorphous Sediment 3+ /hpf 04/06/23 19:30 Urine Bacteria None /hpf (NONE) 04/06/23 19:30 Salicylates < 0.3 mg/dL (3-10) L 04/06/23 19:52 Urine Opiates Screen Negative ng/mL (Negative) 04/06/23 19:30 Acetaminophen < 5.0 ug/mL (10-30) L 04/06/23 19:52 Ur Barbiturates Screen Negative ng/mL (Negative) 04/06/23 19:30 Ur Phencyclidine Scrn Negative ng/mL (Negative) 04/06/23 19:30 Ur Amphetamines Screen Negative ng/mL (Negative) 04/06/23 19:30 U Benzodiazepines Scrn Negative ng/mL (Negative) 04/06/23 19:30 Urine Cocaine Screen Negative ng/mL (Negative) 04/06/23 19:30 U Marijuana (THC) Screen Negative ng/mL (Negative) 04/06/23 19:30 Ethyl Alcohol < 10 mg/dL (0-10) 04/06/23 19:52 SARS-CoV-2 Ag (Rapid) negative (Negative) 04/06/23 19:59 EKG Data EKG 1: I personally reviewed and interpreted this EKG as follows: EKG interpretation date: 04/06/23 EKG interpretation time: 20:05 Prior EKG tracings: not available for review Interpretation: EKG reveals ventricular rate 84 beats minute, MA interval 116, QRS duration 102, QTc 403, sinus rhythm with a short MA interval Discharge Plan Discharge Patient Disposition: Xfer Psychiatric Hosp Clinical Impression: Suicidal ideation Condition: Stable Referrals: Azalia Huddleston FNP [Primary Care Provider] - Sign Out Sign Out Data: Patient Sign Out occurred on 04/07/23 at 06:15. Patient's care was discussed, and care was transferred from to Arpan Nair DO. Coding Level of Care Code ED Server Cashier for Chg Fwd Documented by User: Arpan Nair DO 04/07/23 10:44 HPI - Psych General: Chief Complaint: Psychiatric Symptoms Stated Complaint: si Time Seen by Provider: 04/06/23 17:46 PFSH ED PFSH: Medical History Benign essential HTN Bipolar I disorder, current or most recent episode manic, severe Colitis GERD (gastroesophageal reflux disease) Hyperlipidemia Hypertension Hypothyroidism Methamphetamine dependence, continuous Psychiatric care Psychiatric care Seasonal allergies Tardive dyskinesia Surgical History History of dental surgery Family History Other Diabetes Hyperlipidemia Lung disease Schizophrenia Stroke Social History Smoking and tobacco status: current every day smoker smokeless tobacco Smokeless tobacco user: chewing tobacco Smokeless tobacco details: 3-4 cans per week Quit status (tobacco): not considering quitting Second hand smoke exposure: Yes Alcohol intake: current Alcohol intake frequency: other Substance/Drug Use: current Substance/Drug use frequency: daily Adopted: No Caregiver/support person: No Lives independently: Yes Housing: House Marital status: Marital status details: 2013 Number of children: 1 Number of grandchildren: 1 Highest education level completed: GED or Equivalent service: No Current occupational status: disabled Current occupational exposures/hazards: No Pets and animals: No Leisure activites: music and other Leisure activities details: hamilton quite a bit Sexually active: No Do you think of yourself as: Straight/Heterosexual Current gender identity: Male Lianet/Restorationist: Faith Special lianet needs: No Agree to transfusion: Yes Financial difficulty paying for basics: Somewhat Hard Additional social history: SUBSTANCE ABUSE HISTORY: He reports he chews about a can of tobacco a day but does not smoke, he reports he last drank alcohol about six years ago, he does not use marijuana or cocaine, he does use methamphetamine and has used opiates. He reports he has had two to three drug rehabilitations. He has had a couple of DUIs, the last one may have been in 2004. FAMILY HISTORY: He denies any history of mental health issues, addiction, or lethality in his family. DEVELOPMENTAL HISTORY: He denies any issues with his mom?s or delivery of him. He reports he learned how to walk and talk and met all developmental milestones on time. He reports when he went to school, there was no speech therapy, learning support, emotional support, or special education classes. PSYCHOSOCIAL HISTORY: He reports that his mother and father were together when he was born and when he was about 15 years old. They had him and a younger brother together. His mom had no other children; his dad had a couple step kids, a couple of adopted kids, and then a half-sister. He reports that his childhood was tough at times, because he was poor, be he denies any emotional, physical, or sexual abuse. He reports the highest grade he went to was the ninth grade, and he got his GED in 1991. He endorses being a heterosexual, with his longest relationship being a couple of years. He was once, not sure if he is , but he has not seen the person for many, many, many years. He reports he has a 20 year old daughter that he sees a little bit, but he was never to her mother. He denies any history. He endorses being a Faith. The longest job he has had, he said, was ninety days. He reports he lives in a trailer on a friend?s property. LEGAL HISTORY: He reports that he has been to [facility] multiple times, not actually sure how many. The longest time he was behind bars was the five years he spent in senior care that ended in April 2019. Course Vital Signs: Vital signs: Vital Signs Temperature 97.6 F 04/06/23 17:50 Pulse Rate 76 04/07/23 09:55 Respiratory Rate 15 04/07/23 09:55 Blood Pressure 108/70 04/07/23 09:55 Pulse Oximetry 98 04/07/23 09:55 Oxygen Delivery Me thod Room Air 04/06/23 20:05 MDM - Psych Medical Decision Making Presents to the ER with suicidal and homicidal ideation. Physical exam was performed lab work was obtained pending lab work patient will mated to nPU Care assumed at change of shift [facility] the patient chart reviewed 96-hour hold and affidavit reviewed. 96-hour hold is resigned for an outside facility. Patient be transported via EMS to [facility] for definitive care. Lab Data 04/06/23 19:52 04/06/23 19:52 Radiology Impressions Chest X-Ray 04/06/23 18:19 IMPRESSION: No acute findings. Laboratory Results WBC 6.26 10^3/uL (3.29-11.43) 04/06/23 19:52 RBC 5.07 10^6/uL (3.85-5.65) 04/06/23 19:52 Hgb 14.80 g/dL (11.27-16.99) 04/06/23 19:52 Hct 45.6 % (37-53) 04/06/23 19:52 MCV 89.9 fl (82-101) 04/06/23 19:52 MCH 29.2 pg (27-33) 04/06/23 19:52 MCHC 32.5 g/dL (30-55) 04/06/23 19:52 RDW 13.1 % (12.1-15.1) 04/06/23 19:52 Plt Count 317 10^3/cmm (157-399) 04/06/23 19:52 MPV 9.6 fL (7.4-10.4) 04/06/23 19:52 Neut % (Auto) 57.4 % 04/06/23 19:52 Lymph % (Auto) 33.7 % 04/06/23 19:52 [place] % (Auto) 5.8 % 04/06/23 19:52 Eos % (Auto) 2.4 % 04/06/23 19:52 Baso % (Auto) 0.5 % 04/06/23 19:52 Neut # (Auto) 3.60 10^3/uL (1.8-7.7) 04/06/23 19:52 Lymph # (Auto) 2.1 10^3/uL (0.8-4.8) 04/06/23 19:52 [place] # (Auto) 0.4 10^3/uL (0.2-0.9) 04/06/23 19:52 Eos # (Auto) 0.2 10^3/uL (0.0-0.8) 04/06/23 19:52 Baso # (Auto) 0.0 10^3/uL (0.0-0.1) 04/06/23 19:52 Nucleated RBC % (auto) 0 % 04/06/23 19:52 Nucleated RBCs # 0.0 /100WBC 04/06/23 19:52 Sodium 140 mmol/L (136-145) 04/06/23 19:52 Potassium 3.6 mmol/L (3.5-5.1) 04/06/23 19:52 Chloride 107 mmol/L (98-107) 04/06/23 19:52 Carbon Dioxide 23 mmol/L (22-29) 04/06/23 19:52 Anion Gap 13.6 (5-19) 04/06/23 19:52 BUN 10 mg/dL (6-20) 04/06/23 19:52 Creatinine 1.0 mg/dL (0.7-1.2) 04/06/23 19:52 GFR Calculation 79.4 mL/min (90-130) L 04/06/23 19:52 Glucose 90 mg/dL (65-115) 04/06/23 19:52 Calculated Osmolality 289 mOsm/kg (285-295) 04/06/23 19:52 Calcium 8.8 mg/dL (8.5-10.5) 04/06/23 19:52 Total Bilirubin 0.2 mg/dL (0.15-1.2) 04/06/23 19:52 AST 12 U/L (0-40) 04/06/23 19:52 ALT 15 U/L (0-41) 04/06/23 19:52 Alkaline Phosphatase 114 U/L (40-130) 04/06/23 19:52 Total Protein 6.7 g/dL (6.6-8.7) 04/06/23 19:52 Albumin 4.2 g/dL (3.5-5.2) 04/06/23 19:52 Globulin 2.5 g/dL (1.3-4.6) 04/06/23 19:52 Urine Color Yellow (Yellow) 04/06/23 19:30 Urine Appearance Hazy (CLEAR) A 04/06/23 19:30 Urine pH 7 (5-7) 04/06/23 19:30 Ur Specific [place] 1.010 (1.005-1.030) 04/06/23 19:30 Urine Protein Neg (Negative) 04/06/23 19:30 Urine Glucose (UA) Norm (Normal) 04/06/23 19:30 Urine Ketones Negative (Negative) 04/06/23 19:30 Urine Blood Neg (Negative) 04/06/23 19:30 Urine Nitrate Negative (Negative) 04/06/23 19:30 Urine Bilirubin Neg (Negative) 04/06/23 19:30 Urine Urobilinogen Norm mg/dL (Negative) 04/06/23 19:30 Ur Leukocyte Esterase Negative (Negative) 04/06/23 19:30 Urine RBC 0-4 /hpf (0-2) H 04/06/23 19:30 Urine WBC 0-4 /hpf (0-5) H 04/06/23 19:30 Ur Squamous Epith Cells 0-4 /hpf (0-5) H 04/06/23 19:30 Amorphous Sediment 3+ /hpf 04/06/23 19:30 Urine Bacteria None /hpf (NONE) 04/06/23 19:30 Salicylates < 0.3 mg/dL (3-10) L 04/06/23 19:52 Urine Opiates Screen Negative ng/mL (Negative) 04/06/23 19:30 Acetaminophen < 5.0 ug/mL (10-30) L 04/06/23 19:52 Ur Barbiturates Screen Negative ng/mL (Negative) 04/06/23 19:30 Ur Phencyclidine Scrn Negative ng/mL (Negative) 04/06/23 19:30 Ur Amphetamines Screen Negative ng/mL (Negative) 04/06/23 19:30 U Benzodiazepines Scrn Negative ng/mL (Negative) 04/06/23 19:30 Urine Cocaine Screen Negative ng/mL (Negative) 04/06/23 19:30 U Marijuana (THC) Screen Negative ng/mL (Negative) 04/06/23 19:30 Ethyl Alcohol < 10 mg/dL (0-10) 04/06/23 19:52 SARS-CoV-2 Ag (Rapid) negative (Negative) 04/06/23 19:59 Discharge Plan Discharge Patient Disposition: Xfer Psychiatric Hosp Clinical Impression: Suicidal ideation Condition: Stable Referrals: Azalia Huddleston FNP [Primary Care Provider] - Sign Out Sign Out Data: Patient Sign Out occurred on 04/07/23 at 06:15. Patient's care was discussed, and care was transferred from to Arpan Nair DO. Coding Level of Care Code ED Server Cashier for Mimi Gastelum
--- NOTE | 2023-04-06 18:19 | XRR_ITS ---
PROCEDURE INFORMATION: Exam: XR Chest Exam date and time: 04/06/2023 6:26 PM Age: 48 years old Clinical indication: Other: Si; Additional info: Suicidal ideation TECHNIQUE: Imaging protocol: Radiologic exam of the chest. Views: 1 view. COMPARISON: CR XR chest 1V portable [id number] 05/04/2022 12:48 PM FINDINGS: Lungs: Unremarkable. No consolidation. Pleural spaces: Unremarkable. No pleural effusion. No pneumothorax. Heart/Mediastinum: Unremarkable. No cardiomegaly. Bones/joints: Curvature of the thoracic spine. No fracture. XR/XR chest 1V portable [id number] IMPRESSION: No acute findings.
[2023-04-06] MEDS: LORazepam 2 mg/mL INJ 1 mL 1 MG IM (19:22)
--- NOTE | 2023-04-06 19:45 | PC.NURSE ---
96 Hour Hold Patient Rights and a copy of the same have been provided to patient. Staff Design Engineer's Claudio were present at bedside at time of giving rights.
--- NOTE | 2023-04-06 19:49 | PC.NURSE ---
pt states hes been feeling depressed and having increased problems with seizures. pt states his house got raided and it caused him to be evicted. 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 pt states he lost his daughter to covid 2 years ago, I want to watch my granddaughter grow up. pt is requesting doctor margarita. pt states he told his mom he was going to supervisor opening and picking my gun and shoot myself , but he didn't really mean it. pt is dressed out into green paper scrubs, all belongings removed from room except prescription glasses. pt has been placed on a 96 hour hold and has a copy of the paperwork.
[2023-04-06 19:54] LABS: Add Urine Microscopic? YES; Bilirubin Urine Neg (Negative); Blood Urine Neg (Negative); Glucose Urine UA Norm (Normal); Ketones Urine Negative (Negative); Leukocyte Esterase Urine Negative (Negative); Nitrate Urine Negative (Negative); Protein Urine Neg (Negative); Urine Appearance Hazy (CLEAR); Urine Color Yellow (Yellow); Urobilinogen Urine Norm (Negative); pH Urine 7 (5-7)
[2023-04-06 19:55] LABS: Add Urine Culture? No; Amorphous Sediment Urine 3+ /hpf; RBC Urine 0-4 /hpf (0-2); Squamous Epithelial Cell Urine 0-4 /hpf (0-5); WBC Urine 0-4 /hpf (0-5)
--- NOTE | 2023-04-06 19:56 | PC.NURSE ---
pt states he I want dr. avila to sort my meds out before I go get a gun and start shooting everyone. pt confirms auditory and visual hallucinations. pt also confirms he has not been taking psychiatric medications for 7 months.
[2023-04-06 19:57] LABS: Amphetamines Screen Urine Negative (Negative); Barbiturates Screen Urine Negative (Negative); Benzodiazepines Screen Urine Negative (Negative); Cocaine Screen Urine Negative (Negative); Opiate Screen Urine Negative (Negative); PCP Screen Urine Negative (Negative); THC Screen Urine Negative (Negative)
[2023-04-06 19:57] LABS: Basophils % 0.5 %; Eosinophils # 0.2 10^3/uL (0.0-0.8); Eosinophils % 2.4 %; Hematocrit 45.6 % (37-53); Lymphocytes # 2.1 10^3/uL (0.8-4.8); Lymphocytes % 33.7 %; Mean Corpuscular HGB Conc 32.5 g/dL (30-55); Mean Corpuscular Hemoglobin 29.2 pg (27-33); Mean Corpuscular Volume 89.9 fl (82-101); Mean Platelet Volume 9.6 fL (7.4-10.4); Monocytes # 0.4 10^3/uL (0.2-0.9); Monocytes % 5.8 %; Neutrophils % 57.4 %; Nucleated Red Blood Cells % 0 %; Platelet Count 317 10^3/cmm (157-399); Red Blood Count 5.07 10^6/uL (3.85-5.65); Red Cell Distribution Width 13.1 % (12.1-15.1); White Blood Count 6.26 10^3/uL (3.29-11.43)
[2023-04-06 20:05] VITALS: BP 131/86; PULSE 100; RESP 17; O2SAT 99
--- NOTE | 2023-04-06 20:05 | ECG_ITS ---
[facility] Test Date: 2023-04-06 Pat Name: Walt Madsen Department: Room: Gender: Male Vacuum System Tester: : 1975 Requested By: Yung Cooper Order Number: [id number] Fuad MD: Nano Mcintyre M.D. Measurements Intervals [place] Rate: 84 P: 50 WI: 116 QRS: 73 QRSD: 102 T: 58 QT: 362 QTc: 430 Interpretive Statements SINUS RHYTHM WITH SHORT WI INTERVAL Compared to ECG 03/29/2023 22:31:33 Short WI interval now present Electronically Signed On 04-06-2023 20:08:41 CDT by Nano Mcintyre M.D. [id number]
[2023-04-06 20:19] LABS: Alanine Aminotransferase 15 U/L (0-41); Albumin Level 4.2 g/dL (3.5-5.2); Alkaline Phosphatase 114 U/L (40-130); Anion Gap 13.6 (5-19); Aspartate Amino Transferase 12 U/L (0-40); Blood Urea Nitrogen 10 mg/dL (6-20); Calcium 8.8 mg/dL (8.5-10.5); Carbon Dioxide 23 mmol/L (22-29); Chloride 107 mmol/L (98-107); Globulin 2.5 g/dL (1.3-4.6); Glomerular Filtration Rate 79.4 mL/min (90-130); Glucose 90 mg/dL (65-115); Osmolality Calculated 289 mOsm/kg (285-295); Potassium 3.6 mmol/L (3.5-5.1); Sodium 140 mmol/L (136-145); Total Bilirubin 0.2 mg/dL (0.15-1.2); Total Protein 6.7 g/dL (6.6-8.7)
[2023-04-06 20:21] LABS: Acetaminophen < 5.0 ug/mL (10-30); Alcohol Level < 10 mg/dL (0-10); Salicylate < 0.3 mg/dL (3-10)
[2023-04-06] MEDS: nicotine 21 mg Patch 1 PATCH TRANSDERMA (20:25)
[2023-04-06 20:32] LABS: SARS Covid-2 Antigen negative (Negative)
[2023-04-07 00:56] VITALS: RESP 17
[2023-04-07] MEDS: LORazepam 2 mg/mL INJ 1 mL 1 MG IM (01:44)
[2023-04-07] MEDS: cyclobenzaprine 10 mg Tablet PO (09:21)
[2023-04-07] MEDS: meloxicam 7.5 mg tablet PO (09:21)
[2023-04-07] MEDS: levothyroxine 25 mcg Tablet PO (09:21)
[2023-04-07] MEDS: atorvastatin 40 mg Tablet 20 MG PO (09:21)
[2023-04-07] MEDS: lisinopril 10 mg Tablet PO (09:23)
[2023-04-07] MEDS: levETIRAcetam 500 mg Tablet PO ×2 (09:23→23:02)
[2023-04-07] MEDS: topiramate 25 mg Tablet PO (09:52)
[2023-04-07 09:55] VITALS: BP 108/70; PULSE 76; RESP 15; O2SAT 98
[2023-04-07 16:45] VITALS: BP 106/54; PULSE 62; RESP 16; O2SAT 97
[2023-04-07] MEDS: LORazepam 2 mg Tablet PO (23:01)
[2023-04-07] MEDS: topiramate 25 mg Tablet 50 MG PO (23:02)
[2023-04-07 23:05] VITALS: BP 96/56; PULSE 76
[2023-04-07 23:12] VITALS: RESP 16
== END 2023-04-07 23:19 ==
PROVIDERS: Emergency Medicine; Emergency Provider Emergency Medicine; PCP Nurse Practitioner Family
DX: R45.851 Suicidal ideations (principal); Z20.822 Contact with and (suspected) exposure to COVID-19; I10 Essential (primary) hypertension; E78.5 Hyperlipidemia, unspecified; F17.220 Nicotine dependence, chewing tobacco, uncomplicated
CPT/HCPCS: 36415; 71045; 80053; 80306; 80307; 81001; 85025; 87426; 93005; 96372; 99285; J2060

== ENCOUNTER → 2023-04-12 09:08 | Outpatient (BNVA) | payer MEDICAID, SELFPAY ==
[2022-03-29 16:30] VITALS: BP 133/96; BMI 37.3
== END ==
PROVIDERS: PCP Nurse Practitioner Family; Visit Provider Nurse Practitioner Psychiatric/Mental Health
DX: Z79.899 Other long term (current) drug therapy (principal)
CPT/HCPCS: 80061; 80307; 83036

== ENCOUNTER 2023-04-13 11:20 | Emergency (ER) | payer MEDICAID, SELFPAY ==
[2022-03-29 16:30] VITALS: BP 133/96; BMI 37.3
[2023-04-13 11:48] VITALS: BP 107/59; PULSE 87; RESP 16; TEMP 36.4; O2SAT 98; BMI 24.7
[2023-04-13 11:52] LABS: Basophils % 0.4 %; Eosinophils # 0.1 10^3/uL (0.0-0.8); Eosinophils % 1.5 %; Hematocrit 42.2 % (37-53); Lymphocytes # 1.3 10^3/uL (0.8-4.8); Lymphocytes % 23.4 %; Mean Corpuscular HGB Conc 32.9 g/dL (30-55); Mean Corpuscular Hemoglobin 29.6 pg (27-33); Mean Platelet Volume 9.7 fL (7.4-10.4); Monocytes # 0.3 10^3/uL (0.2-0.9); Monocytes % 4.6 %; Neutrophils # 3.82 10^3/uL (1.8-7.7); Neutrophils % 69.9 %; Nucleated Red Blood Cells % 0 %; Platelet Count 282 10^3/cmm (157-399); Red Blood Count 4.69 10^6/uL (3.85-5.65); Red Cell Distribution Width 13.1 % (12.1-15.1); White Blood Count 5.46 10^3/uL (3.29-11.43)
[2023-04-13 12:08] LABS: Alanine Aminotransferase 18 U/L (0-41); Albumin Level 4.3 g/dL (3.5-5.2); Alkaline Phosphatase 103 U/L (40-130); Anion Gap 12.8 (5-19); Aspartate Amino Transferase 12 U/L (0-40); Blood Urea Nitrogen 10 mg/dL (6-20); Calcium 9.1 mg/dL (8.5-10.5); Carbon Dioxide 24 mmol/L (22-29); Chloride 106 mmol/L (98-107); Glomerular Filtration Rate 102.7 mL/min (90-130); Glucose 102 mg/dL (65-115); Osmolality Calculated 287 mOsm/kg (285-295); Potassium 3.8 mmol/L (3.5-5.1); Sodium 139 mmol/L (136-145); Total Bilirubin 0.3 mg/dL (0.15-1.2); Total Protein 6.3 g/dL (6.6-8.7)
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
[2023-04-13 13:36] VITALS: PULSE 90; RESP 16; O2SAT 98
== END 2023-04-13 13:38 | disposition home or self-care (01) ==
PROVIDERS: Emergency Medicine; Emergency Provider Family Medicine; PCP Nurse Practitioner Family
DX: Z00.00 Encounter for general adult medical examination without abnormal findings (principal); F17.220 Nicotine dependence, chewing tobacco, uncomplicated; I10 Essential (primary) hypertension; E78.5 Hyperlipidemia, unspecified
CPT/HCPCS: 36415; 80053; 85025; 99283

== ENCOUNTER 2023-04-21 21:14 | Emergency (ER) | payer MEDICAID, SELFPAY ==
[2022-03-29 16:30] VITALS: BP 133/96; BMI 37.3
[2023-04-21 21:15] VITALS: BP 119/81; PULSE 92; RESP 18; TEMP 36.7; O2SAT 100; BMI 23.5
--- NOTE | 2023-04-21 21:18 | CTR_ITS ---
PROCEDURE INFORMATION: Exam: CT Head Without Contrast Exam date and time: 04/21/2023 9:55 PM Age: 48 years old Clinical indication: Other: Seizure TECHNIQUE: Imaging protocol: Computed tomography of the head without contrast. Radiation optimization: All CT scans at this facility use at least one of these dose optimization techniques: automated exposure control; mA and/or kV adjustment per patient size (includes targeted exams where dose is matched to clinical indication); or iterative reconstruction. REPORTING DATA: Count of CT and Cardiac NM exams in prior 12 months: This patient has received 2 known CTs and 0 known cardiac nuclear medicine studies in the 12 months prior to the current study. COMPARISON: MR head wo/w con [id number] 03/31/2023 8:11 AM RADIATION DOSE METRICS: Total DLP (mGy-cm): 1121.05 FINDINGS: Brain: No focal hemorrhage or midline shift is identified. Cerebral ventricles: No ventriculomegaly or evidence of acute hydrocephalus. Paranasal sinuses: The partially assessed sinuses are grossly clear. Mastoid air cells: Visualized mastoid air cells are well aerated. Bones/joints: No displaced skull fracture is noted. Soft tissues: Unremarkable. CT/CT head wo con* [id number] IMPRESSION: No acute intracranial abnormality.
--- NOTE | 2023-04-21 21:19 | W.ED.SEIZURE ---
HPI - Seizure General: Chief Complaint: Seizure Stated Complaint: SEIZURE Time Seen by Provider: 04/21/23 21:15 Source: patient and EMS Mode of arrival: EMS Limitations: no limitations History of Present Illness: HPI Narrative: 48-year-old male very well-known to ER he has a history of seizures states had a seizure last 2 nights states tonight when his seizure did hit his head on the floor he does have a headache no signs of lacerations denies any vomiting or diarrhea he states he has been taking his seizure medication which is Depakote Seizure History: Yes Associated symptoms: Deny chest pain, chills or fever(s) Review of Systems Const: Denies: fever(s), chills, body aches or change in appetite ENMT: Denies: throat pain or dental pain Card: Denies: chest pain Resp: Denies: dyspnea GI: Denies: abdominal pain, nausea, vomiting or diarrhea Musc: Denies: neck pain or back pain Skin/Breast: Denies: rash Neuro: Reports: headache(s) and seizure-like activity PFS ED PFSH: Medical History (Updated 04/21/23 @ 22:14 by Dwight Sanches MD) Benign essential HTN Bipolar I disorder, severe, current or most recent episode manic, with psychotic features Chewing tobacco nicotine dependence without complication Colitis GERD (gastroesophageal reflux disease) Hyperlipidemia Hypertension Hypothyroidism Methamphetamine dependence, continuous last use four week ago, February 2023 Psychiatric care Psychiatric care Seasonal allergies Tardive dyskinesia Surgical History History of dental surgery Family History Other Diabetes Hyperlipidemia Lung disease Schizophrenia Stroke Social History Smoking and tobacco status: current every day smoker smokeless tobacco Smokeless tobacco user: chewing tobacco Smokeless tobacco details: 3-4 cans per week Quit status (tobacco): not considering quitting Second hand smoke exposure: Yes Alcohol intake: current Alcohol intake frequency: other Substance/Drug Use: current Substance/Drug use frequency: daily Adopted: No Caregiver/support person: No Lives independently: Yes Housing: House Marital status: Marital status details: 2013 Number of children: 1 Number of grandchildren: 1 Highest education level completed: GED or Equivalent service: No Current occupational status: disabled Current occupational exposures/hazards: No Pets and animals: No Leisure activites: music and other Leisure activities details: hamilton quite a bit Sexually active: No Do you think of yourself as: Straight/Heterosexual Current gender identity: Male Lianet/Lutheran: Episcopalian Special lianet needs: No Agree to transfusion: Yes Financial difficulty paying for basics: Somewhat Hard Additional social history: SUBSTANCE ABUSE HISTORY: He reports he chews about a can of tobacco a day but does not smoke, he reports he last drank alcohol about six years ago, he does not use marijuana or cocaine, he does use methamphetamine and has used opiates. He reports he has had two to three drug rehabilitations. He has had a couple of DUIs, the last one may have been in 2004. FAMILY HISTORY: He denies any history of mental health issues, addiction, or lethality in his family. DEVELOPMENTAL HISTORY: He denies any issues with his mom?s or delivery of him. He reports he learned how to walk and talk and met all developmental milestones on time. He reports when he went to school, there was no speech therapy, learning support, emotional support, or special education classes. PSYCHOSOCIAL HISTORY: He reports that his mother and father were together when he was born and when he was about 15 years old. They had him and a younger brother together. His mom had no other children; his dad had a couple step kids, a couple of adopted kids, and then a half-sister. He reports that his childhood was tough at times, because he was poor, be he denies any emotional, physical, or sexual abuse. He reports the highest grade he went to was the ninth grade, and he got his GED in 1991. He endorses being a heterosexual, with his longest relationship being a couple of years. He was once, not sure if he is , but he has not seen the person for many, many, many years. He reports he has a 20 year old daughter that he sees a little bit, but he was never to her mother. He denies any history. He endorses being a Episcopalian. The longest job he has had, he said, was ninety days. He reports he lives in a trailer on a friend?s property. LEGAL HISTORY: He reports that he has been to [facility] multiple times, not actually sure how many. The longest time he was behind bars was the five years he spent in [facility] that ended in April 2019. Physical Exam Const: COMMON NORMALS: no acute distress, patient oriented x3 and healthy appearing HENMT: COMMON NORMALS: normocephalic and atraumatic HEAD & SCALP: normocephalic and atraumatic Eye: COMMON NORMALS: Equal, round and reactive pupils present and EOMs intact bilaterally PUPIL: Yes Equal, round and reactive pupils present Neck/C-Spine: COMMON NORMALS: full ROM and supple Chest: COMMONS NORMALS: normal inspection of the chest and normal palpation of entire chest wall Resp: COMMON NORMALS: normal respiratory effort, No retractions, No use of accessory muscles and clear to auscultation bilaterally AUSCULTATION: clear to auscultation bilaterally Cardio: COMMON NORMALS: regular rate, regular rhythm and No murmurs present (Cardio) RATE: regular rate RHYTHM: regular rhythm GI: COMMON NORMALS: Normal to inspection, nondistended, normoactive bowel sounds present, Soft to palpation, non-tender and no masses PALPATION: Yes Soft to palpation Extremity: COMMON NORMALS: normal to inspection and full ROM Neuro: COMMON NORMALS: patient oriented x3, moves all extremities and no focal motor deficits Psych: COMMON NORMALS: mental status grossly normal, Normal thought process present and cooperative THOUGHT PROCESS: Normal thought process present Skin: COMMON NORMALS: no rashes or lesions noted and no wounds GENERAL SKIN EXAM: no rashes or lesions noted Course Vital Signs: Vital signs: Vital Signs Temperature 98.1 F 04/21/23 21:15 Pulse Rate 92 04/21/23 21:15 Respiratory Rate 18 04/21/23 21:15 Blood Pressure 119/81 04/21/23 21:15 Pulse Oximetry 100 04/21/23 21:15 Oxygen Delivery Me thod Room Air 04/21/23 21:15 MDM - Seizure MDM Narrative Medical decision making narrative: Patient presents here with a seizure he has a long seizure history head CT blood work here is all normal Along with abdominal pain along with abdominal pain his CT CT chest are normal.he is well-appearing here he is stable for discharge she is to follow-up with PCP and return if worsening he understands agrees to plan. Lab Data 04/21/23 21:25 04/21/23 21:25 Labs: Radiology Impressions Head CT 04/21/23 21:18 IMPRESSION: No acute intracranial abnormality. Laboratory Results WBC 6.95 10^3/uL (3.29-11.43) 04/21/23 21:25 RBC 4.52 10^6/uL (3.85-5.65) 04/21/23 21:25 Hgb 13.60 g/dL (11.27-16.99) 04/21/23 21:25 Hct 41.2 % (37-53) 04/21/23 21:25 MCV 91.2 fl (82-101) 04/21/23 21:25 MCH 30.1 pg (27-33) 04/21/23 21:25 MCHC 33.0 g/dL (30-55) 04/21/23 21:25 RDW 13.2 % (12.1-15.1) 04/21/23 21:25 Plt Count 273 10^3/cmm (157-399) 04/21/23 21:25 MPV 10.0 fL (7.4-10.4) 04/21/23 21:25 Neut % (Auto) 64.8 % 04/21/23 21:25 Lymph % (Auto) 25.8 % 04/21/23 21:25 Parke % (Auto) 6.0 % 04/21/23 21:25 Eos % (Auto) 2.4 % 04/21/23 21:25 Baso % (Auto) 0.7 % 04/21/23 21:25 Sodium 142 mmol/L (136-145) 04/21/23 21:25 Potassium 3.7 mmol/L (3.5-5.1) 04/21/23 21:25 Chloride 108 mmol/L (98-107) H 04/21/23 21:25 Carbon Dioxide 22 mmol/L (22-29) 04/21/23 21:25 Anion Gap 15.7 (5-19) 04/21/23 21:25 BUN 8 mg/dL (6-20) 04/21/23 21:25 Creatinine 0.8 mg/dL (0.7-1.2) 04/21/23 21:25 GFR Calculation 102.7 mL/min (90-130) 04/21/23 21:25 Glucose 74 mg/dL (65-115) 04/21/23 21:25 Calculated Osmolality 291 mOsm/kg (285-295) 04/21/23 21:25 Calcium 9.2 mg/dL (8.5-10.5) 04/21/23 21:25 Total Bilirubin 0.2 mg/dL (0.15-1.2) 04/21/23 21:25 AST 10 U/L (0-40) 04/21/23 21:25 ALT 10 U/L (0-41) 04/21/23 21:25 Alkaline Phosphatase 108 U/L (40-130) 04/21/23 21:25 Total Protein 6.0 g/dL (6.6-8.7) L 04/21/23 21:25 Albumin 4.4 g/dL (3.5-5.2) 04/21/23 21:25 Globulin 1.6 g/dL (1.3-4.6) 04/21/23 21:25 Valproic Acid 49.2 ug/mL (50-100) L 04/21/23 21:25 Ethyl Alcohol < 10 mg/dL (0-10) 04/21/23 21:25 Discharge Plan Discharge Patient Disposition: Home Clinical Impression: Generalized seizure Condition: Stable Prescriptions: No Action docusate sodium [Colace] 100 mg capsule 100 mg PO DAILY@19 lisinopril 10 mg tablet 10 mg PO DAILY cyclobenzaprine 10 mg tablet 10 mg PO TID PRN (Reason: Muscle Spasm) paliperidone [Invega] 6 mg tablet extended release 24 hr 6 mg PO QAM Qty: 30 3RF Rx Instructions: Take one tablet every morning divalproex [Depakote] 500 mg tablet,delayed release (DR/EC) 500 mg PO BID Qty: 60 1RF Rx Instructions: Take one tablet twice per day ziprasidone HCl [Geodon] 40 mg capsule 40 mg PO .evening Qty: 30 3RF Rx Instructions: Take one capsule in evening with 500 calorie meal Ingrezza 40 mg capsule 40 mg PO .morning Qty: 30 6RF Rx Instructions: Take one capsule every morning levetiracetam [Keppra] 250 mg tablet 250 mg PO BID Rx Instructions: Take one tab twice per day x 14 days then discontinue loratadine 10 mg tablet 10 mg PO DAILY@19 atorvastatin 20 mg tablet 20 mg PO DAILY@19 Qty: 30 0RF levothyroxine 25 mcg tablet 25 mcg PO DAILY@19 Qty: 30 0RF albuterol sulfate 90 mcg/actuation HFA aerosol inhaler 2 puff inhalation Q6H PRN (Reason: Shortness Of Breath) Qty: 8.5 0RF Calcium 500 500 mg calcium (1,250 mg) Tablet 1,000 mg PO QPM acetaminophen 500 mg Tablet 1,000 mg PO Q6H PRN (Reason: Pain) meloxicam 7.5 mg tablet 7.5 mg PO DAILY topiramate 25 mg Tablet 50 mg PO BID Qty: 360 0RF Discharge Orders: Discharge ED (Routine); Ordered 04/21/23 Ordered By: Dwight Sanches Referrals: Azalia Huddleston FNP [Primary Care Provider] - 1-3 days Discharge Diet: Advance as tolerated Discharge Activity: Resume usual activity Patient Instructions: Recurrent Seizures in Adults (ED) Coding Level of Care Code ED Police Stenographer for Mimi Gastelum
[2023-04-21 21:50] LABS: Valproic Acid Level 49.2 ug/mL (50-100)
[2023-04-21 21:53] LABS: Alanine Aminotransferase 10 U/L (0-41); Albumin Level 4.4 g/dL (3.5-5.2); Alcohol Level < 10 mg/dL (0-10); Alkaline Phosphatase 108 U/L (40-130); Anion Gap 15.7 (5-19); Aspartate Amino Transferase 10 U/L (0-40); Blood Urea Nitrogen 8 mg/dL (6-20); Calcium 9.2 mg/dL (8.5-10.5); Carbon Dioxide 22 mmol/L (22-29); Chloride 108 mmol/L (98-107); Globulin 1.6 g/dL (1.3-4.6); Glomerular Filtration Rate 102.7 mL/min (90-130); Glucose 74 mg/dL (65-115); Osmolality Calculated 291 mOsm/kg (285-295); Potassium 3.7 mmol/L (3.5-5.1); Sodium 142 mmol/L (136-145); Total Bilirubin 0.2 mg/dL (0.15-1.2)
[2023-04-21 21:54] LABS: Hematocrit 41.2 % (37-53); Mean Corpuscular Hemoglobin 30.1 pg (27-33); Mean Corpuscular Volume 91.2 fl (82-101); Red Blood Count 4.52 10^6/uL (3.85-5.65); White Blood Count 6.95 10^3/uL (3.29-11.43)
[2023-04-21 21:55] LABS: Basophils % 0.7 %; Eosinophils % 2.4 %; Lymphocytes % 25.8 %; Neutrophils % 64.8 %; Platelet Count 273 10^3/cmm (157-399); Red Cell Distribution Width 13.2 % (12.1-15.1)
[2023-04-21 22:34] VITALS: BP 96/54; PULSE 98; O2SAT 99
--- NOTE | 2023-04-21 22:39 | PC.NURSE ---
PATIENT UPSET WITH DISCHARGE. PATIENT STATES NEXT TIME I JUST WON'T CALL EMS AND BANG MY HEAD AGAINST THE WALL. PATIENT WAS EDUCATED ON THERE BEING NO NEED TO KEEP HIM TONIGHT AND THAT THE GOAL OF THE ER IS TO TREAT THE ISSUES AT HAND. PATIENT WAS ALSO REASSURED THAT WE DID NOT INTEND FOR HIM TO NOT SEEK HELP. PATIENT DID NOT SEEM TO CARE AND LIKE THE ANSWER HE WAS GIVEN BUT PROCEEDED WITH DISCHARGE.
[2023-04-21 22:41] LABS: Basophils # 0.1 10^3/uL (0.0-0.1); Eosinophils # 0.2 10^3/uL (0.0-0.8); Lymphocytes # 1.8 10^3/uL (0.8-4.8); Monocytes # 0.4 10^3/uL (0.2-0.9)
== END 2023-04-21 22:42 | disposition home or self-care (01) ==
PROVIDERS: Emergency Provider Emergency Medicine; PCP Nurse Practitioner Family
DX: G40.409 Other generalized epilepsy and epileptic syndromes, not intractable, without status epilepticus (principal); I10 Essential (primary) hypertension; E78.5 Hyperlipidemia, unspecified; F17.220 Nicotine dependence, chewing tobacco, uncomplicated
CPT/HCPCS: 70450; 80053; 80164; 80307; 85025; 99284

== ENCOUNTER → 2023-05-03 07:58 | Outpatient (BNVA) | payer MEDICAID, SELFPAY ==
[2022-03-29 16:30] VITALS: BP 133/96; BMI 37.3
== END ==
PROVIDERS: PCP Nurse Practitioner Family; Referring Provider Nurse Practitioner Family; Visit Provider Psychiatry & Neurology Neurology
DX: R56.9 Unspecified convulsions (principal)
CPT/HCPCS: 95812; 95816

== ENCOUNTER 2024-02-03 13:22 | Emergency (ER) | payer MEDICAID, SELFPAY ==
[2023-08-10 15:01] VITALS: BP 96/54; BMI 23.5
[2024-02-03 13:57] VITALS: BP 148/77; PULSE 108; RESP 18; TEMP 36.9; O2SAT 98
--- NOTE | 2024-02-03 15:23 | ED_ITS ---
HPI - Skin/Abscess/Foreign Bdy General: Chief complaint: Skin/Abscess/Foreign Body Stated complaint: left arm swelling Time Seen by Provider: 02/03/24 15:18 Source: patient Mode of arrival: ambulatory Limitations: no limitations History of Present Illness: Patient is a 48-year-old male who presents to ED today for an abscess to his left AC space that he states formed following IV methamphetamine use. He was seen at an urgent care facility a few days ago and placed on clindamycin. No incision and drainage was performed at that visit. He is not running fevers. MD complaint: abscess/boil Onset (ago): day(s) Location: LUE Severity: moderate Pain Consistency: constant Context: IVDA Associated symptoms: Reports no associated symptoms; Deny chills or fever(s) Treatments prior to arrival: antibiotic Review of Systems Const: Denies: fever(s), chills, fatigue or malaise Musc: Reports: extremity pain and other (abscess L AC space) Skin/Breast: Reports: other (abscess L AC space) Neuro: Denies: headache(s), numbness in extremities, weakness in extremities or sensory changes PFSH ED PFSH: Medical History Bipolar I disorder, severe, current or most recent episode manic, with psychotic features Chewing tobacco nicotine dependence without complication Hypothyroidism GERD (gastroesophageal reflux disease) Hypertension Tardive dyskinesia Methamphetamine dependence, continuous last use four week ago, February 2023 Psychiatric care Psychiatric care Colitis Seasonal allergies Hyperlipidemia Benign essential HTN Surgical History History of dental surgery Family History Other Diabetes Hyperlipidemia Lung disease Schizophrenia Stroke Social History Smoking and tobacco/nicotine status: current every day tobacco/nicotine user smokeless tobacco Smokeless tobacco user: chewing tobacco Smokeless tobacco details: 3-4 cans per week Quit status (tobacco/nicotine): not considering quitting Second hand smoke exposure: Yes Alcohol intake: current Alcohol intake frequency: other Substance/Drug Use: current Substance/Drug use frequency: daily Additional social history: SUBSTANCE ABUSE HISTORY: He reports he chews about a can of tobacco a day but does not smoke, he reports he last drank alcohol about six years ago, he does not use marijuana or cocaine, he does use methamphetamine and has used opiates. He reports he has had two to t hree drug rehabilitations. He has had a couple of DUIs, the last one may have been in 2004. FAMILY HISTORY: He denies any history of mental health issues, addiction, or lethality in his family. DEVELOPMENTAL HISTORY: He denies any issues with his mom?s or delivery of him. He reports he learned how to walk and talk and met all developmental milestones on time. He reports when he went to school, there was no speech therapy, learning support, emotional support, or special education classes. PSYCHOSOCIAL HISTORY: He reports that his mother and father were together when he was born and when he was about 15 years old. They had him and a younger brother together. His mom had no other children; his dad had a couple step kids, a couple of adopted kids, and then a half-sister. He reports that his childhood was tough at times, because he was poor, be he denies any emotional, physical, or sexual abuse. He reports the highest grade he went to was the ninth grade, and he got his GED in 1991. He endorses being a heterosexual, with his longest relationship being a couple of years. He was once, not sure if he is , but he has not seen the person for many, many, many years. He reports he has a 20 year old daughter that he sees a little bit, but he was never to her mother. He denies any history. He endorses being a Baptist. The longest job he has had, he said, was ninety days. He reports he lives in a trailer on a friend?s property. LEGAL HISTORY: He reports that he has been to retirement multiple times, not actually sure how many. The longest time he was behind bars was the five years he spent in [facility] that ended in April 2019. Adopted: No Caregiver/support person: No Lives independently: Yes Housing: House Marital status: Marital status details: 2013 Number of children: 1 Number of grandchildren: 1 Highest education level completed: GED or Equivalent service: No Current occupational status: disabled Current occupational exposures/hazards: No Pets and animals: No Leisure activites: music and other Leisure activities details: hamilton quite a bit Sexually active: No Do you think of yourself as: Straight/Heterosexual Current gender identity: Male Lianet/Mosque: Baptist Special lianet needs: No Agree to transfusion: Yes Physical Exam Const: COMMON NORMALS: no acute distress, no limitations, alert and well nourished Extremity: COMMON NORMALS: full ROM and capillary refill normal GENERAL: Yes normal exam except as noted LEFT UPPER EXTREMITY: Yes elbow joint (fluctuant abscess L AC space) Left elbow: Yes ROM (normal) and Yes neurovascular exam (normal) Neuro: COMMON NORMALS: moves all extremities, no focal motor deficits and no sensory deficits noted SENSORIUM/ORIENTATION: Yes alert Skin: NARRATIVE SKIN EXAM: see above Procedures Abscess I/D Site: upper extremity Side (if applicable): left Local Anesthetic: bupivacaine 0.5% Amount of anesthesia used (mL): 3.0 Technique: incised with #11 blade Amount of fluid expressed (mL): 5.0 Packing used?: plain Course Vital Signs: Vital signs: Vital Signs Temperature 98.5 F 02/03/24 13:57 Pulse Rate 108 H 02/03/24 13:57 Respiratory Rate 18 02/03/24 13:57 Blood Pressure 148/77 02/03/24 13:57 Pulse Oximetry 98 02/03/24 13:57 Oxygen Delivery Me thod Room Air 02/03/24 13:57 MDM - Skin/Abscess/Foreign Bdy Medicial Decision Making Abscess was incised and drained today. Cultures obtained. He will require wound re-evaluation early next week. He still has approximately 7 days left of his Clindamycin. Recommend he continue this. Return ED precautions given. Medical Records I reviewed the patient's medical records. No radiology studies performed this visit Discharge Plan Discharge Patient Disposition: Home Clinical Impression: Abscess of arm, left Condition: Stable Prescriptions: No Action docusate sodium [Colace] 100 mg capsule 100 mg PO DAILY@19 lisinopril 10 mg tablet 10 mg PO DAILY cyclobenzaprine 10 mg tablet 10 mg PO TID PRN (Reason: Muscle Spasm) paliperidone [Invega] 6 mg tablet extended release 24 hr 6 mg PO QAM Qty: 30 3RF Rx Instructions: Take one tablet every morning divalproex [Depakote] 500 mg tablet,delayed release (DR/EC) 500 mg PO BID Qty: 60 1RF Rx Instructions: Take one tablet twice per day ziprasidone HCl [Geodon] 40 mg capsule 40 mg PO .evening Qty: 30 3RF Rx Instructions: Take one capsule in evening with 500 calorie meal Ingrezza 40 mg capsule 40 mg PO .morning Qty: 30 6RF Rx Instructions: Take one capsule every morning levetiracetam [Keppra] 250 mg tablet 250 mg PO BID Rx Instructions: Take one tab twice per day x 14 days then discontinue loratadine 10 mg tablet 10 mg PO DAILY@19 atorvastatin 20 mg tablet 20 mg PO DAILY@19 Qty: 30 0RF levothyroxine 25 mcg tablet 25 mcg PO DAILY@19 Qty: 30 0RF albuterol sulfate 90 mcg/actuation HFA aerosol inhaler 2 puff inhalation Q6H PRN (Reason: Shortness Of Breath) Qty: 8.5 0RF Calcium 500 500 mg calcium (1,250 mg) Tablet 1,000 mg PO QPM acetaminophen 500 mg Tablet 1,000 mg PO Q6H PRN (Reason: Pain) meloxicam 7.5 mg tablet 7.5 mg PO DAILY topiramate 25 mg Tablet 50 mg PO BID Qty: 360 0RF Discharge Orders: Discharge ED (Routine); Ordered 02/03/24 Ordered By: Trinity Hankins Referrals: Azalia Huddleston FNP [Primary Care Provider] - Patient Instructions: Abscess (ED), Abscess Incision and Drainage (DC) Activity Restrictions/Additional Instructions: As we discussed you need to keep area clean with warm soap and water. Be careful not accidentally remove packing when you change her dressing. As we discussed you need to follow-up with your primary care provider or walk-in clinic on Tuesday/Tuesday for wound reevaluation/repacking if necessary. Continue your Clindamycin. You need to return to the emergency department for worsening redness, drainage, streaking up your arm, fevers, worsening pain, or any other concerns you may have. 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
[2024-02-03 16:17] VITALS: BP 152/78; PULSE 98; RESP 16; TEMP 36.9; O2SAT 99
== END 2024-02-03 16:18 | disposition home or self-care (01) ==
PROVIDERS: Emergency Provider Physician Assistant; PCP Nurse Practitioner Family
DX: L02.414 Cutaneous abscess of left upper limb (principal); F17.220 Nicotine dependence, chewing tobacco, uncomplicated; I10 Essential (primary) hypertension; E78.5 Hyperlipidemia, unspecified
CPT/HCPCS: 10060; 87070; 87075; 87205; 99283; 99291

== ENCOUNTER 2024-02-18 17:12 | Inpatient (IN) | payer MEDICAID, SELFPAY ==
[2023-08-10 15:01] VITALS: BP 96/54; BMI 23.5
[2024-02-18] VITALS (15 sets, daily range): BP systolic 84–134; BP diastolic 53–86; PULSE 73–95; RESP 12–18; TEMP 36.6–36.8; O2SAT 96–99; BMI 34.4; BMI 31.7
--- NOTE | 2024-02-18 17:32 | W.ED.OVERDOS ---
HPI - Overdose General: Chief Complaint: Overdose Stated Complaint: took too much medication Time Seen by Provider: 02/18/24 17:28 Source: patient Mode of arrival: ambulatory Limitations: no limitations History of Present Illness: 48-year-old male with a history of psychiatric issues states has been having increased depression last week after his grandmother had he states that her was today and 45 minutes ago he took half of his Depakote pills half of his Keppra pills and lisinopril pills in attempt to kill himself. He denies any worsening proving factors. Review of Systems Const: Denies: fever(s), chills, body aches or change in appetite ENMT: Denies: throat pain or dental pain Card: Denies: chest pain Resp: Denies: dyspnea GI: Denies: abdominal pain, nausea, vomiting or diarrhea Musc: Denies: neck pain or back pain Skin/Breast: Denies: rash Neuro: Denies: headache(s) Psych: Reports: depression and suicidal ideation [facility] ED PFSH: Medical History Bipolar I disorder, severe, current or most recent episode manic, with psychotic features Chewing tobacco nicotine dependence without complication Hypothyroidism GERD (gastroesophageal reflux disease) Hypertension Tardive dyskinesia Methamphetamine dependence, continuous last use four week ago, February 2023 Psychiatric care Psychiatric care Colitis Seasonal allergies Hyperlipidemia Benign essential HTN Surgical History History of dental surgery Family History Other Diabetes Hyperlipidemia Lung disease Schizophrenia Stroke Social History Smoking and tobacco/nicotine status: current every day tobacco/nicotine user smokeless tobacco Smokeless tobacco user: chewing tobacco Smokeless tobacco details: 3-4 cans per week Quit status (tobacco/nicotine): not considering quitting Second hand smoke exposure: Yes Alcohol intake: current Alcohol intake frequency: other Substance/Drug Use: current Substance/Drug use frequency: daily Additional social history: SUBSTANCE ABUSE HISTORY: He reports he chews about a can of tobacco a day but does not smoke, he reports he last drank alcohol about six years ago, he does not use marijuana or cocaine, he does use methamphetamine and has used opiates. He reports he has had two to three drug rehabilitations. He has had a couple of DUIs, the last one may have been in 2004. FAMILY HISTORY: He denies any history of mental health issues, addiction, or lethality in his family. DEVELOPMENTAL HISTORY: He denies any issues with his mom?s or delivery of him. He reports he learned how to walk and talk and met all developmental milestones on time. He reports when he went to school, there was no speech therapy, learning support, emotional support, or special education classes. PSYCHOSOCIAL HISTORY: He reports that his mother and father were together when he was born and when he was about 15 years old. They had him and a younger brother together. His mom had no other children; his dad had a couple step kids, a couple of adopted kids, and then a half-sister. He reports that his childhood was tough at times, because he was poor, be he denies any emotional, physical, or sexual abuse. He reports the highest grade he went to was the ninth grade, and he got his GED in 1991. He endorses being a heterosexual, with his longest relationship being a couple of years. He was once, not sure if he is , but he has not seen the person for many, many, many years. He reports he has a 20 year old daughter that he sees a little bit, but he was never to her mother. He denies any history. He endorses being a Religious. The longest job he has had, he said, was ninety days. He reports he lives in a trailer on a friend?s property. LEGAL HISTORY: He reports that he has been to skilled nursing multiple times, not actually sure how many. The longest time he was behind bars was the five [place] he [place] that ended [place]. Adopted: No Caregiver/support person: No Lives independently: Yes Housing: House Marital status: Marital status details: 2013 Number of children: 1 Number of grandchildren: 1 Highest education level completed: GED or Equivalent service: No Current occupational status: disabled Current occupational exposures/hazards: No Pets and animals: No Leisure activites: music and other Leisure activities details: hamilton quite a bit Sexually active: No Do you think of yourself as: Straight/Heterosexual Current gender identity: Male Lianet/Protestant: Religious Special lianet needs: No Agree to transfusion: Yes Physical Exam Const: COMMON NORMALS: no acute distress, patient oriented x3 and healthy appearing HENMT: COMMON NORMALS: normocephalic and atraumatic HEAD & SCALP: normocephalic and atraumatic Neck/C-Spine: COMMON NORMALS: full ROM and supple Chest: COMMONS NORMALS: normal inspection of the chest Resp: COMMON NORMALS: normal respiratory effort, No retractions, No use of accessory muscles and clear to auscultation bilaterally AUSCULTATION: clear to auscultation bilaterally Cardio: COMMON NORMALS: regular rate, regular rhythm and No murmurs present (Cardio) RATE: regular rate RHYTHM: regular rhythm Extremity: COMMON NORMALS: normal to inspection and full ROM Neuro: COMMON NORMALS: patient oriented x3, moves all extremities and no focal motor deficits Psych: COMMON NORMALS: mental status grossly normal, Normal thought process present and cooperative MOOD & AFFECT: Yes depressed mood THOUGHT PROCESS: Normal thought process present THOUGHT CONTENT: Yes Suicidality present Skin: COMMON NORMALS: no rashes or lesions noted and no wounds GENERAL SKIN EXAM: no rashes or lesions noted Course Vital Signs: Vital signs: Vital Signs Temperature 98.2 F 02/18/24 17:16 Pulse Rate 73 02/18/24 20:16 Respiratory Rate 16 02/18/24 20:16 Blood Pressure 97/73 02/18/24 20:16 Pulse Oximetry 98 02/18/24 20:16 Oxygen Delivery Me thod Room Air 02/18/24 20:16 MDM - Overdose Medical Decision Making Patient presents here with suicide attempt by overdose on pills he has been well-appearing here no signs of any toxic effects will admit to the ICU until he is medically cleared I did speak to psychiatrist as well patient is placed under 96-hour hold. Medical Records I reviewed the patient's medical records. Lab Data I reviewed the patient's lab results. 02/18/24 17:53 02/18/24 17:53 Laboratory Results WBC 4.28 10^3/uL (3.29-11.43) 02/18/24 17:53 RBC 4.59 10^6/uL (3.85-5.65) 02/18/24 17:53 Hgb 14.20 g/dL (11.27-16.99) 02/18/24 17:53 Hct 42.4 % (37-53) 02/18/24 17:53 MCV 92.4 fl (82-101) 02/18/24 17:53 MCH 30.9 pg (27-33) 02/18/24 17:53 MCHC 33.5 g/dL (30-55) 02/18/24 17:53 RDW 11.8 % (12.1-15.1) L 02/18/24 17:53 Plt Count 258 10^3/cmm (157-399) 02/18/24 17:53 MPV 10.2 fL (7.4-10.4) 02/18/24 17:53 Neut % (Auto) 47.5 % 02/18/24 17:53 Lymph % (Auto) 37.6 % 02/18/24 17:53 Hardeman % (Auto) 11.9 % 02/18/24 17:53 Eos % (Auto) 2.1 % 02/18/24 17:53 Baso % (Auto) 0.7 % 02/18/24 17:53 Neut # (Auto) 2.03 10^3/uL (1.8-7.7) 02/18/24 17:53 Lymph # (Auto) 1.6 10^3/uL (0.8-4.8) 02/18/24 17:53 Hardeman # (Auto) 0.5 10^3/uL (0.2-0.9) 02/18/24 17:53 Eos # (Auto) 0.1 10^3/uL (0.0-0.8) 02/18/24 17:53 Baso # (Auto) 0.0 10^3/uL (0.0-0.1) 02/18/24 17:53 Nucleated RBC % (auto) 0 % 02/18/24 17:53 Nucleated RBCs # 0.0 /100WBC 02/18/24 17:53 Sodium 137 mmol/L (136-145) 02/18/24 17:53 Potassium 3.5 mmol/L (3.5-5.1) 02/18/24 17:53 Chloride 105 mmol/L (98-107) 02/18/24 17:53 Carbon Dioxide 19 mmol/L (22-29) L 02/18/24 17:53 Anion Gap 16.5 (5-19) 02/18/24 17:53 BUN 9 mg/dL (6-20) 02/18/24 17:53 Creatinine 0.8 mg/dL (0.7-1.2) 02/18/24 17:53 GFR Calculation 102.7 mL/min (90-130) 02/18/24 17:53 Glucose 92 mg/dL (65-115) 02/18/24 17:53 Calculated Osmolality 282 mOsm/kg (285-295) L 02/18/24 17:53 Calcium 8.8 mg/dL (8.5-10.5) 02/18/24 17:53 Total Bilirubin 0.2 mg/dL (0.15-1.2) 02/18/24 17:53 AST 10 U/L (0-40) 02/18/24 17:53 ALT 11 U/L (0-41) 02/18/24 17:53 Alkaline Phosphatase 76 U/L (40-130) 02/18/24 17:53 Total Protein 6.3 g/dL (6.6-8.7) L 02/18/24 17:53 Albumin 3.9 g/dL (3.5-5.2) 02/18/24 17:53 Globulin 2.4 g/dL (1.3-4.6) 02/18/24 17:53 Salicylates 0.6 mg/dL (3-10) L 02/18/24 17:53 Urine Opiates Screen Negative ng/mL (Negative) 02/18/24 17:35 Acetaminophen < 5.0 ug/mL (10-30) L 02/18/24 17:53 Ur Barbiturates Screen Negative ng/mL (Negative) 02/18/24 17:35 Ur Phencyclidine Scrn Negative ng/mL (Negative) 02/18/24 17:35 Ur Amphetamines Screen Positive ng/mL (Negative) H 02/18/24 17:35 U Benzodiazepines Scrn Negative ng/mL (Negative) 02/18/24 17:35 Urine Cocaine Screen Negative ng/mL (Negative) 02/18/24 17:35 U Marijuana (THC) Screen Negative ng/mL (Negative) 02/18/24 17:35 Ethyl Alcohol < 10 mg/dL (0-10) 02/18/24 17:53 All radiology interpretation(s) finalized by discharge EKG Data EKG 1: I personally reviewed and interpreted this EKG as follows: EKG interpretation date: 02/18/24 EKG interpretation time: 17:37 Interpretation: nsr hr [address] or t wave abnormalities qrs 100 qtc 388 Critical Care Time Critical Care Time: Critical Care Time: Yes Total Critical Care Time: 40 Attestation: The high probability of a clinically significant, sudden or life threatening deterioration of the patient's od system(s) required my full and direct attention, intervention and personal management. The critical care time is as shown. This time is in addition to time spent performing any reported procedures but includes the following: [x] Data and vital sign review and interpretation [x] Patient assessment, examination and intervention [x] Documentation [x] Medication orders and management Discharge Plan Discharge Patient Disposition: Admitted As Inpatient Clinical Impression: Drug overdose, Suicide attempt by multiple drug overdose Condition: Stable Prescriptions: No Action docusate sodium [Colace] 100 mg capsule 100 mg PO DAILY@19 lisinopril 10 mg tablet 10 mg PO DAILY cyclobenzaprine 10 mg tablet 10 mg PO TID PRN (Reason: Muscle Spasm) paliperidone [Invega] 6 mg tablet extended release 24 hr 6 mg PO QAM Qty: 30 3RF Rx Instructions: Take one tablet every morning divalproex [Depakote] 500 mg tablet,delayed release (DR/EC) 500 mg PO BID Qty: 60 1RF Rx Instructions: Take one tablet twice per day ziprasidone HCl [Geodon] 40 mg capsule 40 mg PO .evening Qty: 30 3RF Rx Instructions: Take one capsule in evening with 500 calorie meal Ingrezza 40 mg capsule 40 mg PO .morning Qty: 30 6RF Rx Instructions: Take one capsule every morning levetiracetam [Keppra] 250 mg tablet 250 mg PO BID Rx Instructions: Take one tab twice per day x 14 days then discontinue loratadine 10 mg tablet 10 mg PO DAILY@19 atorvastatin 20 mg tablet 20 mg PO DAILY@19 Qty: 30 0RF levothyroxine 25 mcg tablet 25 mcg PO DAILY@19 Qty: 30 0RF albuterol sulfate 90 mcg/actuation HFA aerosol inhaler 2 puff inhalation Q6H PRN (Reason: Shortness Of Breath) Qty: 8.5 0RF Calcium 500 500 mg calcium (1,250 mg) Tablet 1,000 mg PO QPM acetaminophen 500 mg Tablet 1,000 mg PO Q6H PRN (Reason: Pain) meloxicam 7.5 mg tablet 7.5 mg PO DAILY topiramate 25 mg Tablet 50 mg PO BID Qty: 360 0RF Referrals: Azalia Huddleston, MAIL CARRIER [Primary Care Provider] - Coding Level of Care Code ED Financial Manager for [facility]el[facility]
--- NOTE | 2024-02-18 17:37 | ECG_ITS ---
[facility] Test Date: 2024-02-18 Pat Name: Walt Madsen Department: Room: Gender: Male Medical Administrative Technician: : 1975 Requested By: Dwight Sanches Order Number: [id number] Fuad MD: Severo Armijo M.D. Measurements Intervals Randolph Rate: 97 P: 67 CO: 140 QRS: 65 QRSD: 100 T: 50 QT: 334 QTc: 425 Interpretive Statements SINUS RHYTHM Compared to ECG 04/06/2023 20:05:39 Short CO interval no longer present Electronically Signed On 02-19-2024 19:21:11 CDT by Severo Armijo M.D. [email or web address]
[2024-02-18 18:01] LABS: Basophils % 0.7 %; Eosinophils # 0.1 10^3/uL (0.0-0.8); Eosinophils % 2.1 %; Hematocrit 42.4 % (37-53); Lymphocytes # 1.6 10^3/uL (0.8-4.8); Lymphocytes % 37.6 %; Mean Corpuscular HGB Conc 33.5 g/dL (30-55); Mean Corpuscular Hemoglobin 30.9 pg (27-33); Mean Corpuscular Volume 92.4 fl (82-101); Mean Platelet Volume 10.2 fL (7.4-10.4); Monocytes # 0.5 10^3/uL (0.2-0.9); Monocytes % 11.9 %; Neutrophils # 2.03 10^3/uL (1.8-7.7); Neutrophils % 47.5 %; Nucleated Red Blood Cells % 0 %; Platelet Count 258 10^3/cmm (157-399); Red Blood Count 4.59 10^6/uL (3.85-5.65); Red Cell Distribution Width 11.8 % (12.1-15.1); White Blood Count 4.28 10^3/uL (3.29-11.43)
[2024-02-18 18:17] LABS: Alanine Aminotransferase 11 U/L (0-41); Albumin Level 3.9 g/dL (3.5-5.2); Alkaline Phosphatase 76 U/L (40-130); Anion Gap 16.5 (5-19); Aspartate Amino Transferase 10 U/L (0-40); Blood Urea Nitrogen 9 mg/dL (6-20); Calcium 8.8 mg/dL (8.5-10.5); Carbon Dioxide 19 mmol/L (22-29); Chloride 105 mmol/L (98-107); Globulin 2.4 g/dL (1.3-4.6); Glomerular Filtration Rate 102.7 mL/min (90-130); Glucose 92 mg/dL (65-115); Osmolality Calculated 282 mOsm/kg (285-295); Potassium 3.5 mmol/L (3.5-5.1); Salicylate 0.6 mg/dL (3-10); Sodium 137 mmol/L (136-145); Total Bilirubin 0.2 mg/dL (0.15-1.2); Total Protein 6.3 g/dL (6.6-8.7)
[2024-02-18 18:19] LABS: Acetaminophen < 5.0 ug/mL (10-30); Alcohol Level < 10 mg/dL (0-10)
[2024-02-18 18:26] LABS: Amphetamines Screen Urine Positive (Negative); Barbiturates Screen Urine Negative (Negative); Benzodiazepines Screen Urine Negative (Negative); Cocaine Screen Urine Negative (Negative); Opiate Screen Urine Negative (Negative); PCP Screen Urine Negative (Negative); THC Screen Urine Negative (Negative)
--- NOTE | 2024-02-18 19:26 | PC.NURSE ---
PT ON 96 HOUR HOLD INITIATED. PT RIGHTS READ. ALL QUESTIONS WERE ANSWERED. PT HAD NO QUESTIONS AND STATES HE HAS BEEN ON A 96 HOUR HOLD BEFORE.
--- NOTE | 2024-02-18 19:36 | P.HP_ITS ---
Providers/Chief Complaint 2 Primary Care Provider: TIFFANY Almanza Chief Complaint: took too much medication History of Present Illness Walt Madsen is a 48 year old male With past medical history of bipolar 1 disorder, hypothyroidism, GERD, hypertension, methamphetamine abuse, psychiatric care, hyperlipidemia who has a public guardian presented to the hospital today with complaint of increasing depression in the last week after his grandmother . He attended her today and thereafter took half the bottle of his Depakote pills, have his Keppra pills and half of lisinopril and attempts to kill himself. On arrival blood pressure 97/73, respiratory 16, pulse 73, temperature 98.2, saturating 98% on room air. He did not appear toxic. Case was discussed with psychiatry and patient was placed on a 96-hour hold. Initial EKG did not show any acute arrhythmias or ischemic changes. He did not appear drowsy. Patient will be admitted to ICU for closer monitoring. Keppra level, valproic acid level have been sent. Seen in ICU appearing well at this time alert oriented x 3. Denies nausea vomiting diarrhea, constipation at this time. Denies chest pain, shortness of breath. Patient states he tried to kill himself earlier but no longer has a plan. He does not want to kill himself or new anymore. Poison control was contacted. They recommend to repeat valproic acid level and ammonia. If trending upwards patient will need L-carnitine and lactulose. Medications/Allergies Home Medications Medication Instructions Recorded Confirmed Last Taken Type levothyroxine 25 mcg tablet 25 mcg PO DAILY@19 #30 tabs 03/02/23 02/18/24 04/06/23 Rx lisinopril 10 mg tablet 10 mg PO DAILY 03/07/23 02/18/24 04/06/23 History topiramate 25 mg tablet 50 mg (2 x 25 mg) PO BID #360 tabs 04/01/23 02/18/24 04/06/23 Rx divalproex 500 mg tablet,delayed 500 mg PO BID #60 tabs 04/12/23 02/18/24 Unknown Rx release (Depakote) paliperidone 6 mg tablet,extended 6 mg PO QAM #30 tabs 04/12/23 02/18/24 Unknown Rx release 24 hr (Invega) levetiracetam 250 mg tablet 500 mg PO BID 04/13/23 02/18/24 Unknown History (Keppra) Allergies Allergy/AdvReac Type Severity Reaction Status Date / Time Penicillins Allergy unknown Verified 02/18/24 17:23 deutetrabenazine AdvReac Severe ADR-Agitate Verified 02/18/24 17:23 [From [facility]] d PFSH Acute 2 PFSH: Medical History Bipolar I disorder, severe, current or most recent episode manic, with psychotic features Chewing tobacco nicotine dependence without complication Hypothyroidism GERD (gastroesophageal reflux disease) Hypertension Tardive dyskinesia Methamphetamine dependence, continuous last use four week ago, February 2023 Psychiatric care Psychiatric care Colitis Seasonal allergies Hyperlipidemia Benign essential HTN Surgical History History of dental surgery Family History Other Diabetes Hyperlipidemia Lung disease Schizophrenia Stroke Social History Smoking and tobacco/nicotine status: current every day tobacco/nicotine user smokeless tobacco Smokeless tobacco user: chewing tobacco Smokeless tobacco details: 3-4 cans per week Quit status (tobacco/nicotine): not considering quitting Second hand smoke exposure: Yes Alcohol intake: current Alcohol intake frequency: other Substance/Drug Use: current Substance/Drug use frequency: daily Additional social history: SUBSTANCE ABUSE HISTORY: He reports he chews about a can of tobacco a day but does not smoke, he reports he last drank alcohol about six years ago, he does not use marijuana or cocaine, he does use methamphetamine and has used opiates. He reports he has had two to three drug rehabilitations. He has had a couple of DUIs, the last one may have been in 2004. FAMILY HISTORY: He denies any history of mental health issues, addiction, or lethality in his family. DEVELOPMENTAL HISTORY: He denies any issues with his mom?s or delivery of him. He reports he learned how to walk and talk and met all developmental milestones on time. He reports when he went to school, there was no speech therapy, learning support, emotional support, or special education classes. PSYCHOSOCIAL HISTORY: He reports that his mother and father were together when he was born and when he was about 15 years old. They had him and a younger brother together. His mom had no other children; his dad had a couple step kids, a couple of adopted kids, and then a half-sister. He reports that his childhood was tough at times, because he was poor, be he denies any emotional, physical, or sexual abuse. He reports the highest grade he went to was the ninth grade, and he got his GED in 1991. He endorses being a heterosexual, with his longest relationship being a couple of years. He was once, not sure if he is , but he has not seen the person for many, many, many years. He reports he has a 20 year old daughter that he sees a little bit, but he was never to her mother. He denies any history. He endorses being a [employer]. The longest job he has had, he said, was ninety days. He reports he lives in a trailer on a friend?s property. LEGAL HISTORY: He reports that he has been to snf multiple times, not actually sure how many. The longest time he was behind bars was the five years he spent in skilled nursing that ended in April 2019. Adopted: No Caregiver/support person: No Lives independently: Yes Housing: House Marital status: Marital status details: 2013 Number of children: 1 Number of grandchildren: 1 Highest education level completed: GED or Equivalent service: No Current occupational status: disabled Current occupational exposures/hazards: No Pets and animals: No Leisure activites: music and other Leisure activities details: hamilton quite a bit Sexually active: No Do you think of yourself as: Straight/Heterosexual Current gender identity: Male Lianet/Sikhism: Methodist Special lianet needs: No Agree to transfusion: Yes Vitals/I&O/Wt Last Vital Signs Temp 98.2 F 02/18/24 17:16 Pulse 82 02/18/24 19:23 Resp 15 02/18/24 19:23 BP 115/74 02/18/24 19:23 Pulse Ox 97 02/18/24 19:23 O2 Del Method Room Air 02/18/24 19:23 Weight last 48 hrs Weight 99.79 kg Physical Exam 2 Narrative: Alert oriented x3, patient seen laying in bed appearing comfortable at this time HEENT: Normocephalic, atraumatic, EOMI, breathing room air. Cardio: Regular rate rhythm, normal S1-S2 Respiratory: Good bilateral air entry, no wheezes no rhonchi appreciated GI: Abdomen soft, nontender, nondistended, bowel sounds + Extremities: No edema bilateral lower extremity Data 02/18/24 17:53 02/18/24 17:53 A&P Assessment and plan (1) Bipolar I disorder, severe, current or most recent episode manic, with psychotic features: (2) Suicide attempt by multiple drug overdose: (3) Polysubstance abuse: (4) Methamphetamine dependence, continuous: (5) Benign essential HTN: (6) Hyperlipidemia: Qualifiers: Hyperlipidemia type: mixed hyperlipidemia Qualified Code(s): E78.2 - Mixed hyperlipidemia (7) Tardive dyskinesia: (8) Seizure-like activity: (9) Nicotine dependence, chewing tobacco, with unspecified nicotine-induced disorders: (10) Chewing tobacco nicotine dependence without complication: (11) Psychiatric care: Plan #Suicide attempt #Drug overdose #History of bipolar disorder #Hypothyroidism #GERD #Psychiatric hospitalization in the past. #Methamphetamine abuse. #History of tardive dyskinesia, seizure-like activity #Nicotine dependence. ? Patient took half the bottle of lisinopril, half the bottle of Keppra, half the bottle of valproic acid today as a drug overdose and attempt to kill himself. ? Continue 96-hour hold placement. Transfer to [facility] when medically cleared. ? Monitor in ICU overnight. ? Serial EKGs ? Monitor vitals closely. ? Placed on normal saline 125 cc per hour. ? Hold home Keppra, valproic acid, lisinopril at this time. ? Confirm all home medications. ? DuoNeb every 6 hours as needed for shortness of breath. ? Patient on Zyprexa 40 mg in evening time as per previous medication list. Will discuss with psychiatry before administrating any other psychiatric medications. ? Dr. Pugh consulted. ? Continue levothyroxine 25 daily ? Check TSH ? Will avoid nicotine patch. ? Check urine drug screen, ammonia level ? Check acetaminophen level, alcohol level, salicylate level ? Check CPK ? Check chest x-ray Full code DVT prophylaxis: Heparin SQ twice daily Attestations 2 Medical Necessity Statement*: Greater than 2 midnight stay for management of drug overdose. Patient will need psychiatric hospitalization. Patient on a 96-hour hold at this time. Diagnoses Bipolar I disorder, severe, current or most recent episode manic, with psychotic features F31.2 Suicide attempt by multiple drug overdose T50.912A Polysubstance abuse F19.10 Methamphetamine dependence, continuous F15.20 Benign essential HTN I10 Mixed hyperlipidemia E78.2 Hyperlipidemia type: mixed hyperlipidemia Tardive dyskinesia G24.01 Seizure-like activity R56.9 Nicotine dependence, chewing tobacco, with unspecified nicotine-induced disorders F17.229 Chewing tobacco nicotine dependence without complication F17.220 Psychiatric care
--- NOTE | 2024-02-18 20:00 | ECG_ITS ---
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 Measurements Intervals [place] Rate: 84 P: 79 MD: 156 QRS: 69 QRSD: 106 T: 66 QT: 348 QTc: 413 Interpretive Statements SINUS RHYTHM Compared to ECG 02/18/2024 17:37:02 No significant changes Electronically Signed On 02-19-2024 19:29:08 CDT by Severo Armijo M.D. [id number]
[2024-02-18 20:30] LABS: Thyroid Stimulating Hormone 2.26 uIU/mL (0.27-4.20)
[2024-02-18 20:52] LABS: Valproic Acid Level 45.4 ug/mL (50-100)
[2024-02-18 20:57] LABS: Ammonia 100 umol/L (16-60)
--- NOTE | 2024-02-18 21:08 | XRR_ITS ---
PROCEDURE INFORMATION: Exam: XR Chest Exam date and time: 02/18/2024 9:57 PM Age: 48 years old Clinical indication: Shortness of breath; Patient HX: Cough; SOB; Overdose TECHNIQUE: Imaging protocol: Radiologic exam of the chest. Views: 1 view. COMPARISON: CR XR chest 1V portable [id number] 04/06/2023 6:26 PM FINDINGS: Lungs: Clear, symmetrically inflated lungs. Pleural spaces: No pleural effusion. No pneumothorax. Heart/Mediastinum: Cardiac silhouette is normal in size for technique. Bones/joints: Age appropriate. XR/XR chest 1V portable [id number] IMPRESSION: No acute cardiopulmonary abnormality.
[2024-02-18 21:35] LABS: Creatine Phosphokinase 38 U/L (39-308)
[2024-02-18] MEDS: sodium chloride 0.9% 1,000 ML 75 ML IV (21:41)
[2024-02-18] MEDS: heparin 5,000 unit/mL INJ 1 mL 5000 UNIT SUBCUT (21:43)
--- NOTE | 2024-02-18 23:00 | ECG_ITS ---
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 Measurements Intervals [place] Rate: 79 P: 56 [place]: 142 QRS: 67 QRSD: 101 T: 55 QT: 366 QTc: 421 Interpretive Statements SINUS RHYTHM Compared to ECG 02/18/2024 20:08:42 No significant changes Electronically Signed On 02-19-2024 19:28:19 CDT by Severo Armijo M.D. [email or web address] [id number]
[2024-02-19] VITALS (26 sets, daily range): BP systolic 83–117; BP diastolic 54–77; PULSE 57–84; RESP 10–24; TEMP 36.2–36.6; O2SAT 91–100
[2024-02-19 02:00] LABS: Ammonia 75 umol/L (16-60)
[2024-02-19 02:22] LABS: Valproic Acid Level 183.6 ug/mL (50-100)
--- NOTE | 2024-02-19 02:45 | CTR_ITS ---
PROCEDURE INFORMATION: Exam: CT Head Without Contrast Exam date and time: 02/19/2024 3:06 AM Age: 48 years old Clinical indication: Other: Valproic acid overdose; Patient HX: Overdose on valproic acid. ; Additional info: Valproic acid drug overdose TECHNIQUE: Imaging protocol: Computed tomography of the head without contrast. Radiation optimization: All CT scans at this facility use at least one of these dose optimization techniques: automated exposure control; mA and/or kV adjustment per patient size (includes targeted exams where dose is matched to clinical indication); or iterative reconstruction. COMPARISON: CT head wo con* [id number] 04/21/2023 9:55 PM RADIATION DOSE METRICS: Total DLP (mGy-cm): 1098.88 FINDINGS: Brain: No hemorrhage. Unremarkable white matter. No mass effect. Preserved mae-white interfaces. Cerebral ventricles: No ventriculomegaly. Paranasal sinuses: Visualized sinuses are unremarkable. No fluid levels. Mastoid air cells: Visualized mastoid air cells are well aerated. Auditory system: Retained cerumen noted in the left external auditory canal. Bones: Unremarkable. No acute fracture. Soft tissues: Unremarkable. CT/CT head wo con* [id number] IMPRESSION: No evidence of acute intracranial hemorrhage, mass effect, or edema. No evidence of cerebral edema.
--- NOTE | 2024-02-19 02:48 | PC.NURSE ---
Poison control updated new ammonia level 75 down from 100. Valporic acid up to 183.5 from 45.4 ekg results from 0127 reviewed without significant changes. Poison control recommended repeat ammonia and valporic acid level in 4-6 hours. Monitor for signs of encephalopathy, to treatment with Lcarnitine only if symptomatic. Patient resting, easily arousable, oriented x 4 /vitals stable. Dr. Carvajal updated with recommendations.
[2024-02-19 05:21] LABS: Basophils % 0.4 %; Eosinophils # 0.1 10^3/uL (0.0-0.8); Eosinophils % 1.2 %; Hematocrit 41.9 % (37-53); Lymphocytes # 1.7 10^3/uL (0.8-4.8); Lymphocytes % 35.9 %; Mean Corpuscular HGB Conc 33.4 g/dL (30-55); Mean Corpuscular Hemoglobin 30.7 pg (27-33); Mean Corpuscular Volume 91.9 fl (82-101); Mean Platelet Volume 9.9 fL (7.4-10.4); Monocytes # 0.2 10^3/uL (0.2-0.9); Monocytes % 4.5 %; Neutrophils # 2.79 10^3/uL (1.8-7.7); Neutrophils % 57.6 %; Nucleated Red Blood Cells % 0 %; Platelet Count 266 10^3/cmm (157-399); Red Blood Count 4.56 10^6/uL (3.85-5.65); Red Cell Distribution Width 11.9 % (12.1-15.1); White Blood Count 4.85 10^3/uL (3.29-11.43)
[2024-02-19 05:37] LABS: Valproic Acid Level 112.2 ug/mL (50-100)
[2024-02-19 05:46] LABS: Alanine Aminotransferase 10 U/L (0-41); Albumin Level 3.9 g/dL (3.5-5.2); Alkaline Phosphatase 71 U/L (40-130); Anion Gap 15.8 (5-19); Aspartate Amino Transferase 8 U/L (0-40); Blood Urea Nitrogen 7 mg/dL (6-20); Calcium 8.4 mg/dL (8.5-10.5); Carbon Dioxide 19 mmol/L (22-29); Chloride 111 mmol/L (98-107); Creatinine Clr Calc Pharmacy 120.7962; Globulin 1.9 g/dL (1.3-4.6); Glomerular Filtration Rate 102.7 mL/min (90-130); Glucose 91 mg/dL (65-115); Magnesium 1.8 mg/dL (1.7-2.3); Osmolality Calculated 292 mOsm/kg (285-295); Potassium 3.8 mmol/L (3.5-5.1); Sodium 142 mmol/L (136-145); Total Bilirubin 0.2 mg/dL (0.15-1.2); Total Protein 5.8 g/dL (6.6-8.7)
[2024-02-19] MEDS: sodium chloride 0.9% 1,000 ML 125 ML IV ×2 (08:59→09:10)
[2024-02-19] MEDS: heparin 5,000 unit/mL INJ 1 mL 5000 UNIT SUBCUT ×2 (09:02→20:19)
[2024-02-19] MEDS: lactulose oral liq 20 gm/30 mL UDC PO (09:03)
[2024-02-19] MEDS: pantoprazole 40 mg SDV IVP (09:03)
--- NOTE | 2024-02-19 12:06 | P.PN_ITS ---
Subjective 2 Subjective: Ammonia level trending down I will give him 1 dose of lactulose Monitor in ICU Hemodynamically stable No sign of encephalopathy Mild acidosis Added bicarb for acidosis Vitals/I&O/Wt Last Vital Signs Temp 97.6 F 02/19/24 06:00 Pulse 68 02/19/24 10:00 Resp 14 02/19/24 10:00 BP 95/66 02/19/24 10:00 Pulse Ox 95 02/19/24 10:00 O2 Del Method Room Air 02/19/24 07:49 02/18/24 02/19/24 02/19/24 22:59 06:59 14:59 Intake Total 100 / 100 423.75 / 523.75 599.167 / 599.167 Output Total 350 / 350 550 / 900 Balance -250 / -250 -126.25 / -376.25 599.167 / 599.167 Weight last 48 hrs Weight 92 kg Weight 92 kg Weight 99.79 kg Physical Exam 2 Narrative: Awake and alert Nonfocal neuroexam No sign of tremors No sign of respiratory depression Awake and alert Pleasant cooperative Euvolemic One-to-one supervision S1, S2 Hemodynamically stable Currently room air Data 02/19/24 05:12 02/19/24 05:12 A&P Assessment and plan (1) Bipolar I disorder, severe, current or most recent episode manic, with psychotic features: (2) Suicide attempt by multiple drug overdose: (3) Polysubstance abuse: (4) Methamphetamine dependence, continuous: (5) Benign essential HTN: (6) Hepatic steatosis: (7) Tardive dyskinesia: (8) Drug overdose: (9) Psychiatric care: Plan Suicide attempt Polysubstance abuse Drug overdose Patient hemodynamically stable Added lactulose and bicarb today Bicarb can be turned off if bicarb level above 20 tomorrow Holding home medications for now Ammonia level trending down Polysubstance abuse Continue IV fluids Start regular diet today TSH normal CPK 38 Magnesium 1.8 Potassium 3.8 One-to-one supervision Will need to neuropsychiatric unit once stable likely on Tuesday Attestations 2 Medical Necessity Statement*: Continue ICU management Diagnoses Bipolar I disorder, severe, current or most recent episode manic, with psychotic features F31.2 Suicide attempt by multiple drug overdose T50.912A Polysubstance abuse F19.10 Methamphetamine dependence, continuous F15.20 Benign essential HTN I10 Hepatic steatosis K76.0 Tardive dyskinesia G24.01 Drug overdose T50.901A Psychiatric care
[2024-02-19] MEDS: sodium bicarbonate 650 mg Tablet PO ×2 (15:35→20:19)
[2024-02-19] MEDS: sodium chloride 0.9% 1,000 ML 10 ML IV (17:46)
[2024-02-19] MEDS: acetaminophen 500 mg Tablet PO (18:41)
[2024-02-20] VITALS (27 sets, daily range): BP systolic 101–135; BP diastolic 64–105; PULSE 52–84; RESP 9–23; TEMP 36.4–36.7; O2SAT 93–99
[2024-02-20 04:29] LABS: Ammonia 65 umol/L (16-60)
[2024-02-20 04:30] LABS: Alanine Aminotransferase 8 U/L (0-41); Albumin Level 3.6 g/dL (3.5-5.2); Alkaline Phosphatase 70 U/L (40-130); Anion Gap 12.9 (5-19); Aspartate Amino Transferase 9 U/L (0-40); Blood Urea Nitrogen 8 mg/dL (6-20); Calcium 8.6 mg/dL (8.5-10.5); Carbon Dioxide 18 mmol/L (22-29); Chloride 112 mmol/L (98-107); Creatinine Clr Calc Pharmacy 120.7962; Globulin 2.2 g/dL (1.3-4.6); Glomerular Filtration Rate 102.7 mL/min (90-130); Glucose 99 mg/dL (65-115); Osmolality Calculated 286 mOsm/kg (285-295); Potassium 3.9 mmol/L (3.5-5.1); Sodium 139 mmol/L (136-145); Total Bilirubin 0.2 mg/dL (0.15-1.2); Total Protein 5.8 g/dL (6.6-8.7)
[2024-02-20 05:51] LABS: Basophils % 0.5 %; Eosinophils % 1.1 %; Hematocrit 42.2 % (37-53); Lymphocytes # 1.1 10^3/uL (0.8-4.8); Lymphocytes % 30.2 %; Mean Corpuscular HGB Conc 32.9 g/dL (30-55); Mean Corpuscular Hemoglobin 30.8 pg (27-33); Mean Corpuscular Volume 93.6 fl (82-101); Mean Platelet Volume 9.9 fL (7.4-10.4); Monocytes # 0.3 10^3/uL (0.2-0.9); Neutrophils # 2.17 10^3/uL (1.8-7.7); Neutrophils % 58.9 %; Nucleated Red Blood Cells % 0 %; Platelet Count 233 10^3/cmm (157-399); Red Blood Count 4.51 10^6/uL (3.85-5.65); Red Cell Distribution Width 11.7 % (12.1-15.1); White Blood Count 3.68 10^3/uL (3.29-11.43)
[2024-02-20] MEDS: sodium bicarbonate 650 mg Tablet PO ×3 (09:07→20:31)
[2024-02-20] MEDS: heparin 5,000 unit/mL INJ 1 mL 5000 UNIT SUBCUT ×2 (09:07→20:30)
[2024-02-20] MEDS: pantoprazole 40 mg SDV IVP (09:07)
[2024-02-20] MEDS: acetaminophen 500 mg Tablet PO (12:54)
[2024-02-20] MEDS: nicotine 14 mg Patch 1 PATCH TRANSDERMA (14:09)
--- NOTE | 2024-02-20 14:52 | P.NPUCON_ITS ---
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 Room Air 02/20/24 09:21 02/19/24 02/20/24 02/20/24 22:59 06:59 14:59 Intake Total 1320 / 2619.167 60 / 2679.167 Output Total 325 / 825 Balance 995 / 1794.167 60 / 1854.167 Weight last 48 hrs Weight 94 kg Weight 94 kg Weight 92 kg Weight 92 kg Weight 99.79 kg Data NPU 02/20/24 05:39 02/20/24 03:42 A&P Assessment and plan (1) Bipolar I disorder, current or most recent episode manic, severe: (2) Suicidal ideation: (3) Methamphetamine abuse: (4) Methamphetamine dependence, continuous: (5) Nicotine dependence, chewing tobacco, with unspecified nicotine-induced disorders: (6) Drug overdose, multiple drugs: (7) Bipolar I disorder, most recent episode (or current) depressed: Plan This is a 48 year old, white male, with a history of methamphetamine addiction, depression, admitted to ICU with overdose on multiple medications under guardianship likely requiring placement in locked facility currently homeless with signficant mental health issues and lack of support. ? 1. Admit to NPU when medically stabilized. 2. Continue individual and milieu therapy.? 3. Continue q-15 minute checks for safety.? 4. hold on psychiatric meds currently and will attempt to gather collateral information. Involuntary Hold Information 2 96 Hour Hold: 96 Hour Involuntary Admission: No Attestations NPU 2 Medical Necessity Statement*: Inpatient psychiatric hospitalization is medically necessary and deemed to ?be ?the clinically appropriate intervention?at this time.? Will admit to NPU for at least two midnights when medically stabilized. Likely length of stay on NPU will be 7-10 days. Coding Level of Care Code Acute Code for [facility] Fwd Diagnoses Bipolar I disorder, current or most recent episode manic, severe F31.13 Suicidal ideation R45.851 Methamphetamine abuse F15.10 Methamphetamine dependence, continuous F15.20 Nicotine dependence, chewing tobacco, with unspecified nicotine-induced disorders F17.229 Drug overdose, multiple drugs T50.911A Bipolar I disorder, most recent episode (or current) depressed F31.30
--- NOTE | 2024-02-20 16:05 | P.PN_ITS ---
Subjective 2 Subjective: Complains of headache. Ammonia at 65 today. Saturating well on room air. Medications: Reviewed: Yes Vitals/I&O/Wt Last Vital Signs Temp 97.7 F 02/20/24 09:00 Pulse 78 02/20/24 14:00 Resp 23 H 02/20/24 14:00 BP 103/78 02/20/24 14:00 Pulse Ox 99 02/20/24 14:00 O2 Del Method Room Air 02/20/24 09:21 02/20/24 02/20/24 02/20/24 06:59 14:59 22:59 Intake Total 60 / 2679.167 Balance 60 / 1854.167 Weight last 48 hrs Weight 94 kg Weight 94 kg Weight 92 kg Weight 92 kg Weight 99.79 kg Physical Exam 2 Narrative: General: No acute distress, AO x3 HEENT: PERRLA, pupils bilaterally equal and reactive, pallors not present Chest: Normal vesicular breath sounds, no added sounds, equal good air entry bilaterally CVS: S1-S2 regular, no murmurs, no tachycardia, no gallops, no rubs Abdomen: Soft, nontender, no organomegaly, bowel sounds present Neuro: No focal deficits, no facial deformity, AO x3, power 5/5 in all limbs Data 02/20/24 05:39 02/20/24 03:42 A&P Assessment and plan (1) Bipolar I disorder, severe, current or most recent episode manic, with psychotic features: (2) Suicide attempt by multiple drug overdose: (3) Polysubstance abuse: (4) Methamphetamine dependence, continuous: (5) Benign essential HTN: (6) Hepatic steatosis: (7) Tardive dyskinesia: (8) Drug overdose: (9) Psychiatric care: Plan Suicide attempt Polysubstance abuse Drug overdose Patient hemodynamically stable Added lactulose and bicarb today Bicarb can be turned off if bicarb level above 20 tomorrow Holding home medications for now Ammonia level trending down Polysubstance abuse Continue IV fluids Start regular diet today TSH normal CPK 38 Magnesium 1.8 Potassium 3.8 One-to-one supervision Will need to neuropsychiatric unit once stable likely on Tuesday Plan for today February 2024. Complaining of headache today. Likely this is related to high valproic acid levels, elevated ammonia. Add lactulose 20 g every 8 hours p.o. scheduled. Titrate to 2-4 bowel movements per day. Check ammonia on serial labs AM. Check repeat valproic acid level with holding medication. Currently on a 96-hour hold, pending transfer to [facility] once ammonia improves. Requesting nicotine patch, 1 has been ordered for him. Check sodium level given patient is on sodium bicarb 3 times a day. Attestations 2 Medical Necessity Statement*: Add lactulose, recheck ammonia levels with a.m. labs, likely transfer to n.p.o. once ready. Coding Level of Care Code Acute Code for [facility] Fwd Diagnoses Bipolar I disorder, severe, current or most recent episode manic, with psychotic features F31.2 Suicide attempt by multiple drug overdose T50.912A Polysubstance abuse F19.10 Methamphetamine dependence, continuous F15.20 Benign essential HTN I10 Hepatic steatosis K76.0 Tardive dyskinesia G24.01 Drug overdose T50.901A Psychiatric care
[2024-02-20] MEDS: morphine 4 mg/mL SDV 1 mL 2 MG IVP ×2 (17:31→23:33)
[2024-02-20] MEDS: lactulose oral liq 20 gm/30 mL UDC PO ×2 (17:39→23:33)
[2024-02-20] MEDS: ondansetron 2 mg/ML SDV 2 mL 4 MG IVP (20:30)
[2024-02-21] VITALS (10 sets, daily range): BP systolic 108–146; BP diastolic 71–90; PULSE 68–89; RESP 13–20; TEMP 36.5–36.8; O2SAT 95–99; BMI 32.7
[2024-02-21 03:47] LABS: Basophils % 1.1 %; Eosinophils # 0.1 10^3/uL (0.0-0.8); Eosinophils % 1.7 %; Hematocrit 44.7 % (37-53); Lymphocytes # 1.5 10^3/uL (0.8-4.8); Lymphocytes % 42.6 %; Mean Corpuscular HGB Conc 32.4 g/dL (30-55); Mean Corpuscular Hemoglobin 30.9 pg (27-33); Mean Corpuscular Volume 95.3 fl (82-101); Mean Platelet Volume 9.9 fL (7.4-10.4); Monocytes # 0.4 10^3/uL (0.2-0.9); Monocytes % 9.9 %; Neutrophils # 1.55 10^3/uL (1.8-7.7); Neutrophils % 44.1 %; Nucleated Red Blood Cells % 0 %; Platelet Count 249 10^3/cmm (157-399); Red Blood Count 4.69 10^6/uL (3.85-5.65); Red Cell Distribution Width 11.6 % (12.1-15.1); White Blood Count 3.52 10^3/uL (3.29-11.43)
[2024-02-21 04:08] LABS: Ammonia 37 umol/L (16-60)
[2024-02-21 04:10] LABS: Alanine Aminotransferase 10 U/L (0-41); Alkaline Phosphatase 82 U/L (40-130); Anion Gap 16.1 (5-19); Aspartate Amino Transferase 11 U/L (0-40); Blood Urea Nitrogen 8 mg/dL (6-20); Calcium 8.9 mg/dL (8.5-10.5); Carbon Dioxide 22 mmol/L (22-29); Chloride 109 mmol/L (98-107); Creatinine Clr Calc Pharmacy 108.4978; Globulin 2.1 g/dL (1.3-4.6); Glomerular Filtration Rate 89.7 mL/min (90-130); Glucose 104 mg/dL (65-115); Osmolality Calculated 295 mOsm/kg (285-295); Potassium 4.1 mmol/L (3.5-5.1); Sodium 143 mmol/L (136-145); Total Bilirubin 0.2 mg/dL (0.15-1.2); Total Protein 6.1 g/dL (6.6-8.7)
[2024-02-21 04:11] LABS: Valproic Acid Level 6.7 ug/mL (50-100)
--- NOTE | 2024-02-21 04:11 | PC.NURSE ---
pt transfer pt transported to med surg by this nurse, sitter, and security. belongings bag and meds given to primary nurse.
[2024-02-21 09:20] LABS: Levetiracetam Immunoassy >100.0 mcg/mL (6.0-46.0)
--- NOTE | 2024-02-21 13:04 | US_ITS ---
WS: [id number] Ultrasound of the antecubital fossa of the left elbow, 02/21/2024 Clinical Data: hx of abscess Comparison: None. Findings: The antecubital region was well visualized. No evidence of an abscess was seen. There are no cysts or masses. Only normal subcutaneous tissue and muscle tissue could be seen. US/US soft tissue/extremity [id number] Impression: Negative ultrasound of the left elbow antecubital fossa with no evidence of an abscess
[2024-02-21] MEDS: divalproex DR 500 mg Tablet PO (17:15)
--- NOTE | 2024-02-21 17:56 | P.NPUPN_ITS ---
Subjective NPU 2 Subjective: 48-year-old white male with a history of paranoid schizophrenia currently under guardianship who was admitted with suicidal ideation with significant overdose on multiple medications. He did not endorse having suicidal thoughts at this time. He has a history of impulsive behavior. He had reported that he was hearing voices. He endorsed feeling paranoid. He had requested medications to target his hallucinations. He had reported that the voices were command in nature at times. He had reported having struggles with sleep last night. He reported that he wished to live independently and stated that he would not go to a lockdown facility. Mental Status Exam 2 MSE Comments: This is an obese white male with poor grooming and minimal eye contact who appeared in significant distress. He was older than his stated age. His gait was within normal limits. He was alert and oriented to person and place,time and situation. His speech was normal in regards to rate rhythm and prosody. There was no evidence of any abnormal involuntary motor movements, tics, or tremors. His attention span was improved. Mood was described as depressed. His affect remained restricted in range and mood congruent. Thought process was linear and logical. Thought content: Patient denied homicidal ideation but endorsed suicidal ideation via overdose on admission. There was no evidence of delusional thinking. He did not appear to be responding to internal stimuli. although he endorsed auditory hallucinations. He denied any visual hallucinations. Attention and concentration was poor. Recent and remote memory is impaired. Insight was poor. His impulse control was poor. His judgment was impaired as well. Vitals/I&O/Wt Last Vital Signs Temp 98.1 F 02/21/24 14:55 Pulse 89 02/21/24 14:55 Resp 16 02/21/24 14:55 BP 146/90 02/21/24 14:55 Pulse Ox 99 02/21/24 14:55 O2 Del Method Room Air 02/21/24 14:57 02/21/24 02/21/24 02/21/24 06:59 14:59 22:59 Intake Total 720 / 1910 538 / 538 Balance 720 / 1210 538 / 538 Weight last 48 hrs Weight 94.801 kg Weight 94.801 kg Weight 94 kg Weight 94 kg Data NPU 02/21/24 03:25 02/21/24 03:25 A&P Assessment and plan (1) Bipolar I disorder, current or most recent episode manic, severe: (2) Suicidal ideation: (3) Methamphetamine abuse: (4) Methamphetamine dependence, continuous: (5) Nicotine dependence, chewing tobacco, with unspecified nicotine-induced disorders: (6) Drug overdose, multiple drugs: (7) Bipolar I disorder, most recent episode (or current) depressed: Plan This is a 48 year old, white male, with a history of methamphetamine addiction, depression, admitted to ICU with overdose on multiple medications under guardianship likely requiring placement in locked facility currently homeless with signficant mental health issues and lack of support. ? 1. Restarted previous medications including depakote, invega oral, synthroid, lisinopril and topamax. Hold on kera for now-will consult medicine regarding this restart. Begin INVEGA Sustenna IM 234mg tommorow. 2. Continue individual and milieu therapy.? 3. Continue q-15 minute checks for safety.? 4. Patient may require placement in locked residential treatment facility upon discharge. Involuntary Hold Information 2 96 Hour Hold: 96 Hour Involuntary Admission: No Attestations NPU 2 Medical Necessity Statement*: Inpatient psychiatric hospitalization is medically necessary and deemed to ?be ?the clinically appropriate intervention?at this time.? Patient to be admitted to NPU for at least two midnights Likely length of stay on NPU will be 5-7days. Coding Level of Care Code Acute Code for [facility] Fwd Diagnoses Bipolar I disorder, current or most recent episode manic, severe F31.13 Suicidal ideation R45.851 Methamphetamine abuse F15.10 Methamphetamine dependence, continuous F15.20 Nicotine dependence, chewing tobacco, with unspecified nicotine-induced disorders F17.229 Drug overdose, multiple drugs T50.911A Bipolar I disorder, most recent episode (or current) depressed F31.30
--- NOTE | 2024-02-21 18:10 | P.PN_ITS ---
Subjective 2 Subjective: Ammonia level is now normalized. Valproate level is low. Patient is complaining of pain over the left antecubital fossa. He states that he had used IV drugs 2 to 3 weeks ago following which she developed an abscess which was treated as an outpatient. Per his description it appears he underwent I&D of the abscess in [facility] and then received oral cephalosporins for about 10 days. He is concerned that he may be developing an infection again in the left antecubital fossa. Ultrasound of the upper extremity was performed which was negative for any abscess or collection. Medications: Reviewed: Yes Vitals/I&O/Wt Last Vital Signs Temp 98.1 F 02/21/24 14:55 Pulse 89 02/21/24 14:55 Resp 16 02/21/24 14:55 BP 146/90 02/21/24 14:55 Pulse Ox 99 02/21/24 14:55 O2 Del Method Room Air 02/21/24 14:57 02/21/24 02/21/24 02/21/24 06:59 14:59 22:59 Intake Total 720 / 1910 538 / 538 Balance 720 / 1210 538 / 538 Weight last 48 hrs Weight 94.801 kg Weight 94.801 kg Weight 94 kg Weight 94 kg Physical Exam 2 Narrative: General: No acute distress, AO x3 HEENT: PERRLA, pupils bilaterally equal and reactive, pallors not present Chest: Normal vesicular breath sounds, no added sounds, equal good air entry bilaterally CVS: S1-S2 regular, no murmurs, no tachycardia, no gallops, no rubs Abdomen: Soft, nontender, no organomegaly, bowel sounds present Neuro: No focal deficits, no facial deformity, AO x3, power 5/5 in all limbs Data 02/21/24 03:25 02/21/24 03:25 A&P Assessment and plan (1) Bipolar I disorder, severe, current or most recent episode manic, with psychotic features: (2) Suicide attempt by multiple drug overdose: (3) Polysubstance abuse: (4) Methamphetamine dependence, continuous: (5) Benign essential HTN: (6) Hepatic steatosis: (7) Tardive dyskinesia: (8) Drug overdose: (9) Psychiatric care: Plan Suicide attempt Polysubstance abuse Drug overdose Patient hemodynamically stable Added lactulose and bicarb today Bicarb can be turned off if bicarb level above 20 tomorrow Holding home medications for now Ammonia level trending down Polysubstance abuse Continue IV fluids Start regular diet today TSH normal CPK 38 Magnesium 1.8 Potassium 3.8 One-to-one supervision Will need to neuropsychiatric unit once stable likely on Tuesday Plan for today February 2024. Complaining of headache today. Likely this is related to high valproic acid levels, elevated ammonia. Add lactulose 20 g every 8 hours p.o. scheduled. Titrate to 2-4 bowel movements per day. Check ammonia on serial labs AM. Check repeat valproic acid level with holding medication. Currently on a 96-hour hold, pending transfer to psych once ammonia improves. Requesting nicotine patch, 1 has been ordered for him. Check sodium level given patient is on sodium bicarb 3 times a day. Plan for today: Ammonia level now normalized at 35. Low valproate level at 6.7. Resume home dose of divalproex 500 mg p.o. twice daily to prevent withdrawal seizure. Last Keppra level from February 18 elevated at more than 100. Repeat ordered today to assess for timing of resuming. Discontinued lactulose. Bicarb level now normal at 22. Discontinue p.o. sodium bicarb. Patient overall stable for transfer to n.p.o. today. Attestations 2 Medical Necessity Statement*: Transfer to n.p.o., resume valproate, awaiting Keppra level to decide regarding timing of resumption of Keppra. Coding Level of Care Code Acute Code for [facility] Diagnoses Bipolar I disorder, severe, current or most recent episode manic, with psychotic features F31.2 Suicide attempt by multiple drug overdose T50.912A Polysubstance abuse F19.10 Methamphetamine dependence, continuous F15.20 Benign essential HTN I10 Hepatic steatosis K76.0 Tardive dyskinesia G24.01 Drug overdose T50.901A Psychiatric care
[2024-02-21] MEDS: topiramate 25 mg Tablet 50 MG PO (18:55)
--- NOTE | 2024-02-21 19:42 | PC.NURSE ---
Patient at window stating that he felt as though he might be about to have a seizure. Patient stated that he can tell one is about to occur because he can't understand himself when he talks. Patient said his last seizure was on Tuesday and that he has them frequently. This nurse asked what he took, patient said topamax. This nurse administered his 2100 topomax early, at around 1900, per patient request.
[2024-02-21] MEDS: trazodone 50 mg Tablet PO (20:23)
[2024-02-22 06:00] VITALS: BP 119/76; PULSE 68; RESP 13; TEMP 36.6; O2SAT 98
[2024-02-22 06:59] LABS: Levetiracetam Immunoassy <2.0 mcg/mL (6.0-46.0)
[2024-02-22 08:00] VITALS: BMI 32.7
[2024-02-22] MEDS: levothyroxine 25 mcg Tablet PO (08:52)
[2024-02-22] MEDS: topiramate 25 mg Tablet 50 MG PO ×2 (08:52→20:07)
[2024-02-22] MEDS: paliperidone ER 6 mg Tablet PO (08:52)
[2024-02-22] MEDS: divalproex DR 500 mg Tablet PO ×2 (08:52→17:42)
[2024-02-22] MEDS: nicotine 14 mg Patch 1 PATCH TRANSDERMA (08:55)
[2024-02-22 10:00] VITALS: PULSE 77; O2SAT 96
[2024-02-22] MEDS: acetaminophen 500 mg Tablet PO (11:12)
[2024-02-22] MEDS: paliperidone palmitate 234 mg Syringe IM (11:20)
--- NOTE | 2024-02-22 11:21 | PC.NURSE ---
Patient given invega 234 mg injection in right deltoid. Tolerated well.
--- NOTE | 2024-02-22 11:22 | PC.NURSE ---
Dr. Ross requested this nurse restart Mr. Madsen's home med, keppra 500mg bid.
--- NOTE | 2024-02-22 12:08 | PC.NURSE ---
Patient refused lactulose this morning. This RN explained to him that it was important to take this to keep his ammonia levels down and prevent liver toxicity. Patient continued to refuse, stating he was tired of going to the restroom constantly. This was reported to Dr. Ross. No new orders at this time.
[2024-02-22] MEDS: levETIRAcetam 500 mg Tablet PO ×2 (12:40→17:42)
[2024-02-22 14:00] VITALS: BP 97/62; PULSE 78; RESP 16; TEMP 36.4; O2SAT 98
--- NOTE | 2024-02-22 14:22 | P.NPUPN_ITS ---
Subjective NPU 2 Subjective: 48-year-old white male with a history of paranoid schizophrenia currently under guardianship who was admitted with suicidal ideation with significant overdose on multiple medications. the patient is refusing lactulose orally. He had continued to reiterate that he did not wish to go to a locked facility. He had received his IM Invega This morning without any complications. Patient had reported that he continued to feel paranoid but reported that he was not hearing voices telling him to hurt himself. He had reported an extended history of paranoid schizophrenia . He had reported that he had been noncompliant with medications for several months. He had required prompting for completion of activities of daily living and remains somewhat isolative on the milieu. patient had reported that he had been staying with a friend's house after he had left the locked facility but stated that he was forced to leave there as he had been placed in an environment where methamphetamine use was prevalent and he did not wish to relapse. Mental Status Exam 2 MSE Comments: This is an obese white male with poor grooming and poor eye contact who appeared in moderate distress and remained guarded. He appeared older than his stated age. His gait was within normal limits. He was alert and oriented to person and place,time and situation. His speech was normal in volume, decreased in spontaneity. There was some increased latency in speech. There was no evidence of any abnormal involuntary motor movements, tics, or tremors. His attention span was improved. Mood was described as better. His affect was subdued. Thought process was linear and logical. Thought content: Patient denied homicidal ideation and denied suicidal ideation. There was no evidence of delusional thinking. He did not appear to be responding to internal stimuli and denied any auditory or visual hallucinations. Attention and concentration were poor. Recent and remote memory remained limited. Insight was poor. His impulse control was poor. His judgment was impaired as well. Vitals/I&O/Wt Last Vital Signs Temp 97.6 F 02/22/24 14:00 Pulse 78 02/22/24 14:00 Resp 16 02/22/24 14:00 BP 97/62 02/22/24 14:00 Pulse Ox 98 02/22/24 14:00 O2 Del Method Room Air 02/22/24 10:00 Weight last 48 hrs Weight 94.801 kg Weight 94.801 kg Weight 94.801 kg Data NPU 02/21/24 03:25 02/21/24 03:25 A&P Assessment and plan (1) Bipolar I disorder, current or most recent episode manic, severe: (2) Suicidal ideation: (3) Methamphetamine abuse: (4) Methamphetamine dependence, continuous: (5) Nicotine dependence, chewing tobacco, with unspecified nicotine-induced disorders: (6) Drug overdose, multiple drugs: (7) Bipolar I disorder, most recent episode (or current) depressed: Plan This is a 48 year old, white male, with a history of methamphetamine addiction, depression, admitted to ICU with overdose on multiple medications under guardianship likely requiring placement in locked facility currently homeless with signficant mental health issues and lack of support. ? 1. Restarted previous medications including depakote, invega oral, synthroid, lisinopril and topamax and keppra. Begin INVEGA Sustenna IM 234mg given today. 2. Continue individual and milieu therapy.? 3. Continue q-15 minute checks for safety.? 4. Patient will require locked placement in locked residential treatment facility upon discharge. Involuntary Hold Information 2 96 Hour Hold: 96 Hour Involuntary Admission: No Attestations NPU 2 Medical Necessity Statement*: Inpatient psychiatric hospitalization is medically necessary and deemed to ?be ?the clinically appropriate intervention?at this time.? Patient to be admitted to NPU for at least two midnights Likely length of stay on NPU will be 5-7days. Coding Level of Care Code Acute Code for [facility] Fwd Diagnoses Bipolar I disorder, current or most recent episode manic, severe F31.13 Suicidal ideation R45.851 Methamphetamine abuse F15.10 Methamphetamine dependence, continuous F15.20 Nicotine dependence, chewing tobacco, with unspecified nicotine-induced disorders F17.229 Drug overdose, multiple drugs T50.911A Bipolar I disorder, most recent episode (or current) depressed F31.30
--- NOTE | 2024-02-22 18:01 | PC.NURSE ---
Patient refusing lactulose again this evening. This RN went over the risks of not taking the medication and the benefits of taking it and that the doctor would really like him to take it to control his ammonia levels. Patient continued to refuse, stating, I'll just be shitting all night and not get any sleep like last night.
[2024-02-22] MEDS: trazodone 50 mg Tablet PO (20:07)
[2024-02-22 20:32] VITALS: BP 99/62; PULSE 70; RESP 16; TEMP 36.4; O2SAT 94
[2024-02-23] MEDS: levothyroxine 25 mcg Tablet PO (05:55)
[2024-02-23 06:00] VITALS: BP 98/66; PULSE 64; RESP 16; O2SAT 97; BMI 30.6
[2024-02-23] MEDS: nicotine 14 mg Patch 1 PATCH TRANSDERMA (08:32)
[2024-02-23] MEDS: paliperidone ER 6 mg Tablet PO (08:32)
[2024-02-23] MEDS: levETIRAcetam 500 mg Tablet PO ×2 (08:32→17:25)
[2024-02-23] MEDS: topiramate 25 mg Tablet 50 MG PO ×2 (08:32→20:29)
[2024-02-23] MEDS: divalproex DR 500 mg Tablet PO ×2 (08:32→17:25)
[2024-02-23] MEDS: hyDROXYzine 25 mg Capsule 50 MG PO (08:33)
--- NOTE | 2024-02-23 09:26 | PC.NURSE ---
CALM, RESTING IN BED, AROUSES TO VOICE. PT IS NOTED TO WITHDRAW AND ISOLATE TO ROOM. PT DECLINED GETTING UP FOR BREAKFAST AND PREFERRED TO SLEEP. PT REPORTS HE SLEPT GOOD DENIES PAIN. DENIES SI/HI AND AVH AT THIS TIME. PT RATES ANXIETY AND DEPRESSION 2/10. PT IS NOTED TO HAVE A FLAT AFFECT AT TIMES. PT STATES HIS GOAL IS TO GET OUT HERE. PT IS REMINDED HE IS HERE DUE TO METHAMPHETAMINE ABUSE AND DOES HAVE A GUARDIAN. ALL QUESTIONS ANSWERED AND SUPPORT VOICED.
[2024-02-23 14:00] VITALS: BP 97/66; PULSE 80; RESP 16; TEMP 36.8; O2SAT 96
--- NOTE | 2024-02-23 16:26 | PC.NURSE ---
Pt has been getting increasingly agitated d/t not having seen a doctor as yet today and his 96 Hr hold is supposed to be up later today. Pt has threatened to start causing trouble if he doesn't get out of here and said that we best call the homeland security program specialist office or security. Security was in the dept and the pt backed down and went to his room.
[2024-02-23] MEDS: OLANZapine 5 mg ODT PO (16:35)
--- NOTE | 2024-02-23 19:35 | P.NPUPN_ITS ---
Subjective NPU 2 Subjective: Patient presented today reporting that he was doing okay. He was very focused on what the plan might be for discharge. We discussed the importance of including his guardian and the discussion and that the guardian would have significant ability to limited what options exist. He reported not wanting to return to a locked facility. He reported a desire to return to live with a friend. We discussed working with Eris Garciat on discharge logistics. He denies any side effects to the medication. Mental Status Exam 2 MSE Comments: This is an obese white male in hospital scrubs with poor grooming and minimal eye contact. He appeared older than his stated age. With no abnormal movements except for mild psychomotor agitation. He was older than his stated age. He was cooperative with exam in mild to moderate distress. Speech was more normal rate and volume compared to yesterday reports. Mood described as okay, affect appeared irritable. Thought process was linear. Thought content: Patient denied suicidal or homicidal ideation although he acknowledged suicidal intent in the potentially lethal overdose. There was no evidence of delusional thinking. There were no delusions reported or noted. He did not appear to be responding to internal stimuli. He denied any auditory or visual hallucinations. Attention and concentration was poor. Recent and remote memory is limited versus impaired. Insight was poor. His impulse control was poor. His judgment was impaired as well. He was alert and oriented x 3. Vitals/I&O/Wt Last Vital Signs Temp 98.2 F 02/23/24 14:00 Pulse 80 02/23/24 14:00 Resp 16 02/23/24 14:00 BP 97/66 02/23/24 14:00 Pulse Ox 96 02/23/24 14:00 O2 Del Method Room Air 02/23/24 10:00 Weight last 48 hrs Weight 93.95 kg Weight 93.95 kg Weight 94.801 kg Data NPU 02/21/24 03:25 02/21/24 03:25 A&P Assessment and plan (1) Bipolar I disorder, current or most recent episode manic, severe: (2) Suicidal ideation: (3) Methamphetamine abuse: (4) Methamphetamine dependence, continuous: (5) Nicotine dependence, chewing tobacco, with unspecified nicotine-induced disorders: (6) Drug overdose, multiple drugs: (7) Bipolar I disorder, most recent episode (or current) depressed: Plan This is a 48 year old, white male, with a history of methamphetamine addiction, depression, admitted to ICU with overdose on multiple medications under guardianship likely requiring placement in locked facility currently homeless with signficant mental health issues and lack of support. ? 1. Restarted previous medications including depakote, invega oral, synthroid, lisinopril and topamax and keppra. Invega Sustenna IM loading dose 234 mg to the deltoid given 02/22/2024. Next injection 156 mg IM to the deltoid loading dose due 02/29/2024. 2. Continue individual and milieu therapy.? 3. Continue q-15 minute checks for safety.? 4. Patient will require locked placement in locked residential treatment facility upon discharge. Involuntary Hold Information 2 96 Hour Hold: 96 Hour Involuntary Admission: No Attestations NPU 2 Medical Necessity Statement*: Inpatient hospitalization is medically necessary and the clinically appropriate intervention at this time. We will monitor medications and make changes as indicated. Likely length of stay 4 to 6 days. Coding Level of Care Code Acute Code for [facility] Diagnoses Bipolar I disorder, current or most recent episode manic, severe F31.13 Suicidal ideation R45.851 Methamphetamine abuse F15.10 Methamphetamine dependence, continuous F15.20 Nicotine dependence, chewing tobacco, with unspecified nicotine-induced disorders F17.229 Drug overdose, multiple drugs T50.911A Bipolar I disorder, most recent episode (or current) depressed F31.30
[2024-02-23] MEDS: trazodone 100 mg Tablet PO (21:34)
[2024-02-23 21:58] VITALS: BP 109/66; PULSE 78; RESP 15; TEMP 36.4; O2SAT 96
[2024-02-24] MEDS: levothyroxine 25 mcg Tablet PO (05:59)
[2024-02-24 06:00] VITALS: BP 97/55; PULSE 64; RESP 16; O2SAT 98
[2024-02-24] MEDS: levETIRAcetam 500 mg Tablet PO ×2 (08:28→17:39)
[2024-02-24] MEDS: topiramate 25 mg Tablet 50 MG PO ×2 (08:28→21:06)
[2024-02-24] MEDS: divalproex DR 500 mg Tablet PO ×2 (08:28→17:39)
[2024-02-24] MEDS: paliperidone ER 6 mg Tablet PO (08:28)
--- NOTE | 2024-02-24 09:07 | PC.NURSE ---
Resting in bed. Denies avh and si/hi. Endorses headache at a 7/10. Stated he did not want any tylenol or ibuprofen at this time. He refused his lactulose again this morning, saying he wasn't going to be going to the bathroom all day, every day. This RN educated him again on the reason the doctor prescribed this medication. He continued to refuse medication.
[2024-02-24] MEDS: acetaminophen 500 mg Tablet PO ×2 (10:25→17:39)
--- NOTE | 2024-02-24 12:23 | PC.NURSE ---
Patient requesting to obtain numbers off of his cell phone. This patient informed him that one RN was in a meeting and a UNIFIED COMMUNICATIONS ENGINEER was off of the unit, so we were unable to help him with his phone at this time, but that we would do so when more staff was available. Patient became angry and said he hadn't received his phone the entire time he'd been here and that he couldn't go home without those numbers. This RN reiterated that we weren't denying him the numbers off of his cell phone and that we would help him when we were able. Patient stormed off to his room, muttering obscenities under his breath.
--- NOTE | 2024-02-24 12:40 | PC.NURSE ---
Patient given his phone to obtain contacts. Patient became angry because he spoke with the sample case porter and was told his guardian wants him to be placed in an RCF. The patient threw his phone, paper, and pen in this nurses' direction and stormed off to his room. He then said he was not going to take any medications or eat. This nurse attempted to inquire as to why, but patient went into his room and shut the door. Shortly after patient returned and asked to see his phone again. He was informed that he could no longer have his phone since he threw it. He then attempted to say he did not throw anything. However, multiple staff were present and confirmed he did throw it. Patient became angry again and stormed off to his room again, stating he would break the glass in here so he could go to residential. Patient was also overheard on the phone saying he was going to break everyone's jaw in here.
--- NOTE | 2024-02-24 13:34 | W.PM.NPUPNS ---
Subjective NPU Subjective: Patient presents today reporting that he is having extreme frustration about his situation. He spent much of the time saying angry responses before we were able to get to the heart of the situation which was that he felt like he was trapped and not taking care of at the last place he was at. He reports that he would run out of medication and things of that nature and only really making him upset. He did not feel that they were really looking out for his best interest as of the idea of returning to a place like that makes him upset. There were also issues with a female that he had a relationship with their excetra. He denied any side effects to the medication. Mental Status Exam MSE Comments: This is an obese white male in hospital scrubs with poor grooming and minimal eye contact. He appeared older than his stated age. With no abnormal movements except for mild psychomotor agitation. He was older than his stated age. He was cooperative with exam in moderate distress. Speech was more normal rate and volume compared to yesterday reports. Mood described as okay, affect appeared irritable. Thought process was linear. Thought content: Patient denied suicidal or homicidal ideation, but he expressed our frustration about not being able to leave. There was no evidence of delusional thinking. There were no delusions reported or noted. He did not appear to be responding to internal stimuli. He denied any auditory or visual hallucinations. Attention and concentration was poor. Recent and remote memory is limited versus impaired. Insight was poor. His impulse control was poor. His judgment was impaired as well. He was alert and oriented x 3. Vitals/I&O/Wt Last Vital Signs Temp 97.6 F 02/23/24 21:58 Pulse 64 02/24/24 06:00 Resp 16 02/24/24 06:00 BP 97/55 02/24/24 06:00 Pulse Ox 98 02/24/24 06:00 O2 Del Method Room Air 02/24/24 06:00 Weight last 48 hrs Weight 93.95 kg Weight 93.95 kg Data NPU 02/21/24 03:25 02/21/24 03:25 A&P Assessment and plan (1) Bipolar I disorder, current or most recent episode manic, severe: (2) Suicidal ideation: (3) Methamphetamine abuse: (4) Methamphetamine dependence, continuous: (5) Nicotine dependence, chewing tobacco, with unspecified nicotine-induced disorders: (6) Drug overdose, multiple drugs: (7) Bipolar I disorder, most recent episode (or current) depressed: Plan This is a 48 year old, white male, with a history of methamphetamine addiction, depression, admitted to ICU with overdose on multiple medications under guardianship likely requiring placement in locked facility currently homeless with signficant mental health issues and lack of support. ? 1. Restarted previous medications including depakote, invega oral, synthroid, lisinopril and topamax and keppra. Invega Sustenna IM loading dose 234 mg to the deltoid given 02/22/2024. Next injection 156 mg IM to the deltoid loading dose due 02/29/2024. 2. Continue individual and milieu therapy.? 3. Continue q-15 minute checks for safety.? 4. Patient will require locked placement in locked residential treatment facility upon discharge. Involuntary Hold Information 96 Hour Hold: 96 Hour Involuntary Admission: No Attestations NPU Medical Necessity Statement*: Inpatient hospitalization is medically necessary and the clinically appropriate intervention at this time. We will monitor medications and make changes as indicated. Likely length of stay 4 to 6 days. Coding Level of Care Code Acute Code for [facility] Diagnoses Bipolar I disorder, current or most recent episode manic, severe F31.13 Suicidal ideation R45.851 Methamphetamine abuse F15.10 Methamphetamine dependence, continuous F15.20 Nicotine dependence, chewing tobacco, with unspecified nicotine-induced disorders F17.229 Drug overdose, multiple drugs T50.911A Bipolar I disorder, most recent episode (or current) depressed F31.30
[2024-02-24 14:00] VITALS: BP 113/81; PULSE 105; RESP 18; TEMP 37; O2SAT 99
--- NOTE | 2024-02-24 14:21 | PC.NURSE ---
NEW ORDERS RECEIVED TO GIVE ATIVAN 2 MG PO Q 4 HOURS AGITATION AND BENADRYL 50 MG PO Q 4 HOURS PRN ANXIETY. PT HAS BEEN OBSERVED YELLING AT STAFF, HITTING LUCIO, AND EVEN THREW HIS PHONE AT HIS RN THIS AM. THIS RN OBSERVED PT HITTING THE DINNER CART. PT IS AGREEABLE TO TAKE MEDICATIONS BY MOUTH BUT CONTINUES TO STATE I'M LEAVING HERE IN 15 MINUTES, STRAIGHT OUT THOSE DOORS. PT HAS BEEN VERBALLY REDIRECTED MULTIPLE TIMES WITH LITTLE RESOLVE. PTS RN WAS IN ROOM SPEAKING TO HIM TO VERBALLY DEESCALATE THE SITUATION, WHEN THIS RN WAS OUTSIDE THE DOOR PT WAS HEARD STATING IF VERONICA DEE TRIES TO PUT ME IN AN RCF, I'M GONNA KILL SOMEONE AND WHEN THEY TAKE ME TO THE RCF THEY BETTER NOT STOP FOR A BATHROOM EITHER BECAUSE I WILL BE GONE. PT CONTINUES TO MAKE THREATS RANDOMLY TO STAFF AND UNKNOWN PEOPLE PT ALSO STATES HE IS MAD AT HIS GUARDIAN FOR MAKING THESE DECISIONS FOR HIM. PT STATED I WILL GO TO ASSISTED BEFORE I LET THEM LOCK ME UP.
[2024-02-24] MEDS: haloperidol 5 mg Tablet PO (14:26)
[2024-02-24] MEDS: diphenhydrAMINE 50 mg Capsule PO (14:26)
[2024-02-24] MEDS: LORazepam 2 mg Tablet PO (14:27)
--- NOTE | 2024-02-24 14:27 | PC.NURSE ---
Patient came to nurse, became very animated with his speech, and yelled that he was going to be leaving through our doors in 15 minutes. When this RN told him we could not let him do they he said, I don't fucking care. I'm leaving in 15 minutes. This RN attempted to redirect patient and talk with him about his situation, but he kept saying he was going to kill the first person he saw if he went to an RCF. He then walked to his room and slammed his door shut. When going into his room the patient had his blanket pulled over his head and it was observed that he was breathing heavily due to being agitated. This RN asked him if he would like medication to help him calm down and he said he would take haldol. Patient was agreeable to taking haldol 5mg po, ativan 2mg po, and benadryl 50mg po. However, he continued to express that he would be violent once he arrived at an RCF if he was placed in one. Attempted to talk to patient about why this was inappropriate and hurtful to people that did not do anything to him, but he stated he didn't care. Patient also said, they better not stop to go to the bathroom when they're taking me to the RCF. He also expressed great hatred towards his current guardian, Eris Haskins, and said he was going to call the law and report him.
--- NOTE | 2024-02-24 17:48 | PC.NURSE ---
Patient continues to refuse lactulose.
[2024-02-24 20:51] VITALS: BP 103/69; PULSE 80; RESP 16; TEMP 36.6; O2SAT 97
[2024-02-24] MEDS: OLANZapine 5 mg ODT PO (21:06)
[2024-02-24] MEDS: trazodone 100 mg Tablet PO (21:06)
[2024-02-25 06:00] VITALS: BP 105/66; PULSE 75; RESP 16; TEMP 36.3; O2SAT 97
[2024-02-25] MEDS: levothyroxine 25 mcg Tablet PO (06:15)
[2024-02-25 09:17] VITALS: PULSE 75; RESP 18; O2SAT 97
--- NOTE | 2024-02-25 09:56 | W.PM.NPUPNS ---
Subjective NPU Subjective: Patient presented today reporting that he is doing okay. He reports that he still frustrated about the situation and started speaking about getting a final inspector paper because he feels that he has been treated unfairly by his guardian. He reports that he called his mother or some family member and they really helped him call to make sure he was not being treated in a way that was not legal or in keeping with statutes. He is somewhat frustrated about the fact that he is here and his birthday is coming up and he does not want to spend his 49th birthday in here. Denied any side effects to medications. Mental Status Exam MSE Comments: This is an obese white male in hospital scrubs with poor grooming and minimal eye contact. He appeared older than his stated age. With no abnormal movements except for mild psychomotor agitation. He was older than his stated age. He was cooperative with exam in moderate distress. Speech was more normal rate and volume compared to yesterday reports. Mood described as okay, affect appeared irritable. Thought process was linear. Thought content: Patient denied suicidal or homicidal ideation, but he expressed our frustration about not being able to leave. There was no evidence of delusional thinking. There were no delusions reported or noted. He did not appear to be responding to internal stimuli. He denied any auditory or visual hallucinations. Attention and concentration was poor. Recent and remote memory is limited versus impaired. Insight was poor. His impulse control was poor. His judgment was impaired as well. He was alert and oriented x 3. Vitals/I&O/Wt Last Vital Signs Temp 97.4 F L 02/25/24 06:00 Pulse 75 02/25/24 09:17 Resp 18 02/25/24 09:17 BP 105/66 02/25/24 06:00 Pulse Ox 97 02/25/24 09:17 O2 Del Method Room Air 02/25/24 09:17 Data NPU 02/21/24 03:25 02/21/24 03:25 A&P Assessment and plan (1) Bipolar I disorder, current or most recent episode manic, severe: (2) Suicidal ideation: (3) Methamphetamine abuse: (4) Methamphetamine dependence, continuous: (5) Nicotine dependence, chewing tobacco, with unspecified nicotine-induced disorders: (6) Drug overdose, multiple drugs: (7) Bipolar I disorder, most recent episode (or current) depressed: Plan This is a 48 year old, white male, with a history of methamphetamine addiction, depression, admitted to ICU with overdose on multiple medications under guardianship likely requiring placement in locked facility currently homeless with signficant mental health issues and lack of support. ? 1. Restarted previous medications including depakote, invega oral, synthroid, lisinopril and topamax and keppra. Invega Sustenna IM loading dose 234 mg to the deltoid given 02/22/2024. Next injection 156 mg IM to the deltoid loading dose due 02/29/2024. 2. Continue individual and milieu therapy.? 3. Continue q-15 minute checks for safety.? 4. Patient will require locked placement in locked residential treatment facility upon discharge. Involuntary Hold Information 96 Hour Hold: 96 Hour Involuntary Admission: No Attestations NPU Medical Necessity Statement*: Inpatient hospitalization is medically necessary and the clinically appropriate intervention at this time. We will monitor medications and make changes as indicated. Likely length of stay 4 to 6 days. Coding Level of Care Code Acute Code for [facility] Fwd Diagnoses Bipolar I disorder, current or most recent episode manic, severe F31.13 Suicidal ideation R45.851 Methamphetamine abuse F15.10 Methamphetamine dependence, continuous F15.20 Nicotine dependence, chewing tobacco, with unspecified nicotine-induced disorders F17.229 Drug overdose, multiple drugs T50.911A Bipolar I disorder, most recent episode (or current) depressed F31.30
[2024-02-25] MEDS: paliperidone ER 6 mg Tablet PO (10:05)
[2024-02-25] MEDS: levETIRAcetam 500 mg Tablet PO ×2 (10:06→17:44)
[2024-02-25] MEDS: divalproex DR 500 mg Tablet PO ×2 (10:07→17:44)
[2024-02-25] MEDS: topiramate 25 mg Tablet 50 MG PO ×2 (10:07→20:36)
[2024-02-25] MEDS: nicotine 14 mg Patch 1 PATCH TRANSDERMA (10:08)
[2024-02-25] MEDS: acetaminophen 500 mg Tablet PO (13:13)
[2024-02-25] MEDS: LORazepam 2 mg Tablet PO (13:13)
[2024-02-25] MEDS: haloperidol 5 mg Tablet PO (13:13)
--- NOTE | 2024-02-25 13:22 | PC.NURSE ---
Patient verbally aggressive, stating to this nurse that his guardian Eris Haskins has lied to him. Patient said that he would rather go to snf for murder than go to a locked facility. This nurse talked with patient. At first, patient was hostile, negative and resistive to care. Patient was agreeable to take medications. This nurse administered haldol 5mg and ativan 2mg PO to patient. Talked with patient about being able to be in control of his emotions looks better than having outbursts.
[2024-02-25] MEDS: diphenhydrAMINE 50 mg Capsule PO (13:35)
[2024-02-25 14:00] VITALS: BP 97/52; PULSE 88; RESP 20; TEMP 36.6; O2SAT 92
[2024-02-25] MEDS: OLANZapine 5 mg ODT PO (15:56)
--- NOTE | 2024-02-25 15:56 | PC.NURSE ---
patient upset following visit with mother. Patient stated that he was needing medication to help him calm down. Patient appeared angry. This nurse asked if he wanted to talk about it. Patient shook his head as if answering no. Administered zyprexa 5mg ODT to patient. Patient went to room
[2024-02-25 19:50] VITALS: BP 108/70; PULSE 81; RESP 17; O2SAT 95
[2024-02-25] MEDS: trazodone 100 mg Tablet PO (20:36)
[2024-02-26] MEDS: levothyroxine 25 mcg Tablet PO (05:43)
[2024-02-26 06:00] VITALS: BP 106/65; PULSE 70; RESP 17; O2SAT 96
[2024-02-26] MEDS: levETIRAcetam 500 mg Tablet PO ×2 (09:10→17:37)
[2024-02-26] MEDS: nicotine 14 mg Patch 1 PATCH TRANSDERMA (09:11)
[2024-02-26] MEDS: divalproex DR 500 mg Tablet PO ×2 (09:11→17:37)
[2024-02-26] MEDS: paliperidone ER 6 mg Tablet PO (09:11)
[2024-02-26] MEDS: topiramate 25 mg Tablet 50 MG PO ×2 (09:11→20:16)
[2024-02-26] MEDS: OLANZapine 5 mg ODT PO ×2 (09:29→17:53)
--- NOTE | 2024-02-26 09:29 | PC.NURSE ---
Patient reports anxiety related to his current situation. Patient denied SI and HI right now . Patient given zyprexa 5mg ODT. Patient irritable but cooperative during assessment. Last BM was 02/25/24. Patient refused lactulose.
[2024-02-26 14:00] VITALS: BP 91/56; PULSE 66; RESP 20; TEMP 36.7; O2SAT 93
[2024-02-26] MEDS: acetaminophen 500 mg Tablet PO (16:43)
--- NOTE | 2024-02-26 17:58 | P.NPUPN_ITS ---
Subjective NPU 2 Subjective: Patient presented today reporting that he is not having the same Is that he has had with previous days. He has been somewhat isolative and staying in his room but has been eating the last as needed medications to manage his irritability. He remains focused on having the opportunity to call principal consultant are whoever else tomorrow's visit this is open because he feels that he is being mistreated by the system. He denied any side effects to the medication. Mental Status Exam 2 MSE Comments: This is an obese white male in hospital scrubs with poor grooming and minimal eye contact. He appeared older than his stated age. With no abnormal movements except for mild psychomotor agitation. He was older than his stated age. He was cooperative with exam in moderate distress. Speech was more normal rate and volume compared to yesterday reports. Mood described as okay, affect appeared less irritable. Thought process was linear. Thought content: Patient denied suicidal or homicidal ideation, but he expressed our frustration about not being able to leave. There was no evidence of delusional thinking. There were no delusions reported or noted. He did not appear to be responding to internal stimuli. He denied any auditory or visual hallucinations. Attention and concentration was poor. Recent and remote memory is limited versus impaired. Insight was poor. His impulse control was poor. His judgment was impaired as well. He was alert and oriented x 3. Vitals/I&O/Wt Last Vital Signs Temp 98.1 F 02/26/24 14:00 Pulse 66 02/26/24 14:00 Resp 20 H 02/26/24 14:00 BP 91/56 02/26/24 14:00 Pulse Ox 93 02/26/24 14:00 O2 Del Method Room Air 02/26/24 14:00 Weight last 48 hrs Weight 94.801 kg Data NPU 02/21/24 03:25 02/21/24 03:25 A&P Assessment and plan (1) Bipolar I disorder, current or most recent episode manic, severe: (2) Suicidal ideation: (3) Methamphetamine abuse: (4) Methamphetamine dependence, continuous: (5) Nicotine dependence, chewing tobacco, with unspecified nicotine-induced disorders: (6) Drug overdose, multiple drugs: (7) Bipolar I disorder, most recent episode (or current) depressed: Plan This is a 48 year old, white male, with a history of methamphetamine addiction, depression, admitted to ICU with overdose on multiple medications under guardianship likely requiring placement in locked facility currently homeless with signficant mental health issues and lack of support. ? 1. Restarted previous medications including depakote, invega oral, synthroid, lisinopril and topamax and keppra. Invega Sustenna IM loading dose 234 mg to the deltoid given 02/22/2024. Next injection 156 mg IM to the deltoid loading dose due 02/29/2024. 2. Continue individual and milieu therapy.? 3. Continue q-15 minute checks for safety.? 4. Patient will require locked placement in locked residential treatment facility upon discharge. Involuntary Hold Information 2 96 Hour Hold: 96 Hour Involuntary Admission: No Attestations NPU 2 Medical Necessity Statement*: Inpatient hospitalization is medically necessary and the clinically appropriate intervention at this time. We will monitor medications and make changes as indicated. Likely length of stay 4 to 6 days. Coding Level of Care Code Acute Code for [facility] Diagnoses Bipolar I disorder, current or most recent episode manic, severe F31.13 Suicidal ideation R45.851 Methamphetamine abuse F15.10 Methamphetamine dependence, continuous F15.20 Nicotine dependence, chewing tobacco, with unspecified nicotine-induced disorders F17.229 Drug overdose, multiple drugs T50.911A Bipolar I disorder, most recent episode (or current) depressed F31.30
[2024-02-26] MEDS: hyDROXYzine 25 mg Capsule 50 MG PO (20:16)
[2024-02-26] MEDS: trazodone 100 mg Tablet PO (20:16)
[2024-02-26 21:52] VITALS: BP 107/74; PULSE 84; RESP 16; O2SAT 96
[2024-02-27 06:00] VITALS: BP 101/69; PULSE 96; RESP 16; TEMP 36.6; O2SAT 97
[2024-02-27] MEDS: levothyroxine 25 mcg Tablet PO (06:07)
[2024-02-27] MEDS: nicotine 14 mg Patch 1 PATCH TRANSDERMA (09:59)
[2024-02-27] MEDS: paliperidone ER 6 mg Tablet PO (09:59)
[2024-02-27] MEDS: topiramate 25 mg Tablet 50 MG PO ×2 (09:59→21:29)
[2024-02-27] MEDS: levETIRAcetam 500 mg Tablet PO ×2 (09:59→21:29)
[2024-02-27] MEDS: hyDROXYzine 25 mg Capsule 50 MG PO (09:59)
[2024-02-27] MEDS: divalproex DR 500 mg Tablet PO ×2 (09:59→21:29)
--- NOTE | 2024-02-27 09:59 | PC.NURSE ---
Addendum entered by [place] LPN 02/27/24 10:38: PRN MED EFFECTIVE AT THIS TIME, PATIENT ASLEEP IN BED IN ROOM, RESP EVEN ET UNLABORED Original Note: PRN VISTARIL 50 MG GIVEN PO PER PT C/O STATED ANXIETY, UPSET THAT HE CAN'T GET ON THE SAME PAGE WITH HIS GUARDIAN
[2024-02-27 14:00] VITALS: BP 102/64; PULSE 73; RESP 16; TEMP 36.6; O2SAT 98
--- NOTE | 2024-02-27 14:59 | P.NPUPN_ITS ---
Subjective NPU 2 Subjective: Patient presented today reporting that he tried to call his guardian but that he got a hold of somebody else and they reported that he was busy and that he would call him back. He reported that he could hear his guardian in the background and he feels that he is just ignoring him. We continue to discuss the plan as we understand it and explained to him that the plan would only change with his guardians approval. He denied any side effects to the medication and we discussed that he gets the second loading dose of Invega tomorrow. Mental Status Exam 2 MSE Comments: This is an obese white male in hospital scrubs with poor grooming and minimal eye contact. He appeared older than his stated age. With no abnormal movements except for mild psychomotor agitation. He was older than his stated age. He was cooperative with exam in moderate distress. Speech was more normal rate and volume compared to yesterday reports. Mood described as okay, affect appeared less irritable. Thought process was linear. Thought content: Patient denied suicidal or homicidal ideation, but he expressed our frustration about not being able to leave. There was no evidence of delusional thinking. There were no delusions reported or noted. He did not appear to be responding to internal stimuli. He denied any auditory or visual hallucinations. Attention and concentration was poor. Recent and remote memory is limited versus impaired. Insight was poor. His impulse control was poor. His judgment was impaired as well. He was alert and oriented x 3. Vitals/I&O/Wt Last Vital Signs Temp 98 F 02/27/24 06:00 Pulse 96 02/27/24 06:00 Resp 16 02/27/24 06:00 BP 101/69 02/27/24 06:00 Pulse Ox 97 02/27/24 06:00 O2 Del Method Room Air 02/27/24 06:00 Weight last 48 hrs Weight 94.801 kg Data NPU 02/21/24 03:25 02/21/24 03:25 A&P Assessment and plan (1) Bipolar I disorder, current or most recent episode manic, severe: (2) Suicidal ideation: (3) Methamphetamine abuse: (4) Methamphetamine dependence, continuous: (5) Nicotine dependence, chewing tobacco, with unspecified nicotine-induced disorders: (6) Drug overdose, multiple drugs: (7) Bipolar I disorder, most recent episode (or current) depressed: Plan This is a 48 year old, white male, with a history of methamphetamine addiction, depression, admitted to ICU with overdose on multiple medications under guardianship likely requiring placement in locked facility currently homeless with signficant mental health issues and lack of support. ? 1. Restarted previous medications including depakote, invega oral, synthroid, lisinopril and topamax and keppra. Invega Sustenna IM loading dose 234 mg to the deltoid given 02/22/2024. Next injection 156 mg IM to the deltoid loading dose due 02/29/2024. 2. Continue individual and milieu therapy.? 3. Continue q-15 minute checks for safety.? 4. Patient will require locked placement in locked residential treatment facility upon discharge. Involuntary Hold Information 2 96 Hour Hold: 96 Hour Involuntary Admission: No Attestations NPU 2 Medical Necessity Statement*: Inpatient hospitalization is medically necessary and the clinically appropriate intervention at this time. We will monitor medications and make changes as indicated. Likely length of stay 4 to 6 days. Coding Level of Care Code Acute Code for [facility] Fwd Diagnoses Bipolar I disorder, current or most recent episode manic, severe F31.13 Suicidal ideation R45.851 Methamphetamine abuse F15.10 Methamphetamine dependence, continuous F15.20 Nicotine dependence, chewing tobacco, with unspecified nicotine-induced disorders F17.229 Drug overdose, multiple drugs T50.911A Bipolar I disorder, most recent episode (or current) depressed F31.30
[2024-02-27] MEDS: haloperidol 5 mg Tablet PO (16:15)
--- NOTE | 2024-02-27 16:15 | PC.NURSE ---
PRN HALDOL 5 MG GIVEN PO PER PT C/O INCREASED ANXIETY/AGITATION.
[2024-02-27] MEDS: trazodone 100 mg Tablet PO (21:29)
[2024-02-27 22:00] VITALS: BP 124/71; PULSE 73; RESP 16; O2SAT 97
[2024-02-28 06:00] VITALS: BP 104/72; PULSE 68; RESP 16; TEMP 36.4; O2SAT 97
[2024-02-28] MEDS: levothyroxine 25 mcg Tablet PO (06:20)
[2024-02-28] MEDS: paliperidone ER 6 mg Tablet PO (08:50)
[2024-02-28] MEDS: levETIRAcetam 500 mg Tablet PO ×2 (08:51→20:44)
[2024-02-28] MEDS: topiramate 25 mg Tablet 50 MG PO ×2 (08:51→20:44)
[2024-02-28] MEDS: divalproex DR 500 mg Tablet PO ×2 (08:51→20:44)
[2024-02-28] MEDS: nicotine 14 mg Patch 1 PATCH TRANSDERMA (08:51)
[2024-02-28 14:00] VITALS: BP 110/70; PULSE 89; RESP 17; O2SAT 97
[2024-02-28] MEDS: acetaminophen 500 mg Tablet PO (14:26)
[2024-02-28] MEDS: OLANZapine 5 mg ODT PO (14:50)
--- NOTE | 2024-02-28 14:53 | PC.NURSE ---
Addendum entered by Kinga Huerta RN 02/28/24 15:40: ZYPREXA WAS INEFFECTIVE FOR PT AGITATION. PT CONTINUED TO ESCALATE VERBALLY. PT MADE STATEMENTS SUCH IM GOING TO START PUNCH OUT WINDOWS. AND IM GOING TO ESCAPE OUT OF HERE TONIGHT. Original Note: PT IS IRRITATED AND UPSET ABOUT NOT BEING ABLE TO GET AHOLD OF HIS GUARDIAN. PT BELIEVES THAT HE IS SUPPOSED TO BE ABLE TO LEAVE AT WILL. THIS NURSE EXPLAINED THAT PT HAS A GUARDIAN AND LONG HIS GUARDIAN AND THE PHYSICIAN AGREE THAT HE NEEDS TO BE HERE THEN HE WILL BE HERE. PT REQUESTED SOMETHING FOR ANXIETY. THIS NURSE OFFERED VISTARIL TO WHICH PT REFUSED DUE TO IT DOES NOT WORK FOR ME THIS NURSE THEN OFFERED PT OLANZAPINE DUE TO HIS INCREASING IRRITABILITY AND ANXIETY. PT INITIALLY DECLINED THEN WAS WILLING TO TAKE THIS MEDICATIONS.
--- NOTE | 2024-02-28 15:14 | P.NPUPN_ITS ---
Subjective NPU 2 Subjective: Patient presents today reporting things are unchanged. He continued to have frustration about his guardian but otherwise had no other issues or complaints. We discussed the fact that he will be getting his second Invega Sustenna injection tomorrow and he had no concerns about that at this time. He denied any side effects of the medication. Mental Status Exam 2 MSE Comments: This is an obese white male in hospital scrubs with poor grooming and minimal eye contact. He appeared older than his stated age. With no abnormal movements except for mild psychomotor agitation. He was older than his stated age. He was cooperative with exam in moderate distress. Speech was more normal rate and volume compared to yesterday reports. Mood described as okay, affect appeared less irritable. Thought process was linear. Thought content: Patient denied suicidal or homicidal ideation, but he expressed our frustration about not being able to leave. There was no evidence of delusional thinking. There were no delusions reported or noted. He did not appear to be responding to internal stimuli. He denied any auditory or visual hallucinations. Attention and concentration was poor. Recent and remote memory is limited versus impaired. Insight was poor. His impulse control was poor. His judgment was impaired as well. He was alert and oriented x 3. Vitals/I&O/Wt Last Vital Signs Temp 97.6 F 02/28/24 06:00 Pulse 68 02/28/24 06:00 Resp 16 02/28/24 06:00 BP 104/72 02/28/24 06:00 Pulse Ox 97 02/28/24 06:00 O2 Del Method Room Air 02/28/24 06:00 Data NPU 02/21/24 03:25 02/21/24 03:25 A&P Assessment and plan (1) Bipolar I disorder, current or most recent episode manic, severe: (2) Suicidal ideation: (3) Methamphetamine abuse: (4) Methamphetamine dependence, continuous: (5) Nicotine dependence, chewing tobacco, with unspecified nicotine-induced disorders: (6) Drug overdose, multiple drugs: (7) Bipolar I disorder, most recent episode (or current) depressed: Plan This is a 48 year old, white male, with a history of methamphetamine addiction, depression, admitted to ICU with overdose on multiple medications under guardianship likely requiring placement in locked facility currently homeless with signficant mental health issues and lack of support. ? 1. Restarted previous medications including depakote, invega oral, synthroid, lisinopril and topamax and keppra. Invega Sustenna IM loading dose 234 mg to the deltoid given 02/22/2024. Next injection 156 mg IM to the deltoid loading dose due tomorrow, 02/29/2024. 2. Continue individual and milieu therapy.? 3. Continue q-15 minute checks for safety.? 4. Patient will require locked placement in locked residential treatment facility upon discharge. Involuntary Hold Information 2 96 Hour Hold: 96 Hour Involuntary Admission: No Attestations NPU 2 Medical Necessity Statement*: Inpatient hospitalization is medically necessary and the clinically appropriate intervention at this time. We will monitor medications and make changes as indicated. Likely length of stay 4 to 6 days. Coding Level of Care Code Acute Code for [facility] Fwd Diagnoses Bipolar I disorder, current or most recent episode manic, severe F31.13 Suicidal ideation R45.851 Methamphetamine abuse F15.10 Methamphetamine dependence, continuous F15.20 Nicotine dependence, chewing tobacco, with unspecified nicotine-induced disorders F17.229 Drug overdose, multiple drugs T50.911A Bipolar I disorder, most recent episode (or current) depressed F31.30
[2024-02-28] MEDS: haloperidol 5 mg Tablet PO (15:39)
[2024-02-28 20:40] VITALS: BP 115/69; PULSE 77; RESP 16; O2SAT 98
[2024-02-28] MEDS: trazodone 100 mg Tablet PO (20:44)
[2024-02-29 06:00] VITALS: BP 108/71; PULSE 75; RESP 18; O2SAT 96
[2024-02-29] MEDS: levothyroxine 25 mcg Tablet PO (07:53)
[2024-02-29] MEDS: levETIRAcetam 500 mg Tablet PO ×2 (10:11→21:13)
[2024-02-29] MEDS: divalproex DR 500 mg Tablet PO ×2 (10:11→21:13)
[2024-02-29] MEDS: paliperidone ER 6 mg Tablet PO (10:11)
[2024-02-29] MEDS: topiramate 25 mg Tablet 50 MG PO ×2 (10:11→21:13)
[2024-02-29] MEDS: nicotine 14 mg Patch 1 PATCH TRANSDERMA (10:12)
[2024-02-29 14:00] VITALS: BP 134/87; PULSE 85; RESP 16; TEMP 36.4; O2SAT 96
[2024-02-29] MEDS: OLANZapine 5 mg ODT PO ×2 (14:05→21:13)
--- NOTE | 2024-02-29 15:55 | P.NPUPN_ITS ---
Subjective NPU 2 Subjective: Patient presents today reporting that he is doing okay. He reports he is feeling better as he reached his guardian's office and was able to talk to the area secretary. He reported being able to express to her his situation and what he was trying to accomplish. He reports that he is not sure what will happen but he felt good being able to explain his situation. He also endorsed having an issue with one of his toes that it has been off and on like an ingrown nail in his big toe. We discussed the possibility of being able to get a head of digital and to take a look at it. He denied any side effects of the medication and we discussed the fact that he needed to get his second Invega Sustenna injection for the loading dose to the deltoid today. Mental Status Exam 2 MSE Comments: This is an obese white male in hospital scrubs with poor grooming and minimal eye contact. He appeared older than his stated age. With no abnormal movements except for mild psychomotor agitation. He was older than his stated age. He was cooperative with exam in moderate distress. Speech was more normal rate and volume. Mood described as okay, affect appeared less irritable. Thought process was linear. Thought content: Patient denied suicidal or homicidal ideation. There was no evidence of delusional thinking. There were no delusions reported or noted. He did not appear to be responding to internal stimuli. He denied any auditory or visual hallucinations. Attention and concentration was poor. Recent and remote memory is limited versus impaired. Insight was poor. His impulse control was poor. His judgment was impaired as well. He was alert and oriented x 3. Vitals/I&O/Wt Last Vital Signs Temp 97.6 F 02/29/24 14:00 Pulse 85 02/29/24 14:00 Resp 16 02/29/24 14:00 BP 134/87 02/29/24 14:00 Pulse Ox 96 02/29/24 14:00 O2 Del Method Room Air 02/29/24 10:21 Data NPU 02/21/24 03:25 02/21/24 03:25 A&P Assessment and plan (1) Bipolar I disorder, current or most recent episode manic, severe: (2) Suicidal ideation: (3) Methamphetamine abuse: (4) Methamphetamine dependence, continuous: (5) Nicotine dependence, chewing tobacco, with unspecified nicotine-induced disorders: (6) Drug overdose, multiple drugs: (7) Bipolar I disorder, most recent episode (or current) depressed: Plan This is a 48 year old, white male, with a history of methamphetamine addiction, depression, admitted to ICU with overdose on multiple medications under guardianship likely requiring placement in locked facility currently homeless with signficant mental health issues and lack of support. ? 1. Restarted previous medications including depakote, invega oral, synthroid, lisinopril and topamax and keppra. Invega Sustenna IM loading dose 234 mg to the deltoid given 02/22/2024. Next injection 156 mg IM to the deltoid loading dose due today, 02/29/2024. 2. Continue individual and milieu therapy.? 3. Continue q-15 minute checks for safety.? 4. Patient will require locked placement in locked residential treatment facility upon discharge. Involuntary Hold Information 2 96 Hour Hold: 96 Hour Involuntary Admission: No Attestations NPU 2 Medical Necessity Statement*: Inpatient hospitalization is medically necessary and the clinically appropriate intervention at this time. We will monitor medications and make changes as indicated. Likely length of stay 4 to 6 days. Coding Level of Care Code Acute Code for [facility] Fwd Diagnoses Bipolar I disorder, current or most recent episode manic, severe F31.13 Suicidal ideation R45.851 Methamphetamine abuse F15.10 Methamphetamine dependence, continuous F15.20 Nicotine dependence, chewing tobacco, with unspecified nicotine-induced disorders F17.229 Drug overdose, multiple drugs T50.911A Bipolar I disorder, most recent episode (or current) depressed F31.30
[2024-02-29 19:42] VITALS: BP 104/64; PULSE 84; RESP 18; TEMP 36.5; O2SAT 99
[2024-02-29] MEDS: trazodone 100 mg Tablet PO (21:13)
[2024-03-01] MEDS: levothyroxine 25 mcg Tablet PO (05:43)
[2024-03-01 06:00] VITALS: BP 93/57; PULSE 66; RESP 18; TEMP 36.6; O2SAT 97
[2024-03-01 09:03] VITALS: PULSE 86; RESP 18; O2SAT 98
[2024-03-01] MEDS: nicotine 14 mg Patch 1 PATCH TRANSDERMA (09:08)
[2024-03-01] MEDS: topiramate 25 mg Tablet 50 MG PO ×2 (09:08→21:20)
[2024-03-01] MEDS: levETIRAcetam 500 mg Tablet PO ×2 (09:08→21:21)
[2024-03-01] MEDS: divalproex DR 500 mg Tablet PO ×2 (09:08→21:20)
[2024-03-01] MEDS: paliperidone ER 6 mg Tablet PO (09:08)
[2024-03-01 14:00] VITALS: BP 122/83; PULSE 88; RESP 16; TEMP 36.7; O2SAT 99
[2024-03-01] MEDS: hyDROXYzine 25 mg Capsule 50 MG PO ×2 (14:27→21:21)
--- NOTE | 2024-03-01 14:56 | PC.NURSE ---
Lena Haskins visited with patient in patient's room. Charge nurse and community administrator approved meeting. Security standing outside room. No issues.
[2024-03-01] MEDS: OLANZapine 5 mg ODT PO ×2 (14:58→21:21)
--- NOTE | 2024-03-01 18:46 | W.PM.NPUPNS ---
Subjective NPU Subjective: Patient presents today reporting that he is doing okay. He denies any new or pressing issues and reports that he is awaiting placement. We discussed making sure he got his Invega Sustenna second loading dose injection today. He denied any side effects to the medication. We discussed trying to make sure the field cane scaler helper got to see him. Mental Status Exam MSE Comments: This is an obese white male in hospital scrubs with poor grooming and minimal eye contact. He appeared older than his stated age. With no abnormal movements except for mild psychomotor agitation. He was older than his stated age. He was cooperative with exam in moderate distress. Speech was more normal rate and volume. Mood described as okay, affect appeared less irritable. Thought process was linear. Thought content: Patient denied suicidal or homicidal ideation. There was no evidence of delusional thinking. There were no delusions reported or noted. He did not appear to be responding to internal stimuli. He denied any auditory or visual hallucinations. Attention and concentration was poor. Recent and remote memory is limited versus impaired. Insight was poor. His impulse control was poor. His judgment was impaired as well. He was alert and oriented x 3. Vitals/I&O/Wt Last Vital Signs Temp 98.3 F 03/01/24 20:49 Pulse 80 03/01/24 20:49 Resp 17 03/01/24 20:49 BP 106/68 03/01/24 20:49 Pulse Ox 97 03/01/24 20:49 O2 Del Method Room Air 03/01/24 20:49 Data NPU 02/21/24 03:25 02/21/24 03:25 A&P Assessment and plan (1) Bipolar I disorder, current or most recent episode manic, severe: (2) Suicidal ideation: (3) Methamphetamine abuse: (4) Methamphetamine dependence, continuous: (5) Nicotine dependence, chewing tobacco, with unspecified nicotine-induced disorders: (6) Drug overdose, multiple drugs: (7) Bipolar I disorder, most recent episode (or current) depressed: Plan This is a 48 year old, white male, with a history of methamphetamine addiction, depression, admitted to ICU with overdose on multiple medications under guardianship likely requiring placement in locked facility currently homeless with signficant mental health issues and lack of support. ? 1. Restarted previous medications including depakote, invega oral, synthroid, lisinopril and topamax and keppra. Invega Sustenna IM loading dose 234 mg to the deltoid given 02/22/2024. Next injection 156 mg IM to the deltoid loading dose due today, 02/29/2024. 2. Continue individual and milieu therapy.? 3. Continue q-15 minute checks for safety.? 4. Patient will require locked placement in locked residential treatment facility upon discharge. Involuntary Hold Information 96 Hour Hold: 96 Hour Involuntary Admission: No Attestations NPU Medical Necessity Statement*: Inpatient hospitalization is medically necessary and the clinically appropriate intervention at this time. We will monitor medications and make changes as indicated. Likely length of stay 4 to 6 days. Coding Level of Care Code Acute Code for [facility] Fwd Diagnoses Bipolar I disorder, current or most recent episode manic, severe F31.13 Suicidal ideation R45.851 Methamphetamine abuse F15.10 Methamphetamine dependence, continuous F15.20 Nicotine dependence, chewing tobacco, with unspecified nicotine-induced disorders F17.229 Drug overdose, multiple drugs T50.911A Bipolar I disorder, most recent episode (or current) depressed F31.30
[2024-03-01 20:49] VITALS: BP 106/68; PULSE 80; RESP 17; TEMP 36.8; O2SAT 97
[2024-03-01] MEDS: trazodone 100 mg Tablet PO (21:21)
[2024-03-02 06:00] VITALS: BP 107/73; PULSE 58; RESP 15; TEMP 36.9; O2SAT 94
[2024-03-02] MEDS: nicotine 14 mg Patch 1 PATCH TRANSDERMA (08:11)
[2024-03-02] MEDS: levothyroxine 25 mcg Tablet PO (08:11)
--- NOTE | 2024-03-02 08:23 | PC.NURSE ---
patient resting in bed, patient denies SI, HI, AVH. patient endorses anxiety and depression. Patient cooperative during assessment, somewhat irritable.
--- NOTE | 2024-03-02 08:24 | PC.NURSE ---
patient resting in bed, patient denies SI, HI, AVH. patient endorses anxiety and depression. Patient cooperative during assessment, somewhat irritable.
[2024-03-02] MEDS: levETIRAcetam 500 mg Tablet PO ×2 (09:43→21:45)
[2024-03-02] MEDS: paliperidone ER 6 mg Tablet PO (09:43)
[2024-03-02] MEDS: divalproex DR 500 mg Tablet PO ×2 (09:43→21:46)
[2024-03-02] MEDS: topiramate 25 mg Tablet 50 MG PO ×2 (09:43→21:45)
[2024-03-02 14:00] VITALS: BP 122/84; PULSE 92; RESP 17; TEMP 36.6; O2SAT 100
[2024-03-02] MEDS: OLANZapine 5 mg ODT PO ×2 (14:20→21:46)
[2024-03-02] MEDS: paliperidone palmitate 156 mg Syringe IM (14:21)
--- NOTE | 2024-03-02 14:32 | PC.NURSE ---
Administered invega sustenna 156mg/ml into patient's right deltoid muscle. Patient tolerated injection well. Lot: [id number] EXP: 06/2025
[2024-03-02] MEDS: hyDROXYzine 25 mg Capsule 50 MG PO ×2 (15:15→21:46)
--- NOTE | 2024-03-02 15:18 | PC.NURSE ---
Patient given vistaril and zyprexa for anxiety at different times today. Patient rating anxiety 7/10 d/t him finding out this his brother is in [facility] and is going to halfway.
[2024-03-02] MEDS: acetaminophen 500 mg Tablet PO (15:21)
[2024-03-02] MEDS: ibuprofen 600 mg Tablet PO (16:41)
[2024-03-02] MEDS: haloperidol 5 mg Tablet PO (16:42)
--- NOTE | 2024-03-02 16:47 | P.NPUPN_ITS ---
Subjective NPU 2 Subjective: Patient presented today reporting that he is doing fine. He reports that he did get his Invega Sustenna second loading dose injection today. He denies any problems with that or any side effects to the medication. We discussed that there still has not been any placement identified. He reported a openness to consider the different places that might come forward. Otherwise he expressed no concerns. Mental Status Exam 2 MSE Comments: This is an obese white male in hospital scrubs with poor grooming and minimal eye contact. He appeared older than his stated age. With no abnormal movements except for mild psychomotor agitation. He was older than his stated age. He was cooperative with exam in moderate distress. Speech was more normal rate and volume. Mood described as okay, affect appeared less irritable. Thought process was linear. Thought content: Patient denied suicidal or homicidal ideation. There was no evidence of delusional thinking. There were no delusions reported or noted. He did not appear to be responding to internal stimuli. He denied any auditory or visual hallucinations. Attention and concentration was poor. Recent and remote memory is limited versus impaired. Insight was poor. His impulse control was poor. His judgment was impaired as well. He was alert and oriented x 3. Vitals/I&O/Wt Last Vital Signs Temp 98.4 F 03/02/24 06:00 Pulse 58 L 03/02/24 06:00 Resp 15 03/02/24 06:00 BP 107/73 03/02/24 06:00 Pulse Ox 94 03/02/24 06:00 O2 Del Method Room Air 03/02/24 06:00 03/02/24 03/02/24 03/02/24 06:59 14:59 22:59 Intake Total 538 / 538 Output Total 700 / 700 Balance -162 / -162 Data NPU 02/21/24 03:25 02/21/24 03:25 A&P Assessment and plan (1) Bipolar I disorder, current or most recent episode manic, severe: (2) Suicidal ideation: (3) Methamphetamine abuse: (4) Methamphetamine dependence, continuous: (5) Nicotine dependence, chewing tobacco, with unspecified nicotine-induced disorders: (6) Drug overdose, multiple drugs: (7) Bipolar I disorder, most recent episode (or current) depressed: Plan This is a 48 year old, white male, with a history of methamphetamine addiction, depression, admitted to ICU with overdose on multiple medications under guardianship likely requiring placement in locked facility currently homeless with signficant mental health issues and lack of support. ? 1. Restarted previous medications including depakote, invega oral, synthroid, lisinopril and topamax and keppra. Invega Sustenna IM loading dose 234 mg to the deltoid given 02/22/2024. Next injection 156 mg IM to the deltoid loading dose was given today, 03/02/2024. Next injection is due 03/28/2024. 2. Continue individual and milieu therapy.? 3. Continue q-15 minute checks for safety.? 4. Patient will require locked placement in locked residential treatment facility upon discharge. Involuntary Hold Information 2 96 Hour Hold: 96 Hour Involuntary Admission: No Attestations NPU 2 Medical Necessity Statement*: Inpatient hospitalization is medically necessary and the clinically appropriate intervention at this time. We will monitor medications and make changes as indicated. Likely length of stay 4 to 6 days. Coding Level of Care Code Acute Code for [facility] Diagnoses Bipolar I disorder, current or most recent episode manic, severe F31.13 Suicidal ideation R45.851 Methamphetamine abuse F15.10 Methamphetamine dependence, continuous F15.20 Nicotine dependence, chewing tobacco, with unspecified nicotine-induced disorders F17.229 Drug overdose, multiple drugs T50.911A Bipolar I disorder, most recent episode (or current) depressed F31.30
[2024-03-02 21:43] VITALS: BP 108/67; PULSE 85; RESP 16; TEMP 36.6; O2SAT 98
[2024-03-02] MEDS: trazodone 100 mg Tablet PO (21:45)
[2024-03-03 06:00] VITALS: BP 107/61; PULSE 59; RESP 16; O2SAT 96
[2024-03-03] MEDS: levothyroxine 25 mcg Tablet PO (06:20)
[2024-03-03] MEDS: benztropine 1 mg Tablet PO (09:31)
[2024-03-03] MEDS: paliperidone ER 6 mg Tablet PO (09:31)
[2024-03-03] MEDS: nicotine 14 mg Patch 1 PATCH TRANSDERMA (09:32)
[2024-03-03] MEDS: levETIRAcetam 500 mg Tablet PO ×2 (09:32→20:08)
[2024-03-03] MEDS: divalproex DR 500 mg Tablet PO ×2 (09:32→20:08)
[2024-03-03] MEDS: topiramate 25 mg Tablet 50 MG PO ×2 (09:32→20:08)
[2024-03-03] MEDS: OLANZapine 5 mg ODT PO ×2 (11:30→21:04)
--- NOTE | 2024-03-03 11:49 | PC.NURSE ---
A Zyprexa was pulled as nurse was told patient would be coming to window soon to ask for something for anxiety. Medication kept with nurse. Then, nurse had to step off the floor for a moment and that's when patient came to the window asking for it. Charge nurse pulled a zyprexa for the patient and this nurse returned the first zyprexa to the [facility].
[2024-03-03 14:00] VITALS: BP 105/64; PULSE 67; RESP 16; TEMP 36.6; O2SAT 98
--- NOTE | 2024-03-03 14:24 | P.NPUPN_ITS ---
Subjective NPU 2 Subjective: Patient presented today reporting that he is feeling okay. He appears to have gained greater resolved and acceptance that he will be sent to placement. His only question at this point was how long this process might take. He identified that he was not with this could be a rapid process that he could move forward to his new residence sooner rather than later. He denied any side effects of the medication. Mental Status Exam 2 MSE Comments: This is an obese white male in hospital scrubs with adequate grooming and improving eye contact. He appeared older than his stated age. With no abnormal movements except for resolving psychomotor agitation. He was older than his stated age. He was cooperative with exam in mild distress. Speech was more normal rate and volume. Mood described as okay, affect appeared congruent. Thought process was linear. Thought content: Patient denied suicidal or homicidal ideation. There was no evidence of delusional thinking. There were no delusions reported or noted. He did not appear to be responding to internal stimuli. He denied any auditory or visual hallucinations. Attention and concentration was poor. Recent and remote memory is limited versus impaired. Insight was poor. His impulse control was poor. His judgment was impaired as well. He was alert and oriented x 3. Vitals/I&O/Wt Last Vital Signs Temp 97.9 F 03/02/24 21:43 Pulse 59 L 03/03/24 06:00 Resp 16 03/03/24 06:00 BP 107/61 03/03/24 06:00 Pulse Ox 96 03/03/24 06:00 O2 Del Method Room Air 03/03/24 06:00 Data NPU 02/21/24 03:25 02/21/24 03:25 A&P Assessment and plan (1) Bipolar I disorder, current or most recent episode manic, severe: (2) Suicidal ideation: (3) Methamphetamine abuse: (4) Methamphetamine dependence, continuous: (5) Nicotine dependence, chewing tobacco, with unspecified nicotine-induced disorders: (6) Drug overdose, multiple drugs: (7) Bipolar I disorder, most recent episode (or current) depressed: Plan This is a 48 year old, white male, with a history of methamphetamine addiction, depression, admitted to ICU with overdose on multiple medications under guardianship likely requiring placement in locked facility currently homeless with signficant mental health issues and lack of support. ? 1. Restarted previous medications including depakote, invega oral, synthroid, lisinopril and topamax and keppra. Invega Sustenna IM loading dose 234 mg to the deltoid given 02/22/2024. Next injection 156 mg IM to the deltoid loading dose was given today, 03/02/2024. Next injection is due 03/28/2024. 2. Continue individual and milieu therapy.? 3. Continue q-15 minute checks for safety.? 4. Patient will require locked placement in locked residential treatment facility upon discharge. Involuntary Hold Information 2 96 Hour Hold: 96 Hour Involuntary Admission: No Attestations NPU 2 Medical Necessity Statement*: Inpatient hospitalization is medically necessary and the clinically appropriate intervention at this time. We will monitor medications and make changes as indicated. Likely length of stay 4 to 6 days. Coding Level of Care Code Acute Code for [facility] Fwd Diagnoses Bipolar I disorder, current or most recent episode manic, severe F31.13 Suicidal ideation R45.851 Methamphetamine abuse F15.10 Methamphetamine dependence, continuous F15.20 Nicotine dependence, chewing tobacco, with unspecified nicotine-induced disorders F17.229 Drug overdose, multiple drugs T50.911A Bipolar I disorder, most recent episode (or current) depressed F31.30
[2024-03-03] MEDS: acetaminophen 500 mg Tablet PO (16:52)
[2024-03-03] MEDS: ibuprofen 600 mg Tablet PO (19:20)
[2024-03-03] MEDS: hyDROXYzine 25 mg Capsule 50 MG PO (20:08)
[2024-03-03] MEDS: trazodone 100 mg Tablet PO (20:08)
[2024-03-03 20:58] VITALS: BP 132/82; PULSE 110; RESP 18; O2SAT 99
[2024-03-04] MEDS: acetaminophen 500 mg Tablet PO ×3 (01:22→20:01)
[2024-03-04 06:00] VITALS: BP 112/71; PULSE 71; RESP 16; O2SAT 97
[2024-03-04] MEDS: levothyroxine 25 mcg Tablet PO (06:19)
[2024-03-04] MEDS: nicotine 14 mg Patch 1 PATCH TRANSDERMA (08:53)
[2024-03-04] MEDS: OLANZapine 5 mg ODT PO ×3 (08:53→20:37)
[2024-03-04] MEDS: divalproex DR 500 mg Tablet PO ×2 (08:53→20:36)
[2024-03-04] MEDS: levETIRAcetam 500 mg Tablet PO ×2 (08:53→20:37)
[2024-03-04] MEDS: paliperidone ER 6 mg Tablet PO (08:53)
[2024-03-04] MEDS: topiramate 25 mg Tablet 50 MG PO ×2 (08:59→20:37)
[2024-03-04 14:00] VITALS: BP 118/83; PULSE 97; RESP 17; TEMP 36.7; O2SAT 96
--- NOTE | 2024-03-04 14:22 | P.NPUPN_ITS ---
Subjective NPU 2 Subjective: Patient presented today reporting that he was feeling fine. He denied any problems with his medication and reports that he is adjusting fine to the injection. We discussed the likelihood of discontinuing oral Invega soon. He denied any resistance to placement and images continuing to wander how long it could take theoretically. He denied any side effects to the medication. Mental Status Exam 2 MSE Comments: This is an obese white male in hospital scrubs with adequate grooming and improving eye contact. He appeared older than his stated age. With no abnormal movements except for resolving psychomotor agitation. He looked older than his stated age. He was cooperative with exam in mild distress. Speech was more normal rate and volume. Mood described as okay, affect appeared congruent. Thought process was linear. Thought content: Patient denied suicidal or homicidal ideation. There was no evidence of delusional thinking. There were no delusions reported or noted. He did not appear to be responding to internal stimuli. He denied any auditory or visual hallucinations. Attention and concentration was poor. Recent and remote memory is limited versus impaired. Insight was poor. His impulse control was poor. His judgment was impaired as well. He was alert and oriented x 3. Vitals/I&O/Wt Last Vital Signs Temp 97.8 F 03/03/24 14:00 Pulse 71 03/04/24 06:00 Resp 16 03/04/24 06:00 BP 112/71 03/04/24 06:00 Pulse Ox 97 03/04/24 06:00 O2 Del Method Room Air 03/04/24 06:00 Weight last 48 hrs Weight 96.434 kg Data NPU 02/21/24 03:25 02/21/24 03:25 A&P Assessment and plan (1) Bipolar I disorder, current or most recent episode manic, severe: (2) Suicidal ideation: (3) Methamphetamine abuse: (4) Methamphetamine dependence, continuous: (5) Nicotine dependence, chewing tobacco, with unspecified nicotine-induced disorders: (6) Drug overdose, multiple drugs: (7) Bipolar I disorder, most recent episode (or current) depressed: Plan This is a 48 year old, white male, with a history of methamphetamine addiction, depression, admitted to ICU with overdose on multiple medications under guardianship likely requiring placement in locked facility currently homeless with signficant mental health issues and lack of support. ? 1. Restarted previous medications including depakote, invega oral, synthroid, lisinopril and topamax and keppra. Invega Sustenna IM loading dose 234 mg to the deltoid given 02/22/2024. Next injection 156 mg IM to the deltoid loading dose was given today, 03/02/2024. Next injection is due 03/28/2024. 2. Continue individual and milieu therapy.? 3. Continue q-15 minute checks for safety.? 4. Patient will require locked placement in locked residential treatment facility upon discharge. Involuntary Hold Information 2 96 Hour Hold: 96 Hour Involuntary Admission: No Attestations NPU 2 Medical Necessity Statement*: Inpatient hospitalization is medically necessary and the clinically appropriate intervention at this time. We will monitor medications and make changes as indicated. Likely length of stay 4 to 6 days. Coding Level of Care Code Acute Code for [facility] Fwd Diagnoses Bipolar I disorder, current or most recent episode manic, severe F31.13 Suicidal ideation R45.851 Methamphetamine abuse F15.10 Methamphetamine dependence, continuous F15.20 Nicotine dependence, chewing tobacco, with unspecified nicotine-induced disorders F17.229 Drug overdose, multiple drugs T50.911A Bipolar I disorder, most recent episode (or current) depressed F31.30
[2024-03-04] MEDS: ibuprofen 600 mg Tablet PO (16:04)
[2024-03-04 20:25] VITALS: BP 131/82; PULSE 74; RESP 18; TEMP 36.5; O2SAT 95
[2024-03-04] MEDS: trazodone 100 mg Tablet PO (20:36)
[2024-03-04] MEDS: haloperidol 5 mg Tablet PO (21:50)
[2024-03-05 06:00] VITALS: BP 113/71; PULSE 60; RESP 16; O2SAT 98
[2024-03-05] MEDS: levothyroxine 25 mcg Tablet PO (07:48)
[2024-03-05] MEDS: levETIRAcetam 500 mg Tablet PO ×2 (09:45→19:07)
[2024-03-05] MEDS: nicotine 14 mg Patch 1 PATCH TRANSDERMA (09:45)
[2024-03-05] MEDS: topiramate 25 mg Tablet 50 MG PO ×2 (09:45→19:07)
[2024-03-05] MEDS: divalproex DR 500 mg Tablet PO ×2 (09:45→19:07)
[2024-03-05] MEDS: paliperidone ER 6 mg Tablet PO (09:45)
[2024-03-05] MEDS: ibuprofen 600 mg Tablet PO (11:37)
[2024-03-05] MEDS: OLANZapine 5 mg ODT PO (11:38)
--- NOTE | 2024-03-05 11:38 | PC.NURSE ---
anxiety 03/24. administered zyprexa 5mg ODT
[2024-03-05 14:00] VITALS: BP 102/71; PULSE 120; RESP 16; TEMP 36.6; O2SAT 98
[2024-03-05] MEDS: acetaminophen 500 mg Tablet PO (14:27)
[2024-03-05] MEDS: haloperidol 5 mg Tablet PO (15:09)
[2024-03-05] MEDS: SUMAtriptan 25 mg Tablet 100 MG PO (18:03)
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
[2024-03-05] MEDS: trazodone 100 mg Tablet PO (19:07)
[2024-03-05 21:21] VITALS: BP 130/89; PULSE 73; RESP 18; TEMP 36.5; O2SAT 99
[2024-03-06 06:00] VITALS: BP 90/50; PULSE 72; RESP 16; O2SAT 98
[2024-03-06] MEDS: levothyroxine 25 mcg Tablet PO (06:28)
[2024-03-06] MEDS: levETIRAcetam 500 mg Tablet PO ×2 (09:38→20:15)
[2024-03-06] MEDS: paliperidone ER 6 mg Tablet PO (09:38)
[2024-03-06] MEDS: topiramate 25 mg Tablet 50 MG PO ×2 (09:38→20:15)
[2024-03-06] MEDS: nicotine 14 mg Patch 1 PATCH TRANSDERMA (09:38)
[2024-03-06] MEDS: divalproex DR 500 mg Tablet PO ×2 (09:39→20:15)
[2024-03-06] MEDS: acetaminophen 500 mg Tablet PO ×2 (10:18→20:15)
[2024-03-06 14:00] VITALS: BP 101/69; PULSE 78; RESP 17; TEMP 36.6; O2SAT 97
[2024-03-06] MEDS: SUMAtriptan 25 mg Tablet 100 MG PO ×2 (14:01→16:09)
--- NOTE | 2024-03-06 16:14 | P.NPUPN_ITS ---
Subjective NPU 2 Subjective: Patient presented today reporting that he is not having any issues. He has adjusted to having a second shot we discussed the plan to discontinue the oral Invega. Otherwise he reports that he is just waiting for his discharge to a residential facility also social work to find an option. He denies any side effects of the medication. Mental Status Exam 2 MSE Comments: This is an obese white male in hospital scrubs with adequate grooming and improving eye contact. He appeared older than his stated age. With no abnormal movements except for resolving psychomotor agitation. He looked older than his stated age. He was cooperative with exam in mild distress. Speech was more normal rate and volume. Mood described as okay, affect appeared congruent. Thought process was linear. Thought content: Patient denied suicidal or homicidal ideation. There was no evidence of delusional thinking. There were no delusions reported or noted. He did not appear to be responding to internal stimuli. He denied any auditory or visual hallucinations. Attention and concentration was poor. Recent and remote memory is limited versus impaired. Insight was poor. His impulse control was poor. His judgment was impaired as well. He was alert and oriented x 3. Vitals/I&O/Wt Last Vital Signs Temp 98 F 03/06/24 14:00 Pulse 78 03/06/24 14:00 Resp 17 03/06/24 14:00 BP 101/69 03/06/24 14:00 Pulse Ox 97 03/06/24 14:00 O2 Del Method Room Air 03/06/24 06:00 Data NPU 02/21/24 03:25 02/21/24 03:25 A&P Assessment and plan (1) Ingrown right big toenail: Plan Patient was seen and evaluated in the Neuropsych Unit for right hallux ingrown nail. Medial edge of right hallux nail plate was incurvated and ingrowing with mild hypergranular tissue formation and slight erythema. Sterile nail nippers were used to perform slant back debridement of medial border of right hallux nail plate. No underlying purulence was visualized. No signs of deep space infection. Site was dressed with Band-Aid. Recommend 7-day course of oral antibiotics. Clindamycin 300 mg 3 times daily x 7 days would be most appropriate given penicillin allergy Once placement is found for patient patient, I recommend podiatry consult for more permanent solution to ingrown such as partial nail avulsion with chemical matrixectomy which can be performed in the outpatient setting. No further intervention per podiatry during this admission. Please reconsult if needed. Involuntary Hold Information 2 96 Hour Hold: 96 Hour Involuntary Admission: No Attestations NPU 2 Medical Necessity Statement*: Inpatient hospitalization is medically necessary and the clinically appropriate intervention at this time. We will monitor medications and make changes as indicated. Likely length of stay 4 to 6 days. Coding Level of Care Code Acute Code for [facility] Fwd Diagnoses Ingrown right big toenail L60.0
--- NOTE | 2024-03-06 17:17 | P.CONIM_ITS ---
Providers/Reason For Consult 2 Consulting Physician/Specialty*: Concepción Huitron.P.M./podiatry Reason for Consult*: Ingrown toenail right great toe Attending Physician: Sabrina Jaeger MD Primary Care Provider: TIFFANY Almanza History of Present Illness History of Present Illness Walt Madsen is a 48 year old male who is currently admitted to Neuropsych Unit. Patient states that he has an ingrown toenail to the right great toe. This has been ongoing for approximately 5 to 6 months at this point. Patient states he has been on multiple rounds of antibiotics with little to no relief. He has tried trimming the edge himself with little to no relief. Podiatry was consulted to evaluate and treat. Review of Systems 2 General: Reports: 10 or more systems reviewed and unremarkable except in HPI and below Const: Denies: fever(s), chills or malaise Eyes: Denies: change in vision ENMT: Denies: throat pain Card: Denies: chest pain or palpitations Resp: Denies: dyspnea GI: Denies: abdominal pain, nausea or vomiting Musc: Reports: extremity pain, extremity swelling and limited range of motion Skin/Breast: Reports: erythema, skin tenderness and new lesions Medications/Allergies Home Medications Medication Instructions Recorded Confirmed Last Taken Type levothyroxine 25 mcg tablet 25 mcg PO DAILY@19 #30 tabs 03/02/23 02/18/24 04/06/23 Rx lisinopril 10 mg tablet 10 mg PO DAILY 03/07/23 02/18/24 04/06/23 History topiramate 25 mg tablet 50 mg (2 x 25 mg) PO BID #360 tabs 04/01/23 02/18/24 04/06/23 Rx divalproex 500 mg tablet,delayed 500 mg PO BID #60 tabs 04/12/23 02/18/24 Unknown Rx release (Depakote) paliperidone 6 mg tablet,extended 6 mg PO QAM #30 tabs 04/12/23 02/18/24 Unknown Rx release 24 hr (Invega) levetiracetam 250 mg tablet 500 mg PO BID 04/13/23 02/18/24 Unknown History (Keppra) Allergies Allergy/AdvReac Type Severity Reaction Status Date / Time Penicillins Allergy unknown Verified 02/18/24 17:23 deutetrabenazine AdvReac Severe ADR-Agitate Verified 02/18/24 17:23 [From [facility]] d Current Medications Generic Name Dose Route Start Last Admin Trade Name Beatrice PRN Reason Stop Dose Admin Acetaminophen 500 mg 02/19/24 18:15 03/06/24 10:18 Acetaminophen 500 Mg Tablet PO 500 mg Q8H PRN Administration MILD PAIN OR INCREASE TEMP Benztropine Mesylate 1 mg 02/21/24 14:55 03/03/24 09:31 Benztropine 1 Mg Tablet PO 1 mg BID PRN Administration Mild Extrapyramidal symptoms Diphenhydramine HCl 50 mg 02/24/24 14:19 02/25/24 13:35 Diphenhydramine 50 Mg Capsule PO 50 mg Q4H PRN Administration AGITATION Divalproex Sodium 500 mg 02/27/24 21:00 03/06/24 09:[address] 500 Mg Tablet PO 500 mg TIMUR Administration Haloperidol 5 mg 02/21/24 14:55 03/05/24 15:09 Haloperidol 5 Mg Tablet PO 5 mg Q4H PRN Administration AGITATION Hydroxyzine Pamoate 50 mg 02/21/24 14:55 03/03/24 20:08 Hydroxyzine 25 Mg Capsule PO 50 mg Q6H PRN Administration ANXIETY Ibuprofen 600 mg 02/21/24 14:55 03/05/24 11:37 Ibuprofen 600 Mg Tablet PO 600 mg Q6H PRN Administration MODERATE PAIN Levetiracetam 500 mg 02/27/24 21:00 03/06/24 09:38 Levetiracetam 500 Mg Tablet PO 500 mg TMIUR Administration Levothyroxine Sodium 25 mcg 02/22/24 06:00 03/06/24 06:28 Levothyroxine 25 Mcg Tablet PO 25 mcg QAM TIMUR Administration Lorazepam 2 mg 02/24/24 14:19 02/25/24 13:13 Lorazepam 2 Mg Tablet PO 2 mg Q4H PRN Administration ANXIETY Nicotine 1 patch 02/20/24 14:00 03/06/24 09:38 Nicotine 14 Mg Patch TRANSDERMA 1 patch DAILY TIMUR Administration Olanzapine 5 mg 02/21/24 14:55 03/05/24 11:38 Olanzapine 5 Mg Odt PO 5 mg Q4H PRN Administration Agitation/Psychosis Paliperidone 6 mg 02/22/24 09:00 03/06/24 09:38 Paliperidone Er 6 Mg Tablet PO 6 mg DAILY TIMUR Administration Sumatriptan Succinate 100 mg 03/05/24 16:13 03/06/24 16:09 Sumatriptan 25 Mg Tablet PO 100 mg Q2H PRN Administration MIGRAINE HEADACHE Topiramate 50 mg 02/21/24 21:00 03/06/24 09:38 Topiramate 25 Mg Tablet PO 50 mg 0900,2100 TIMUR Administration Trazodone HCl 100 mg 02/23/24 20:30 03/05/24 19:07 Trazodone 100 Mg Tablet PO 100 mg BEDTIME PRN Administration INSOMNIA PFSH Acute 2 PFSH: Medical History Bipolar I disorder, severe, current or most recent episode manic, with psychotic features Chewing tobacco nicotine dependence without complication Hypothyroidism GERD (gastroesophageal reflux disease) Hypertension Tardive dyskinesia Methamphetamine dependence, continuous last use four week ago, February 2023 Psychiatric care Psychiatric care Colitis Seasonal allergies Hyperlipidemia Benign essential HTN Surgical History History of dental surgery Family History Other Diabetes Hyperlipidemia Lung disease Schizophrenia Stroke Social History Smoking and tobacco/nicotine status: current every day tobacco/nicotine user smokeless tobacco Smokeless tobacco user: chewing tobacco Smokeless tobacco details: 3-4 cans per week Quit status (tobacco/nicotine): not considering quitting Second hand smoke exposure: Yes Alcohol intake: current Alcohol intake frequency: other Substance/Drug Use: current Substance/Drug use frequency: daily Additional social history: SUBSTANCE ABUSE HISTORY: He reports he chews about a can of tobacco a day but does not smoke, he reports he last drank alcohol about six years ago, he does not use marijuana or cocaine, he does use methamphetamine and has used opiates. He reports he has had two to three drug rehabilitations. He has had a couple of DUIs, the last one may have been in 2004. FAMILY HISTORY: He denies any history of mental health issues, addiction, or lethality in his family. DEVELOPMENTAL HISTORY: He denies any issues with his mom?s or delivery of him. He reports he learned how to walk and talk and met all developmental milestones on time. He reports when he went to school, there was no speech therapy, learning support, emotional support, or special education classes. PSYCHOSOCIAL HISTORY: He reports that his mother and father were together when he was born and when he was about 15 years old. They had him and a younger brother together. His mom had no other children; his dad had a couple step kids, a couple of adopted kids, and then a half-sister. He reports that his childhood was tough at times, because he was poor, be he denies any emotional, physical, or sexual abuse. He reports the highest grade he went to was the ninth grade, and he got his GED in 1991. He endorses being a heterosexual, with his longest relationship being a couple of years. He was once, not sure if he is , but he has not seen the person for many, many, many years. He reports he has a 20 year old daughter that he sees a little bit, but he was never to her mother. He denies any history. He endorses being a L[employer] Day. The longest job he has had, he said, was ninety days. He reports he lives in a trailer on a friend?s property. LEGAL HISTORY: He reports that he has been to nursing home multiple times, not actually sure how many. The longest time he was behind bars was the five years he spent in assisted that ended in April 2019. Adopted: No Caregiver/support person: No Lives independently: Yes Housing: House Marital status: Marital status details: 2013 Number of children: 1 Number of grandchildren: 1 Highest education level completed: GED or Equivalent service: No Current occupational status: disabled Current occupational exposures/hazards: No Pets and animals: No Leisure activites: music and other Leisure activities details: hamilton quite a bit Sexually active: No Do you think of yourself as: Straight/Heterosexual Current gender identity: Male Lianet/Mormon: Latter Day Special lianet needs: No Agree to transfusion: Yes Vitals/I&O/Wt Last Vital Signs Temp 98 F 03/06/24 14:00 Pulse 78 03/06/24 14:00 Resp 17 03/06/24 14:00 BP 101/69 03/06/24 14:00 Pulse Ox 97 03/06/24 14:00 O2 Del Method Room Air 03/06/24 06:00 Physical Exam 2 Narrative: BELOW IS A FOCUSED LOWER EXTREMITY EXAM GENERAL: A&O x 3 VASCULAR: DP/PT pulses palpable 2/4 with CFT intact, <3seconds to distal digits DERMATOLOGICAL: Skin turgor and temperature is within normal limits. No interdigital maceration noted. Incurvated and ingrowing distal medial border of right hallux nail plate with early hypergranular tissue formation. Mild surrounding erythema. MUSCULOSKELETAL: Pain with palpation of medial border of right hallux nail plate NEUROLOGICAL: Neurological sensation to the affected foot and ankle is present through L4-S1 dermatomes with no hyper/hypoesthesias, negative Tinel or Valleix's sign Data 02/21/24 03:25 02/21/24 03:25 A&P Assessment and plan (1) Ingrown right big toenail: Plan Patient was seen and evaluated in the Neuropsych Unit for right hallux ingrown nail. Medial edge of right hallux nail plate was incurvated and ingrowing with mild hypergranular tissue formation and slight erythema. Sterile nail nippers were used to perform slant back debridement of medial border of right hallux nail plate. No underlying purulence was visualized. No signs of deep space infection. Site was dressed with Band-Aid. Recommend 7-day course of oral antibiotics. Clindamycin 300 mg 3 times daily x 7 days would be most appropriate given penicillin allergy Once placement is found for patient patient, I recommend podiatry consult for more permanent solution to ingrown such as partial nail avulsion with chemical matrixectomy which can be performed in the outpatient setting. No further intervention per podiatry during this admission. Please reconsult if needed. Coding Level of Care Code Acute Code for [facility] Fwd Diagnoses Ingrown right big toenail L60.0
[2024-03-06 19:53] VITALS: BP 111/74; PULSE 81; RESP 14; TEMP 36.4; O2SAT 97
[2024-03-06] MEDS: trazodone 100 mg Tablet PO (20:15)
[2024-03-06] MEDS: OLANZapine 5 mg ODT PO (20:15)
[2024-03-07] MEDS: levothyroxine 25 mcg Tablet PO (05:53)
[2024-03-07 06:00] VITALS: BP 103/67; PULSE 69; RESP 14; O2SAT 98
[2024-03-07] MEDS: paliperidone ER 6 mg Tablet PO (10:45)
[2024-03-07] MEDS: nicotine 14 mg Patch 1 PATCH TRANSDERMA (10:45)
[2024-03-07] MEDS: acetaminophen 500 mg Tablet PO ×2 (10:45→16:49)
[2024-03-07] MEDS: topiramate 25 mg Tablet 50 MG PO ×2 (10:46→19:42)
[2024-03-07] MEDS: levETIRAcetam 500 mg Tablet PO ×2 (10:46→19:42)
[2024-03-07] MEDS: divalproex DR 500 mg Tablet PO ×2 (10:46→19:42)
[2024-03-07] MEDS: SUMAtriptan 25 mg Tablet 100 MG PO (13:57)
[2024-03-07 14:00] VITALS: BP 126/84; PULSE 79; RESP 17; TEMP 36.4; O2SAT 97
[2024-03-07] MEDS: ibuprofen 600 mg Tablet PO (15:20)
[2024-03-07] MEDS: OLANZapine 5 mg ODT PO (16:40)
--- NOTE | 2024-03-07 18:19 | P.NPUPN_ITS ---
Subjective NPU 2 Subjective: Patient presented today reporting that he was feeling significantly better about things moving forward. He reports that things are feeling better from the standpoint of the cashier or checker stock clerk interventions with his big toe. We discussed agreeing with the treatment team to adjust the policy to allow him to have a visit from his granddaughter which will allow him to feel better about going away to this facility. He continues to work with the social work team on some leads on placement. He denies any side effects to the medications. Mental Status Exam 2 MSE Comments: This is an obese white male in hospital scrubs with adequate grooming and improving eye contact. He appeared older than his stated age. With no abnormal movements except for resolving psychomotor agitation. He looked older than his stated age. He was cooperative with exam in mild distress. Speech was more normal rate and volume. Mood described as okay, affect appeared congruent. Thought process was linear. Thought content: Patient denied suicidal or homicidal ideation. There was no evidence of delusional thinking. There were no delusions reported or noted. He did not appear to be responding to internal stimuli. He denied any auditory or visual hallucinations. Attention and concentration was poor. Recent and remote memory is limited versus impaired. Insight was poor. His impulse control was poor. His judgment was impaired as well. He was alert and oriented x 3. Vitals/I&O/Wt Last Vital Signs Temp 97.6 F 03/07/24 14:00 Pulse 79 03/07/24 14:00 Resp 17 03/07/24 14:00 BP 126/84 03/07/24 14:00 Pulse Ox 97 03/07/24 14:00 O2 Del Method Room Air 03/07/24 14:00 Data NPU 02/21/24 03:25 02/21/24 03:25 A&P Assessment and plan (1) Ingrown right big toenail: (2) Bipolar I disorder, current or most recent episode manic, severe: (3) Suicidal ideation: (4) Methamphetamine abuse: (5) Methamphetamine dependence, continuous: (6) Nicotine dependence, chewing tobacco, with unspecified nicotine-induced disorders: (7) Drug overdose, multiple drugs: (8) Bipolar I disorder, most recent episode (or current) depressed: Plan This is a 48 year old, white male, with a history of methamphetamine addiction, depression, admitted to ICU with overdose on multiple medications under guardianship likely requiring placement in locked facility currently homeless with signficant mental health issues and lack of support. ? 1. Restarted previous medications including depakote, invega oral, synthroid, lisinopril and topamax and keppra. Invega Sustenna IM loading dose 234 mg to the deltoid given 02/22/2024. Next injection 156 mg IM to the deltoid loading dose was given today, 03/02/2024. Next injection is due 03/28/2024. 2. Continue individual and milieu therapy.? 3. Continue q-15 minute checks for safety.? 4. Patient will require locked placement in locked residential treatment facility upon discharge. 5. He continues to be more invested in placement and we agreed that we would allow his granddaughter to visit once before he leaves. 6. Appreciate cashier or checker stock clerk consult to address his ingrown toenail. We will follow recommendations as indicated. Involuntary Hold Information 2 96 Hour Hold: 96 Hour Involuntary Admission: No Attestations NPU 2 Medical Necessity Statement*: Inpatient hospitalization is medically necessary and the clinically appropriate intervention at this time. We will monitor medications and make changes as indicated. Likely length of stay 3-5 days. Coding Level of Care Code Acute Code for Chg Fwd Diagnoses Ingrown right big toenail L60.0 Bipolar I disorder, current or most recent episode manic, severe F31.13 Suicidal ideation R45.851 Methamphetamine abuse F15.10 Methamphetamine dependence, continuous F15.20 Nicotine dependence, chewing tobacco, with unspecified nicotine-induced disorders F17.229 Drug overdose, multiple drugs T50.911A Bipolar I disorder, most recent episode (or current) depressed F31.30
[2024-03-07] MEDS: hyDROXYzine 25 mg Capsule 50 MG PO (19:42)
[2024-03-07] MEDS: trazodone 100 mg Tablet PO (19:42)
[2024-03-07] MEDS: CLINDAMYCIN 300 MG PO (19:43)
[2024-03-07 20:23] VITALS: BP 104/64; PULSE 70; RESP 15; TEMP 36.4; O2SAT 97
[2024-03-08 06:00] VITALS: BP 93/56; PULSE 68; RESP 17; TEMP 36.6; O2SAT 97
[2024-03-08] MEDS: levothyroxine 25 mcg Tablet PO (06:33)
[2024-03-08] MEDS: topiramate 25 mg Tablet 50 MG PO ×2 (08:43→20:06)
[2024-03-08] MEDS: paliperidone ER 6 mg Tablet PO (08:43)
[2024-03-08] MEDS: CLINDAMYCIN 300 MG PO ×3 (08:43→20:06)
[2024-03-08] MEDS: nicotine 14 mg Patch 1 PATCH TRANSDERMA (08:43)
[2024-03-08] MEDS: levETIRAcetam 500 mg Tablet PO ×2 (08:43→20:06)
[2024-03-08] MEDS: divalproex DR 500 mg Tablet PO ×2 (08:43→20:07)
[2024-03-08] MEDS: ibuprofen 600 mg Tablet PO (10:28)
[2024-03-08 13:52] VITALS: BP 132/75; PULSE 93; RESP 17; TEMP 36.6; O2SAT 98
[2024-03-08] MEDS: SUMAtriptan 25 mg Tablet 100 MG PO (14:40)
--- NOTE | 2024-03-08 15:09 | P.NPUPN_ITS ---
Subjective NPU 2 Subjective: Patient presented today reporting that he is doing fine. We discussed the fact that there was a facility that has been identified and is suggesting that they would like to take him. He was hopeful to talk to the social work team about the logistics and specifics of this facility. He denied any side effects to his medication and denied any other issues. Mental Status Exam 2 MSE Comments: This is an obese white male in hospital scrubs with adequate grooming and improving eye contact. He appeared older than his stated age. With no abnormal movements except for resolving psychomotor agitation. He looked older than his stated age. He was cooperative with exam in mild distress. Speech was more normal rate and volume. Mood described as okay, affect appeared congruent. Thought process was linear. Thought content: Patient denied suicidal or homicidal ideation. There was no evidence of delusional thinking. There were no delusions reported or noted. He did not appear to be responding to internal stimuli. He denied any auditory or visual hallucinations. Attention and concentration was poor. Recent and remote memory is limited versus impaired. Insight was poor. His impulse control was poor. His judgment was impaired as well. He was alert and oriented x 3. Vitals/I&O/Wt Last Vital Signs Temp 97.8 F 03/08/24 13:52 Pulse 93 03/08/24 13:52 Resp 17 03/08/24 13:52 BP 132/75 03/08/24 13:52 Pulse Ox 98 03/08/24 13:52 O2 Del Method Room Air 03/08/24 06:00 Data NPU 02/21/24 03:25 02/21/24 03:25 A&P Assessment and plan (1) Ingrown right big toenail: (2) Bipolar I disorder, current or most recent episode manic, severe: (3) Suicidal ideation: (4) Methamphetamine abuse: (5) Methamphetamine dependence, continuous: (6) Nicotine dependence, chewing tobacco, with unspecified nicotine-induced disorders: (7) Drug overdose, multiple drugs: (8) Bipolar I disorder, most recent episode (or current) depressed: Plan This is a 48 year old, white male, with a history of methamphetamine addiction, depression, admitted to ICU with overdose on multiple medications under guardianship likely requiring placement in locked facility currently homeless with signficant mental health issues and lack of support. ? 1. Restarted previous medications including depakote, invega oral, synthroid, lisinopril and topamax and keppra. Invega Sustenna IM loading dose 234 mg to the deltoid given 02/22/2024. Next injection 156 mg IM to the deltoid loading dose was given today, 03/02/2024. Next injection is due 03/28/2024. 2. Continue individual and milieu therapy.? 3. Continue q-15 minute checks for safety.? 4. Patient will require locked placement in locked residential treatment facility upon discharge. Likely facility has been identified hopeful for discharge in the next 48 hours. 5. He continues to be more invested in placement and we agreed that we would allow his granddaughter to visit once before he leaves. 6. Appreciate photography colorist consult to address his ingrown toenail. We will follow recommendations as indicated. Involuntary Hold Information 2 96 Hour Hold: 96 Hour Involuntary Admission: No Attestations NPU 2 Medical Necessity Statement*: Inpatient hospitalization is medically necessary and the clinically appropriate intervention at this time. We will monitor medications and make changes as indicated. Likely length of stay 2-4 days. Coding Level of Care Code Acute Code for Chg Fwd Diagnoses Ingrown right big toenail L60.0 Bipolar I disorder, current or most recent episode manic, severe F31.13 Suicidal ideation R45.851 Methamphetamine abuse F15.10 Methamphetamine dependence, continuous F15.20 Nicotine dependence, chewing tobacco, with unspecified nicotine-induced disorders F17.229 Drug overdose, multiple drugs T50.911A Bipolar I disorder, most recent episode (or current) depressed F31.30
[2024-03-08] MEDS: OLANZapine 5 mg ODT PO (15:23)
[2024-03-08] MEDS: acetaminophen 500 mg Tablet PO (16:03)
[2024-03-08] MEDS: trazodone 100 mg Tablet PO (20:06)
[2024-03-08 21:19] VITALS: BP 97/61; PULSE 76; RESP 16; TEMP 36.6; O2SAT 95
[2024-03-09 06:00] VITALS: BP 96/58; PULSE 65; RESP 17; TEMP 36.7; O2SAT 96
[2024-03-09] MEDS: topiramate 25 mg Tablet 50 MG PO ×2 (08:42→21:31)
[2024-03-09] MEDS: paliperidone ER 6 mg Tablet PO (08:42)
[2024-03-09] MEDS: nicotine 14 mg Patch 1 PATCH TRANSDERMA (08:42)
[2024-03-09] MEDS: CLINDAMYCIN 300 MG PO ×3 (08:43→21:30)
[2024-03-09] MEDS: levothyroxine 25 mcg Tablet PO (08:43)
[2024-03-09] MEDS: levETIRAcetam 500 mg Tablet PO ×2 (08:43→21:31)
[2024-03-09] MEDS: divalproex DR 500 mg Tablet PO ×2 (08:43→21:31)
[2024-03-09] MEDS: SUMAtriptan 25 mg Tablet 100 MG PO (10:12)
[2024-03-09] MEDS: ibuprofen 600 mg Tablet PO (13:58)
[2024-03-09 14:00] VITALS: BP 126/84; PULSE 89; RESP 16; TEMP 36.6; O2SAT 97
[2024-03-09] MEDS: OLANZapine 5 mg ODT PO (15:38)
[2024-03-09] MEDS: hyDROXYzine 25 mg Capsule 50 MG PO (16:19)
--- NOTE | 2024-03-09 16:48 | W.PM.NPUPNS ---
Subjective NPU Subjective: Patient presents today reporting that he is doing well and not having any new or pressing issues. He reports that he is tolerating the medication without concerns. He denied any side effects to the medication. He reports that he is excited about seeing his granddaughter on Tuesday. Otherwise he is awaiting confirmation that one of the facilities that is being discussed and has received his referral have excepted him. He endorses that he is eating and sleeping well. Mental Status Exam MSE Comments: This is an obese white male in hospital scrubs with adequate grooming and improving eye contact. He appeared older than his stated age. With no abnormal movements except for resolving psychomotor agitation. He looked older than his stated age. He was cooperative with exam in mild distress. Speech was more normal rate and volume. Mood described as okay, affect appeared congruent. Thought process was linear. Thought content: Patient denied suicidal or homicidal ideation. There was no evidence of delusional thinking. There were no delusions reported or noted. He did not appear to be responding to internal stimuli. He denied any auditory or visual hallucinations. Attention and concentration was poor. Recent and remote memory is limited versus impaired. Insight was poor. His impulse control was poor. His judgment was impaired as well. He was alert and oriented x 3. Vitals/I&O/Wt Last Vital Signs Temp 97.9 F 03/09/24 14:00 Pulse 89 03/09/24 14:00 Resp 16 03/09/24 14:00 BP 126/84 03/09/24 14:00 Pulse Ox 97 03/09/24 14:00 O2 Del Method Room Air 03/09/24 14:00 Data NPU 02/21/24 03:25 02/21/24 03:25 A&P Assessment and plan (1) Ingrown right big toenail: (2) Bipolar I disorder, current or most recent episode manic, severe: (3) Suicidal ideation: (4) Methamphetamine abuse: (5) Methamphetamine dependence, continuous: (6) Nicotine dependence, chewing tobacco, with unspecified nicotine-induced disorders: (7) Drug overdose, multiple drugs: (8) Bipolar I disorder, most recent episode (or current) depressed: Plan This is a 48 year old, white male, with a history of methamphetamine addiction, depression, admitted to ICU with overdose on multiple medications under guardianship likely requiring placement in locked facility currently homeless with signficant mental health issues and lack of support. ? 1. Restarted previous medications including depakote, invega oral, synthroid, lisinopril and topamax and keppra. Invega Sustenna IM loading dose 234 mg to the deltoid given 02/22/2024. Next injection 156 mg IM to the deltoid loading dose was given today, 03/02/2024. Next injection is due 03/28/2024. 2. Continue individual and milieu therapy.? 3. Continue q-15 minute checks for safety.? 4. Patient will require locked placement in locked residential treatment facility upon discharge. Likely facility has been identified hopeful for discharge in the next 48 hours. 5. He continues to be more invested in placement and we agreed that we would allow his granddaughter to visit once before he leaves with current plan for Tuesday at 1 PM. 6. Appreciate accredited pharmacy technician consult to address his ingrown toenail. We will follow recommendations as indicated. Involuntary Hold Information 96 Hour Hold: 96 Hour Involuntary Admission: No Attestations NPU Medical Necessity Statement*: Inpatient hospitalization is medically necessary and the clinically appropriate intervention at this time. We will monitor medications and make changes as indicated. Likely length of stay 2-4 days. Coding Level of Care Code Acute Code for Chg Fwd Diagnoses Ingrown right big toenail L60.0 Bipolar I disorder, current or most recent episode manic, severe F31.13 Suicidal ideation R45.851 Methamphetamine abuse F15.10 Methamphetamine dependence, continuous F15.20 Nicotine dependence, chewing tobacco, with unspecified nicotine-induced disorders F17.229 Drug overdose, multiple drugs T50.911A Bipolar I disorder, most recent episode (or current) depressed F31.30
[2024-03-09] MEDS: LORazepam 2 mg Tablet PO (17:17)
[2024-03-09 20:30] VITALS: BP 93/59; PULSE 80; RESP 17; TEMP 36.6; O2SAT 96
[2024-03-09] MEDS: trazodone 100 mg Tablet PO (21:31)
[2024-03-09] MEDS: acetaminophen 500 mg Tablet PO (21:31)
[2024-03-10 06:00] VITALS: BP 94/61; PULSE 63; RESP 17; O2SAT 95
[2024-03-10] MEDS: levothyroxine 25 mcg Tablet PO (06:40)
--- NOTE | 2024-03-10 08:24 | P.NPUPN_ITS ---
Subjective NPU 2 Subjective: Patient presented today reporting that he is doing okay. He is quite focused goal of the visit from his granddaughter and was getting himself somewhat riled up as he was focusing on concerns if he did not get to see her. We discussed the importance of not crossing bridges before we get to them. We discussed the fact that Dr. Ross would return tomorrow and be overseeing the visit of his granddaughter which had been approved as well as the process of moving towards discharge to a residential facility. He denied any side effects to his medications. Mental Status Exam 2 MSE Comments: This is an obese white male in hospital scrubs with adequate grooming and improving eye contact. He appeared older than his stated age. With no abnormal movements except for resolving psychomotor agitation. He looked older than his stated age. He was cooperative with exam in mild distress. Speech was more normal rate and volume. Mood described as okay, affect appeared congruent. Thought process was linear. Thought content: Patient denied suicidal or homicidal ideation. There was no evidence of delusional thinking. There were no delusions reported or noted. He did not appear to be responding to internal stimuli. He denied any auditory or visual hallucinations. Attention and concentration was poor. Recent and remote memory is limited versus impaired. Insight was poor. His impulse control was poor. His judgment was impaired as well. He was alert and oriented x 3. Vitals/I&O/Wt Last Vital Signs Temp 97.9 F 03/09/24 20:30 Pulse 63 03/10/24 06:00 Resp 17 03/10/24 06:00 BP 94/61 03/10/24 06:00 Pulse Ox 95 03/10/24 06:00 O2 Del Method Room Air 03/09/24 14:00 Data NPU 02/21/24 03:25 02/21/24 03:25 A&P Assessment and plan (1) Ingrown right big toenail: (2) Bipolar I disorder, current or most recent episode manic, severe: (3) Suicidal ideation: (4) Methamphetamine abuse: (5) Methamphetamine dependence, continuous: (6) Nicotine dependence, chewing tobacco, with unspecified nicotine-induced disorders: (7) Drug overdose, multiple drugs: (8) Bipolar I disorder, most recent episode (or current) depressed: Plan This is a 48 year old, white male, with a history of methamphetamine addiction, depression, admitted to ICU with overdose on multiple medications under guardianship likely requiring placement in locked facility currently homeless with signficant mental health issues and lack of support. ? 1. Restarted previous medications including depakote, invega oral, synthroid, lisinopril and topamax and keppra. Invega Sustenna IM loading dose 234 mg to the deltoid given 02/22/2024. Next injection 156 mg IM to the deltoid loading dose was given today, 03/02/2024. Next injection is due 03/28/2024. 2. Continue individual and milieu therapy.? 3. Continue q-15 minute checks for safety.? 4. Patient will require locked placement in locked residential treatment facility upon discharge. Likely facility has been identified hopeful for discharge in the next 48 hours. 5. He continues to be more invested in placement and we agreed that we would allow his granddaughter to visit once before he leaves with current plan for Tuesday at 1 PM. 6. Appreciate hand etcher helper consult to address his ingrown toenail. We will follow recommendations as indicated. Involuntary Hold Information 2 96 Hour Hold: 96 Hour Involuntary Admission: No Attestations NPU 2 Medical Necessity Statement*: Inpatient hospitalization is medically necessary and the clinically appropriate intervention at this time. We will monitor medications and make changes as indicated. Likely length of stay 2-4 days. Coding Level of Care Code Acute Code for Chg Fwd Diagnoses Ingrown right big toenail L60.0 Bipolar I disorder, current or most recent episode manic, severe F31.13 Suicidal ideation R45.851 Methamphetamine abuse F15.10 Methamphetamine dependence, continuous F15.20 Nicotine dependence, chewing tobacco, with unspecified nicotine-induced disorders F17.229 Drug overdose, multiple drugs T50.911A Bipolar I disorder, most recent episode (or current) depressed F31.30
[2024-03-10] MEDS: levETIRAcetam 500 mg Tablet PO ×2 (08:52→20:45)
[2024-03-10] MEDS: nicotine 14 mg Patch 1 PATCH TRANSDERMA (08:52)
[2024-03-10] MEDS: paliperidone ER 6 mg Tablet PO (08:52)
[2024-03-10] MEDS: CLINDAMYCIN 300 MG PO ×3 (08:52→20:45)
[2024-03-10] MEDS: divalproex DR 500 mg Tablet PO ×2 (08:52→20:45)
[2024-03-10] MEDS: topiramate 25 mg Tablet 50 MG PO ×2 (08:52→20:45)
[2024-03-10] MEDS: SUMAtriptan 25 mg Tablet 100 MG PO ×2 (10:51→16:31)
[2024-03-10] MEDS: ibuprofen 600 mg Tablet PO (12:12)
[2024-03-10] MEDS: OLANZapine 5 mg ODT PO (13:57)
[2024-03-10 14:00] VITALS: BP 114/77; PULSE 104; RESP 16; TEMP 36.9; O2SAT 98
[2024-03-10] MEDS: acetaminophen 500 mg Tablet PO (14:16)
[2024-03-10] MEDS: haloperidol 5 mg Tablet PO (15:48)
[2024-03-10] MEDS: LORazepam 2 mg Tablet PO (16:46)
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
[2024-03-10 20:00] VITALS: BP 142/86; PULSE 102; RESP 18; TEMP 36.9; O2SAT 97
[2024-03-10] MEDS: trazodone 100 mg Tablet PO (20:45)
[2024-03-10] MEDS: BuSPIRONE 10 mg Tablet PO (20:45)
[2024-03-11 06:00] VITALS: BP 111/73; PULSE 78; RESP 16; O2SAT 97
[2024-03-11] MEDS: levothyroxine 25 mcg Tablet PO (06:03)
[2024-03-11] MEDS: divalproex DR 500 mg Tablet PO ×2 (09:30→21:15)
[2024-03-11] MEDS: paliperidone ER 6 mg Tablet PO (09:30)
[2024-03-11] MEDS: BuSPIRONE 10 mg Tablet PO ×2 (09:30→21:15)
[2024-03-11] MEDS: levETIRAcetam 500 mg Tablet PO ×2 (09:30→21:15)
[2024-03-11] MEDS: topiramate 25 mg Tablet 50 MG PO ×2 (09:30→21:14)
[2024-03-11] MEDS: CLINDAMYCIN 300 MG PO ×3 (09:31→21:17)
[2024-03-11] MEDS: nicotine 14 mg Patch 1 PATCH TRANSDERMA (09:31)
[2024-03-11] MEDS: hyDROXYzine 25 mg Capsule 50 MG PO (11:31)
--- NOTE | 2024-03-11 11:33 | PC.NURSE ---
Patient anxious, rates anxiety 7/10. This nurse administered vistaril 50mg PO to patient.
[2024-03-11] MEDS: haloperidol 5 mg Tablet PO ×2 (12:52→17:13)
--- NOTE | 2024-03-11 12:57 | PC.NURSE ---
Per permission from Dr. Pugh, patient visiting with granddaughter and mother in lobby of unit. Security present. Patient calm and cooperative.
[2024-03-11 14:00] VITALS: BP 110/72; PULSE 79; RESP 16; TEMP 36.7; O2SAT 99
--- NOTE | 2024-03-11 15:36 | P.NPUPN_ITS ---
Subjective NPU 2 Subjective: Patient reported no side effects from his current medication regimen. He had denied any paranoia at this time. He was compliant on the milieu. He had expressed excitement about seeing his granddaughter today. He did report having some difficulties falling asleep and requested mirtazapine in place of trazodone for insomnia. He had reported that he was ready to be transition to a different residential facility when one became available. Mental Status Exam 2 MSE Comments: This is an obese white male in hospital scrubs with adequate grooming and improving eye contact. He appeared older than his stated age with no abnormal movements except for resolving psychomotor agitation. He looked older than his stated age. He was cooperative with exam in mild distress. Speech was more normal rate and volume. Mood described as all right. His affect appeared mood congruent. Thought process was linear. Thought content: Patient denied suicidal or homicidal ideation. There was no evidence of delusional thinking. There were no delusions reported or noted. He did not appear to be responding to internal stimuli. He denied any auditory or visual hallucinations. Attention and concentration was poor. Recent and remote memory is limited versus impaired. Insight was poor. His impulse control was poor. His judgment was impaired as well. He was alert and oriented x 3. Vitals/I&O/Wt Last Vital Signs Temp 98.1 F 03/11/24 14:00 Pulse 79 03/11/24 14:00 Resp 16 03/11/24 14:00 BP 110/72 03/11/24 14:00 Pulse Ox 99 03/11/24 14:00 O2 Del Method Room Air 03/11/24 14:00 Weight last 48 hrs Weight 97.522 kg Data NPU 02/21/24 03:25 02/21/24 03:25 A&P Assessment and plan (1) Ingrown right big toenail: (2) Bipolar I disorder, current or most recent episode manic, severe: (3) Suicidal ideation: (4) Methamphetamine abuse: (5) Methamphetamine dependence, continuous: (6) Nicotine dependence, chewing tobacco, with unspecified nicotine-induced disorders: (7) Drug overdose, multiple drugs: (8) Bipolar I disorder, most recent episode (or current) depressed: Plan This is a 48 year old, white male, with a history of methamphetamine addiction, depression, admitted to ICU with overdose on multiple medications under guardianship likely requiring placement in locked facility currently homeless with signficant mental health issues and lack of support. ? 1. Restarted previous medications including depakote, invega oral, synthroid, lisinopril and topamax and keppra. D/C trazodone and restart remeron 15m at night. Invega Sustenna IM loading dose 234 mg to the deltoid given 02/22/2024. Next injection 156 mg IM to the deltoid loading dose was given on 03/02/2024. Next injection is due 03/28/2024. 2. Continue individual and milieu therapy.? 3. Continue q-15 minute checks for safety.? 4. Patient will require locked placement in locked residential treatment facility upon discharge. Likely facility has been identified hopeful for discharge in the next 48 hours. 5. He continues to be more invested in placement and we agreed that we would allow his granddaughter to visit once before he leaves with current plan for Tuesday at 1 PM. 6. Appreciate cone marker consult to address his ingrown toenail. We will follow recommendations as indicated. Involuntary Hold Information 2 96 Hour Hold: 96 Hour Involuntary Admission: No Attestations NPU 2 Medical Necessity Statement*: Inpatient hospitalization is medically necessary and the clinically appropriate intervention at this time. We will monitor medications and make changes as indicated. Likely length of stay 2-4 days. Coding Level of Care Code Acute Code for Chg Fwd Diagnoses Ingrown right big toenail L60.0 Bipolar I disorder, current or most recent episode manic, severe F31.13 Suicidal ideation R45.851 Methamphetamine abuse F15.10 Methamphetamine dependence, continuous F15.20 Nicotine dependence, chewing tobacco, with unspecified nicotine-induced disorders F17.229 Drug overdose, multiple drugs T50.911A Bipolar I disorder, most recent episode (or current) depressed F31.30
[2024-03-11] MEDS: SUMAtriptan 25 mg Tablet 100 MG PO (16:05)
[2024-03-11] MEDS: OLANZapine 5 mg ODT PO (16:18)
--- NOTE | 2024-03-11 17:14 | PC.NURSE ---
Patient stated to this nurse that he needs something for anxiety, asking for ativan. This nurse said that he cannot have that. Patient said it's on my MAR. This nurse stated that he does not qualify. Patient said, But it's on my MAR. This nurse offered vistaril. Patient stated that don't work for me. Patient was willing to take haldol. Administered haldol 5mg PO to patient.
[2024-03-11 19:58] VITALS: BP 108/63; PULSE 73; RESP 17; O2SAT 97
[2024-03-11] MEDS: acetaminophen 500 mg Tablet PO (21:16)
[2024-03-11] MEDS: mirtazapine 15 mg Tablet PO (21:17)
[2024-03-12 01:18] VITALS: PULSE 64; RESP 16; O2SAT 96
--- NOTE | 2024-03-12 01:19 | PC.NURSE ---
This Pt reports having a history of seizures that typically involve him falling down onto floor and striking his head, neck, or back. Pt reports his last witnessed seizure having occurred 3 weeks ago. NPU tech placed fall risk gigi by Pt's bed. Pt is also marked as a critical patient in terms of personnel needed to transport Pt another unit in hospital.
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
[2024-03-12 06:00] VITALS: BP 100/66; PULSE 75; RESP 16; O2SAT 97
[2024-03-12] MEDS: paliperidone ER 6 mg Tablet PO (08:47)
[2024-03-12] MEDS: topiramate 25 mg Tablet 50 MG PO ×2 (08:47→20:54)
[2024-03-12] MEDS: BuSPIRONE 10 mg Tablet PO ×2 (08:47→20:54)
[2024-03-12] MEDS: levETIRAcetam 500 mg Tablet PO ×2 (08:47→20:54)
[2024-03-12] MEDS: levothyroxine 25 mcg Tablet PO (08:47)
[2024-03-12] MEDS: divalproex DR 500 mg Tablet PO ×2 (08:47→20:53)
[2024-03-12] MEDS: nicotine 14 mg Patch 1 PATCH TRANSDERMA (08:48)
[2024-03-12] MEDS: CLINDAMYCIN 300 MG PO ×3 (08:48→20:53)
[2024-03-12] MEDS: acetaminophen 500 mg Tablet PO ×2 (10:55→20:53)
[2024-03-12 13:51] VITALS: BP 111/78; PULSE 106; RESP 16; TEMP 36.8; O2SAT 98
[2024-03-12] MEDS: ibuprofen 600 mg Tablet PO (13:51)
[2024-03-12] MEDS: hyDROXYzine 25 mg Capsule 50 MG PO (14:53)
[2024-03-12] MEDS: OLANZapine 5 mg ODT PO (15:57)
--- NOTE | 2024-03-12 16:24 | W.PM.NPUPNS ---
Subjective NPU Subjective: Patient is a 49-year-old male with psychosis currently under court appointed guardianship admitted with significant overdose on his medications. Patient had minimized any auditory or visual hallucinations. He had continued to report some frustration with being here. He had made some vague comments regarding being placed in a situation in the past where he had not been compliant with his medication regimen. He had reported adequate sleep with the restarting of Remeron today. He had expressed an understanding that he would likely need to be placed in a residential facility upon discharge here. Mental Status Exam MSE Comments: This is an obese white male in hospital scrubs with poor grooming and improving eye contact. He appeared older than his stated age with no abnormal movements except for resolving psychomotor agitation. He looked older than his stated age. He was cooperative with exam in mild distress. Speech was more normal rate and volume. Mood described as all right. His affect appeared mood congruent. Thought process was linear. Thought content: Patient denied suicidal or homicidal ideation. There was no evidence of delusional thinking. There were no delusions reported or noted. He did not appear to be responding to internal stimuli. He denied any auditory or visual hallucinations. Attention and concentration was poor. Recent and remote memory is limited versus impaired. Insight was poor. His impulse control was poor. His judgment was impaired as well. He was alert and oriented x 3. Vitals/I&O/Wt Last Vital Signs Temp 98.2 F 03/12/24 13:51 Pulse 106 H 03/12/24 13:51 Resp 16 03/12/24 13:51 BP 111/78 03/12/24 13:51 Pulse Ox 98 03/12/24 13:51 O2 Del Method Room Air 03/12/24 13:51 Weight last 48 hrs Weight 97.522 kg Data NPU 02/21/24 03:25 02/21/24 03:25 A&P Assessment and plan (1) Bipolar I disorder, current or most recent episode manic, severe: (2) Ingrown right big toenail: (3) Methamphetamine abuse: (4) Suicidal ideation: (5) Methamphetamine dependence, continuous: (6) Nicotine dependence, chewing tobacco, with unspecified nicotine-induced disorders: (7) Drug overdose, multiple drugs: (8) Bipolar I disorder, most recent episode (or current) depressed: Plan This is a 48 year old, white male, with a history of methamphetamine addiction, depression, admitted to ICU with overdose on multiple medications under guardianship likely requiring placement in locked facility currently homeless with signficant mental health issues and lack of support. ? 1. Restarted previous medications including depakote, invega oral, synthroid, lisinopril and topamax and keppra. Continue remeron 15m at night. Invega Sustenna IM loading dose 234 mg to the deltoid given 02/22/2024. Next injection 156 mg IM to the deltoid loading dose was given on 03/02/2024. Next injection is due 03/28/2024. 2. Continue individual and milieu therapy.? 3. Continue q-15 minute checks for safety.? 4. Patient will require locked placement in locked residential treatment facility upon discharge. Likely facility has been identified hopeful for discharge in the next 48 hours. 5. He continues to be more invested in placement, currently seeking placement at locked facility. Involuntary Hold Information 96 Hour Hold: 96 Hour Involuntary Admission: No Attestations NPU Medical Necessity Statement*: Inpatient hospitalization is medically necessary and the clinically appropriate intervention at this time. We will monitor medications and make changes as indicated. The patient's likely length of stay is 2-4 days. Coding Level of Care Code [facility] Diagn[facility] Bipolar I disorder, current or most recent episode manic, severe F31.13 Ingrown right big toenail L60.0 Methamphetamine abuse F15.10 Suicidal ideation R45.851 Methamphetamine dependence, continuous F15.20 Nicotine dependence, chewing tobacco, with unspecified nicotine-induced disorders F17.229 Drug overdose, multiple drugs T50.911A Bipolar I disorder, most recent episode (or current) depressed F31.30
[2024-03-12] MEDS: SUMAtriptan 25 mg Tablet 100 MG PO (16:42)
[2024-03-12] MEDS: haloperidol 5 mg Tablet PO (16:54)
[2024-03-12] MEDS: LORazepam 2 mg Tablet 1 MG PO (18:02)
--- NOTE | 2024-03-12 18:17 | PC.NURSE ---
PT WAS AGITATED ABOUT BEING STUCK HERE. PT HAD AN INCREASE IN ANXIETY WHILE LAYING IN BED. PT RECEIVED VISTARIL, ZYPREXA, AND HALDOL PRIOR TO THIS INTERACTION. PT STATED SHE FLUNG THE DOOR OPEN WHICH MADE ME MORE ANXIOUS. I SNAPPED ON MY ROOMMATE. THE LONGER I AM HERE THE WORSE MY ANXIETY GETS. PT ASKED IF HE COULD HAVE HIS ATIVAN. THIS NURSE SPOKE WITH PT ABOUT SELF SOOTHING TECHNIQUES. PT STATES I DON'T DO THAT. THIS NURSE STATED THAT HE SHOULD START PRACTICING THEM. THIS NURSE THEN OBTAINED 2 STRAWS TO TEACH PT HIM THE PURSED BREATHING TECHNIQUE. PT WAS COOPERATIVE WITH DEEP BREATHING EXERCISE. THIS NURSE TOLD HIM TO CONTINUE BREATHING WHILE I WENT AND SPOKE WITH PHYSICIAN. PHYSICIAN NOTIFIED OF PT BEHAVIORS. PHYSICIAN ORDERED DECREASE IN ATIVAN ORDER TO 1MG PO. THIS WAS ADMINISTERED BY THIS NURSE. BIRGIT SILVER RN ASSISTED IN WASTING OF OTHER MG OF ATIVAN. THIS NURSE SPOKE WITH PT ABOUT MEDICATION CHANGE AND PT VERBALIZED UNDERSTANDING. THIS NURSE SPOKE WITH PT ABOUT SPEAKING WITH STAFF DURING TIMES OF DISTRESS TO ASSIST IN LEARNING SELF SOOTHING TECHNIQUES RATHER THAN TAKING MEDICATION FREQUENTLY. PT VERBALIZED UNDERSTANDING.
[2024-03-12] MEDS: mirtazapine 15 mg Tablet PO (20:54)
[2024-03-12 21:30] VITALS: BP 111/73; PULSE 79; RESP 14; TEMP 36.6; O2SAT 96
[2024-03-13 06:00] VITALS: BP 106/64; PULSE 65; RESP 15; O2SAT 97
[2024-03-13] MEDS: levothyroxine 25 mcg Tablet PO (06:23)
[2024-03-13] MEDS: divalproex DR 500 mg Tablet PO ×2 (09:20→20:20)
[2024-03-13] MEDS: levETIRAcetam 500 mg Tablet PO ×2 (09:20→20:20)
[2024-03-13] MEDS: BuSPIRONE 10 mg Tablet PO ×2 (09:20→20:20)
[2024-03-13] MEDS: topiramate 25 mg Tablet 50 MG PO ×2 (09:20→20:21)
[2024-03-13] MEDS: nicotine 14 mg Patch 1 PATCH TRANSDERMA (09:20)
[2024-03-13] MEDS: CLINDAMYCIN 300 MG PO ×3 (09:21→20:21)
[2024-03-13] MEDS: paliperidone ER 9 mg Tablet PO (09:21)
[2024-03-13] MEDS: hyDROXYzine 25 mg Capsule 50 MG PO ×2 (09:23→16:35)
[2024-03-13] MEDS: SUMAtriptan 25 mg Tablet 100 MG PO (09:23)
[2024-03-13] MEDS: OLANZapine 5 mg ODT PO (10:46)
[2024-03-13] MEDS: haloperidol 5 mg Tablet PO (11:45)
[2024-03-13 14:00] VITALS: BP 119/76; PULSE 83; RESP 16; TEMP 36.9; O2SAT 97
--- NOTE | 2024-03-13 15:20 | PC.NURSE ---
[employer] NOTIFIED THIS NURSE THAT PT HAS BEEN ACCEPTED AT [facility]. THIS NURSE HAS UPDATED PT PREFERRED PHARMACY TO THIS [facility] IN [place], [place]. THEY ARE CURRENTLY REQUESTING PT TO BE TRANSFERRED ON TUESDAY IN WHICH THEY WOULD LIKE REPORT TO BE CALLED IN THE MORNING TO THE FOLLOWING NUMBER [phone]. [employer] HAS BEEN IN CONTACT WITH STAFF MEMBER THERE NAMED KEYANA WHO SHOULD BE ABLE TO AID IN REPORT FROM THIS NURSES UNDERSTANDING.
[2024-03-13] MEDS: ibuprofen 600 mg Tablet PO (15:52)
--- NOTE | 2024-03-13 17:50 | P.NPUPN_ITS ---
Subjective NPU 2 Subjective: Patient is a 49-year-old male with psychosis currently under court appointed guardianship admitted with significant overdose on his medications. The patient requested that he be restarted on prazosin to help him with trauma associated nightmares. He had reported hope of being transferred to a residential facility. He had reported complaints of headaches but denied any recent seizures. The patient had continued to have some episodes of irritability while making some vague threats of potentially running away from a locked facility if placed there. He had later reiterated that he would prefer to be there as long as it was not his previous residential facility. Patient was more redirectable on the milieu today. Mental Status Exam 2 MSE Comments: This is an obese white male in hospital scrubs with poor grooming and improving eye contact. He appeared older than his stated age with no abnormal movements except for mild psychomotor agitation. He looked older than his stated age. He was cooperative with exam in mild distress. Speech was more normal rate and volume. Mood described as okay. His affect appeared mood congruent. Thought process was linear. Thought content: Patient denied suicidal or homicidal ideation. There was no evidence of delusional thinking. There were no delusions reported or noted. He did not appear to be responding to internal stimuli. He denied any auditory or visual hallucinations. Attention and concentration was poor. Recent and remote memory is limited versus impaired. Insight was poor. His impulse control was poor. His judgment was impaired as well. He was alert and oriented x 3. Vitals/I&O/Wt Last Vital Signs Temp 98.4 F 03/13/24 14:00 Pulse 83 03/13/24 14:00 Resp 16 03/13/24 14:00 BP 119/76 03/13/24 14:00 Pulse Ox 97 03/13/24 14:00 O2 Del Method Room Air 03/13/24 14:00 Data NPU 02/21/24 03:25 02/21/24 03:25 A&P Assessment and plan (1) Bipolar I disorder, current or most recent episode manic, severe: (2) Ingrown right big toenail: (3) Methamphetamine abuse: (4) Suicidal ideation: (5) Methamphetamine dependence, continuous: (6) Nicotine dependence, chewing tobacco, with unspecified nicotine-induced disorders: (7) Drug overdose, multiple drugs: Plan This is a 48 year old, white male, with a history of methamphetamine addiction, depression, admitted to ICU with overdose on multiple medications under guardianship likely requiring placement in locked facility currently homeless with signficant mental health issues and lack of support. ? 1. Restarted previous medications including depakote, invega oral, synthroid, lisinopril and topamax and keppra. Continue remeron 15m at night. Invega Sustenna IM loading dose 234 mg to the deltoid given 02/22/2024. Next injection 156 mg IM to the deltoid loading dose was given on 03/02/2024. Next injection is due 03/28/2024. 2. Continue individual and milieu therapy.? 3. Continue q-15 minute checks for safety.? 4. Patient will require locked placement in locked residential treatment facility upon discharge. Likely facility has been identified hopeful for discharge in the next 48 hours. 5. He continues to be more invested in placement, currently seeking placement at locked facility. 6. Add prazosin 2mg at night. Involuntary Hold Information 2 96 Hour Hold: 96 Hour Involuntary Admission: No Attestations NPU 2 Medical Necessity Statement*: Inpatient hospitalization is medically necessary and the clinically appropriate intervention at this time. We will monitor medications and make changes as indicated. The patient's likely length of stay is 2-4 days. Coding Level of Care Code Acute Code for [facility] Diagnoses Bipolar I disorder, current or most recent episode manic, severe F31.13 Ingrown right big toenail L60.0 Methamphetamine abuse F15.10 Suicidal ideation R45.851 Methamphetamine dependence, continuous F15.20 Nicotine dependence, chewing tobacco, with unspecified nicotine-induced disorders F17.229 Drug overdose, multiple drugs T50.911A
[2024-03-13] MEDS: trazodone 100 mg Tablet PO (20:20)
[2024-03-13] MEDS: prazosin 1 mg Capsule 2 MG PO (20:21)
[2024-03-13] MEDS: mirtazapine 15 mg Tablet PO (20:21)
[2024-03-13 21:21] VITALS: BP 106/68; PULSE 78; RESP 14; TEMP 36.8; O2SAT 96
[2024-03-14 06:00] VITALS: BP 100/59; PULSE 67; RESP 15; TEMP 36.4; O2SAT 94
[2024-03-14] MEDS: levothyroxine 25 mcg Tablet PO (06:09)
[2024-03-14] MEDS: topiramate 25 mg Tablet 50 MG PO ×2 (09:25→20:20)
[2024-03-14] MEDS: levETIRAcetam 500 mg Tablet PO ×2 (09:25→20:20)
[2024-03-14] MEDS: divalproex DR 500 mg Tablet PO ×2 (09:25→20:20)
[2024-03-14] MEDS: BuSPIRONE 10 mg Tablet PO ×2 (09:25→20:20)
[2024-03-14] MEDS: nicotine 14 mg Patch 1 PATCH TRANSDERMA (09:25)
[2024-03-14] MEDS: paliperidone ER 9 mg Tablet PO (09:25)
[2024-03-14] MEDS: CLINDAMYCIN 300 MG PO ×2 (09:25→14:48)
[2024-03-14] MEDS: SUMAtriptan 25 mg Tablet 100 MG PO (11:26)
[2024-03-14] MEDS: ibuprofen 600 mg Tablet PO ×2 (13:11→20:21)
[2024-03-14 14:00] VITALS: BP 137/94; PULSE 91; RESP 17; TEMP 36.3; O2SAT 95
[2024-03-14] MEDS: acetaminophen 500 mg Tablet PO (14:47)
--- NOTE | 2024-03-14 15:03 | P.NPUPN_ITS ---
Subjective NPU 2 Subjective: Patient is a 49-year-old male with psychosis currently under court appointed guardianship admitted with significant overdose on his medications. The patient had no acts of aggression on the unit. He reported that he was ready to go to the residential care facility. He reported adequate sleep. He had reported continued presence of nightmares occasionally. He had minimized any physical complaints while reporting no recent seizure activity. He had requested that the patient be allowed to pursue his neurology appointment scheduled in May. Mental Status Exam 2 MSE Comments: This is an obese white male in hospital scrubs with poor grooming and improving eye contact. He appeared older than his stated age with no abnormal movements and was pleasant and cooperative. He looked older than his stated age. He was cooperative with exam in mild distress. Speech was more normal rate and volume. Mood described as good. His affect appeared mood congruent. Thought process was linear. Thought content: Patient denied suicidal or homicidal ideation. There was no evidence of delusional thinking. There were no delusions reported or noted. He did not appear to be responding to internal stimuli. He denied any auditory or visual hallucinations. Attention and concentration was poor. Recent and remote memory is limited versus impaired. Insight was poor. His impulse control was improving. His judgment was poor. He was alert and oriented x 3. Vitals/I&O/Wt Last Vital Signs Temp 97.6 F 03/14/24 06:00 Pulse 67 03/14/24 06:00 Resp 15 03/14/24 06:00 BP 100/59 03/14/24 06:00 Pulse Ox 94 03/14/24 06:00 O2 Del Method Room Air 03/14/24 06:00 Data NPU 02/21/24 03:25 02/21/24 03:25 A&P Assessment and plan (1) Bipolar I disorder, current or most recent episode manic, severe: (2) Ingrown right big toenail: (3) Methamphetamine abuse: (4) Suicidal ideation: (5) Methamphetamine dependence, continuous: (6) Nicotine dependence, chewing tobacco, with unspecified nicotine-induced disorders: (7) Drug overdose, multiple drugs: Plan This is a 48 year old, white male, with a history of methamphetamine addiction, depression, admitted to ICU with overdose on multiple medications under guardianship likely requiring placement in locked facility currently homeless with signficant mental health issues and lack of support. ? 1. Restarted previous medications including depakote, invega oral, synthroid, and topamax and keppra. Continue remeron 15m at night. Invega Sustenna IM loading dose 234 mg to the deltoid given 02/22/2024. Next injection 156 mg IM to the deltoid loading dose was given on 03/02/2024. Next injection is due 03/28/2024. 2. Continue individual and milieu therapy.? 3. Continue q-15 minute checks for safety.? 4. Patient will require locked placement in locked residential treatment facility upon discharge. Likely facility has been identified hopeful for discharge in the next 48 hours. 5. He continues to be more invested in placement, currently seeking placement at locked facility. -Placement scheduled for tommorow at [facility]. 6. Continue prazosin 2mg at night. Decrease invega to 3mg at night. Involuntary Hold Information 2 96 Hour Hold: 96 Hour Involuntary Admission: No Attestations NPU 2 Medical Necessity Statement*: Inpatient hospitalization is medically necessary and the clinically appropriate intervention at this time. We will monitor medications and make changes as indicated. The patient's likely length of stay is 2-4 days. Coding Level of Care Code Acute Code for [facility] Fwd Diagnoses Bipolar I disorder, current or most recent episode manic, severe F31.13 Ingrown right big toenail L60.0 Methamphetamine abuse F15.10 Suicidal ideation R45.851 Methamphetamine dependence, continuous F15.20 Nicotine dependence, chewing tobacco, with unspecified nicotine-induced disorders F17.229 Drug overdose, multiple drugs T50.954V
--- NOTE | 2024-03-14 15:04 | PC.NURSE ---
Per Ana María, manager case management staff can call Raquel at [phone] to give report as early as 0730. Patient is to be picked up by [facility] at 1130 on 03/15/24. Dr. Ross made aware.
--- NOTE | 2024-03-14 16:42 | PC.NURSE ---
Sopped non-formulary medications (clindamycin) as patient took his last dose at 1500 on 03/14/24
[2024-03-14 16:56] VITALS: BP 137/94; PULSE 91; RESP 17; TEMP 36.3; O2SAT 95
[2024-03-14] MEDS: prazosin 1 mg Capsule 2 MG PO (20:20)
[2024-03-14] MEDS: mirtazapine 15 mg Tablet PO (20:20)
[2024-03-14] MEDS: trazodone 100 mg Tablet PO (20:20)
[2024-03-14 20:49] VITALS: BP 125/87; PULSE 93; RESP 15; TEMP 36.5; O2SAT 96
[2024-03-15 05:02] LABS: Adenovirus Not Detected (NOT DETECT); Chlamydia Pneumoniae Not Detected (NOT DETECT); Coronavirus 229E,HKU1,NL63,OC4 Not Detected (NOT DETECT); Human Metapneumovirus Not Detected (NOT DETECT); Human Rhinovirus/Enterovirus Not Detected (NOT DETECT); Influenza A Not Detected (NOT DETECT); Influenza A H1 Not Detected (NOT DETECT); Influenza A H1-2009 Not Detected (NOT DETECT); Influenza A H3 Not Detected (NOT DETECT); Influenza B Not Detected (NOT DETECT); Mycoplasma Pneumoniae Not Detected (NOT DETECT); Parainfluenza Virus Type 1 Not Detected (NOT DETECT); Parainfluenza Virus Type 2 Not Detected (NOT DETECT); Parainfluenza Virus Type 3 Not Detected (NOT DETECT); Parainfluenza Virus Type 4 Not Detected (NOT DETECT); Respiratory Syncytial Virus A Not Detected (NOT DETECT); Respiratory Syncytial Virus B Not Detected (NOT DETECT); SARS-COV-2 Not Detected (NOT DETECT)
[2024-03-15] MEDS: levothyroxine 25 mcg Tablet PO (05:55)
[2024-03-15 06:00] VITALS: BP 107/69; PULSE 76; RESP 14; TEMP 36.3; O2SAT 97
[2024-03-15] MEDS: divalproex DR 500 mg Tablet PO (08:03)
[2024-03-15] MEDS: topiramate 25 mg Tablet 50 MG PO (08:03)
[2024-03-15] MEDS: paliperidone ER 3 mg Tablet PO (08:03)
[2024-03-15] MEDS: BuSPIRONE 10 mg Tablet PO (08:03)
[2024-03-15] MEDS: levETIRAcetam 500 mg Tablet PO (08:03)
[2024-03-15] MEDS: SUMAtriptan 25 mg Tablet 100 MG PO (10:34)
--- NOTE | 2024-03-15 18:29 | P.NPUDS_ITS ---
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 operator/social workers/dc planners and documenting/other paperwork Coding Level of Care Code Acute Code for Chg Fwd Diagnoses Bipolar I disorder, current or most recent episode manic, severe F31.13 Ingrown right big toenail L60.0 Methamphetamine abuse F15.10 Suicidal ideation R45.851 Methamphetamine dependence, continuous F15.20 Nicotine dependence, chewing tobacco, with unspecified nicotine-induced disorders F17.229 Drug overdose, multiple drugs T50.911A
== END 2024-03-15 11:44 | disposition home or self-care (01) | DRG 918 ==
LOC: ER 20:36 → ICU 20:46 → MEDSURG 02-21 03:33 → NP 02-21 14:25
PROVIDERS: Internal Medicine; Psychiatry & Neurology Psychiatry; Admitting Provider Internal Medicine; Emergency Provider Emergency Medicine; PCP Nurse Practitioner Family; Visit Provider Student in an Organized Health Care Education/Training Program
DX: T42.6X2A Poisoning by other antiepileptic and sedative-hypnotic drugs, intentional self-harm, initial encounter (principal); F31.13 Bipolar disorder, current episode manic without psychotic features, severe; F31.30 Bipolar disorder, current episode depressed, mild or moderate severity, unspecified; F15.20 Other stimulant dependence, uncomplicated; Z59.01 Sheltered homelessness; T46.4X2A Poisoning by angiotensin-converting-enzyme inhibitors, intentional self-harm, initial encounter; L60.0 Ingrowing nail; F17.220 Nicotine dependence, chewing tobacco, uncomplicated; E66.9 Obesity, unspecified; E03.9 Hypothyroidism, unspecified; I10 Essential (primary) hypertension; G40.909 Epilepsy, unspecified, not intractable, without status epilepticus; G24.01 Drug induced subacute dyskinesia; E78.2 Mixed hyperlipidemia; K21.9 Gastro-esophageal reflux disease without esophagitis; Y92.9 Unspecified place or not applicable; Z68.31 Body mass index [BMI] 31.0-31.9, adult; Z91.148 Patient's other noncompliance with medication regimen for other reason
CPT/HCPCS: 36415; 70450; 71045; 76882; 80053; 80164; 80177; 80306; 80307; 82140; 82550; 83735; 84443; 85025; 87635; 93005; 96361; 96372; 96374; 96376; 97165; 99285; J1644; J2270; J2405; J2470; J7030; Q0163

== ENCOUNTER → 2025-05-17 07:56 | Outpatient (BNVA) | payer MEDICAID, SELFPAY ==
[2023-08-10 15:01] VITALS: BP 96/54; BMI 23.5
== END ==
PROVIDERS: PCP Nurse Practitioner Family; Visit Provider Podiatrist Foot & Ankle Surgery
DX: L60.0 Ingrowing nail (principal)
CPT/HCPCS: 99203

== ENCOUNTER 2025-07-07 17:20 | Emergency (ER) | payer MEDICAID, SELFPAY ==
[2023-08-10 15:01] VITALS: BP 96/54; BMI 23.5
--- OUTSIDE RECORDS SUMMARY | 2025-06-28 13:00 | XMS_ITS | Encounter Summary ---
Author Organization [facility] Address [address] [place] [address] Care Team Providers Care Clerical Aide Name Role Phone Brent Wild MD Primary Care Provider [phone] Reason for Visit * Reason Comments Procedure Botox inj Encounter Details Date Type Department Care Team (Latest Contact Info) Description 06/28/2025 1:00 PM JEWELRY BEARING MAKER Procedure visit [facility] [address] [phone] Darlene Sampson, SHIRT FINISHER[address] [address] Chronic migraine without aura without status migrainosus, not intractable (Primary Dx) Social History Tobacco Use Types Packs/Day Years Used Date Smoking Tobacco: Former Cigarettes Smokeless Tobacco: Current Chew Alcohol Use Standard Drinks/Week Comments Not Currently 0 (1 standard drink = 0.6 oz pur e alcohol) Feeling Safe Answer Date Recorded Are you in a relationship wi th someone who hurts you emotionally and/or physically? No 06/22/2023 Sex and Gender Information Value Date Recorded Sex Assigned at Not on file Legal Sex Male 8:57 PM CDT Gender Identity Not on file Sexual Orientation Not on file documented as of this encounter Last Filed Vital Signs Vital Sign Reading Time Taken Comments Blood Pressure 114/74 06/28/2025 12:26 PM JEWELRY BEARING MAKER Pulse 97 06/28/2025 12:26 PM JEWELRY BEARING MAKER Temperature - - Respiratory Rate 18 06/28/2025 12:26 PM JEWELRY BEARING MAKER Oxygen Saturation 98% 06/28/2025 12:26 PM JEWELRY BEARING MAKER Inhaled Oxygen Concentration - - Weight - - Height - - Body Mass Index - - documented in this encounter Progress Notes * Walt Xiong DO - 07/06/2025 6:14 PM CST Note reviewed retrospectively for collaborative practice. I did not participate in the patient evaluation and treatment on date of service. LRY BEARING MAKER * Darlene Sampson FNP - 06/28/2025 1:32 PM CSTAssociated Order(s): Chemodenervation of Muscle Post-Procedure Diagnose(s): Chronic migraine without aura, intractable, without status migrainosus Chemodenervation of Muscle Date/Time: 06/28/2025 1:00 PM Performed by: Darlene Sampson FNP Authorized by: Darlene Sampson FNP Local anesthesia used: no Anesthesia: Local anesthesia used: no Sedation: Patient sedated: no Patient tolerance: patient tolerated the procedure well with no immediate complications Comments: Indication: Chronic migraine-Since the time of the last visit, he continues to do well responding to the Botox for his chronic migraines. Previously he was having pain daily which resulted in him taking Tylenol,Imitrex, or Fioricet daily without complete relief of symptoms. With Botox use, he normally does well with occasional migraine Week 1-8, then he expereiences migraines more frequently in which he takes Nurtec 75 mg PRN and migraines are generally responsive to. Currently, he admits he is experiencing a migraine since early yesterday morning which has not been responsive to Nurtec; he did not takeanother Nurtec this morning but did instead take a Fioricet. While pain has been reduced, it has not been completed relieved. He does request a refill of Fioricet as he has to take it periodically. Pre-Procedure Exam: All intended injection sites are clean, dry, and intact. Technique: An informed consent was obtained. Patient was positioned sitting up in chair. The areas of skin were prepared and cleansed with 70% isopropyl alcohol: temporal, frontal, supraorbital, occipitocervical, and periscapular region. 200 units of Botox were mixed with 4 mL of normal saline each. 5 units of Botox mixed with 0.1 cc of normal saline for a total of 155units. A 30G hypodermic needle was introduced at 31 points, and superficial IM injections were given. The distribution of injections was as follows: Procerus- 5 units in 1 site Overhauler Helper- 10 units divided in 2 sites Frontalis- 20 units divided in 4 sites Temporalis- 40 units divided in 8 sites Occipitalis- 30 units divided in 6 sites Cervical paraspinal muscle group 20 units divided in 4 sites Trapezius- 30 units divided in 6 sites Waste: 45 units. Patient was given Botox blocks for intractable migraine headaches. Patient tolerated the procedure well and was discharged home in stable condition. Patient Instructions: Patient education and post- treatment instructions provided to patients. -Refill Nurtec 75 mg PRN -Refill Fiorciet 40-300-50 mg daily PRN (no more than 2x/week) -Continue Botox for migraines 155 units. -Continue Topamax 100 mg BID -Continue gabapentin 300 mg BID Resting pill-rolling tremor continues; drug induced PD. Will increase Cogentin 1 mg from BID to TID. LRY BEARING MAKER documented in this encounter Plan of Treatment Upcoming Encounters Date Type Department Care Team (Late st Contact Info) Description 09/20/2025 1:00 PM JEWELRY BEARING MAKER Procedure visit [facility] [address] [phone] Darlene Sampson FNP [address] [place] [phone] documented as of this encounter Procedures Procedure Name Priority Date/Time Associated Diagnosis Comments DE CHEMODERVATE FACIAL/TRIGEM/CERV MUSC MIGRAINE Routine 06/28/2025 1:00 PM JEWELRY BEARING MAKER Chronic migraine without aura without status migrainosus, not intractable documented in this encounter Results * Chemodenervation of Muscle (06/28/2025 1:00 PM JEWELRY BEARING MAKER) Narrative Darlene Sampson FNP - 06/28/2025 1:00 PM JEWELRY BEARING MAKER Darlene Sampson FNP 06/28/2025 2:37 PM Chemodenervation of Muscle Date/Time: 06/28/2025 1:00 PM Performed by: Darlene Sampson FNP Authorized by: Darlene Sampson FNP Local anesthesia used: no Anesthesia: Local anesthesia used: no Sedation: Patient sedated: no Patient tolerance: patient tolerated the procedure well with no immediate complications Comments: Indication: Chronic migraine-Since the time of the last visit, he continues to do well responding to the Botox for his chronic migraines. Previously he was having pain daily which resulted in him taking Tylenol, Imitrex, or Fioricet daily without complete relief of symptoms. With Botox use, he normally does well with occasional migraine Week 1-8, then he expereiences migraines more frequently in which he takes Nurtec 75 mg PRN and migraines are generally responsive to. Currently, he admits he is experiencing a migraine since early yesterday morning which has not been responsive to Nurtec; he did not take another Nurtec this morning but did instead take a Fioricet. While pain has been reduced, it has not been completed relieved. He does request a refill of Fioricet as he has to take it periodically. Pre-Procedure Exam: All intended injection sites are clean, dry, and intact. Technique: An informed consent was obtained. Patient was positioned sitting up in chair. The areas of skin were prepared and cleansed with 70% isopropyl alcohol: temporal, frontal, supraorbital, occipitocervical, and periscapular region. 200 units of Botox were mixed with 4 mL of normal saline each. 5 units of Botox mixed with 0.1 cc of normal saline for a total of 155units. A 30G hypodermic needle was introduced at 31 points, and superficial IM injections were given. The distribution of injections was as follows: Procerus- 5 units in 1 site Overhauler Helper- 10 units divided in 2 sites Frontalis- 20 units divided in 4 sites Temporalis- 40 units divided in 8 sites Occipitalis- 30 units divided in 6 sites Cervical paraspinal muscle group 20 units divided in 4 sites Trapezius- 30 units divided in 6 sites Waste: 45 units. Patient was given Botox blocks for intractable migraine headaches. Patient tolerated the procedure well and was discharged home in stable condition. Patient Instructions: Patient education and post- treatment instructions provided to patients. -Refill Nurtec 75 mg PRN -Refill Fiorciet 40-300-50 mg daily PRN (no more than 2x/week) -Continue Botox for migraines 155 units. -Continue Topamax 100 mg BID -Continue gabapentin 300 mg BID Resting pill-rolling tremor continues; drug induced PD. Will increase Cogentin 1 mg from BID to TID. Darlene Sampson [facility] PROCEDURE/MINOR SURGICAL OR DERABLES Final Result documented in this encounter Visit Diagnoses Diagnosis Chronic migraine without aura without status migrainosus, not intractable- Primary Chronic migraine without aura, without mention of intractable migraine without mention of status migrainosus documented in this encounter Administered Medications Inactive Administered Medications - up to 3 most recent administrations Medication Order MAR Action Action Date Dose Rate Site onabotulinumtoxinA (BOTOX) injection 100 Units 100 Units, IM, INTRA-PROCEDURE ONCE, 1 dose, Starting on Tue06/28/25 at 1336, Until Tue06/28/25 at 1338, Routine Given 06/28/2025 1:38 PM JEWELRY BEARING MAKER 100 Units Neck, Right onabotulinumtoxinA (BOTOX) injection 100 Units 100 Units, IM, INTRA-PROCEDURE ONCE, 1 dose, Starting on Tue06/28/25 at 1337, Until Tue06/28/25 at 1337, Routine Given 06/28/2025 1:37 PM JEWELRY BEARING MAKER 100 Units Neck, Left documented in this encounter Additional Health Concerns Assessment Noted Time PHQ-9 Depression Total Score: 2 01/20/20 23 4:27 PM CDT documented as of this encounter Care Teams Clerical Aide Relationship Specialty Start Date End Date Brent Wild MD [address] [phone] PCP - General Family Practice 01/14/23 documented as of this encounter
[2025-07-07] VITALS (7 sets, daily range): BP systolic 105–130; BP diastolic 75–90; PULSE 76–97; TEMP 36.4; O2SAT 94–97; BMI 39.1
--- OUTSIDE RECORDS SUMMARY | 2025-07-07 17:24 | XMS_ITS | Encounter Summary ---
Author Organization [facility] Address [address] [place] [address] Care Team Providers Care Service Parts Driver Name Role Phone Brent Wild MD Primary Care Provider [phone] Encounter Details Date Type Department Care Team (Late st Contact Info) Description 07/02/2025 External Device Data [facility] ABSTRACTION Provider, Abstract NO ADDRESS ON FILE Social History Tobacco Use Types Packs/Day Years [...] on file documented as of this encounter Plan of Treatment Upcoming Encounters Date Type Department Care Team (Late st Contact Info) Description 09/20/2025 1:00 PM MEDICAL COLLECTIONS REPRESENTATIVE Procedure visit [facility] [place] [facility] [address] [place] [phone] Darlene Sampson FNP [address] [facility] [address] [place] [address] documented as of this encounter Visit Diagnoses Not on filedocumented in this encounter Additional Health Concerns Assessment Noted Time PHQ-9 Depression Total Score: 2 01/20/20 23 4:27 PM CDT documented as of this encounter Care Teams Service Parts Driver Relationship Specialty Start Date End Date Brent Wild MD [address] [phone] PCP - General Family Practice 01/14/23 documented as of this encounter
--- OUTSIDE RECORDS SUMMARY | 2025-07-07 17:24 | XMS_ITS | Data Portability ---
Author Organization [facility] Marcela Garrison [facility] Address [address] [facility] [address] [place] [address] Care Team Providers Care Sap Portal Consultant Name Role Phone AZALIA SANTIAGO Primary Care Provider Unavailabl e Assessment Encounter Date Assessment Date Assessment LastModified by Organization Details LastModified Time 04/17/2025 04/17/2025 Patient reports he was in a facility for 13 months. He reports he is doing good since he has been back home. He is renting out his mom's garage. Questions answered to the best of my ability. He will get labs before he leaves. He thinks his former facility is mailing him some of his medications but he will let us know if he doesn't get them. Not available 04/17/2025 11:08:34 04/29/2025 04/29/2025 He was seen at [facility] and he is scheduled to get his Invega shot next . Not available 04/29/2025 12:01:10 05/16/2025 05/16/2025 Patient reports he is planning on going back to [place] for his neurology scripts because he can't get in locally soon enough. He reports he never got his gall bladder removed or a biopsy he was supposed to have because he had more pressing issues to attend to. Not available 05/16/2025 10:18:45 Plan of Treatment Reminders Order Date Submit Date Provider Last Modified By Organization Details Last Modified Time Details Appointments OFFICE VISIT 2025 08:20A TIFFANY LISA Not available Not available Not available Lab CMP, serum or plasma 2024 025 [facility], [address], [address], [place], [address], 04/17/2025 12:48:56 lipid panel, blood 2024 025 [facility], [address], [address], [place], [address], 04/17/2025 12:48:59 CBC 2024 025 [facility], [address], [address], [place], [address], 04/17/2025 12:26:32 valproic acid, total, serum 2024 025 [facility], [address], [address], [place], [address], 04/18/2025 09:39:31 thyrotrop in, QN, serum or plasma 2024 025 [facility], [address], [address], [place], [address], 04/17/2025 12:47:[address] referral [address] [facility], [address] [place] [address], [address], 05/21/2025 09:13:45 podiatris t referral [address] [facility], [address] [place], [address], 04/30/2025 15:30:17 Procedures None recorded. Surgeries None recorded. Imaging None recorded. Medication Orders lisinopri l 20 mg-hydroc hlorothia zide 12.5 mg tablet 2024 025 [facility] [place], [address] [place], [address], 05/16/2025 10:27:47 tizanidin e 4 mg tablet 2024 025 [facility], [address] [place] [address], [address], 05/16/2025 10:27:47 levothyro xine 25 mcg tablet [address], [address], 06/27/2025 12:33:54 cetirizin e 10 mg tablet [address], [address], 05/02/2025 15:13:25 lisinopri l 20 mg-hydroc hlorothia zide 12.5 mg tablet [address], [address], 06/27/2025 12:33:52 levothyro xine 25 mcg tablet [address], [address], 05/02/2025 15:13:26 tizanidin e 4 mg tablet [address], [address], 05/30/2025 12:34:24 levetirac etam 500 mg tablet 2023 024 [email or web address] [facility], [address] [place] [address], [address], 04/17/2025 10:32:23 topiramat e 25 mg tablet 2023 024 [facility], [address] [place] [address], [address], 04/17/2025 10:32:42 ceftriaxo ne 1 gram solution for injection 2023 024 [email or web address] Not available 04/17/2025 10:32:04 clindamyc in HCl 300 mg capsule 2023 024 [email or web address] [facility], [address] [place] [address], [address], 04/17/2025 10:32:09 ibuprofen 200 mg tablet 2023 024 Not available 04/17/2025 10:32:19 lisinopri l 10 mg tablet 2023 024 [email or web address] [facility], [address] [place] [address], [address], 04/17/2025 10:32:33 levothyro xine 25 mcg tablet 2023 [email or web address], [address], 04/17/2025 10:42:14 Patient TargetsNo targets recorded. Patient Instructions Encounter Date Encounter Id Patient Instructions Last Modified By Organization Details Last Modified Time 04/17/2025 [id number] Call or return for questions or concerns. Not available 04/17/2025 11:09:48 04/29/2025 [id number] Call or return for questions or concerns. Not available 04/29/2025 11:55:16 05/16/2025 [id number] Call or return for questions or concerns. 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 Referral for Ingr owing nail Referring Physician: Azalia Santiago, Family Medicine, Encounter Date: 04/17/2025 Neurologist Referral for Sei zure disorder Referring Physician: Azalia Santiago, Family Medicine, Encounter Date: 04/29/2025 Results Created Date Observation Date Name Description Value Unit Range Abnormal Flag Note LastModifiedBy Organization Detail LastModifiedTime 01/12/20 24 01/12/2024 CBC WBC 6.3 x10 4.5-10 .5 Not Available [facility] [address] [facility] [address], [place], [address], 01/12/2024 16:56:44 01/12/20 24 01/12/2024 CBC RBC 4.54 x10 4.30-5 .90 Not Available [facility] [address] [facility] [address], [place], [address], 01/12/2024 16:56:44 01/12/20 24 01/12/2024 CBC HGB 14.8 g/dL 13.5-1 8.0 Not Available [facility] [address] [facility] 1, [place], [address], 01/12/2024 16:56:44 01/12/20 24 01/12/2024 CBC HCT 42.3 % 35.0-6 0.0 Not Available [facility] [address] [facility] 1, [place], [address], 01/12/2024 16:56:44 01/12/20 24 01/12/2024 CBC MCV 93.1 fL 80.0-9 9.9 Not Available [facility] [address] [facility] 1, [place], [address], 01/12/2024 16:56:44 01/12/20 24 01/12/2024 CBC MCH 32.6 pg 27.0-3 2.0 high Not Available [facility] [address] [place] [address] [facility] [address], [place], [address], 01/12/2024 16:56:44 01/12/20 24 01/12/2024 CBC MCHC 35.0 g/dL 32.0-3 6.0 Not Available [facility] [address] [facility] [address], [place], [address], 01/12/2024 16:56:44 01/12/20 24 01/12/2024 CBC RDW 12.7 % 11.5-1 4.5 Not Available [facility] [address] [facility] [address], [place], [address], 01/12/2024 16:56:44 01/12/20 24 01/12/2024 CBC plt 328.6 x10 150.0- 451.0 Not Available [facility] [address] [facility] [address], [place], [address], 01/12/2024 16:56:44 01/12/20 24 01/12/2024 CBC lymphocytes % 22.8 % 20.0-5 0.0 Not Available [facility] [facility] [address] [facility] [address], [place], [address], 01/12/2024 16:56:44 01/12/20 24 01/12/2024 CBC granulcytes % 68.5 % 30.0-7 0.0 Not Available [facility] [address] [facility] [address], [place], [address], 01/12/2024 16:56:44 01/12/20 24 01/12/2024 CBC monocytes % 6.0 % 2.0-16 .0 Not Available [facility] [address] [facility] [address], [place], [address], 01/12/2024 16:56:44 01/12/20 24 01/12/2024 CBC granulcytes# 4.3 x10 Not Radha ilable [facility] [address] [facility] [address], [place], [address], 01/12/2024 16:56:44 01/12/20 24 01/12/2024 CBC lymphocytes # 1.4 x10 Not Available [facility] [address] [address], [place], [address], 01/12/2024 16:56:44 01/12/20 24 01/12/2024 CBC monocytes # 0.4 x10 Not [facility] [address] [address], [place], [address], 01/12/2024 16:56:44 01/12/20 24 01/12/2024 CMP (MALE ) glucose 92.0 mg/dL 60.0-9 9.0 Not Available [address] [address], [place], [address], 01/12/2024 17:23:18 01/12/20 24 01/12/2024 CMP (MALE ) BUN (blood urea nitrogen) 10.0 mg/dL 10.0-2 6.0 Not Available [address] [address], [place], [address], 01/12/2024 17:23:18 01/12/20 24 01/12/2024 CMP (MALE ) creatinine (serum) 1.3 mg/dL 0.4-1. 5 Not Available [address] [address], [place], [address], 01/12/2024 17:23:18 01/12/20 24 01/12/2024 CMP (MALE ) BUN/creatini ne ratio 7.69 ratio Not Available [address] [address], [place], [address], 01/12/2024 17:23:18 01/12/20 24 01/12/2024 CMP (MALE ) eGFR calculated 62.4 Not Available [facility] [address] [facility], [place], [address], 01/12/2024 17:23:18 01/12/20 24 01/12/2024 CMP (MALE ) total protein 7.1 g/dL 6.0-8. 5 Not Available [facility] [address] [facility] [address], [place], [address], 01/12/2024 17:23:18 01/12/20 24 01/12/2024 CMP (MALE ) total bilirubin 0.4 mg/dL 0.2-1. 3 Not Available [facility] [address] [facility] [address], [place], [address], 01/12/2024 17:23:18 01/12/20 24 01/12/2024 CMP (MALE ) albumin 4.4 g/dL 3.5-5. 5 Not Available [facility] [address] [facility] [address], [place], [address], 01/12/2024 17:23:18 01/12/20 24 01/12/2024 CMP (MALE ) globulin 2.7 calc Not Available [facility] [address] [facility] [address], [place], [address], 01/12/2024 17:23:18 01/12/20 24 01/12/2024 CMP (MALE ) AST (SGOT) 28.0 U/L 0.0-46 .0 Not Available [facility] [address] [place] [facility], [place], [address], 01/12/2024 17:23:18 01/12/20 24 01/12/2024 CMP (MALE ) altv (SGPT) 22.0 U/L 13.0-6 9.0 normal Not Available [facility] [address] [facility], [place], [address], 01/12/2024 17:23:18 01/12/20 24 01/12/2024 CMP (MALE ) A/G ratio 1.6 ratio Not Available [facility] [address] [facility] [address], [place], [address], 01/12/2024 17:23:18 01/12/20 24 01/12/2024 CMP (MALE ) ALP phos 109.0 U/L 30.0-1 40.0 normal Not Available [facility] [address] [facility] [address], [place], [address], 01/12/2024 17:23:18 01/12/20 24 01/12/2024 CMP (MALE ) calcium 9.2 mg/dL 8.4-10 .5 Not Available [facility] [address] [facility] [address], [place], [address], 01/12/2024 17:23:18 01/12/20 24 01/12/2024 CMP (MALE ) sodium 139.0 mmol/ L 136.0- 145.0 Not Available [facility] [address] [facility] [address], [place], [address], 01/12/2024 17:23:18 01/12/20 24 01/12/2024 CMP (MALE ) potassium 3.5 mmol/ L 3.5-5. 1 Not Available [facility] [address] [facility] [address], [place], [address], 01/12/2024 17:23:18 01/12/20 24 01/12/2024 CMP (MALE ) chloride 110.0 mmol/ L 98.0-1 10.0 normal Not Available [facility] [address] [facility] [address], [place], [address], 01/12/2024 17:23:18 01/12/20 24 01/12/2024 CMP (MALE ) C02 21.0 mmol/ L 22.0-3 1.0 low Not Available [facility] [address] [facility], [place], [address], 01/12/2024 17:23:18 01/12/20 24 01/12/2024 CMP (MALE ) anion gap 8.0 calc Not Available [facility] [address] [facility] [address], [place], [address], 01/12/2024 17:23:18 01/12/20 24 01/12/2024 CMP (MALE ) osmolality 285.9 calc Not Available [facility] [address] [facility] [address], [place], [address], 01/12/2024 17:23:18 01/12/20 24 01/12/2024 TSH, serum or plasm a TSH 1.67 uIU/m L 0.49-3 .82 normal Not Available [facility] [address] [place], [address], 01/12/2024 16:08:44 04/17/20 25 04/17/2025 CBC WBC 4.7 x10 4.5-10 .5 Not Available [facility] [address] [facility] [address], [place], [address], 04/17/2025 12:26:32 04/17/20 25 04/17/2025 CBC RBC 4.11 x10 4.30-5 .90 low Not Available [facility] [address] [facility], [place], [address], 04/17/2025 12:26:32 04/17/20 25 04/17/2025 CBC HGB 13.3 g/dL 13.5-1 8.0 low Not Available [facility] [address], [address], 04/17/2025 12:26:32 04/17/2004/17/2025 CBC HCT 40.3 % 35.0-6 0.0 Not Available [facility] [address] [facility] 1, [place], [address], 04/17/2025 12:26:32 04/17/2004/17/2025 CBC MCV 98.0 fL 80.0-9 9.9 Not Available [facility] [address] [facility] 1, [place], [address], 04/17/2025 12:26:32 04/17/2004/17/2025 CBC MCH 32.4 pg 27.0-3 2.0 high Not Available [facility] [address] [facility] 1, [place], [address], 04/17/2025 12:26:32 04/17/2004/17/2025 CBC MCHC 33.1 g/dL 32.0-3 6.0 Not Available [facility] [address] [facility] 1, [place], [address], 04/17/2025 12:26:32 04/17/2004/17/2025 CBC RDW 13.9 % 11.5-1 4.5 Not Available [facility] [address] [facility] 1, [place], [address], 04/17/2025 12:26:32 04/17/2004/17/2025 CBC plt 209.3 x10 150.0- 451.0 Not Available [facility] [address] [facility] 1, [place], [address], 04/17/2025 12:26:32 04/17/2004/17/2025 CBC lymphocytes % 31.8 % 20.0-5 0.0 Not Available [facility] [address] [facility] 1, [place], [address], 04/17/2025 12:26:32 04/17/20 25 04/17/2025 CBC granulcytes % 56.4 % 30.0-7 0.0 Not Available [facility] [address] [facility] 1, [place], [address], 04/17/2025 12:26:32 04/17/2004/17/2025 CBC monocytes % 7.9 % 2.0-16 .0 Not Available [facility] [address] [facility] 1, [place], [address], 04/17/2025 12:26:32 04/17/2004/17/2025 CBC granulcytes# 2.7 x10 Not Radha ilable [facility] [address] [place] [address] [facility] 1, [place], [address], 04/17/2025 12:26:32 04/17/2004/17/2025 CBC lymphocytes # 1.5 x10 Not Available [facility] [address] [place] [address] [facility] 1, [place], [address], 04/17/2025 12:26:32 04/17/2004/17/2025 CBC monocytes # 0.4 x10 Not Avai lable [facility] [address] [place] [address] [facility], [place], [address], 04/17/2025 12:26:32 04/17/2004/17/2025 TSH TSH 1.70 uIU/m L 0.49-3 .82 Not Available [facility] [address] [place] [address] [facility], [place], [address], 04/17/2025 12:47:46 04/17/2004/17/2025 CMP (MALE ) glucose 91.0 mg/dL 60.0-9 9.0 Not Available [facility] [address] [place] [address] [facility], [place], [address], 04/17/2025 12:48:56 04/17/20 25 04/17/2025 CMP (MALE ) BUN (blood urea nitrogen) 15.0 mg/dL 10.0-2 6.0 Not Available [facility] [address] [facility], [place], [address], 04/17/2025 12:48:56 04/17/20 25 04/17/2025 CMP (MALE ) creatinine (serum) 0.9 mg/dL 0.4-1. 5 Not Available [facility] [address] [facility] [address] [address], [place], [address], 04/17/2025 12:48:56 04/17/20 25 04/17/2025 CMP (MALE ) BUN/creatini ne ratio 16.67 ratio Not Available [facility] [address] [facility] [address] [address], [place], [address], 04/17/2025 12:48:56 04/17/20 25 04/17/2025 CMP (MALE ) eGFR calculated 94.6 Not Available [facility] [address] [facility] Mary[facility], [place], [address], 04/17/2025 12:48:56 04/17/20 25 04/17/2025 CMP (MALE ) total protein 6.7 g/dL 6.0-8. 5 Not Available [facility] [address] [facility] Mary[facility], [place], [address], 04/17/2025 12:48:56 04/17/20 25 04/17/2025 CMP (MALE ) total bilirubin 0.6 mg/dL 0.2-1. 3 Not Available [facility] [address] [facility], [place], [address], 04/17/2025 12:48:56 04/17/20 25 04/17/2025 CMP (MALE ) albumin 4.1 g/dL 3.5-5. 5 Not Available [facility] [address] [facility] 1, [place], [address], 04/17/2025 12:48:56 04/17/2004/17/2025 CMP (MALE ) globulin 2.6 calc Not Available [facility] [address] [place] [facility], [place], [address], 04/17/2025 12:48:56 04/17/20 25 04/17/2025 CMP (MALE ) AST (SGOT) 24.0 U/L 0.0-46 .0 Not Available [facility] [address] [place] [facility], [place], [address], 04/17/2025 12:48:56 04/17/20 25 04/17/2025 CMP (MALE ) altv (SGPT) 18.0 U/L 13.0-6 9.0 normal Not Available [facility] [address] [facility], [place], [address], 04/17/2025 12:48:56 04/17/20 25 04/17/2025 CMP (MALE ) A/G ratio 1.6 ratio Not Available [facility] [address] [facility] 1, [place], [address], 04/17/2025 12:48:56 04/17/2004/17/2025 CMP (MALE ) ALP phos 52.0 U/L 30.0-1 40.0 normal Not Available [facility] [address] [place] [address] [facility] 1, [place], [address], 04/17/2025 12:48:56 04/17/20 25 04/17/2025 CMP (MALE ) calcium 9.6 mg/dL 8.4-10 .5 Not Available [facility] [address] [facility] 1, [place], [address], 04/17/2025 12:48:56 04/17/2004/17/2025 CMP (MALE ) sodium 136.0 mmol/ L 136.0- 145.0 Not Available [facility] [address] [place] [facility], [place], [address], 04/17/2025 12:48:56 04/17/20 25 04/17/2025 CMP (MALE ) potassium 4.7 mmol/ L 3.5-5. 1 Not Available [facility] [address] [facility] 1, [place], [address], 04/17/2025 12:48:56 04/17/2004/17/2025 CMP (MALE ) chloride 105.0 mmol/ L 98.0-1 10.0 normal Not Available [facility] [address] [facility] 1, [place], [address], 04/17/2025 12:48:56 04/17/2004/17/2025 CMP (MALE ) C02 22.0 mmol/ L 22.0-3 1.0 Not Available [facility] [address] [place] [facility], [place], [address], 04/17/2025 12:48:56 04/17/2004/17/2025 CMP (MALE ) anion gap 9.0 calc Not Available [facility] [address] [facility] 1, [place], [address], 04/17/2025 12:48:56 04/17/2004/17/2025 CMP (MALE ) osmolality 281.6 calc Not Available [facility] [address] [place] [address] [facility] 1, [place], [address], 04/17/2025 12:48:56 09/03/20 25 04/17/2025 LIPID PROFI LE (MALE ) cholesterol 273.0 mg/dL 0.0-20 0.0 high Not Available [facility] [address] [facility] [address], [place], [address], 04/17/2025 12:48:59 04/17/20 25 04/17/2025 LIPID PROFI LE (MALE ) trig 324.0 mg/dL 0.0-15 0.0 high Not Available [facility] [address] [facility] [address], [place], [address], 04/17/2025 12:48:59 04/17/20 25 04/17/2025 LIPID PROFI LE (MALE ) HDL - direct 37.0 mg/dL >40.0 low Not Available [facility] [address] [address], [place], [address], 04/17/2025 12:48:59 04/17/20 25 04/17/2025 LIPID PROFI LE (MALE ) VLDL - direct 64.8 mg/dL Not Available [facility] [address] [address], [place], [address], 04/17/2025 12:48:59 04/17/20 25 04/17/2025 LIPID PROFI LE (MALE ) LDL - direct 171.2 mg/dL 0.0-13 0.0 high Not Available [address] [address], [place], [address], 04/17/2025 12:48:59 04/17/20 25 04/18/2025 VALPR OIC ACID valproic acid 76.6 mg/L 50.0-1 00.0 normal Not Available [employer] [facility] [address] [place], [address], 04/18/2025 09:39:31 Result Notes None recorded. Problems Name Problem SNOMED Code Status Onset Date Resolution Date Notes Provider Name and Address Organization Details Recorded Time Mood disorder 57986677 Active 2021 CHASE delong, [facility] 4 23:14:55 Attention deficit hyperactiv ity disorder 652837857 Active 2021 CHASE delong, [facility] 4 23:14:12 Depressive disorder 81290569 Active 2021 CHASE delong, [facility] 4 23:14:22 Schizophre ute 03205888 Active 2021 CHASE delong, [facility] 4 23:15:08 Insomnia 194209006 [facility] 23:14:45 Hypertensi ve disorder 72264281 Active 2021 [facility] 23:14:35 Amphetamin e abuse 34388735 Active 2021 [facility] 4 23:14:02 Suicidal intent 487710542 Active 2023 Overdose on prescripti on medication s. [facility] 4 23:16:37 Psychotic disorder 97860390 Active 2023 [facility] 23:17:19 Hypothyroi dism 33185806 Active 2023 [facility] 4 23:17:43 Hyperlipid emia 65421664 Active 2023 [facility] 4 23:18:03 Seizure disorder 719573311 Active 2024 AZALIA SANTIAGO, [employer] [address] [place], [address], [facility], L.LKaren 5 11:55:06 Problem Notes None recorded. Medical Equipment None Reported. Allergies Allergen ID Allergen Name Allergen Category Reaction Reaction Severity Criticality Documentation Date Start Date Code Code System Note Provider Name and Address Organization Details Recorded Time 61302 penicilli n V potassium medicatio n Not available Not available Not available 2023 5 RxNorm CHASE JUAN RAMON [facility], [facility], L.LKaren 4 17:21:18 Medications Name Sig Start Date Stop Date Status Note LastModified by Organization Details LastModified Time amantadin e HCl 100 mg tablet 01/11 completed Not Available Not Available Not Available cyclobenz aprine 10 mg tablet 01/11 completed Not Available Not Available Not Available ziprasido ne 80 mg capsule TAKE ONE CAPSULE BY MOUTH EVERY DAY AT 6PM WITH SUPPER 500 CALORIES OR MORE 03/02 completed Not Available Not Available Not Available promethaz ine-DM 6.25 mg-15 mg/5 mL oral syrup TAKE 5 TO 10 ML BY MOUTH EVERY 6 HOURS NEEDED 03/02 completed Not Available Not Available Not Available atorvasta tin 20 mg tablet take one tab BY MOUTH AT BEDTIME need TO see doctor 01/11 completed Not Available Not Available Not Available mirtazapi ne 30 mg disintegr ating tablet DISSOLVE ONE TABLET BY MOUTH AT BEDTIME 03/02 completed Not Available Not Available Not Available haloperid ol 5 mg tablet TAKE ONE-HALF TO 1 TABLET BY MOUTH TWICE DAILY as needed for severe anxiety/ agitatio n 03/02 completed Not Available Not Available Not Available clindamyc in HCl 300 mg capsule take 1 capsule BY MOUTH THREE TIMES DAILY for 10 days 04/17 completed Not Available Not Available Not Available cetirizin e 10 mg tablet TAKE 1 TABLET BY MOUTH EVERY DAY active Not Available Not Available No t Available lisinopri l 20 mg-hydroc hlorothia zide 12.5 mg tablet TAKE 1 TABLET BY MOUTH EVERY DAY in THE morning active Not Available Not Available No t Available tizanidin e 4 mg tablet TAKE 1 TABLET BY MOUTH THREE TIMES DAILY FOR 30 DAYS active Not Available Not Available No t Available levetirac etam 500 mg tablet TAKE 1 TABLET BY MOUTH TWICE DAILY 04/17 completed Not Available Not Available Not Available sumatript an 100 mg tablet 01/11 completed Not Available Not Available Not Available prazosin 1 mg capsule 01/11 completed Not Available Not Available Not Available prednison e 20 mg tablet TAKE 2 TABLETS BY MOUTH EVERY DAY 03/02 completed Not Available Not Available Not Available mirtazapi ne 45 mg disintegr ating tablet DISSOLVE ONE TABLET BY MOUTH AT BEDTIME 03/02 completed Not Available Not Available Not Available naproxen 250 mg tablet 01/11 completed Not Available Not Available Not Available topiramat e 25 mg tablet TAKE TWO TABLETS BY MOUTH TWICE DAILY 04/17 completed Not Available Not Available Not Available amlodipin e 5 mg tablet take one tab BY MOUTH daily 03/02 completed Not Available Not Available Not Available divalproe x 500 mg tablet,de layed release TAKE 3 TABLETS BY MOUTH TWICE DAILY active Not Available Not Available No t Available sulfameth oxazole 800 mg-trimet hoprim 160 mg tablet TAKE 1 TABLET BY MOUTH EVERY TWELVE HOURS for 7 days 01/30 completed Not Available Not Available Not Available tramadol 50 mg tablet 01/11 completed Not Available Not Available Not Available amantadin e HCl 100 mg capsule 01/11 completed Not Available Not Available Not Available spironola ctone 25 mg tablet take one tab BY MOUTH every DAY 03/02 completed Not Available Not Available Not Available butalbita l-acetami nophen-ca ffeine 50 mg-325 mg-40 mg tablet TAKE ONE TABLET BY MOUTH ONCE DAILY as needed for migraine active Not Available Not Available No t Available levothyro xine 25 mcg tablet TAKE 1 TABLET BY MOUTH EVERY DAY active Not Available Not Available No t Available cyprohept adine 4 mg tablet TAKE ONE TABLET BY MOUTH AT BEDTIME 03/02 completed Not Available Not Available Not Available meloxicam 7.5 mg tablet TAKE 1 TABLET BY MOUTH EVERY DAY 01/11 completed Not Available Not Available Not Available prazosin 5 mg capsule 01/11 completed Not Available Not Available Not Available propranol ol 10 mg tablet 01/11 completed Not Available Not Available Not Available ceftriaxo ne 1 gram solution for injection Take 1 g by injectio n route. 04/17 completed Not Available Not Available Not Available ziprasido ne 20 mg capsule 01/11 completed Not Available Not Available Not Available methocarb nikhil 750 mg tablet TAKE 1 TABLET BY MOUTH EVERY 6 HOURS NEEDED 03/02 completed Not Available Not Available Not Available baclofen 10 mg tablet 01/11 completed Not Available Not Available Not Available mirtazapi ne 30 mg tablet TAKE 1 TABLET BY MOUTH AT BEDTIME active Not Available Not Available No t Available buspirone 10 mg tablet Take 1 tablet twice a day by oral route. active Not Available Not Available No t Available clotrimaz ole-betam ethasone 1 %-0.05 % topical cream 01/11 completed Not Available Not Available Not Available lisinopri l 10 mg tablet TAKE 1 TABLET BY MOUTH EVERY DAY 04/17 completed Not Available Not Available Not Available divalproe x ER 500 mg tablet,ex tended release 24 hr take one tab BY MOUTH TWICE DAILY 03/02 completed Not Available Not Available Not Available benztropi ne 1 mg tablet TAKE 1 TABLET BY MOUTH TWICE DAILY active Not Available Not Available No t Available ibuprofen 200 mg tablet Take 3 tablets by oral route. 04/17 completed Not Available Not Available Not Available docusate sodium 100 mg capsule take 1 capsule BY MOUTH EVERY DAY as needed for constipa tion active Not Available Not Available No t Available gabapenti n 300 mg capsule take 1 capsule BY MOUTH TWICE DAILY active Not Available Not Available No t Available omeprazol e 20 mg capsule,d elayed release take oNE capsule BY MOUTH every DAY 03/02 completed Not Available Not Available Not Available lisinopri l 20 mg-hydroc hlorothia zide 25 mg tablet take one tab BY MOUTH daily 03/02 completed Not Available Not Available Not Available levetirac etam 750 mg tablet TAKE 1 TABLET BY MOUTH TWICE DAILY active Not Available Not Available No t Available mupirocin 2 % topical ointment APPLY A SMALL AMOUNT TO AFFECTED AREA THREE TIMES DAILY 01/11 completed Not Available Not Available Not Available ziprasido ne 40 mg capsule take 1 capsule BY MOUTH EVERY EVENING WITH 500 CALORIE MEAL 04/17 completed Not Available Not Available Not Available gabapenti n 100 mg capsule 01/11 completed Not Available Not Available Not Available celecoxib 100 mg capsule 01/11 completed Not Available Not Available Not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
--- OUTSIDE RECORDS SUMMARY | 2025-07-07 17:24 | XMS_ITS | Continuity of Care Document ---
Author Organization Marcela Worthington, [facility] ([facility]) Address [address] [facility] [place] [address] Care Team Providers Care Web Design Specialist Name Role Phone AZALIA SANTIAGO Primary Care [...] doesn't get them. Not available 04/17/2025 11:08:34 Plan of Treatment Reminders Order Date Submit Date Provider Last Modified By Organization Details Last Modified Time Details Appointments OFFICE VISIT 20 2025 08:20A TIFFANY LISA Not available Not available Not available Lab CMP, serum or plasma 2024 025 ANMOL [facility], [address] [facility] [address], [address], [place], [address], 04/17/2025 12:48:56 lipid panel, blood 2024 025 ANMOL [facility], [address], [address], [place], [address], 04/17/2025 12:48:59 CBC 2024 025 ANMOL [facility], [address], [address], [place], [address], 04/17/2025 12:26:32 valproic acid, total, serum 2024 025 ANMOL [facility], [address] [facility] [address], [address], [place], [address], 04/18/2025 09:39:31 thyrotrop in, QN, serum or plasma 2024 025 ANMOL [facility], [address] [facility] [address], [place], [address], 04/17/2025 12:47:46 Referral podiatris t referral [address] [facility], [address] [place] [address], [address], 04/30/2025 15:30:17 Procedures None recorded. Surgeries None recorded. Imaging None recorded. Medication Orders None recorded. Patient TargetsNo targets recorded. Patient Instructions Encounter Date Encounter Id Patient Instructions Last Modified By Organization Details Last Modified Time 04/17/2025 [id number] Call or return for questions or concerns. Not available 04/17/2025 11:09:48 Reason for Referral Tracing Lathe Set Up Operator Referral for Ingr owing nail Referring Physician: Azalia Santiago, Family Medicine, Encounter Date: 04/17/2025 Results Created Date Observation Date Name Description Value Unit Range Abnormal Flag Note LastModifiedBy Organization Detail LastModifiedTime 04/17/2004/17/2025 CBC WBC 4.7 x10 4.5-10 .5 Not Available [facility] [address] [facility] [address], [place], [address], 04/17/2025 12:26:32 04/17/2004/17/2025 CBC RBC 4.11 x10 4.30-5 .90 low Not Available [facility] [address] [facility] [address], [place], [address], 04/17/2025 12:26:32 04/17/20 25 04/17/2025 CBC HGB 13.3 g/dL 13.5-1 8.0 low Not Available [facility] [address] [facility] 1, [place], [address], 04/17/2025 12:26:32 04/17/2004/17/2025 CBC HCT 40.3 % 35.0-6 0.0 Not Available [facility] [address] [facility] 1, [place], [address], 04/17/2025 12:26:32 04/17/2004/17/2025 CBC MCV 98.0 fL 80.0-9 9.9 Not Available [facility] [address] [facility] 1, [place], [address], 04/17/2025 12:26:32 04/17/2004/17/2025 CBC MCH 32.4 pg 27.0-3 2.0 high Not Available [facility] [address] [facility] 1, [place], [address], 04/17/2025 12:26:32 04/17/2004/17/2025 CBC MCHC 33.1 g/dL 32.0-3 6.0 Not Available [facility] [address] [facility] 1, [place], [address], 04/17/2025 12:26:32 04/17/2004/17/2025 CBC RDW 13.9 % 11.5-1 4.5 Not Available [facility] [address] [facility] 1, [place], [address], 04/17/2025 12:26:32 04/17/2004/17/2025 CBC plt 209.3 x10 150.0- 451.0 Not Available [facility] [address] [facility] 1, [place], [address], 04/17/2025 12:26:32 04/17/20 25 04/17/2025 CBC lymphocytes % 31.8 % 20.0-5 0.0 Not Available [facility] [address] [facility] [address], [place], [address], 04/17/2025 12:26:32 04/17/20 25 04/17/2025 CBC granulcytes % 56.4 % 30.0-7 0.0 Not Available [facility] [address] [facility] 1, [place], [address], 04/17/2025 12:26:32 04/17/20 25 04/17/2025 CBC monocytes % 7.9 % 2.0-16 .0 Not Available [facility] [address] [facility] 1, [place], [address], 04/17/2025 12:26:32 04/17/20 25 04/17/2025 CBC granulcytes# 2.7 x10 Not Radha ilable [facility] [address] [facility] 1, [place], [address], 04/17/2025 12:26:32 04/17/20 25 04/17/2025 CBC lymphocytes # 1.5 x10 Not Available [facility] [address] [facility] 1, [place], [address], 04/17/2025 12:26:32 04/17/20 25 04/17/2025 CBC monocytes # 0.4 x10 Not Avai lable [facility] [address] [facility], [place], [address], 04/17/2025 12:26:32 04/17/20 25 04/17/2025 TSH TSH 1.70 uIU/m L 0.49-3 .82 Not Available [facility] [address] [facility] 1, [place], [address], 04/17/2025 12:47:46 04/17/2004/17/2025 CMP (MALE ) glucose 91.0 mg/dL 60.0-9 9.0 Not Available [facility] [address] [facility], [place], [address], 04/17/2025 12:48:56 04/17/20 25 04/17/2025 CMP (MALE ) BUN (blood urea nitrogen) 15.0 mg/dL 10.0-2 6.0 Not Available [facility] [address] [facility], [place], [address], 04/17/2025 12:48:56 04/17/20 25 04/17/2025 CMP (MALE ) creatinine (serum) 0.9 mg/dL 0.4-1. 5 Not Available [facility] [address] [facility], [place], [address], 04/17/2025 12:48:56 04/17/20 25 04/17/2025 CMP (MALE ) BUN/creatini ne ratio 16.67 ratio Not Available [facility] [address] [facility], [place], [address], 04/17/2025 12:48:56 04/17/20 25 04/17/2025 CMP (MALE ) eGFR calculated 94.6 Not Available [facility] [address] [facility], [place], [address], 04/17/2025 12:48:56 04/17/20 25 04/17/2025 CMP (MALE ) total protein 6.7 g/dL 6.0-8. 5 Not Available [facility] [address] [facility], [place], [address], 04/17/2025 12:48:56 04/17/20 25 04/17/2025 CMP (MALE ) total bilirubin 0.6 mg/dL 0.2-1. 3 Not Available [facility] [address] [facility], [place], [address], 04/17/2025 12:48:56 04/17/20 25 04/17/2025 CMP (MALE ) albumin 4.1 g/dL 3.5-5. 5 Not Available [facility] [address] [facility], [place], [address], 04/17/2025 12:48:56 04/17/2004/17/2025 CMP (MALE ) globulin 2.6 calc Not Available [facility] [address] [address], [place], [address], 04/17/2025 12:48:56 04/17/20 25 04/17/2025 CMP (MALE ) AST (SGOT) 24.0 U/L 0.0-46 .0 Not Available [facility] [address] [facility], [place], [address], 04/17/2025 12:48:56 04/17/20 25 04/17/2025 CMP (MALE ) altv (SGPT) 18.0 U/L 13.0-6 9.0 normal Not Available [facility] [address] [facility], [place], [address], 04/17/2025 12:48:56 04/17/20 25 04/17/2025 CMP (MALE ) A/G ratio 1.6 ratio Not Available [facility] [address] [facility] 1, [place], [address], 04/17/2025 12:48:56 04/17/20 25 04/17/2025 CMP (MALE ) ALP phos 52.0 U/L 30.0-1 40.0 normal Not Available [facility] [address] [facility], [place], [address], 04/17/2025 12:48:56 04/17/2004/17/2025 CMP (MALE ) calcium 9.6 mg/dL 8.4-10 .5 Not Available [facility] [address] [facility] 1, [place], [address], 04/17/2025 12:48:56 04/17/2004/17/2025 CMP (MALE ) sodium 136.0 mmol/ L 136.0- 145.0 Not Available [facility] [address] [facility] 1, [place], [address], 04/17/2025 12:48:56 04/17/2004/17/2025 CMP (MALE ) potassium 4.7 mmol/ L 3.5-5. 1 Not Available [facility] [address] [facility], [place], [address], 04/17/2025 12:48:56 04/17/2004/17/2025 CMP (MALE ) chloride 105.0 mmol/ L 98.0-1 10.0 normal Not Available [facility] [address] [facility], [place], [address], 04/17/2025 12:48:56 04/17/2004/17/2025 CMP (MALE ) C02 22.0 mmol/ L 22.0-3 1.0 Not Available [facility] [address] [facility], [place], [address], 04/17/2025 12:48:56 04/17/2004/17/2025 CMP (MALE ) anion gap 9.0 calc Not Available [facility] [address] [facility], [place], [address], 04/17/2025 12:48:56 04/17/20 25 04/17/2025 CMP (MALE ) osmolality 281.6 calc Not Available [facility] [address] [facility] 1, [place], [address], 04/17/2025 12:48:56 04/17/20 25 04/17/2025 LIPID PROFI LE (MALE ) cholesterol 273.0 mg/dL 0.0-20 0.0 high Not Available [facility] [address] [facility] 1, [place], [address], 04/17/2025 12:48:59 04/17/2004/17/2025 LIPID PROFI LE (MALE ) trig 324.0 mg/dL 0.0-15 0.0 high Not Available [facility] [address] [facility] 1, [place], [address], 04/17/2025 12:48:59 04/17/20 25 04/17/2025 LIPID PROFI LE (MALE ) HDL - direct 37.0 mg/dL >40.0 low Not Available [facility] [address] [facility] 1, [place], [address], 04/17/2025 12:48:59 04/17/20 25 04/17/2025 LIPID PROFI LE (MALE ) VLDL - direct 64.8 mg/dL Not Available [facility] [address] [facility] 1, [place], [address], 04/17/2025 12:48:59 04/17/2004/17/2025 LIPID PROFI LE (MALE ) LDL - direct 171.2 mg/dL 0.0-13 0.0 high Not Available [facility] [address] [facility] 1, [place], [address], 04/17/2025 12:48:59 04/17/20 25 04/18/2025 VALPR OIC ACID valproic acid 76.6 mg/L 50.0-[address] [facility] [address] [place] [address], [address], 04/18/2025 09:39:31 Result Notes None recorded. Problems Name Problem SNOMED Code Status Onset Date Resolution Date Notes Provider Name and Address Organization Details Recorded Time Mood disorder 70015013 Active 2021 CHASE delong [facility] 4 23:14:55 Attention deficit hyperactiv ity disorder 335887947 [facility] 2021 [facility] 4 23:14:12 Depressive disorder 12675582 Active 2021 CHASE JUAN RAM[facility] 4 23:14:22 Schizophre ute 73264007 Active 2021 [facility]UAN [facility] 4 23:15:08 Insomnia 148562280 Active 2021 [facility] 4 23:14:45 Hypertensi ve disorder 96738647 Active 2021 [facility] 4 23:14:35 Amphetamin e abuse 00359879 Active 2021 [facility] JUAN RAM[facility] 4 23:14:02 Suicidal intent 215192738 Active 2023 Overdose on prescripti on medication s. CHASE JUAN RAMON delong [facility], LivL.[facility]de 4 23:16:37 Psychotic disorder 24373169 Active 2023 [facility] 4 23:17:19 Hypothyroi dism 62873297 Active 2023 CHASE delong [facility] 4 23:17:43 Hyperlipid emia 87486466 Active 2023 CHASE delong [facility] 4 23:18:03 Seizure disorder 741741143 Active 2024 AZALIA SANTIAGO, [address], [address] [place] [address], L.L.CHayde 5 11:55:06 Problem Notes None recorded. Medical Equipment None Reported. Allergies Allergen ID Allergen Name Allergen Category Reaction Reaction Severity Criticality Documentation Date Start Date Code Code System Note Provider Name and Address Organization Details Recorded Time 15501 penicilli n V potassium medicatio n Not available Not available Not available 2023 5 RxNorm CHASE delong [facility] 4 17:21:18 Medications Name Sig Start Date [...] every four hours, as needed 03/27 completed 75630; Recorded 06/23/20 21 1:04PM by Juan Ramon Roldan LPN (Authori ann through TIFFANY Mirza), Office [...] Not Available Vitamin D3 daily 03/27 completed 83893; Recorded 03/06/20 21 2:28PM by Chase Delatorre [...] No t Available Vitals Date Recorded Body weight Body mass index (BMI) Body height Oxygen saturation Heart rate Respiratory rate Systolic And Diastolic Provider Name and Address Organization Details Last Updated DateTime 5 193338. 28 g 41.9 kg/m2 165.1 cm 99 % 88 /min 22 /min 126/84 mm[Hg] CHASE DELATORRE [facility] 10:31:30 Social History Question Answer Notes LastModified by Organizat ion Details LastModified Time Tobacco Smoking Status Never Smoker CHASE DELATORRE [facility] 01/12/2024 16:01:42 How Much Tobacco Do You [...] 04/17/2025 What Is Your Relationship Status? Single [email or web address] Information not available 01/12/2024 Has Tobacco Cessation Counseling Been Provided? Yes Information not available 01/12/2024 On What Date Was Tobacco Cessation Counseling Provided? 04/17/2025 Information not available 04/17/2025 Are You Currently In School? No [email or web address] Information not available 01/12/2024 How Many Years [...] other forms of tobacco or nicotine? Yes [email or web address] Information not available 01/12/2024 What is your level of alcohol consumption? None Quit years ago Information not available 04/17/2025 Do you or have you ever used smokeless tobacco? Currently chews tobacco [email or web address] Information not available 01/12/2024 Are you currently employed? No [email or web address] Information not available 01/12/2024 Do you have transportation difficulties? Yes [email or web address] Information not available 01/12/2024 Are you able to care for yourself independently? No [email or web address] Information not available 01/12/2024 Do you or [...] difficulty concentrating, remembering or making decisions? Yes Information no t available 01/12/2024 Family History Relationship Description Onset Age of this Age Resolved Age Notes LastModified by Organization Details LastModified Time Mother Essential hypertension [email or web address] Not available 15:57:00 Paternal Grandmother Cerebrovascu lar accident [email or web address] Not available 15:57:18 Father Essential hypertension [email or web address] Not available 15:57:38 Father Myocardial infarction [email or web address] Not available 12/15 15:59:46 Medical History Condition Response Anxiety Disorder Y High Cholesterol Y Thyroid Problems Y Mental Illness Y Hypertension Y Hypothyroidism Y Depression Y Developmental or Behavioral Disorders Y Immunizations Vaccine Type Date Status Note Provider Nam e and Address Organization Details Recorded Time Influenza, split virus, trivalent, PF 5 completed [facility] 04/29/2025 12:36:02 COVID-19, mRNA, LNP-S, PF, 100 mcg/0.5mL dose or 50 mcg/0.25mL dose 1 completed AZALIA SANTIAGO, [address], [address], [facility] 03/02/2023 11:34:39 Tdap 9 completed AZALIA SANTIAGO, [address], [address], [facility] 03/02/2023 11:34:39 influenza, split (incl. purified surface antigen) 0 completed AZALIA SANTIAGO, [address], [address], [facility] 03/02/2023 11:34:39 Td (adult), 2 Lf tetanus toxoid, preservative free, adsorbed 5 completed AZALIA SANTIAGO [address], [address], [facility] 03/02/2023 11:34:39 Hep B, adult 0 completed AZALIA SANTIAGO [address], [address], [facility] 03/02/2023 11:34:39 Hep B, adult [address]O [address], [address], [facility] 03/02/2023 11:34:39 Hep B, adult 9 completed AZALIA SANTIAGO, [facility] [address] [place], [address], [facility] 03/02/2023 11:34:39 Hep A, adult 0 completed AZALIA SANTIAGO, [facility] [address] [place], [address], [facility] 03/02/2023 11:34:39 Hep A, adult 9 completed AZALIA SANTIAGO, [facility] [address] [place], [address], [facility] 03/02/2023 11:34:39 Influenza, MDCK, trivalent, preservative 4 completed Not Available [email or web address] 05/16/2025 09:35:25 Influenza, split virus, quadrivalent, PF 3 completed CHASE delong, [facility] 04/26/2023 15:47:08 Past Encounters Encounter ID Performer Location Encounter Start Date Encounter Closed Date Diagnosis/Indication Diagnosis SNOMED-CT Code Diagnosis ICD10 Code Diagnosis IMO Codes Diagnosis Note [id number] AZALIAPaul SANTIAGO [employer]CRET[employer] TESTER [facility] ([facility]) [address] [place] [address] 04/17/2025 10:09:31 04/17/2025 11:17:28 Hypothyroidism 25773899 E03.9 Schizophrenia 53878675 F 20.9 He has been seeing a psychiatri st in the facility he was at but will need to change to someone local. Discussed options with him and he will go to [facility]. Therapeuti c drug monitoring assay 24718756 Z51.81 528029 Hypertensive disorder 38 877353 I10 Seizure disorder 8494764 02 G40.909 He has been following with neurology in [facility] and they are supposed to send a referral to neurology here in [facility]. General ex amination of patient 927008442 Z00.00 [id number] Ingrowing nail 105140042 L60.0 52051 Left foot Health Concerns Section Related Observation LastModified by Organization Detai ls LastModified Time None Recorded Concern Status LastModified by Organization Details LastModified Time None Recorded Payers Encounter Date Sequence Insurance Name Policy Number Policy Santizo Covered Member ID Santizo Member ID Guarantor Name 04/17/2025 1 [place] Walt Madsen [id number] Walt Lund Scottidania Notes Date Note Type Note Provider Name and Address Organization Details Recorded Time 04/17/2025 text/html Annual WellnessReported by PatientSocial/Behavior al HistoryFor physical activity, patient reportsdoes not exercise on a regular basis. Hypertension IM/FMReported by PatientHPIFor quality, patient reportshere for check-up. For severity, patient reportsnormal (<120/<80 mmhg). For duration, patient reportshtn present for ___ years. HypothyroidReported by Patient AZALIA SANTIAGO, [facility] [address] [place], [address], [facility] 04/17/2025 11:11:30
--- OUTSIDE RECORDS SUMMARY | 2025-07-07 17:24 | XMS_ITS | Continuity of Care Document ---
Author Organization THEO - [facility] Marcela Garrison, [facility] ([facility]) Address [address] [place] [address] Care Team Providers Care Animal Park Code Enforcement Officer Name Role Phone JAEL SANTIAGO Primary Care Provider Unavailabl e Assessment Encounter Date Assessment Date Assessment LastModified by Organization Details LastModified Time 05/16/2025 05/16/2025 Patient reports he is planning on going back to [place] for his neurology scripts because he can't [...] Not available Not available Not available Lab None recorded. Referral None recorded. Procedures None recorded. Surgeries None recorded. Imaging None recorded. Medication Orders lisinopri l 20 mg-hydroc hlorothia zide 12.5 mg tablet 2024 [facility], [address] [place] [address], [address], 05/16/2025 10:27:47 tizanidin e 4 mg tablet 2024 025 [facility], [address] [place] [address], [address], 05/16/2025 10:27:47 levothyro xine 25 mcg tablet 2024 025 [facility] [place], [address] [place], [address], 06/27/2025 12:33:54 Patient TargetsNo targets recorded. Patient Instructions Encounter Date Encounter Id Patient Instructions Last Modified By Organization Details Last Modified Time 05/16/2025 [id number] Call or return for questions or concerns. Not available 05/16/2025 10:17:47 Reason for Referral None Reported. Results Created Date Observation Date Name Description Value Unit Range Abnormal Flag Note LastModifiedBy Organization Detail LastModifiedTime 04/17/2004/17/2025 CBC WBC 4.7 x10 4.5-10 .5 Not Available [facility] [address] [facility] [address], [place], [address], 04/17/2025 12:26:32 04/17/2004/17/2025 CBC RBC 4.11 x10 4.30-5 .90 low Not Available [facility] [address] [facility], [place], [address], 04/17/2025 12:26:32 04/17/2004/17/2025 CBC HGB 13.3 g/dL 13.5-1 8.0 low Not Available [facility] [address] [facility], [place], [address], 04/17/2025 12:26:32 04/17/2004/17/2025 CBC HCT 40.3 % 35.0-6 0.0 Not Available [facility] [address] [facility], [place], [address], 04/17/2025 12:26:32 04/17/2004/17/2025 CBC MCV 98.0 fL 80.0-9 9.9 Not Available [facility] [address] [facility], [place], [address], 04/17/2025 12:26:32 04/17/2004/17/2025 CBC MCH 32.4 pg 27.0-3 2.0 high Not Available [facility] [address] [facility], [place], [address], 04/17/2025 12:26:32 04/17/2004/17/2025 CBC MCHC 33.1 g/dL 32.0-3 6.0 Not Available [facility] [address] [facility], [place], [address], 04/17/2025 12:26:32 04/17/2004/17/2025 CBC RDW 13.9 % 11.5-1 4.5 Not Available [facility] [address] [facility], [place], [address], 04/17/2025 12:26:32 04/17/2004/17/2025 CBC plt 209.3 x10 150.0- 451.0 Not Available [facility] [address] [place] [facility], [place], [address], 04/17/2025 12:26:32 04/17/2004/17/2025 CBC lymphocytes % 31.8 % 20.0-5 0.0 Not Available [facility] [address] [place] [facility], [place], [address], 04/17/2025 12:26:32 04/17/2004/17/2025 CBC granulcytes % 56.4 % 30.0-7 0.0 Not Available [facility] [address] [place] [address] [facility], [place], [address], 04/17/2025 12:26:32 04/17/2004/17/2025 CBC monocytes % 7.9 % 2.0-16 .0 Not Available [facility] [address] [facility], [place], [address], 04/17/2025 12:26:32 04/17/20 25 04/17/2025 CBC granulcytes# 2.7 x10 Not Radha [facility]able [facility] [address] [facility], [place], [address], 04/17/2025 12:26:32 04/17/20 25 04/17/2025 CBC lymphocytes # 1.5 x10 Not Available [facility] [address] [place] Mary[address] [facility], [place], [address], 04/17/2025 12:26:32 04/17/2004/17/2025 CBC monocytes # 0.4 x10 Not Avai lable [facility] [address] [place] [facility], [place], [address], 04/17/2025 12:26:32 04/17/2004/17/2025 TSH TSH 1.70 uIU/m L 0.49-3 .82 Not Available [facility] [address] [place] [facility], [place], [address], 04/17/2025 12:47:46 04/17/20 25 04/17/2025 CMP (MALE ) glucose 91.0 mg/dL 60.0-9 9.0 Not Available [facility] [address] [facility], [place], [address], 04/17/2025 12:48:56 04/17/20 25 04/17/2025 CMP (MALE ) BUN (blood urea nitrogen) 15.0 mg/dL 10.0-2 6.0 Not Available [facility] [address] [facility] Maryann [facility], [place], [address], 04/17/2025 12:48:56 04/17/20 25 04/17/2025 CMP (MALE ) creatinine (serum) 0.9 mg/dL 0.4-1. 5 Not Available [facility] [address], [place], [address], 04/17/2025 12:48:56 04/17/2004/17/2025 CMP (MALE ) BUN/creatini ne ratio 16.67 ratio Not Available [facility] [address] [facility], [place], [address], 04/17/2025 12:48:56 04/17/20 25 04/17/2025 CMP (MALE ) eGFR calculated 94.6 Not Available [facility] [address] [facility] [address], [place], [address], 04/17/2025 12:48:56 04/17/2004/17/2025 CMP (MALE ) total protein 6.7 g/dL 6.0-8. 5 Not Available [facility] [address] [facility] [address], [place], [address], 04/17/2025 12:48:56 04/17/2004/17/2025 CMP (MALE ) total bilirubin 0.6 mg/dL 0.2-1. 3 Not Available [facility] [address] [facility] [address], [place], [address], 04/17/2025 12:48:56 04/17/2004/17/2025 CMP (MALE ) albumin 4.1 g/dL 3.5-5. 5 Not Available [facility] [address] [facility] [address], [place], [address], 04/17/2025 12:48:56 04/17/2004/17/2025 CMP (MALE ) globulin 2.6 calc Not Available [facility] [address] [facility] [address], [place], [address], 04/17/2025 12:48:56 04/17/2004/1704/17/2025 CMP (MALE ) AST (SGOT) 24.0 U/L 0.0-46 .0 Not Available [facility] [address] [place] [facility], [place], [address], 04/17/2025 12:48:56 04/17/20 25 04/17/2025 CMP (MALE ) altv (SGPT) 18.0 U/L 13.0-6 9.0 normal Not Available [facility] [address] [place] [facility], [place], [address], 04/17/2025 12:48:56 04/17/2004/17/2025 CMP (MALE ) A/G ratio 1.6 ratio Not Available [facility] [address] [facility] 1, [place], [address], 04/17/2025 12:48:56 04/17/2004/17/2025 CMP (MALE ) ALP phos 52.0 U/L 30.0-1 40.0 normal Not Available [facility] [address] [facility] 1, [place], [address], 04/17/2025 12:48:56 04/17/20 25 04/17/2025 CMP (MALE ) calcium 9.6 mg/dL 8.4-10 .5 Not Available [facility] [address] [facility] 1, [place], [address], 04/17/2025 12:48:56 04/17/20 25 04/17/2025 CMP (MALE ) sodium 136.0 mmol/ L 136.0- 145.0 Not Available [facility] [address] [facility] 1, [place], [address], 04/17/2025 12:48:56 04/17/20 25 04/17/2025 CMP (MALE ) potassium 4.7 mmol/ L 3.5-5. 1 Not Available [facility] [address] [facility], [place], [address], 04/17/2025 12:48:56 04/17/2004/17/2025 CMP (MALE ) chloride 105.0 mmol/ L 98.0-1 10.0 normal Not Available [facility] [address] [facility], [place], [address], 04/17/2025 12:48:56 04/17/2004/17/2025 CMP (MALE ) C02 22.0 mmol/ L 22.0-3 1.0 Not Available [facility] [address] [facility], [place], [address], 04/17/2025 12:48:56 04/17/2004/17/2025 CMP (MALE ) anion gap 9.0 calc Not Available [facility] [address] [place] [facility], [place], [address], 04/17/2025 12:48:56 04/17/2004/17/2025 CMP (MALE ) osmolality 281.6 calc Not Available [facility] [address] [place] Maryann [facility], [place], [address], 04/17/2025 12:48:56 04/17/2004/17/2025 LIPID PROFI LE (MALE ) cholesterol 273.0 mg/dL 0.0-20 0.0 high Not Available [facility] [address] [facility], [place], [address], 04/17/2025 12:48:59 04/17/2004/17/2025 LIPID PROFI LE (MALE ) trig 324.0 mg/dL 0.0-15 0.0 high Not Available [facility] [address] [facility] Maryann [facility], [place], [address], 04/17/2025 12:48:59 04/17/2004/17/2025 LIPID PROFI LE (MALE ) HDL - direct 37.0 mg/dL >40.0 low Not Available [facility] [address] [facility] 1, [place], [address], 04/17/2025 12:48:59 04/17/20 25 04/17/2025 LIPID PROFI LE (MALE ) VLDL - direct 64.8 mg/dL Not Available [facility] [address] [facility] 1, [place], [address], 04/17/2025 12:48:59 04/17/2004/17/2025 LIPID PROFI LE (MALE ) LDL - direct 171.2 mg/dL 0.0-13 0.0 high Not Available [facility] [address] [facility] 1, [place], [address], 04/17/2025 12:48:59 04/17/2004/18/2025 VALPR OIC ACID valproic acid 76.6 mg/L 50.0-1 00.0 normal Not Available [facility] [address] [place] [address], [address], 04/18/2025 09:39:31 Result Notes None recorded. Problems Name Problem SNOMED Code Status Onset Date Resolution Date Notes Provider Name and Address Organization Details Recorded Time Mood disorder 87241583 Active 2021 CHASE delong [facility] 4 23:14:55 Attention deficit hyperactiv ity disorder 768989901 Active 2021 CHASE delong [facility] 4 23:14:12 Depressive disorder 61242091 Active 2021 CHASE delong [facility] 4 23:14:22 Schizophre ute 84839182 Active 2021 CHASE delong [facility] 4 23:15:08 Insomnia 030673818 [facility] 23:14:45 Hypertensi ve disorder 62964546 Active 2021 [facility] 4 23:14:35 Amphetamin e abuse 72848268 Active 2021 [facility] 23:14:02 Suicidal intent 894722961 Active 2023 Overdose on prescripti on medication s. CHASE delong [facility] 4 23:16:37 Psychotic disorder 41386552 Active 2023 [facility] 4 23:17:19 Hypothyroi dism 12688899 Active 2023 [facility] 4 23:17:43 Hyperlipid emia 87618510 Active 2023 [facility] 4 23:18:03 Seizure disorder 548868082 Active 2024 JAEL SANTIAGO, [address], [address] [place] [address], L.L.[facility]de 5 11:55:06 Problem Notes None recorded. Medical Equipment None Reported. Allergies Allergen ID Allergen Name Allergen Category Reaction Reaction Severity Criticality Documentation Date Start Date Code Code System Note Provider Name and Address Organization Details Recorded Time 07901 penicilli n V potassium medicatio n Not available Not available Not available 2023 5 RxNorm CHASE delong [facility] 06/20/202 4 17:21:18 Medications Name Sig Start Date [...] every four hours, as needed 03/27 completed 92794; Recorded 06/23/20 21 1:04PM by Kerri Roldan LPN (Authori ann through TIFFANY Mirza), [...] Not Available Vitamin D3 daily 03/27 completed 87277; Recorded 03/06/20 21 2:28PM by Chase Manning CMT (Authordamian juarez through TIFFANY Mirza), Refill Request; Refill Quantity : 90; Tablet; Not Available Not Available Not Available Depakote ER at bedtime 04/14 completed Recorded 11/28/19 20 9:31AM by Chase Manning CMT, Office Visit; Refill Quantity : 120; Tablet; Not Available Not Available Not Available Vitamin-C daily 03/27 completed Recorded 10/15/19 21 11:04AM by Chase Manning CMT, Historic al Summary; Refill Quantity : [...] 0; Recorded 03/25/20 22 2:49PM by Chase Manning CMT, Office Visit; Not Available Not Available [...] completed Not Available Not Available Not Available [facility] 75 mg disintegr ating tablet TAKE 1 TABLET BY MOUTH DAILY as needed for migraine active Not Available Not Available No t Available Vitals Date Recorded Body height Body mass index (BMI) Body weight Oxygen saturation Heart rate Systolic And Diastolic Provider Name and Address Organization Details Last Updated DateTime 165.1 cm 41.4 kg/m2 069838. 5 g 99 % 94 /min 100/68 mm[Hg] CHASE MANNING [facility] 09:57:42 Social History Question Answer Notes LastModified by Organizat ion Details LastModified Time Tobacco Smoking Status Never Smoker CHASE delong [facility] 01/12/2024 16:01:42 How Much Tobacco Do You [...] 04/17/2025 What Is Your Relationship Status? Single [email or web address] Information not available 01/12/2024 Has Tobacco Cessation Counseling Been Provided? Yes [email or web address] Information not available 01/12/2024 On What Date Was Tobacco Cessation Counseling Provided? 04/17/2025 Information not available 04/17/2025 Are You Currently In School? No [email or web address] Information not available 01/12/2024 How Many Years [...] other forms of tobacco or nicotine? Yes [email or web address] Information not available 01/12/2024 What is your level of alcohol consumption? None Quit years ago Information not available 04/17/2025 Do you or have you ever used smokeless tobacco? Currently chews tobacco [email or web address] Information not available 01/12/2024 Are you currently employed? No Information not available 01/12/2024 Do you have transportation difficulties? Yes [email or web address] Information not available 01/12/2024 Are you able to care for yourself independently? No [email or web address] Information not available 01/12/2024 Do you or [...] difficulty concentrating, remembering or making decisions? Yes [email or web address] Information no t available 01/12/2024 Family History Relationship Description Onset Age of this Age Resolved Age Notes LastModified by Organization Details LastModified Time Mother Essential hypertension [email or web address] Not available 15:57:00 Paternal Grandmother Cerebrovascu lar accident [email or web address] Not available 15:57:18 Father Essential hypertension [email or web address] Not available 15:57:38 Father Myocardial infarction [email or web address] Not available 12/15 15:59:46 Medical History Condition Response Anxiety Disorder Y High Cholesterol Y Thyroid Problems Y Mental Illness Y Hypertension Y Hypothyroidism Y Depression Y Developmental or Behavioral Disorders Y Immunizations Vaccine Type Date Status Note Provider Nam e and Address Organization Details Recorded Time Influenza, split virus, trivalent, PF 5 [facility] 04/29/2025 12:36:02 COVID-19, mRNA, LNP-S, PF, 100 mcg/0.5mL dose or 50 mcg/0.25mL dose 1 completed JAEL SANTIAGO [address], [address], [facility] 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 03/02/2023 11:34:39 influenza, split (incl. purified surface antigen) 0 completed JAEL SANTIAGO [address], [address], [facility] 03/02/2023 11:34:39 Td (adult), 2 Lf tetanus toxoid, preservative free, adsorbed 5 completed JAEL SANTIAGO, [address], [address], [facility] 03/02/2023 11:34:39 Hep B, adult 0 completed JAEL SANTIAGO, [address], [address], [facility] 03/02/2023 11:34:39 Hep B, adult 0 completed JAEL SANTIAGO, [address], [address], [facility] 03/02/2023 11:34:39 Hep B, adult 9 completed JAEL SANTIAGO, [address], [address], [facility] 03/02/2023 11:34:39 Hep A, adult 0 completed JAEL SANTIAGO, [address], [address], [facility] 03/02/2023 11:34:39 Hep A, adult 9 completed JAEL SANTIAGO, [address], [address], [facility] 03/02/2023 11:34:39 Influenza, MDCK, trivalent, preservative 4 completed Not Available [facility] 05/16/2025 09:35:25 Influenza, split virus, quadrivalent, PF 3 completed CHASE delong [facility], Marcela 04/26/2023 15:47:08 Past Encounters Encounter ID Performer Location Encounter Start Date Encounter Closed Date Diagnosis/Indication Diagnosis SNOMED-CT Code Diagnosis ICD10 Code Diagnosis IMO Codes Diagnosis Note [id number] TIFFANY MARTE [facility] ([facility]) [address] [place] [phone] 04/17/2025 10:09:31 04/17/2025 11:17:28 Hypothyroidism 06300101 E03.9 Schizophrenia 68345446 F 20.9 He has been seeing a psychiatri st in the facility he was at but will need to change to someone local. Discussed options with him and he will go to [facility]. Therapeuti c drug monitoring assay 35755251 Z51.81 020242 Hypertensive disorder 38 723834 I10 Seizure disorder 2606904 02 G40.909 He has been following with neurology in [facility] and they are supposed to send a referral to [facility]. General ex amination of patient 817559574 Z00.00 66203701 Ingrowing nail 353361861 L60.0 51640 Left foot [id number] TIFFANY MARTE [facility] ([facility]) [address] [place] [phone] 04/29/2025 10:37:17 04/29/2025 12:12:06 Hypothyroidism 37460577 E03.9 Seizure disorder 0663442 02 G40.309 G43.909 [id number] He has been following with neurology in [facility] and they are supposed to send a referral to neurology [facility]. He has not heard from the neurology office here, will place referral. He has been getting Botox shots for his migraines. Administra tion of influenza vaccine 57477844 Z23 Nasal congestion 9202732 0 R09.81 Essential hypertension 86066838 I10 58457 Muscle tension pain 2790 93400 M79.10 [id number] TIFFANY MARTE [facility] ([facility]) [address] [place] [phone] 05/16/2025 09:35:02 05/16/2025 10:47:03 Hypothyroidism 24313309 E03.9 Essential hypertension 46202110 I10 Muscle tension pain 2790 71625 M79.10 Vaccination needed 69930 98484 75588 Z23 6764293008 Health Concerns Section Related Observation LastModified by Organization Detai ls LastModified Time None Recorded Concern Status LastModified by Organization Details LastModified Time None Recorded Payers Encounter Date Sequence Insurance Name Policy Number Policy Santizo Covered Member ID Santizo Member ID Guarantor Name 05/16/2025 1 [place] Walt Madsen [id number] Walt Madsen
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
--- OUTSIDE RECORDS SUMMARY | 2025-07-07 17:24 | XMS_ITS | Continuity of Care Document ---
Author Organization [place] - Silverio Rogers [facility] Marcela Garrison, [facility] ([facility]) Address [address] [place] [address] Care Team Providers Care Fire Control Technician B Name Role Phone AZALIA SANTIAGO Primary Care Provider Unavailabl e Assessment Encounter Date Assessment Date Assessment LastModified by Organization Details LastModified Time 04/29/2025 04/29/2025 He was seen at [facility] and he is scheduled to get his Invega shot next . Not available 04/29/2025 12:01:10 Plan of Treatment Reminders Order Date Submit Date Provider Last Modified By Organization Details Last Modified Time Details Appointments OFFICE VISIT 20 2025 08:20A TIFFANY LISA Not available Not available Not available Lab None recorded. Referral neurologi st referral [address] [facility], [address] [place], [address], 05/21/2025 09:13:45 Procedures None recorded. Surgeries None recorded. Imaging None recorded. Medication Orders cetirizin e 10 mg tablet 2024 025 [facility] [place], [facility] [place], [address], 05/02/2025 15:13:25 lisinopri l 20 mg-hydroc hlorothia zide 12.5 mg tablet 2024 025 [facility] [place], [facility] [place], [address], 06/27/2025 12:33:52 levothyro xine 25 mcg tablet [address] [facility], [facility] [place], [address], 05/02/2025 15:13:26 tizanidin e 4 mg tablet [address] [facility], [address] [place] [address], [address], 05/30/2025 12:34:24 Patient TargetsNo targets recorded. Patient Instructions Encounter Date Encounter Id Patient Instructions Last Modified By Organization Details Last Modified Time 04/29/2025 [id number] Call or return for questions or concerns. Not available 04/29/2025 11:55:16 Reason for Referral Neurologist Referral for Sei zure disorder Referring Physician: Azalia Santiago, Family Medicine, Encounter Date: 04/29/2025 Results Created Date Observation Date Name Description Value Unit Range Abnormal Flag Note LastModifiedBy Organization Detail LastModifiedTime 04/17/2004/17/2025 CBC WBC 4.7 x10 4.5-10 .5 Not Available [facility] [address] [facility] [address], [address], 04/17/2025 12:26:32 04/17/2004/17/2025 CBC RBC 4.11 x10 4.30-5 .90 low Not Available [facility] [address] [facility] 1, [place], [address], 04/17/2025 12:26:32 04/17/2004/17/2025 CBC HGB 13.3 g/dL 13.5-1 8.0 low Not Available [facility] [address] [facility] 1, [place], [address], 04/17/2025 12:26:32 04/17/20 25 04/17/2025 CBC HCT 40.3 % 35.0-6 0.0 Not Available [facility] [address] [facility] 1, [place], [address], 04/17/2025 12:26:32 04/17/2004/17/2025 CBC MCV 98.0 fL 80.0-9 9.9 Not Available [facility] [address] [facility] 1, [place], [address], 04/17/2025 12:26:32 04/17/2004/17/2025 CBC MCH 32.4 pg 27.0-3 2.0 high Not Available [facility] [address] [facility] 1, [place], [address], 04/17/2025 12:26:32 04/17/2004/17/2025 CBC MCHC 33.1 g/dL 32.0-3 6.0 Not Available [facility] [address] [facility] 1, [place], [address], 04/17/2025 12:26:32 04/17/2004/17/2025 CBC RDW 13.9 % 11.5-1 4.5 Not Available [facility] [address] [facility] 1, [place], [address], 04/17/2025 12:26:32 04/17/2004/17/2025 CBC plt 209.3 x10 150.0- 451.0 Not Available [facility] [address] [facility] 1, [place], [address], 04/17/2025 12:26:32 04/17/2004/17/2025 CBC lymphocytes % 31.8 % 20.0-5 0.0 Not Available [facility] [address] [facility] 1, [place], [address], 04/17/2025 12:26:32 04/17/2004/17/2025 CBC granulcytes % 56.4 % 30.0-7 0.0 Not Available [facility] [address] [facility] 1, [place], [address], 04/17/2025 12:26:32 04/17/2004/17/2025 CBC monocytes % 7.9 % 2.0-16 .0 Not Available [facility] [address] [place] [facility], [place], [address], 04/17/2025 12:26:32 04/17/2004/17/2025 CBC granulcytes# 2.7 x10 Not Radha ilable [facility] [address] [facility] 1, [place], [address], 04/17/2025 12:26:32 04/17/2004/17/2025 CBC lymphocytes # 1.5 x10 Not Available [facility] [address] [place] [address] [address], [place], [address], 04/17/2025 12:26:32 04/17/2004/17/2025 CBC monocytes # 0.4 x10 Not Avai lable [facility] [address] [address], [place], [address], 04/17/2025 12:26:32 04/17/2004/17/2025 TSH TSH 1.70 uIU/m L 0.49-3 .82 Not Available [facility] [address] [address], [place], [address], 04/17/2025 12:47:46 04/17/2004/17/2025 CMP (MALE ) glucose 91.0 mg/dL 60.0-9 9.0 Not Available [facility] [address] [place] [address] [address], [place], [address], 04/17/2025 12:48:56 04/17/20 25 04/17/2025 CMP (MALE ) BUN (blood urea nitrogen) 15.0 mg/dL 10.0-2 6.0 Not Available [facility] [address] [facility] 1, [place], [address], 04/17/2025 12:48:56 04/17/20 25 04/17/2025 CMP (MALE ) creatinine (serum) 0.9 mg/dL 0.4-1. 5 Not Available [facility] [address] [place] [facility], [place], [address], 04/17/2025 12:48:56 04/17/20 25 04/17/2025 CMP (MALE ) BUN/creatini ne ratio 16.67 ratio Not Available [facility] [address] [facility], [place], [address], 04/17/2025 12:48:56 04/17/20 25 04/17/2025 CMP (MALE ) eGFR calculated 94.6 Not Available [facility] [address] [facility], [place], [address], 04/17/2025 12:48:56 04/17/20 25 04/17/2025 CMP (MALE ) total protein 6.7 g/dL 6.0-8. 5 Not Available [facility] [address] [facility], [place], [address], 04/17/2025 12:48:56 04/17/20 25 04/17/2025 CMP (MALE ) total bilirubin 0.6 mg/dL 0.2-1. 3 Not Available [facility] [facility], [place], [address], 04/17/2025 12:48:56 04/17/20 25 04/17/2025 CMP (MALE ) albumin 4.1 g/dL 3.5-5. 5 Not Available [facility] [address] [facility] 1, [place], [address], 04/17/2025 12:48:56 04/17/2004/17/2025 CMP (MALE ) globulin 2.6 calc Not Available [facility] [address] [place] [facility] 1, [place], [address], 04/17/2025 12:48:56 04/17/20 25 04/17/2025 CMP (MALE ) AST (SGOT) 24.0 U/L 0.0-46 .0 Not Available [facility] [address] [facility] 1, [place], [address], 04/17/2025 12:48:56 04/17/20 25 04/17/2025 CMP (MALE ) altv (SGPT) 18.0 U/L 13.0-6 9.0 normal Not Available [facility] [address] [facility] 1, [place], [address], 04/17/2025 12:48:56 04/17/2004/17/2025 CMP (MALE ) A/G ratio 1.6 ratio Not Available [facility] [address] [place] [facility] 1, [place], [address], 04/17/2025 12:48:56 04/17/20 25 04/17/2025 CMP (MALE ) ALP phos 52.0 U/L 30.0-1 40.0 normal Not Available [facility] [address] [facility] 1, [place], [address], 04/17/2025 12:48:56 04/17/2004/17/2025 CMP (MALE ) calcium 9.6 mg/dL 8.4-10 .5 Not Available [facility] [address] [place] [address] [facility] 1, [place], [address], 04/17/2025 12:48:56 04/17/20 25 04/17/2025 CMP (MALE ) sodium 136.0 mmol/ L 136.0- 145.0 Not Available [facility] [address] [place] [facility], [place], [address], 04/17/2025 12:48:56 04/17/20 25 04/17/2025 CMP (MALE ) potassium 4.7 mmol/ L 3.5-5. 1 Not Available [facility] [address] [facility] 1, [place], [address], 04/17/2025 12:48:56 04/17/2004/17/2025 CMP (MALE ) chloride 105.0 mmol/ L 98.0-1 10.0 normal Not Available [facility] [address] [facility] 1, [place], [address], 04/17/2025 12:48:56 04/17/20 25 04/17/2025 CMP (MALE ) C02 22.0 mmol/ L 22.0-3 1.0 Not Available [facility] [address] [facility] 1, [place], [address], 04/17/2025 12:48:56 04/17/2004/17/2025 CMP (MALE ) anion gap 9.0 calc Not Available [facility] [address] [facility] 1, [place], [address], 04/17/2025 12:48:56 04/17/2004/17/2025 CMP (MALE ) osmolality 281.6 calc Not Available [facility] [address] [facility] 1, [place], [address], 04/17/2025 12:48:56 04/17/2004/17/2025 LIPID PROFI LE (MALE ) cholesterol 273.0 mg/dL 0.0-20 0.0 high Not Available [facility] [address] [facility] 1, [place], [address], 04/17/2025 12:48:59 04/17/2004/17/2025 LIPID PROFI LE (MALE ) trig 324.0 mg/dL 0.0-15 0.0 high Not Available [facility] [address] [facility] 1, [place], [address], 04/17/2025 12:48:59 04/17/2004/17/2025 LIPID PROFI LE (MALE ) HDL - direct 37.0 mg/dL >40.0 low Not Available [facility] [address] [facility] 1, [place], [address], 04/17/2025 12:48:59 04/17/2004/17/2025 LIPID PROFI LE (MALE ) VLDL - direct 64.8 mg/dL Not Available [facility] [address] [address], [place], [address], 04/17/2025 12:48:59 04/17/2004/17/2025 LIPID PROFI LE (MALE ) LDL - direct 171.2 mg/dL 0.0-13 0.0 high Not Available [facility] [address] [address], [place], [address], 04/17/2025 12:48:59 04/17/2004/18/2025 VALPR OIC ACID valproic acid 76.6 mg/L 50.0-1 00.0 normal Not Available [facility] [address] [place], [address], 04/18/2025 09:39:31 Result Notes None recorded. Problems Name Problem SNOMED Code Status Onset Date Resolution Date Notes Provider Name and Address Organization Details Recorded Time Mood disorder 96664900 Active 2021 THEO Castro - [facility], L.LHaydeCHayde 4 23:14:55 Attention deficit hyperactiv ity disorder 295886025 Active 2021 [facility] [place]CH[facility] 4 23:14:12 Depressive disorder 59853634 Active 2021 [facility] [place], LivLHaydeCHayde 4 23:14:22 Schizophre ute 83942758 Active 2021 [facility] [place] LivL.CHayde 4 23:15:08 Insomnia 056953588 Active 2021 [facility] [place] JosselynCHayde 4 23:14:45 Hypertensi ve disorder 53770405 Active 2021 [facility] [place] LivLHaydeCHayde 4 23:14:35 Amphetamin e abuse 57557330 Active 2021 [facility] [place] LivL.CHayde 4 23:14:02 Suicidal intent 557720406 Active 2023 Overdose on prescripti on medication s. [facility] [place] LivL.CHayde 4 23:16:37 Psychotic disorder 39101148 Active 2023 [facility] [place] LivL.CH[facility]de 4 23:17:19 Hypothyroi dism 05323803 Active 2023 [facility] [place], Niurka.L.CHayde 4 23:17:43 Hyperlipid emia 75048382 Active 2023 [facility] [place] L.L.[facility] 4 23:18:03 Seizure disorder 068620575 Active 2024 AZALIA SANTIAGO, [facility] [address] [place], [address], [facility] 5 11:55:06 Problem Notes None recorded. Medical Equipment None Reported. Allergies Allergen ID Allergen Name Allergen Category Reaction Reaction Severity Criticality Documentation Date Start Date Code Code System Note Provider Name and Address Organization Details Recorded Time 96083 penicilli n V potassium medicatio n Not available Not available Not available 03/12/202305551 5 RxNorm CHASE JUAN RAMON [facility], L.LHaydeCHayde 4 17:21:18 Medications Name Sig Start Date [...] every four hours, as needed 03/27 completed 19319; Recorded 06/23/20 21 1:04PM by Juan Ramon [...] Not Available Vitamin D3 daily 03/27 completed 77002; Recorded 03/06/20 21 2:28PM by Chase Delatorre CMT (Patti juarez through TIFFANY Mirza), Refill Request; Refill [...] completed Not Available Not Available Not Available [facility] 75 mg disintegr ating tablet TAKE 1 TABLET BY MOUTH DAILY as needed for migraine active Not Available Not Available No t Available Vitals Date Recorded Body height Body mass index (BMI) Body weight Oxygen saturation Heart rate Body temperature Systolic And Diastolic Provider Name and Address Organization Details Last Updated DateTime 165.1 cm 41.4 kg/m2 552015. 5 g 98 % 107 /min 98.4 [degF] 134/82 mm[Hg] JUAN RAMON T[facility] 11:24:07 Social History Question Answer Notes LastModified by Organizat ion Details LastModified Time Tobacco Smoking Status Never Smoker [facility]ASE DEL[facility] [place] 01/12/2024 16:01:42 How Much Tobacco Do [...] 04/17/2025 What Is Your Relationship Status? Single [email or web address] Information not available 01/12/2024 Has Tobacco Cessation Counseling Been Provided? Yes [email or web address] Information not available 01/12/2024 On What Date [...] other forms of tobacco or nicotine? Yes [email or web address] Information not available 01/12/2024 What is your level of alcohol consumption? None Quit years ago Information not available 04/17/2025 Do you or have you ever used smokeless tobacco? Currently chews tobacco [email or web address] Information not available 01/12/2024 Are you currently employed? No [email or web address] Information not available 01/12/2024 Do you have transportation difficulties? Yes [email or web address] Information not available 01/12/2024 Are you able to care for yourself independently? No [email or web address] Information not available 01/12/2024 Do you or [...] difficulty concentrating, remembering or making decisions? Yes [email or web address] Information no t available 01/12/2024 Family History Relationship Description Onset Age of this Age Resolved Age Notes LastModified by Organization Details LastModified Time Mother Essential hypertension [email or web address] Not available 15:57:00 Paternal Grandmother Cerebrovascu lar accident [email or web address] Not available 15:57:18 Father Essential hypertension [email or web address] Not available 15:57:38 Father Myocardial infarction [email or web address] Not available 12/15 15:59:46 Medical History Condition Response Anxiety Disorder Y High Cholesterol Y Thyroid Problems Y Mental Illness Y Hypertension Y Hypothyroidism Y Depression Y Developmental or Behavioral Disorders Y Immunizations Vaccine Type Date Status Note Provider Nam e and Address Organization Details Recorded Time Influenza, split virus, trivalent, PF 5 completed CHASE delong [facility] 04/29/2025 12:36:02 COVID-19, mRNA, LNP-S, PF, 100 mcg/0.5mL dose or 50 mcg/0.25mL dose 1 completed AZALIA SANTIAGO [facility] [address] [place] [address], [address], [facility] 03/02/2023 11:34:39 Tdap 9 completed AZALIA SANTIAGO, [facility] [address] [place], [address], [facility] 03/02/2023 11:34:39 influenza, split (incl. purified surface antigen) 0 completed AZALIA SANTIAGO, [address], [address], [facility] 03/02/2023 11:34:39 Td (adult), 2 Lf tetanus toxoid, preservative free, adsorbed 5 completed AZALIA SANTIAGO, [address], [address], [facility] 03/02/2023 11:34:39 Hep B, adult 0 completed AZALIA SANTIAGO, [address], [address], [facility] 03/02/2023 11:34:39 Hep B, adult 0 completed AZALIA SANTIAGO, [address], [address], [facility] 03/02/2023 11:34:39 Hep B, adult 9 completed AZALIA SANTIAGO, [address], [address], [facility] 03/02/2023 11:34:39 Hep A, adult 0 completed AZALIA SANTIAGO, [address], [address], [facility] 03/02/2023 11:34:39 Hep A, adult 9 completed TIFFANY MARTE [address] [place] [address], [address], [facility], Kecia. 03/02/2023 11:34:39 Influenza, MDCK, trivalent, preservative 4 completed Not Available [facility] 05/16/2025 09:35:25 Influenza, split virus, quadrivalent, PF 3 completed [facility] [place], LHaydeLAmeya. 04/26/2023 15:47:08 Past Encounters Encounter ID Performer Location Encounter Start Date Encounter Closed Date Diagnosis/Indication Diagnosis SNOMED-CT Code Diagnosis ICD10 Code Diagnosis IMO Codes Diagnosis Note [id number] TIFFANY MARTE [facility] ([facility]) [address] [place] [address] 04/17/2025 10:09:31 04/17/2025 11:17:28 Hypothyroidism 93367922 E03.9 Schizophrenia 25491033 F 20.9 He has been seeing a psychiatri st in the facility he was at but will need to change to someone local. Discussed options with him and he will go to [facility]. Therapeuti c drug monitoring assay 49400184 Z51.81 596412 Hypertensive disorder 38 617287 I10 Seizure disorder 6711262 02 G40.909 He has been following with neurology in [facility] and they are supposed to send a referral to neurology here in [facility]. General ex amination of patient 124458000 Z00.00 [id number] Ingrowing nail 604172514 L60.0 99657 Left foot [id number] TIFFANY MARTE [facility] ([facility]) [address] [place] [phone] 04/29/2025 10:37:17 04/29/2025 12:12:06 Hypothyroidism 15971711 E03.9 Seizure disorder 4857639 02 G40.309 G43.909 547088 He has been following with neurology in [facility] and they are supposed to send a referral to neurology here in [facility]. He has not heard from the neurology office here, will place referral. He has been getting Botox shots for his migraines. Administra tion of influenza vaccine 41622462 Z23 Nasal congestion 1930307 0 R09.81 Essential hypertension 96354888 I10 83962 Muscle tension pain 2790 34403 M79.10 69614001 Health Concerns Section Related Observation LastModified by Organization Detai ls LastModified Time None Recorded Concern Status LastModified by Organization Details LastModified Time None Recorded Payers Encounter Date Sequence Insurance Name Policy Number Policy Santizo Covered Member ID Santizo Member ID Guarantor Name 04/29/2025 1 [place] Walt Madsen [id number] Walt Lund Scottidania Notes Date Note Type Note Provider Name and Address Organization Details Recorded Time 04/29/2025 text/html Hypertension IM/FMReported by PatientHPIFor severity, patient reportsstage 1 (130-139/80-89 mmhg). For self care, patient reportsunder emotional stressbut reportslimiting alcohol intake. For associated symptoms, patient reportsshortness of breathandfatiguebut reportsno palpitationsandno chest pain(cramps left axillary - 2-3 times per week). For quality, patient reportshere for check-up. HypothyroidReported by PatientHPIFor associated symptoms, patient reportslightheadedness ,fatigue,constipation, anddepressed moodbut reportsno weakness,no chest pain, andno palpitations. For treatment, patient reportstaking medication as prescribed. AZALIA SANTIAGO, [facility] [address] [place], [address], [facility] 04/29/2025 12:01:35
[2025-07-07 19:00] LABS: Hematocrit 37.1 % (37-53); Hemoglobin 12.30 g/dL (11.27-16.99); Mean Corpuscular HGB Conc 33.2 g/dL (30-55); Mean Corpuscular Hemoglobin 31.4 pg (27-33); Mean Corpuscular Volume 94.6 fl (82-101); Nucleated Red Blood Cells % 0 %; Platelet Count 208 10^3/cmm (157-399); Red Blood Count 3.92 10^6/uL (3.85-5.65); White Blood Count 6.27 10^3/uL (3.29-11.43)
[2025-07-07] MEDS: diphenhydrAMINE 50 mg/mL SDV 1mL 25 MG IVP (19:23)
[2025-07-07 19:33] LABS: Alanine Aminotransferase 35 U/L (0-41); Albumin Level 4.1 g/dL (3.5-5.2); Alkaline Phosphatase 64 U/L (40-130); Aspartate Amino Transferase 27 U/L (0-40); Blood Urea Nitrogen 11 mg/dL (6-20); Calcium 9.4 mg/dL (8.5-10.5); Carbon Dioxide 25 mmol/L (22-29); Chloride 104 mmol/L (98-107); Globulin 2.2 g/dL (1.3-4.6); Glucose 99 mg/dL (65-115); Osmolality Calculated 289 mOsm/kg (285-295); Sodium 140 mmol/L (136-145); Total Protein 6.3 g/dL (6.6-8.7)
[2025-07-07 19:34] LABS: Anion Gap 14.8 (5-19); Potassium 3.8 mmol/L (3.5-5.1)
--- NOTE | 2025-07-07 20:33 | W.ED.HA ---
HPI - Headache General: Chief Complaint: Headache Stated Complaint: headache Time Seen by Provider: 07/07/25 17:35 History of Present Illness: Patient is a 50-year-old male with a history of recurrent migraines who presents with a severe migraine that started earlier in the day without obvious provoking factors and has been progressive increasing in severity, has taken Tylenol and Zyrtec with mild relief. endorses mild sinus congestion but no FLS, NVD. no recent trauma, neck manipulation, vision changes, jaw claudication, hx of VTE, fevers. feels like his normal SHEA just more severe in nature, gets Botox injections for them but nothing recently. Associated symptoms: Deny chest pain, fever(s) or rash Related Data Home Medications ?Medication ?Instructions ?Recorded ?Confirmed gabapentin 300 mg capsule 300 mg PO BID 04/25/25 07/04/25 lisinopril 20 mg tablet 20 mg PO DAILY 04/25/25 07/04/25 multivitamin (One-A-Day Essential 1 tab PO DAILY 04/25/25 07/04/25 tablet) naproxen 500 mg tablet 500 mg PO BID 04/25/25 07/04/25 ondansetron HCl 4 mg tablet 4 mg PO Q8H 04/25/25 07/04/25 rimegepant 75 mg disintegrating mg PO 04/25/25 07/04/25 tablet (Nurtec ODT) tizanidine 4 mg tablet 4 mg PO BID PRN 04/25/25 07/04/25 docusate sodium 100 mg capsule 100 mg PO DAILY PRN 07/04/25 07/04/25 (Colace) Previous Rx's ?Medication ?Instructions ?Recorded levothyroxine 25 mcg tablet 25 mcg PO .q AM 30 days #30 tabs 03/14/24 benztropine 1 mg tablet 1 mg PO BID #60 tabs 04/25/25 divalproex 500 mg tablet,delayed 1,500 mg (3 x 500 mg) PO BID #180 04/25/25 release (Depakote) tabs mirtazapine 30 mg tablet 30 mg PO BEDTIME #30 tabs 04/25/25 paliperidone palmitate 234 mg/1.5 234 mg (1.5 mL) IM Q28D #1.5 mL 04/25/25 mL intramuscular syringe (Invega Sustenna) topiramate 100 mg tablet (Topamax) 100 mg PO BID #60 tabs 04/25/25 levetiracetam 750 mg tablet 750 mg PO BID #60 tabs 05/06/25 paliperidone 6 mg tablet,extended 6 mg PO QAM #30 tabs 05/06/25 release 24 hr (Invega) paliperidone 3 mg tablet,extended 3 mg PO QAM #30 tabs 07/04/25 release 24 hr (Invega) prazosin 2 mg capsule 8 mg (4 x 2 mg) PO BEDTIME #120 07/04/25 caps sbemtdcehj-ooiwtygirccxz-ikztdhwc 1 cap PO BID PRN pain #10 caps 07/07/25 50 mg-300 mg-40 mg capsule (Fioricet) Allergies Allergy/AdvReac Type Severity Reaction Status Date / Time Penicillins Allergy unknown Verified 07/07/25 17:30 deutetrabenazine (From AdvReac Severe ADR-Agitate Verified 07/07/25 17:30 [place]) d Review of Systems General: Reports: 10 or more systems reviewed and unremarkable except in HPI and below Const: Denies: fever(s) or chills Eyes: Denies: change in vision or eye discharge ENMT: Reports: nasal congestion Card: Denies: chest pain, palpitations or swelling of feet/ankles Resp: Denies: dyspnea or productive cough GI: Denies: abdominal pain or diarrhea : Denies: difficulty urinating Musc: Denies: neck pain or back pain Skin/Breast: Denies: rash or jaundice Neuro: Reports: headache(s); Denies: numbness in extremities or weakness in extremities Michael/Lymph: Denies: easy bruising or easy bleeding PFSH ED PFSH: Medical History (Updated 07/07/25 @ 20:37 by Usman Polanco DO) Chronic post-traumatic stress disorder Seizure-like activity 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, 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 Nicotine dependence due to vaping tobacco product Psychiatric care Bipolar I disorder, severe, current or most recent episode manic, with psychotic features Chewing tobacco nicotine dependence without complication Hypothyroidism GERD (gastroesophageal reflux disease) Hypertension Colitis Seasonal allergies Hyperlipidemia Benign essential HTN Surgical History History of dental surgery Family History Other Diabetes Hyperlipidemia Lung disease Schizophrenia Stroke Social History (Updated 07/04/25 @ 16:37 by CHARI Lim) Smoking and tobacco/nicotine status: current every day tobacco/nicotine user e-cigarettes E-Cigarette Details: vaporizer device and smokeless tobacco Smokeless tobacco user: chewing tobacco Smokeless tobacco details: 3-4 cans per week Quit status (tobacco/nicotine): not considering quitting Second hand smoke exposure: Yes Alcohol intake: current Alcohol intake frequency: holidays/special occasions only Substance/Drug Use: former Date of last use: Celebrated 15 months sober on 05/18/25 Former substance use details: Methamphetamine-IV Adopted: No Caregiver/support person: No Lives independently: No Household members: family and other Details: Lives with his mother Housing: House Marital status: Marital status details: 2013 Number of children: 1 Number of grandchildren: 1 Highest education level completed: GED or Equivalent service: No Current occupational status: disabled Current occupational exposures/hazards: No Pets and animals: No Leisure activites: music and other Leisure activities details: hamilton quite a bit Sexually active: No Do you think of yourself as: Straight/Heterosexual Current gender identity: Male Lianet/Alevism: Mu-Ism Special lianet needs: No Agree to transfusion: Yes Physical Exam Narrative: EXAM NARRATIVE: Patient overall well-appearing, afebrile and vital signs stable on arrival, no acute distress. head normocephalic, PERRL with all visual taveras grossly intact no proptosis EOMI and no sceral injection, moist mucous membranes, mild sinus congestion, no cervical LAD. breathing comfortably on RA, saturating well, clear BL and no adventitious breath sounds, able to speak in full sentences without getting SOB, no signs of respiratory distress. NSR with no murmurs, no leg swelling, 2+ pulses throughout, good cap refill. Abdomen soft, nontender, nondistended, no localizing or peritonitic signs, no overlying skin changes, no CVA ttp. 4 extremities without apparent deformity or injury. GCS 15, AAOx4, mildly photophobic, able to answer questions and follow commands appropriately, moving all 4 extremities symmetrically and spontaneoulsy. Normal mood and affect. Course Vital Signs: Vital signs: Vital Signs Temperature 97.6 F 07/07/25 17:26 Pulse Rate 95 07/07/25 21:25 Blood Pressure 116/84 07/07/25 21:25 Pulse Oximetry 97 07/07/25 21:25 Oxygen Delivery Me thod Room Air 07/07/25 21:24 MDM - Headache Medical Decision Making -ddx: migraine, tension SHEA, cluster SHEA, sinus infection, considered but less likely: SAH, dural venous sinus thrombosis, meningitis, glaucoma, GCA, carotid dissection -patient with 1d of migraine, has been progressively worsening. due to feeling like his usual SHEA, not being abrupt in onset and no red flag signs or sx on exam, will start with basic labs and migraine cocktail and will expand tinoco if doesnt improve -basic labwork reassuring for no systemic infeciton or inflammation, no electrolyte abnl, no KAREN. migraine had decrased from a 10/10 to a 1 and patient felt a lot more comfortable, was able to PO and ambulate without issue and dc'd in stable condition with trial of Firocet for breaktrhough mgiraines at home, encouarged to fu with PCP in a few days for reevaluation, strict return precautions given. Lab Data 07/07/25 18:54 07/07/25 18:54 Laboratory Results WBC 6.27 10^3/uL (3.29-11.43) 07/07/25 18:54 RBC 3.92 10^6/uL (3.85-5.65) 07/07/25 18:54 Hgb 12.30 g/dL (11.27-16.99) 07/07/25 18:54 Hct 37.1 % (37-53) 07/07/25 18:54 MCV 94.6 fl (82-101) 07/07/25 18:54 MCH 31.4 pg (27-33) 07/07/25 18:54 MCHC 33.2 g/dL (30-55) 07/07/25 18:54 RDW 12.2 % (12.1-15.1) 07/07/25 18:54 Plt Count 208 10^3/cmm (157-399) 07/07/25 18:54 MPV 10.3 fL (7.4-10.4) 07/07/25 18:54 Neut % (Auto) 62.5 % 07/07/25 18:54 Lymph % (Auto) 24.7 % 07/07/25 18:54 Brule % (Auto) 9.6 % 07/07/25 18:54 Eos % (Auto) 2.1 % 07/07/25 18:54 Baso % (Auto) 0.6 % 07/07/25 18:54 Neut # (Auto) 3.92 10^3/uL (1.8-7.7) 07/07/25 18:54 Lymph # (Auto) 1.6 10^3/uL (0.8-4.8) 07/07/25 18:54 Brule # (Auto) 0.6 10^3/uL (0.2-0.9) 07/07/25 18:54 Eos # (Auto) 0.1 10^3/uL (0.0-0.8) 07/07/25 18:54 Baso # (Auto) 0.0 10^3/uL (0.0-0.1) 07/07/25 18:54 Nucleated RBC % (auto) 0 % 07/07/25 18:54 Nucleated RBCs # 0.0 /100WBC 07/07/25 18:54 Sodium 140 mmol/L (136-145) 07/07/25 18:54 Potassium 3.8 mmol/L (3.5-5.1) 07/07/25 18:54 Chloride 104 mmol/L (98-107) 07/07/25 18:54 Carbon Dioxide 25 mmol/L (22-29) 07/07/25 18:54 Anion Gap 14.8 (5-19) 07/07/25 18:54 BUN 11 mg/dL (6-20) 07/07/25 18:54 Creatinine 0.8 mg/dL (0.7-1.2) 07/07/25 18:54 GFR Calculation 101.9 mL/min (90-130) 07/07/25 18:54 Glucose 99 mg/dL (65-115) 07/07/25 18:54 Calculated Osmolality 289 mOsm/kg (285-295) 07/07/25 18:54 Calcium 9.4 mg/dL (8.5-10.5) 07/07/25 18:54 Total Bilirubin 0.2 mg/dL (0.15-1.2) 07/07/25 18:54 AST 27 U/L (0-40) 07/07/25 18:54 ALT 35 U/L (0-41) 07/07/25 18:54 Alkaline Phosphatase 64 U/L (40-130) 07/07/25 18:54 C-Reactive Protein 5.0 mg/L (0.0-4.9) H 07/07/25 18:54 Total Protein 6.3 g/dL (6.6-8.7) L 07/07/25 18:54 Albumin 4.1 g/dL (3.5-5.2) 07/07/25 18:54 Globulin 2.2 g/dL (1.3-4.6) 07/07/25 18:54 No radiology studies performed this visit Discharge Plan Discharge Patient Disposition: Home Clinical Impression: Migraine Condition: Stable Prescriptions: New gmlpfvzihh-ukaqltunrvucy-brly [Fioricet] 50-300-40 mg capsule 1 cap PO BID PRN (Reason: pain) Qty: 10 0RF No Action multivitamin [One-A-Day Essential] Tablet 1 tab PO DAILY tizanidine 4 mg tablet 4 mg PO BID PRN ondansetron HCl 4 mg tablet 4 mg PO Q8H gabapentin 300 mg capsule 300 mg PO BID naproxen 500 mg tablet 500 mg PO BID Nurtec ODT 75 mg tablet,disintegrating PO lisinopril 20 mg tablet 20 mg PO DAILY Invega Sustenna 234 mg/1.5 mL syringe 234 mg IM Q28D Qty: 1.5 12RF Rx Instructions: Injection every 28 days, next injection due on 05/09/25. mirtazapine 30 mg tablet 30 mg PO BEDTIME Qty: 30 6RF Rx Instructions: Take one tablet at bedtime divalproex [Depakote] 500 mg tablet,delayed release (DR/EC) 1,500 mg PO BID Qty: 180 6RF Rx Instructions: Take three tablets twice per day topiramate [Topamax] 100 mg tablet 100 mg PO BID Qty: 60 6RF Rx Instructions: Take one tablet twice per day benztropine 1 mg tablet 1 mg PO BID Qty: 60 6RF Rx Instructions: Take one tablet twice per day docusate sodium [Colace] 100 mg capsule 100 mg PO DAILY PRN prazosin 2 mg capsule 8 mg PO BEDTIME Qty: 120 3RF Rx Instructions: Take four capsules at bedtime paliperidone [Invega] 3 mg tablet extended release 24hr 3 mg PO QAM Qty: 30 6RF Rx Instructions: Take one tablet every morning with 6 mg tablet, total dose 9 mg levetiracetam 750 mg tablet 750 mg PO BID Qty: 60 3RF Rx Instructions: Take one tablet twice per day paliperidone [Invega] 6 mg tablet extended release 24hr 6 mg PO QAM Qty: 30 3RF Rx Instructions: Take one tablet every morning levothyroxine 25 mcg tablet 25 mcg PO .q AM 30 Days Qty: 30 1RF Discharge Orders: Discharge ED (Routine); Ordered 07/07/25 Ordered By: Usman Polanco Referrals: Azalia Huddleston FNP [Primary Care Provider, Unknown] Discharge Diet: Usual diet Discharge Activity: Resume usual activity Patient Instructions: Opioid Safety, Pain Management, Patient Portal & Thu Instructions Activity Restrictions/Additional Instructions: You were seen for your headache, you were evaluated with labs that were ultimately reassuring. Your headache improved with a combination of medications and you were deemed stable to be discharged home. For headaches in the future, after your usual medications do not help, you can trial using the Fioricet, 1 tablet every 12 hours as needed for breakthrough headache, do not drive or operate heavy machinery with this medication as it can be sedating. Follow-up with your primary care provider for further evaluation if this medication works for a long-term prescription. Return to the ED with severe worsening of your headache, vomiting, fevers, severe confusion, any other emergent concerns. Print Language: Hungarian Coding Level of Care Code ED Piano Refinisher for Mimi Gastelum
== END 2025-07-07 21:14 | disposition home or self-care (01) ==
PROVIDERS: Emergency Provider Student in an Organized Health Care Education/Training Program; PCP Nurse Practitioner Family
DX: G43.909 Migraine, unspecified, not intractable, without status migrainosus (principal)
CPT/HCPCS: 36415; 80053; 85025; 86140; 96374; 96375; 99284; J0780; J1200; J1885; J7030

== ENCOUNTER → 2025-07-22 14:45 | Outpatient (BNVA) | payer MEDICAID, SELFPAY ==
[2023-08-10 15:01] VITALS: BP 96/54; BMI 23.5
== END ==
PROVIDERS: PCP Nurse Practitioner Family; Visit Provider Podiatrist Foot & Ankle Surgery
DX: L60.0 Ingrowing nail (principal)
CPT/HCPCS: 99213

== ENCOUNTER → 2025-07-31 11:39 | Outpatient (BNVA) | payer MEDICAID, SELFPAY ==
[2025-07-31 16:32] VITALS: BP 96/54; BMI 23.5
== END ==
PROVIDERS: PCP Nurse Practitioner Family; Visit Provider Nurse Practitioner Psychiatric/Mental Health
DX: Z79.899 Other long term (current) drug therapy (principal)
CPT/HCPCS: 80061; 83036